=== PATIENT | female | born 1930 | race Caucasian/White ===

== ENCOUNTER 2017-07-28 06:45 | Inpatient (IN) | payer MEDICARE, BC ==
--- NOTE | 2017-07-28 08:04 | ED ---
General Adult HPI - General Chief complaint: Abdominal Pain Stated complaint: Constipation Time Seen by Provider: 07/28/17 07:46 Source: patient, family, RN notes reviewed Mode of arrival: ambulatory Limitations: no limitations - History of Present Illness Initial comments: Patient is a pleasant 86-year-old female presenting to the emergency Department with complaints of constipation. Patient states she's not had a bowel movement in more than 3 days. Patient believes that is probably been 5 days or so. Patient has had some nausea and mild emesis. Discomfort is mostly lower abdomen and mostly cramping. No fevers. No history of chronic constipation problems. - Related Data Home Medications Medication Instructions Recorded Confirmed Estrogens, Conjugated Cream 0.5 applicator VAGINAL WEFR 09/29/15 07/28/17 [Premarin Cream] Levothyroxine Sodium [Synthroid] 25 mcg PO DAILY 09/29/15 07/28/17 Atenolol [Tenormin] 37.5 mg PO DAILY 07/28/17 07/28/17 Cholecalciferol [Vitamin D3] 1,000 unit PO DAILY 07/28/17 07/28/17 Ipratropium-Albuterol Nebulize 3 ml INHALATION RT-TID 07/28/17 07/28/17 [Duoneb 0.5 mg-3 mg/3 ml Soln] Mometasone/Formoterol [Dulera 200 2 puff INHALATION RT-BID 07/28/17 07/28/17 Mcg/5 Mcg Inhaler] Montelukast [Singulair] 10 mg PO HS 07/28/17 07/28/17 Nortriptyline [Pamelor] 10 mg PO DAILY 07/28/17 07/28/17 Omeprazole 20 mg PO DAILY 07/28/17 07/28/17 Verapamil HCl [Verapamil Sr] 120 mg PO DAILY 07/28/17 07/28/17 Allergies Allergy/AdvReac Type Severity Reaction Status Date / Time carisoprodol [From Soma] Allergy Unknown Verified 07/28/17 08:40 celecoxib [From Celebrex] Allergy Unknown Verified 07/28/17 08:40 duloxetine HCl Allergy Unknown Verified 07/28/17 08:40 [From Cymbalta] lisinopril Allergy Unknown Verified 07/28/17 08:40 metaxalone [From Skelaxin] Allergy Unknown Verified 07/28/17 08:40 milk Allergy Diarrhea Verified 07/28/17 08:40 naproxen [From Naprosyn] Allergy Itching Verified 07/28/17 08:40 NSAIDS (Non-Steroidal Allergy Unknown Verified 07/28/17 08:40 Anti-Inflamma prednisone Allergy Unknown Verified 07/28/17 08:40 pregabalin [From Lyrica] Allergy Unknown Verified 07/28/17 08:40 rofecoxib [From Vioxx] Allergy Nausea & Verified 07/28/17 08:40 Vomiting & Diarrhea tramadol Allergy Itching Verified 07/28/17 08:40 dust mites Allergy Unknown Uncoded 07/28/17 06:57 Review of Systems ROS Statement: Those systems with pertinent positive or pertinent negative responses have been documented in the HPI. ROS Other: All systems not noted in ROS Statement are negative. Constitutional: Denies: fever Eyes: Denies: eye pain ENT: Denies: ear pain Respiratory: Denies: cough Cardiovascular: Denies: chest pain Endocrine: Denies: fatigue Gastrointestinal: Reports: abdominal pain, nausea, constipation Genitourinary: Denies: dysuria Musculoskeletal: Denies: back pain Skin: Denies: rash Neurological: Denies: weakness Past Medical History Past Medical History: Asthma, Fibromyalgia, Hypertension Additional Past Medical History / Comment(s): UTI, tachycardia History of Any Multi-Drug Resistant Organisms: None Reported Past Surgical History: Appendectomy, Hysterectomy, Orthopedic Surgery, Tubal Ligation Additional Past Surgical History / Comment(s): nasal surgery, cataracts Past Psychological History: No Psychological Hx Reported Smoking Status: Never smoker Past Alcohol Use History: None Reported Past Drug Use History: None Reported General Exam Limitations: no limitations General appearance: alert, in no apparent distress Head exam: Present: atraumatic Eye exam: Present: normal appearance, PERRL ENT exam: Present: normal oropharynx Neck exam: Present: normal inspection Respiratory exam: Present: normal lung sounds bilaterally Cardiovascular Exam: Present: regular rate, normal rhythm Expanded Peripheral pulses: 2+: Posterior Tibialis (R), Posterior Tibialis (L) GI/Abdominal exam: Present: soft, tenderness (Mild tenderness lower abdomen), normal bowel sounds. Absent: distended, guarding, rebound, rigid, pulsatile mass Extremities exam: Present: normal inspection Neurological exam: Present: alert Psychiatric exam: Present: normal affect, normal mood Skin exam: Present: normal color Course Vital Signs 07/28/17 07/28/17 07/28/17 06:51 07:44 08:50 Temperature 97.7 F Pulse Rate 92 76 76 Respiratory 20 16 16 Rate Blood Pressure 91/53 121/67 124/60 O2 Sat by Pulse 98 97 97 Oximetry Medical Decision Making - Medical Decision Making Patient reevaluated and resting comfortably in bed. Patient and family updated on results and plan. Case was discussed with Dr. Kwong covering for Dr. Bird. He does recommend medical admission for Dr. moran. - Lab Data Result diagrams: 07/28/17 07:22 07/28/17 07:22 Lab Results 07/28/17 07/28/17 07/28/17 Range/Units 07:22 07:22 07:22 WBC 11.5 H (3.8-10.6) k/uL RBC 4.24 (3.80-5.40) m/uL Hgb 14.1 (11.4-16.0) gm/dL Hct 43.7 (34.0-46.0) % MCV 103.1 H (80.0-100.0) fL MCH 33.4 (25.0-35.0) pg MCHC 32.4 (31.0-37.0) g/dL RDW 14.0 (11.5-15.5) % Plt Count 300 (150-450) k/uL Neutrophils % 85 % Lymphocytes % 6 % Monocytes % 6 % Eosinophils % 1 % Basophils % 1 % Neutrophils # 9.8 H (1.3-7.7) k/uL Lymphocytes # 0.7 L (1.0-4.8) k/uL Monocytes # 0.7 (0-1.0) k/uL Eosinophils # 0.1 (0-0.7) k/uL Basophils # 0.1 (0-0.2) k/uL Macrocytosis Slight PT 11.0 (9.0-12.0) sec INR 1.1 (<1.2) APTT 24.9 (22.0-30.0) sec Sodium 135 L (137-145) mmol/L Potassium 3.9 (3.5-5.1) mmol/L Chloride 101 (98-107) mmol/L Carbon Dioxide 25 (22-30) mmol/L Anion Gap 9 mmol/L BUN 14 (7-17) mg/dL Creatinine 0.72 (0.52-1.04) mg/dL Est GFR (MDRD) Af Amer >60 (>60 ml/min/1.73 sqM) Est GFR (MDRD) Non-Af >60 (>60 ml/min/1.73 sqM) Glucose 115 H (74-99) mg/dL Calcium 9.3 (8.4-10.2) mg/dL Total Bilirubin 1.7 H (0.2-1.3) mg/dL AST 33 (14-36) U/L ALT 43 (9-52) U/L Alkaline Phosphatase 67 (38-126) U/L Total Protein 5.7 L (6.3-8.2) g/dL Albumin 3.3 L (3.5-5.0) g/dL Amylase <30 L (30-110) U/L Lipase 35 (23-300) U/L - Radiology Data Radiology results: report reviewed (Computed tomography scan shows small bowel obstruction with transition in the pelvis.), image reviewed (Abdominal x-ray shows ileus versus obstruction.) Disposition Clinical Impression: Small bowel obstruction Disposition: ADMITTED IP TO THIS [facility] Referrals: William iBrd MD [Primary Care Provider] - 1-2 days Decision Time: 11:38
--- NOTE | 2017-07-28 08:51 | XR ---
EXAMINATION TYPE: XR abdomen 2V , 3 VIEWS DATE OF EXAM ORDERED: 07/28/2017 HISTORY: Pain. COMPARISON: None. FINDINGS: The lung bases are clear. The abdominal gas pattern is nonspecific. There are nondistended loops of large and small bowel throu ghout the abdomen. There are scattered air-fluid levels. There are phleboliths within the pelvis. IMPRESSION: GENERALIZED ILEUS VERSUS EARLY DISTAL SMALL BOWEL OBSTRUCTION.
[2017-07-28] MEDS ORDERED: ONDANSETRON 4 MG/2 ML VIAL IVP STA (08:57)
[2017-07-28] MEDS ORDERED: RX INFO: IV CONTRAST WAS GIVEN 1 EACH MISC MISCELLANE PRN (09:16)
[2017-07-28 09:43] LABS: Basophils # (A) 0.1 k/uL (0-0.2); Basophils % (A) 1 %; Eosinophils # (A) 0.1 k/uL (0-0.7); Eosinophils % (A) 1 %; HCT 43.7 % (34.0-46.0); HGB 14.1 gm/dL (11.4-16.0); Lymphocytes # (A) 0.7 k/uL (1.0-4.8); Lymphocytes % (A) 6 %; MCH 33.4 pg (25.0-35.0); MCHC 32.4 g/dL (31.0-37.0); MCV 103.1 fL (80.0-100.0); Macrocytosis Slight; Mean Platelet Volume 7.4; Monocytes # (A) 0.7 k/uL (0-1.0); Monocytes % (A) 6 %; Neutrophils # (A) 9.8 k/uL (1.3-7.7); Neutrophils % (A) 85 %; Platelet Count 300 k/uL (150-450); RBC 4.24 m/uL (3.80-5.40); WBC 11.5 k/uL (3.8-10.6)
[2017-07-28 09:51] LABS: INR 1.1 (<1.2); Partial Thromboplastin Time 24.9 sec (22.0-30.0)
[2017-07-28] MEDS ORDERED: SODIUM CHLORIDE 0.9% 1,000 ML IV STA (09:59)
[2017-07-28 10:01] LABS: ALT 43 U/L (9-52); AST 33 U/L (14-36); Albumin 3.3 g/dL (3.5-5.0); Alkaline Phosphatase 67 U/L (38-126); Amylase <30 U/L (30-110); Anion Gap 9 mmol/L; Blood Urea Nitrogen 14 mg/dL (7-17); Calcium 9.3 mg/dL (8.4-10.2); Carbon Dioxide 25 mmol/L (22-30); Chloride 101 mmol/L (98-107); Glucose 115 mg/dL (74-99); Lipase 35 U/L (23-300); Potassium 3.9 mmol/L (3.5-5.1); Sodium 135 mmol/L (137-145); Total Bilirubin 1.7 mg/dL (0.2-1.3); Total Protein 5.7 g/dL (6.3-8.2)
--- NOTE | 2017-07-28 10:47 | CT ---
EXAMINATION TYPE: CT abdomen pelvis w con DATE OF EXAM: 07/28/2017 REFERENCE: NONE HISTORY: Pain, rule out obstruction HISTORY: Constipation, possible obstruction REFERENCE: NONE CT DLP: 520.4 mGy Automated exposure control for dose reduction was used. TECHNIQUE: Helical acquisition through the abdomen and pelvis was obtained following the oral ingesti on of without Oral Contrast and following intravenous administration of 100 mL of Omnipaque 300. The data was reformatted in axial, coronal and sagittal projections. FINDINGS: There is some dependent atelectasis in the dependent portions of both lungs. There is no p leural or pericardial fluid. The heart is minimally enlarged. There is a questionable small ulcer or diverticulum measuring 9.5 mm involving the distal esophagus. There is a tiny hiatal hernia. Within the abdomen, the liver, spleen and gallbladder are normal. Both adrenal glands are normal. There is a simple appearing 3.9 cm cyst arising from the upper pole of the left kidney. There is a sm aller, 1.4 cm simple appearing cyst seen arising from the mid polar region of the left kidney anterio rly. The pancreas is unremarkable. There is atheromatous irregularity of the aorta. There is no significant retroperitoneal, iliac or in guinal adenopathy. The bladder is unremarkable. There is fairly extensive diverticular change involving the sigmoid colon. There is a moderate stool load. The appendix is not visualized. There are dilated loops of small bowel extending into the pelvis the distal small bowel is normal in caliber. A definite transition point is not identified. There is a small amount of free fluid in the pelvis. There is no evidence of free air. There is hypertrophic spondylosis and facet arthropathy within the spine. There is widening of the S2 neural foramen on the left. 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 IMPRESSION: 1. SMALL BOWEL OBSTRUCTION WITH TRANSITION SOMEWHERE IN THE PELVIS. 2. QUESTIONABLE DISTAL ESOPHAGEAL DIVERTICULUM VERSUS ULCER. 3. LEFT RENAL CYSTIC DISEASE. 4. DIVERTICULOSIS OF THE SIGMOID COLON. 5. DEGENERATIVE CHANGES WITHIN THE SPINE.
[2017-07-28] MEDS ORDERED: NALOXONE 0.4 MG/ML 1 ML VIAL IV PRN (11:38)
[2017-07-28] MEDS ORDERED: ONDANSETRON 4 MG/2 ML VIAL IVP PRN ×2 (11:38→16:43)
[2017-07-28] MEDS ORDERED: diphenhydrAMINE 50 MG/ML 1 ML VIAL IVP PRN (14:33)
[2017-07-28] MEDS: HYDROmorphone 2 MG/ML 1 ML SYRINGE IVP PRN (14:59)
--- NOTE | 2017-07-28 16:36 | HP ---
HISTORY AND PHYSICAL DATE OF ADMISSION: 07/28/17. PRESENT COMPLAINT: Abdominal pain, nausea, vomiting. HISTORY OF PRESENTING COMPLAINT: A very pleasant 86-year-old patient transferred here from [facility]. Three days ago started having some abdominal pain, went to see her local doctor, felt to have a UTI at that time. Impression was that and given Bactrim. The patient continued to have increasing abdominal pain, started having nausea, vomiting, decreased appetite. Does not think she had any fever. Then nausea proceed to started having vomiting this morning. The patient normally has a bowel movement every day or every other day. Last bowel movement was about 4 days ago. The patient had abdominal x-ray and CT scan in the ER that showed a small bowel obstruction. Dr. Chelsea Oglesby was consulted from the ER and patient admitted to the medical floor. The patient's daughter and son-in-law at the bedside. The patient feels tired and run down. REVIEW OF SYSTEMS: CONSTITUTIONAL: Tired. HEENT: None. RESPIRATORY: Mild asthma exacerbation. CARDIOVASCULAR: None. GASTROINTESTINAL: As above. GENITOURINARY: None. MUSCULOSKELETAL: Aches and pains in joints. DERMATOLOGICAL, HEMATOLOGIC, LYMPHATIC: None. PSYCHIATRY: None. NEUROLOGICAL: None. PAST MEDICAL HISTORY: Asthma, fibromyalgia, hypertension. The patient has been worked up for arrhythmias and had a monitor placed recently. Does not know diagnosis. PAST SURGICAL HISTORY: Appendectomy, hysterectomy, orthopedic surgery, tubal ligation, nasal surgery, cataract surgery. SOCIAL HISTORY: No smoking, no alcohol, . FAMILY HISTORY: Prostate cancer. HOME MEDICATIONS: 1. Verapamil SR 120 mg a day. 2. Omeprazole 20 mg a day. 3. Pamelor 10 mg p.o. daily. 4. Singulair 10 mg q.h.s. 5. Dulera 200/5 2 puffs b.i.d. 6. Synthroid 25 mcg p.o. daily. 7. DuoNeb b.i.d. 8. Premarin 0.5, vaginal cream Wednesdays and Fridays. 9. Vitamin D3 1000 units p.o. daily. 10.Tenormin 37.5 p.o. daily. ALLERGIES: INCLUDE SOMA, CELEBREX, CYMBALTA, LISINOPRIL, SKELAXIN, MILK, NAPROXEN, NSAIDS, PREDNISONE, LYRICA, VIOXX, ULTRAM, DUST MITES. PHYSICAL EXAMINATION: Vital signs on presentation: Temperature 97.7, pulse 92, respiratory 20, blood pressure 91/53, pulse ox 98% on room air, repeat blood pressure 121/67. GENERAL APPEARANCE: Average build, lying in bed, tired appearing. EYES: Pupils equal. Conjunctivae normal. HEENT: Oral cavity, dry mucous membrane. NECK: JVD not raised. Mass not palpable. RESPIRATORY: Effort slightly increased. LUNGS: Diminished breath sounds. Mild wheezing. CARDIOVASCULAR: First and second sounds normal. No edema. ABDOMEN: Slightly distended. Some right-sided tenderness. No guarding, rigidity. Bowel sounds are hyperactive. Liver and spleen not palpable. LYMPHATIC: No lymph node palpable in neck or axillae. PSYCHIATRY: Alert and oriented x3. Mood and affect normal. NEUROLOGICAL: Pupils equal. Cranial nerves grossly intact. Power and sensation grossly intact. INVESTIGATIONS: White count 11.5, hemoglobin 14.1, potassium 3.9, BUN 14, creatinine 0.72, amylase less than 30, lipase 35. CT scan of the abdomen shows multiple air-fluid levels and obstruction of the small bowel sounds distally and sigmoid diverticulosis. ASSESSMENT: 1. Acute small-bowel obstruction with some vomiting earlier. No fevers present. 2. Sigmoid diverticulosis, chronic asymptomatic. 3. Moderate persistent asthma with mild exacerbation. 4. Chronic fibromyalgia. 5. Essential hypertension. 6. Arrhythmia type unknown. Workup is in place. PLAN: Dr. Chelsea Oglesby was consulted from the ER. The patient did n.p.o. except for p.o. medications, given IV fluids. Home medication will be resumed. Patient will be put on bronchodilators. Care was discussed with the patient. Questions were answered. MMODL / IJN: [id number] /
[2017-07-28] MEDS: IPRATROPIUM-ALBUTEROL 3 ML NEB INHALATION SCH ×2 (16:42→20:37)
[2017-07-28] MEDS ORDERED: BUDESONIDE 1 MG/2 ML NEBU INHALATION SCH ×2 (17:00)
[2017-07-28] MEDS: ENOXAPARIN 40 MG/0.4 ML SYRINGE SQ SCH (18:12)
[2017-07-28] MEDS: SODIUM CHLORIDE 0.9% 1,000 ML IV SCH (18:46)
[2017-07-28] MEDS: METOCLOPRAMIDE 5 MG/ML 2 ML VIAL IVP SCH ×2 (18:48→23:48)
[2017-07-28] MEDS: CHOLECALCIFEROL 1,000 UNIT TAB PO SCH (19:56)
[2017-07-28] MEDS: MONTELUKAST 10 MG TAB PO SCH (19:56)
[2017-07-28] MEDS ORDERED: IPRATROPIUM-ALBUTEROL 3 ML NEB INHALATION SCH (20:00)
[2017-07-28] MEDS: SYMBICORT 160-4.5 MCG INHALER INHALATION SCH (20:37)
[2017-07-29] MEDS: SODIUM CHLORIDE 0.9% 1,000 ML IV SCH ×4 (02:08→23:40)
[2017-07-29] MEDS: METOCLOPRAMIDE 5 MG/ML 2 ML VIAL IVP SCH ×4 (05:26→23:33)
[2017-07-29] MEDS: LEVOTHYROXINE 25 MCG TAB PO SCH (05:26)
[2017-07-29] MEDS: ENOXAPARIN 40 MG/0.4 ML SYRINGE SQ SCH (09:10)
[2017-07-29] MEDS: PANTOPRAZOLE 40 MG/10 ML VIAL IV SCH (09:10)
[2017-07-29] MEDS: NORTRIPTYLINE 10 MG CAP PO SCH (09:10)
[2017-07-29] MEDS: CHOLECALCIFEROL 1,000 UNIT TAB PO SCH (09:10)
[2017-07-29] MEDS: VERAPAMIL SR 120 MG TABLET.ER PO SCH (09:11)
[2017-07-29] MEDS: ATENOLOL 12.5 MG TAB PO SCH (09:11)
[2017-07-29] MEDS: IPRATROPIUM-ALBUTEROL 3 ML NEB INHALATION SCH ×4 (09:20→21:49)
[2017-07-29] MEDS: SYMBICORT 160-4.5 MCG INHALER INHALATION SCH ×2 (09:20→21:49)
--- NOTE | 2017-07-29 09:36 | P.GSCN ---
<Lavern Barker - Last Filed: 07/29/17 09:37> History of Present Illness Consult date: 07/29/17 History of present illness: 86-year-old femalewho lives in [place] presented to the emergency room with a chief complaint of developing abdominal pain with no bowel movement greater than 5 dayswith persistent nausea vomiting decrease appetite. Patient states that she did go to [place] [facility] the day before to be evaluated for lower abdominal pain. Patient stated that she was told she had a urinary tract infection was started on Bactrim. states there was no significant improvement in the abdominal pain came to the emergency room [facility] to be evaluated. no prior episodes states her last colonoscopy 5 years prior told had diverticular disease done by Dr. Chau Manriquez. Patient states she's fairly independent 86-year-old active female who has no prior history of chronic constipation or abdominal pain when questioning states she normally does not have constipation problems normally has a bowel movement every other day patient stated that she did try to use over-the- counter laxative products with no relief in [place] she did see a front office specialist Dr. Ritchie had a Holter monitor recently does not know the results denies any chest pain shortness breath dizziness or lightheadedness when questioning Patient had a CAT scan abdomen and pelvis done with contrastwhich did show small bowel obstruction near transition somewhere in the pelvis questionable distal esophageal diverticulum versus an ulcer diverticulosis in the sigmoid colon noted Review of Systems essentially unremarkable except as mentioned in the present illness Past Medical History Past Medical History: Asthma, Fibromyalgia, Hypertension Additional Past Medical History / Comment(s): UTI, tachycardia History of Any Multi-Drug Resistant Organisms: None Reported Past Surgical History: Appendectomy, Hysterectomy, Orthopedic Surgery, Tubal Ligation Additional Past Surgical History / Comment(s): nasal surgery, cataracts Past Anesthesia/Blood Transfusion Reactions: No Reported Reaction Additional Past Anesthesia/Blood Transfusion Reaction / Comm: no history of blood transfusion Past Psychological History: No Psychological Hx Reported Smoking Status: Never smoker Past Alcohol Use History: None Reported Past Drug Use History: None Reported - Past Family History Father Family Medical History: Cancer Additional Family Medical History / Comment(s): prostate Mother Additional Family Medical History / Comment(s): aneurysm Medications and Allergies Home Medications Medication Instructions Recorded Confirmed Type Estrogens, Conjugated Cream 0.5 applicator VAGINAL WEFR 09/29/15 07/28/17 History [Premarin Cream] Levothyroxine Sodium [Synthroid] 25 mcg PO DAILY 09/29/15 07/28/17 History Atenolol [Tenormin] 37.5 mg PO DAILY 07/28/17 07/28/17 History Cholecalciferol [Vitamin D3] 1,000 unit PO DAILY 07/28/17 07/28/17 History Ipratropium-Albuterol Nebulize 3 ml INHALATION RT-TID 07/28/17 07/28/17 History [Duoneb 0.5 mg-3 mg/3 ml Soln] Mometasone/Formoterol [Dulera 200 2 puff INHALATION RT-BID 07/28/17 07/28/17 History Mcg/5 Mcg Inhaler] Montelukast [Singulair] 10 mg PO HS 07/28/17 07/28/17 History Nortriptyline [Pamelor] 10 mg PO DAILY 07/28/17 07/28/17 History Omeprazole 20 mg PO DAILY 07/28/17 07/28/17 History Verapamil HCl [Verapamil Sr] 120 mg PO DAILY 07/28/17 07/28/17 History Allergies Allergy/AdvReac Type Severity Reaction Status Date / Time carisoprodol [From Soma] Allergy Unknown Verified 07/28/17 08:40 celecoxib [From Celebrex] Allergy Unknown Verified 07/28/17 08:40 duloxetine HCl Allergy Unknown Verified 07/28/17 08:40 [From Cymbalta] lisinopril Allergy Unknown Verified 07/28/17 08:40 metaxalone [From Skelaxin] Allergy Unknown Verified 07/28/17 08:40 milk Allergy Diarrhea Verified 07/28/17 08:40 naproxen [From Naprosyn] Allergy Itching Verified 07/28/17 08:40 NSAIDS (Non-Steroidal Allergy Unknown Verified 07/28/17 08:40 Anti-Inflamma prednisone Allergy Unknown Verified 07/28/17 08:40 pregabalin [From Lyrica] Allergy Unknown Verified 07/28/17 08:40 rofecoxib [From Vioxx] Allergy Nausea & Verified 07/28/17 08:40 Vomiting & Diarrhea tramadol Allergy Itching Verified 07/28/17 08:40 dust mites Allergy Unknown Uncoded 07/28/17 06:57 Surgical - Exam Vital Signs Temp Pulse Resp BP Pulse Ox 97.7 F 92 20 91/53 98 07/28/17 06:51 07/28/17 06:51 07/28/17 06:51 07/28/17 06:51 07/28/17 06:51 GENERAL APPEARANCE: pleasant 86-year-old female patient is alert, oriented3, in no acute distress. VITAL SIGNS: reviewed HEENT: Head is normocephalic and atraumatic. Pupils are equal and reactive. The nares are patent. Oropharynx is clear without lesions. NECK: Supple without lymphadenopathy. Traches midline. HEART: S1, S2. Regular rate and rhythm.no murmur noted monitor sinus heart rate in the 80s to 90s LUNGS: No crackles or wheezes are heard.adequate air movement bilaterally on room air sats 94% no cough ABDOMEN: Soft, nasal gastric tube in place connected to suction clear secretions in the canister slight tenderness bilateral lower quadrants nondistended with good bowel sounds. No peritoneal signs. No palpable organomegaly or masses.states less abdominal discomfort EXTREMITIES: Normal skin color and turgor. No cyanosis, rash, ulceration, clubbing or edema. Radial pedal pulses are 2/4 bilaterally.multiple purple ecchymotic bruising noted to the forearms NEUROLOGICAL: No focal deficits. Strength and sensation are grossly intact. Results - Labs 07/28/17 07:22 07/28/17 07:22 Abnormal Lab Results - Last 24 Hours (Table) 07/28/17 07/28/17 Range/Units 07:22 07:22 WBC 11.5 H (3.8-10.6) k/uL MCV 103.1 H (80.0-100.0) fL Neutrophils # 9.8 H (1.3-7.7) k/uL Lymphocytes # 0.7 L (1.0-4.8) k/uL Sodium 135 L (137-145) mmol/L Glucose 115 H (74-99) mg/dL Total Bilirubin 1.7 H (0.2-1.3) mg/dL Total Protein 5.7 L (6.3-8.2) g/dL Albumin 3.3 L (3.5-5.0) g/dL Amylase <30 L (30-110) U/L Diabetes panel 07/28/17 Range/Units 07:22 Sodium 135 L (137-145) mmol/L Potassium 3.9 (3.5-5.1) mmol/L Chloride 101 (98-107) mmol/L Carbon Dioxide 25 (22-30) mmol/L BUN 14 (7-17) mg/dL Creatinine 0.72 (0.52-1.04) mg/dL Glucose 115 H (74-99) mg/dL Calcium 9.3 (8.4-10.2) mg/dL AST 33 (14-36) U/L ALT 43 (9-52) U/L Alkaline Phosphatase 67 (38-126) U/L Total Protein 5.7 L (6.3-8.2) g/dL Albumin 3.3 L (3.5-5.0) g/dL Calcium panel 07/28/17 Range/Units 07:22 Calcium 9.3 (8.4-10.2) mg/dL Albumin 3.3 L (3.5-5.0) g/dL Pituitary panel 07/28/17 Range/Units 07:22 Sodium 135 L (137-145) mmol/L Potassium 3.9 (3.5-5.1) mmol/L Chloride 101 (98-107) mmol/L Carbon Dioxide 25 (22-30) mmol/L BUN 14 (7-17) mg/dL Creatinine 0.72 (0.52-1.04) mg/dL Glucose 115 H (74-99) mg/dL Calcium 9.3 (8.4-10.2) mg/dL Adrenal panel 07/28/17 Range/Units 07:22 Sodium 135 L (137-145) mmol/L Potassium 3.9 (3.5-5.1) mmol/L Chloride 101 (98-107) mmol/L Carbon Dioxide 25 (22-30) mmol/L BUN 14 (7-17) mg/dL Creatinine 0.72 (0.52-1.04) mg/dL Glucose 115 H (74-99) mg/dL Calcium 9.3 (8.4-10.2) mg/dL Total Bilirubin 1.7 H (0.2-1.3) mg/dL AST 33 (14-36) U/L ALT 43 (9-52) U/L Alkaline Phosphatase 67 (38-126) U/L Total Protein 5.7 L (6.3-8.2) g/dL Albumin 3.3 L (3.5-5.0) g/dL Assessment and Plan Assessment: impression present on admission abdominal pain nausea vomiting decrease appetite suspect due to small bowel obstruction as evident on a CAT scan of the abdomen and pelvis new-onset constipation no bowel movement for 5 days moderate persistent asthma with mild exacerbation CAT scan abdomen and pelvis shows diverticulosis of the sigmoid colon CAT scan of the abdomen pelvis questionable distal esophageal diverticulum versus ulcer History of cardiac arrhythmia workup in place recent Holter monitor placed Essential hypertension Plan Continue nasogastric tube to suction DVT and GI prophylaxis Pain control IV fluid for hydration Further surgical recommendations pending Will follow clinical course closely dictating Surgical consultation note for Dr. miller The above impression and plan of care have been discussed and directed by signing physician. Lavern Barker nurse practitioner acting as scribe for signing physician. <Kiki Acosta - Last Filed: 07/29/17 14:02> Surgical - Exam Vital Signs Temp Pulse Resp BP Pulse Ox 97.7 F 92 20 91/53 98 07/28/17 06:51 07/28/17 06:51 07/28/17 06:51 07/28/17 06:51 07/28/17 06:51 Results - Labs 07/28/17 07:22 07/29/17 12:29 Abnormal Lab Results - Last 24 Hours (Table) 07/29/17 Range/Units 12:29 Sodium 136 L (137-145) mmol/L Total Bilirubin 1.6 H (0.2-1.3) mg/dL Total Protein 5.3 L (6.3-8.2) g/dL Albumin 2.9 L (3.5-5.0) g/dL Diabetes panel 07/29/17 Range/Units 12:29 Sodium 136 L (137-145) mmol/L Potassium 3.7 (3.5-5.1) mmol/L Chloride 107 (98-107) mmol/L Carbon Dioxide 22 (22-30) mmol/L BUN 17 (7-17) mg/dL Creatinine 0.63 (0.52-1.04) mg/dL Glucose 89 (74-99) mg/dL Calcium 8.6 (8.4-10.2) mg/dL AST 30 (14-36) U/L ALT 36 (9-52) U/L Alkaline Phosphatase 64 (38-126) U/L Total Protein 5.3 L (6.3-8.2) g/dL Albumin 2.9 L (3.5-5.0) g/dL Calcium panel 07/29/17 Range/Units 12:29 Calcium 8.6 (8.4-10.2) mg/dL Albumin 2.9 L (3.5-5.0) g/dL Pituitary panel 07/29/17 Range/Units 12:29 Sodium 136 L (137-145) mmol/L Potassium 3.7 (3.5-5.1) mmol/L Chloride 107 (98-107) mmol/L Carbon Dioxide 22 (22-30) mmol/L BUN 17 (7-17) mg/dL Creatinine 0.63 (0.52-1.04) mg/dL Glucose 89 (74-99) mg/dL Calcium 8.6 (8.4-10.2) mg/dL Adrenal panel 07/29/17 Range/Units 12:29 Sodium 136 L (137-145) mmol/L Potassium 3.7 (3.5-5.1) mmol/L Chloride 107 (98-107) mmol/L Carbon Dioxide 22 (22-30) mmol/L BUN 17 (7-17) mg/dL Creatinine 0.63 (0.52-1.04) mg/dL Glucose 89 (74-99) mg/dL Calcium 8.6 (8.4-10.2) mg/dL Total Bilirubin 1.6 H (0.2-1.3) mg/dL AST 30 (14-36) U/L ALT 36 (9-52) U/L Alkaline Phosphatase 64 (38-126) U/L Total Protein 5.3 L (6.3-8.2) g/dL Albumin 2.9 L (3.5-5.0) g/dL Assessment and Plan Plan: Patient examined. She is comfortable. Abdomen is soft. Minimal flatus. NG tube has no further output.No peritonitis CT scan abd/pelvis reviewed AXR from this am reviewed Continue NPO, NG decompression and IV hydration Check am labs Xlap, lysis of adhesions and possible bowel resection if no improvement in next 24 hrs Discussed with Christie patient's daughter on the phone and discussed about the plan Cardiology consult H/O arrythmia Time with Patient: Greater than 30
--- NOTE | 2017-07-29 12:18 | XR ---
EXAMINATION TYPE: XR abdomen acute w cxr DATE OF EXAM: 07/29/2017 COMPARISON: NONE HISTORY: History of bowel obstruction. Chest and abdominal pain. TECHNIQUE: Single frontal chest radiograph as well as upright and supine abdominal radiographs were obtained. FINDINGS: Enteric tube courses beyond the gastroesophageal junction with its fenestrated portion loca fatimah in the region of the gastric fundus and its distal tip oriented cephalad and laterally. The lungs are clear without evidence of focal consolidation, pleural effusion or pneumothorax. Cardiomediastin al silhouette is within normal limits. There is tortuosity of the descending thoracic aorta. Osseous structures appear intact. Multiple dilated loops of small bowel are seen within the mid abdomen and right upper quadrant measur ing up to 4.0 cm. Differential air-fluid levels are clustered within the mid abdomen. Air and stool a re noted within the rectal vault. No pneumoperitoneum. No abnormal calcifications within the abdomen or pelvis. Moderate multilevel degenerative change of the spine and femoral acetabular joints are pre sent. IMPRESSION: 1. Findings suggestive of at least partial small bowel obstruction although air in stool are noted wi thin the rectum. Progress examinations are recommended for evaluation of progression/resolution. 2. No pneumoperitoneum. 3. No acute cardiopulmonary process. 4. Appropriately placed enteric tube beyond the gastroesophageal junction although this gastric fundu s and its distal tip is oriented cephalad and lateral.
[2017-07-29 13:42] LABS: ALT 36 U/L (9-52); AST 30 U/L (14-36); Albumin 2.9 g/dL (3.5-5.0); Alkaline Phosphatase 64 U/L (38-126); Anion Gap 7 mmol/L; Blood Urea Nitrogen 17 mg/dL (7-17); Calcium 8.6 mg/dL (8.4-10.2); Carbon Dioxide 22 mmol/L (22-30); Chloride 107 mmol/L (98-107); Glucose 89 mg/dL (74-99); Potassium 3.7 mmol/L (3.5-5.1); Sodium 136 mmol/L (137-145); Total Bilirubin 1.6 mg/dL (0.2-1.3); Total Protein 5.3 g/dL (6.3-8.2)
[2017-07-29 14:08] LABS: HCT 40.4 % (34.0-46.0); MCH 34.3 pg (25.0-35.0); MCHC 32.1 g/dL (31.0-37.0); MCV 106.9 fL (80.0-100.0); Macrocytosis Moderate; Mean Platelet Volume 7.5; Platelet Count 281 k/uL (150-450); RBC 3.78 m/uL (3.80-5.40); RDW 14.3 % (11.5-15.5); WBC 9.7 k/uL (3.8-10.6)
--- NOTE | 2017-07-29 15:52 | PN ---
PROGRESS NOTE DATE OF SERVICE: 07/29/17. ATTENDING NOTE: Patient seen and examined by me. I discussed with nurse practitioner, Isabellgaviota. Patient admitted with small-bowel obstruction. NG tube remains in place. No nausea, vomiting. No abdominal pain. Small amount of flatus was passed. The patient's family is at the bedside. PHYSICAL EXAMINATION: Temperature 98.2, pulse 95, respirations 16, blood pressure 125/69, pulse ox 94% on room air. ABDOMEN: Soft. No tenderness. Bowel sounds are present. NG tube remains in place. White count 9.7, potassium 3.7. Abdominal x-ray shows some improvement though evidence of bowel obstruction still present with less air-fluid levels. ASSESSMENT: 1. Acute small-bowel obstruction, slow to respond. 2. Moderate persistent asthma, some improvement. 3. Arrhythmia. PLAN: Discussed with Dr. Acosta, will follow clinically. Cardiology was consulted for the arrhythmia workup. Will look at the patient's EKG. MMODL / IJN: [id number] /
--- NOTE | 2017-07-29 18:02 | P.CNPUL ---
History of Present Illness Consult date: 07/29/17 Requesting physician: Ayden Felder Reason for consult: other Chief complaint: Constipation, nausea, emesis, abdominal cramping History of present illness: Martha is a 86-year-old white female patient that sees Dr. Henry in our office for her history of mild persistent asthma, presented to the emergency department on 07/28/2017 with complaints of 3 day history of constipation, lower abdominal pain, nausea, vomiting. She denied any fever or chills. Denied any dysuria. Denied any chest pain, increased shortness of breath, chest congestion, or wheezing. Abdominal x-ray on December 222017 showed generalized ileus versus early distal small bowel obstruction. CT abdomen and pelvis on 2017 showed small bowel obstruction with transition in the pelvis. Questionable distal esophageal diverticulum versus ulcer. Left renal cystic disease, diverticulosis of the sigmoid colon. Admission lab work showed WBC of 11.5, hemoglobin of 14.1, serum sodium of 135, serum potassium 3.9, chloride of 101, B1 of 14, creatinine 0.72. Amylase less than 30, and lipase of 35. Patient has been afebrile, hemodynamically stable, on room air, with O2 sat at 95%. NG tube was inserted, connected to low intermittent suction, patient is nothing by mouth, IV fluids were started with 0.9 at 100 ML per hour. Surgery was consulted. Abdominal series on 07/29/2017 showed findings suggestive of at least partial small bowel obstruction, no pneumoperitoneum, no acute cardiopulmonary process. Review of Systems All systems: negative Constitutional: Denies chills, Denies fever Eyes: denies blurred vision, denies pain Ears, nose, mouth and throat: Denies headache, Denies sore throat Cardiovascular: Denies chest pain, Denies shortness of breath Respiratory: Denies cough Gastrointestinal: Denies abdominal pain, Denies diarrhea, Denies nausea, Denies vomiting Genitourinary: Denies dysuria, Denies hematuria Musculoskeletal: Denies myalgias Integumentary: Denies pruritus, Denies rash Neurological: Denies numbness, Denies weakness Psychiatric: Denies anxiety, Denies depression Endocrine: Denies fatigue, Denies weight change Past Medical History Past Medical History: Asthma, Fibromyalgia, Hypertension Additional Past Medical History / Comment(s): UTI, tachycardia History of Any Multi-Drug Resistant Organisms: None Reported Past Surgical History: Appendectomy, Hysterectomy, Orthopedic Surgery, Tubal Ligation Additional Past Surgical History / Comment(s): nasal surgery, cataracts Past Anesthesia/Blood Transfusion Reactions: No Reported Reaction Additional Past Anesthesia/Blood Transfusion Reaction / Comment(s): no history of blood transfusion Past Psychological History: No Psychological Hx Reported Smoking Status: Never smoker Past Alcohol Use History: None Reported Past Drug Use History: None Reported - Past Family History Father Family Medical History: Cancer Additional Family Medical History / Comment(s): prostate Mother Additional Family Medical History / Comment(s): aneurysm Medications and Allergies Home Medications Medication Instructions Recorded Confirmed Type Estrogens, Conjugated Cream 0.5 applicator VAGINAL WEFR 09/29/15 07/28/17 History [Premarin Cream] Levothyroxine Sodium [Synthroid] 25 mcg PO DAILY 09/29/15 07/28/17 History Atenolol [Tenormin] 37.5 mg PO DAILY 07/28/17 07/28/17 History Cholecalciferol [Vitamin D3] 1,000 unit PO DAILY 07/28/17 07/28/17 History Ipratropium-Albuterol Nebulize 3 ml INHALATION RT-TID 07/28/17 07/28/17 History [Duoneb 0.5 mg-3 mg/3 ml Soln] Mometasone/Formoterol [Dulera 200 2 puff INHALATION RT-BID 07/28/17 07/28/17 History Mcg/5 Mcg Inhaler] Montelukast [Singulair] 10 mg PO HS 07/28/17 07/28/17 History Nortriptyline [Pamelor] 10 mg PO DAILY 07/28/17 07/28/17 History Omeprazole 20 mg PO DAILY 07/28/17 07/28/17 History Verapamil HCl [Verapamil Sr] 120 mg PO DAILY 07/28/17 07/28/17 History Allergies Allergy/AdvReac Type Severity Reaction Status Date / Time carisoprodol [From Soma] Allergy Unknown Verified 07/28/17 08:40 celecoxib [From Celebrex] Allergy Unknown Verified 07/28/17 08:40 duloxetine HCl Allergy Unknown Verified 07/28/17 08:40 [From Cymbalta] lisinopril Allergy Unknown Verified 07/28/17 08:40 metaxalone [From Skelaxin] Allergy Unknown Verified 07/28/17 08:40 milk Allergy Diarrhea Verified 07/28/17 08:40 naproxen [From Naprosyn] Allergy Itching Verified 07/28/17 08:40 NSAIDS (Non-Steroidal Allergy Unknown Verified 07/28/17 08:40 Anti-Inflamma prednisone Allergy Unknown Verified 07/28/17 08:40 pregabalin [From Lyrica] Allergy Unknown Verified 07/28/17 08:40 rofecoxib [From Vioxx] Allergy Nausea & Verified 07/28/17 08:40 Vomiting & Diarrhea tramadol Allergy Itching Verified 07/28/17 08:40 dust mites Allergy Unknown Uncoded 07/28/17 06:57 Physical Exam Vitals: Vital Signs Temp Pulse Pulse Resp BP Pulse Ox 07/29/17 16:41 83 07/29/17 16:28 80 07/29/17 14:57 98.5 F 73 16 107/58 95 07/29/17 13:21 96 07/29/17 13:09 96 07/29/17 09:36 88 07/29/17 09:21 80 07/29/17 07:00 98.2 F 95 16 125/69 94 L 07/29/17 02:05 98.4 F 94 18 120/72 94 L 07/28/17 20:56 80 07/28/17 20:40 78 07/28/17 19:48 98.4 F 83 16 127/80 91 L Intake and Output 07/29/17 07/29/17 07/29/17 06:59 14:59 22:59 Intake Total 1000 880 Output Total 750 Balance 250 880 Intake: IV 1000 Sodium Chloride 0.9% 1, 1000 000 ml @ 100 mls/hr IV . Q10H ST[facility] Rx#:[id number] Intake, IV Titration 880 Amount Sodium Chloride 0.9% 1, 880 000 ml @ 110 mls/hr IV . Q9H6M [facility] Rx#:[id number] Output: Gastric Drainage 150 Urine 600 Other: # Voids 1 1 GENERAL EXAM: Alert, active, comfortable in no apparent distress. HEAD: Normocephalic/atraumatic. EYES: Normal reaction of pupils, equal size. Conjunctiva pink, sclera white. NOSE: Clear with pink turbinates. NG tube present, connected to low intermittent suction, with moderate light brownish output with some mucous THROAT: No erythema or exudates. NECK: No masses, no JVD, no thyroid enlargement, no adenopathy. CHEST: No chest wall deformity. Symmetrical expansion. LUNGS: Equal air entry with no crackles, wheeze, rhonchi or dullness. CVS: Regular rate and rhythm, normal S1 and S2, no gallops, no murmurs, no rubs ABDOMEN: Soft, nontender. No hepatosplenomegaly, normal bowel sounds, no guarding or rigidity. EXTREMITIES: No clubbing, no edema, no cyanosis, 2+ pulses and upper and lower extremities. MUSCULOSKELETAL: Muscle strength and tone normal. SPINE: No scoliosis or deformity SKIN: No rashes CENTRAL NERVOUS SYSTEM: Alert and oriented -3. No focal deficits, tone is normal in all 4 extremities. PSYCHIATRIC: Alert and oriented -3. Appropriate affect. Intact judgment and insight. Results - Laboratory Findings CBC and BMP: 07/29/17 12:29 07/29/17 12:29 PT/INR, D-dimer PT 11.0 sec (9.0-12.0) 07/28/17 07:22 INR 1.1 (<1.2) 07/28/17 07:22 Abnormal lab findings: Abnormal Labs 07/28/17 07/28/17 07/29/17 07:22 07:22 12:29 WBC 11.5 H RBC 3.78 L MCV 103.1 H 106.9 H Neutrophils # 9.8 H Lymphocytes # 0.7 L Sodium 135 L Glucose 115 H Total Bilirubin 1.7 H Total Protein 5.7 L Albumin 3.3 L Amylase <30 L 07/29/17 12:29 WBC RBC MCV Neutrophils # Lymphocytes # Sodium 136 L Glucose Total Bilirubin 1.6 H Total Protein 5.3 L Albumin 2.9 L Amylase - Diagnostic Findings Chest x-ray: report reviewed Additional studies: Abdomen x-ray, CT of abdomen and pelvis, an acute abdominal series were reviewed Assessment and Plan Plan: Assessment: #1. Acute abdominal pain, secondary to acute small bowel obstruction. Patient presented with nausea and vomiting, lower abdominal pain, and 3 day history of constipation. No fever, no chills. CT of abdomen and pelvis showed small bowel obstruction with transition somewhere in the pelvis. #2. Mild persistent asthma, with no sign of current exacerbation #3. Hypothyroidism #4. Hypertension #5. Fibromyalgia #6. 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 Patient is a lifetime nonsmoker #10. History of hysterectomy, appendectomy Plan: Patient's asthma is currently without any evidence of acute exacerbation. She does report some cough, this could be related to NG tube and the irritation from it. Lung sounds are negative for any wheezing or chest congestion. We will put the patient on DuoNeb nebulized treatments, and Symbicort. Currently she is nothing by mouth, so were not able to restart her Singulair. We will follow with her in case patient does require surgical intervention for her small bowel obstruction. I performed a history & physical examination of the patient and discussed their management with my nurse practitioner, Monica Babb. I reviewed the nurse practitioner's note and agree with the documented findings and plan of care. Lung sounds are clear. The findings and the impression was discussed with the patient. I attest to the documentation by the nurse practitioner. Time with Patient: Greater than 30
[2017-07-29] MEDS ORDERED: IPRATROPIUM-ALBUTEROL 3 ML NEB INHALATION PRN ×2 (18:03)
--- NOTE | 2017-07-29 18:04 | ECHOF ---
Referral Reason:chest pain MEASUREMENTS -------- HEIGHT: 162.6 cm WEIGHT: 66.2 kg BP: IVSd: 1.0 cm (0.6 - 1.1) LVIDd: 4.6 cm (3.9 - 5.3) LVPWd: 1.1 cm (0.6 - 1.1) IVSs: 1.7 cm LVIDs: 1.0 cm LVPWs: 1.7 cm Ao Diam: 3.4 cm (2.0 - 3.7) AV Cusp: 2.2 cm (1.5 - 2.6) LA Diam: 3.6 cm (2.7 - 3.8) MV EXCURSION: 13.883 mm (> 18.000) MV EF SLOPE: 64 mm/s (70 - 150) EPSS: 1.3 cm MV E Dmitry: 0.68 m/s MV DecT: 270 ms MV A Dmitry: 0.75 m/s MV E/A Ratio: 0.91 AR PHT: 879 ms RAP: 5.00 mmHg RVSP: 23.61 mmHg FINDINGS -------- Sinus rhythm. This was a technically good study. The left ventricular size is normal. Left ventricular wall thickness is normal. Overall left vent ricular systolic function is normal with, an EF between 55 - 60 %. The right ventricle is normal in size and function. The left atrium is normal in size. The right atrium is normal in size. The aortic valve is trileaflet, and appears structurally normal. No aortic stenosis or regurgitation. Trace amount of aortic regurgitation. The mitral valve leaflets are mildly thickened. There is trace mitral regurgitation. Trace tricuspid regurgitation present. The right ventricular systolic pressure, as measured by Dopp ler, is 23.61mmHg. Pulmonic valve appears structurally normal. The aortic root size is normal. Normal inferior vena cava with normal inspiratory collapse consistent with estimated right atrial pre ssure of 5 mmHg. The pericardium is normal. CONCLUSIONS -------- 1. Sinus rhythm. 2. This was a technically good study. 3. The left ventricular size is normal. 4. Left ventricular wall thickness is normal. 5. Overall left ventricular systolic function is normal with, an EF between 55 - 60 %. 6. The right ventricle is normal in size and function. 7. The left atrium is normal in size. 8. The right atrium is normal in size. 9. The aortic valve is trileaflet, and appears structurally normal. No aortic stenosis or regurgitati on. 10. Trace amount of aortic regurgitation. 11. The mitral valve leaflets are mildly thickened. 12. There is trace mitral regurgitation. 13. Trace tricuspid regurgitation present. 14. The right ventricular systolic pressure, as measured by Doppler, is 23.61mmHg. 15. Pulmonic valve appears structurally normal. 16. The aortic root size is normal. 17. Normal inferior vena cava with normal inspiratory collapse consistent with estimated right atrial pressure of 5 mmHg. 18. The pericardium is normal. ALGOLOGY TEACHER: Cordelia Guzman RDCS
--- NOTE | 2017-07-29 19:41 | P.PN ---
Progress Note - Text Progress Note Date: 07/29/17 DATE OF SERVICE: 07/29/2017 PRESENTING COMPLAINT: Abdominal pain nausea and vomiting. HISTORY OF PRESENT ILLNESS: 86-year-old female was transferred from an outside hospital 3 days ago this began having abdominal pain so her local doctor felt to have a UTI given Bactrim continued to have increasing abdominal pain started having nausea vomiting and decreased appetite. Last bowel movement was 4 days ago normally has a bowel movement every other day. admitted small bowel obstruction. INTERVAL HISTORY: 07/29/2017: Patient lying in bed NG tube in place no further nausea or vomiting. Remains nothing by mouth, ambulatory with some assistance, passing some flatus. Family at the bedside, questions answered. REVIEW OF SYSTEMS: Done for constitutional ,cardiovascular, GI, pulmonary with relevant findings as above. CURRENT MEDICATIONS DuoNeb, Tenormin, Dulcolax, Symbicort, cholecalciferol, Benadryl, Lovenox, hydromorphone, Synthroid, Reglan, Singulair, nortriptyline, Zofran, Protonix, verapamil. PHYSICAL EXAM VITAL SIGNS: Temperature 98.2, pulse 95, respiratory rate 16, blood pressure 125/69, oxygen saturation 94% on room air. GENERAL APPEARANCE: Lying in bed, tired appearing HEENT: Normocephalic, Pupils equal. Conjunctiva normal. JVD not raised. Mass not palpable. Dry mucous membranes: RESPIRATORY: Respiratory effort normal. Lungs diminished to auscultation. CARDIOVASCULAR: First and second sounds normal. No edema. ABDOMEN: Soft. Liver and spleen not palpable. Mild tenderness. No mass palpable. PSYCHIATRY: Alert and oriented x3. Mood and affect normal. INVESTIGATIONS: Labs: Hemoglobin 13.0, sodium 136, potassium 3.7, albumin 2.9. Echocardiogram: Sinus rhythm EF between 55 and 60%, trace mitral, tricuspid, regurgitation ASSESSMENT: -Acute small bowel obstruction, slow to respond. -Sigmoid diverticulosis, chronic asymptomatic. -Moderate persistent asthma, some improvement. -Chronic fibromyalgia. -Essential hypertension. -Arrhythmia, type unknown, workup is in place. PLAN: Continue NG tube to suction, pain control IV fluids, await additional input from cardiology and pulmonology. Plan of care discussed at the bedside with patient and family questions answered. We will follow closely. MIX CRUSHER OPERATOR statement: Patient was seen and examined by nurse practitioner Nadine Pan and all elements of the case discussed with attending Dr. Felder
[2017-07-29] MEDS: MONTELUKAST 10 MG TAB PO SCH (20:27)
[2017-07-29] MEDS: BISACODYL 10 MG SUPP RECTAL SCH (20:27)
[2017-07-30] MEDS: METOCLOPRAMIDE 5 MG/ML 2 ML VIAL IVP SCH ×4 (05:15→23:22)
[2017-07-30] MEDS: LEVOTHYROXINE 25 MCG TAB PO SCH (05:16)
[2017-07-30] MEDS: IPRATROPIUM-ALBUTEROL 3 ML NEB INHALATION SCH ×4 (07:26→20:44)
[2017-07-30] MEDS: SYMBICORT 160-4.5 MCG INHALER INHALATION SCH ×2 (07:26→20:44)
[2017-07-30] MEDS: PANTOPRAZOLE 40 MG/10 ML VIAL IV SCH (07:30)
[2017-07-30] MEDS: ATENOLOL 12.5 MG TAB PO SCH (07:30)
[2017-07-30] MEDS: CHOLECALCIFEROL 1,000 UNIT TAB PO SCH (07:30)
[2017-07-30] MEDS: NORTRIPTYLINE 10 MG CAP PO SCH (07:30)
[2017-07-30] MEDS: VERAPAMIL SR 120 MG TABLET.ER PO SCH (07:30)
[2017-07-30] MEDS: SODIUM CHLORIDE 0.9% 1,000 ML IV SCH (07:31)
[2017-07-30 07:55] LABS: Basophils # (A) 0.1 k/uL (0-0.2); Basophils % (A) 1 %; Eosinophils # (A) 0.1 k/uL (0-0.7); Eosinophils % (A) 1 %; HCT 40.5 % (34.0-46.0); HGB 13.4 gm/dL (11.4-16.0); Lymphocytes # (A) 0.9 k/uL (1.0-4.8); Lymphocytes % (A) 9 %; MCHC 33.1 g/dL (31.0-37.0); MCV 102.7 fL (80.0-100.0); Macrocytosis Slight; Mean Platelet Volume 6.6; Monocytes # (A) 0.8 k/uL (0-1.0); Monocytes % (A) 8 %; Neutrophils # (A) 7.8 k/uL (1.3-7.7); Neutrophils % (A) 79 %; Platelet Count 307 k/uL (150-450); RBC 3.94 m/uL (3.80-5.40); WBC 9.9 k/uL (3.8-10.6)
[2017-07-30 08:42] LABS: ALT 40 U/L (9-52); AST 33 U/L (14-36); Albumin 3.2 g/dL (3.5-5.0); Alkaline Phosphatase 64 U/L (38-126); Anion Gap 11 mmol/L; Bilirubin, Delta 0.5 mg/dL (0.0-0.2); Bilirubin,Unconjugated 1.1 mg/dL (0.0-1.1); Blood Urea Nitrogen 13 mg/dL (7-17); Calcium 8.5 mg/dL (8.4-10.2); Carbon Dioxide 23 mmol/L (22-30); Chloride 105 mmol/L (98-107); Glucose 81 mg/dL (74-99); Potassium 3.1 mmol/L (3.5-5.1); Sodium 139 mmol/L (137-145); Total Bilirubin 1.6 mg/dL (0.2-1.3); Total Protein 5.6 g/dL (6.3-8.2)
--- NOTE | 2017-07-30 08:57 | P.PN ---
Subjective Progress Note Date: 07/30/17 Principal diagnosis: Acute abdominal pain, secondary to acute small bowel obstruction. History of mild persistent asthma with no current exacerbation. Martha is a 86-year-old white female patient that sees Dr. Henry in our office for her history of mild persistent asthma, presented to the emergency department on 07/28/2017 with complaints of 3 day history of constipation, lower abdominal pain, nausea, vomiting. She denied any fever or chills. Denied any dysuria. Denied any chest pain, increased shortness of breath, chest congestion, or wheezing. Abdominal x-ray on December 222017 showed generalized ileus versus early distal small bowel obstruction. CT abdomen and pelvis on 2017 showed small bowel obstruction with transition in the pelvis. Questionable distal esophageal diverticulum versus ulcer. Left renal cystic disease, diverticulosis of the sigmoid colon. Admission lab work showed WBC of 11.5, hemoglobin of 14.1, serum sodium of 135, serum potassium 3.9, chloride of 101, BUN of 14, creatinine 0.72. Amylase less than 30, and lipase of 35. Patient has been afebrile, hemodynamically stable, on room air, with O2 sat at 95%. NG tube was inserted, connected to low intermittent suction, patient is nothing by mouth, IV fluids were started with 0.9 at 100 ML per hour. Surgery was consulted. Abdominal series on 07/29/2017 showed findings suggestive of at least partial small bowel obstruction, no pneumoperitoneum, no acute cardiopulmonary process. On 07/30/2017 patient seen in follow-up on surgical floor. Her abdominal pain has improved, with minimal localized tenderness in the right lower quadrant, but no guarding, no rigidity, abdomen is soft, bowel sounds are present 4. NG tube remains to low intermittent suction, with small amount of light clear output. She denies any shortness of breath, fever or chills. Her cough with sputum production has subsided since yesterday. Yesterday we put the patient on nebulized treatments in addition to her home dose Symbicort. She remains afebrile, hemodynamically stable. Lung sounds are clear to auscultation, no rhonchi no wheezes were noted. Last night she was given a suppository with the very small bowel movement. Echocardiogram was reviewed, shows EF of 55-60%, no evidence of pulmonary hypertension, with right ventricular systolic pressure of 23 mmHg, this was done in regards to an episode of chest pain. She denies any chest pain this morning. Lab work was reviewed, WBC is 9.9, hemoglobin is 13.4 , BNP is pending. Objective - Vital Signs Vital signs: Vital Signs Temp 98.6 F 07/30/17 07:00 Pulse 104 H 07/30/17 07:46 Resp 16 07/30/17 07:00 BP 119/79 07/30/17 07:00 Pulse Ox 95 07/30/17 07:00 Intake & Output 07/29/17 07/30/17 07/30/17 18:59 06:59 18:59 Intake Total 880 1760 Balance 880 1760 Intake: Intake, IV Titration 880 1760 Amount Sodium Chloride 0.9% 1, 880 1760 000 ml @ 110 mls/hr IV . Q9H6M [facility] Rx#:[id number] Other: # Voids 1 3 - Exam GENERAL EXAM: Alert, active, comfortable in no apparent distress. HEAD: Normocephalic/atraumatic. EYES: Normal reaction of pupils, equal size. Conjunctiva pink, sclera white. NOSE: Clear with pink turbinates. NG tube present, connected to low intermittent suction, with moderate light clear output with some mucous THROAT: No erythema or exudates. NECK: No masses, no JVD, no thyroid enlargement, no adenopathy. CHEST: No chest wall deformity. Symmetrical expansion. LUNGS: Equal air entry with no crackles, wheeze, rhonchi or dullness. CVS: Regular rate and rhythm, normal S1 and S2, no gallops, no murmurs, no rubs ABDOMEN: Soft, nontender. No hepatosplenomegaly, normal bowel sounds, no guarding or rigidity. EXTREMITIES: No clubbing, no edema, no cyanosis, 2+ pulses and upper and lower extremities. MUSCULOSKELETAL: Muscle strength and tone normal. SPINE: No scoliosis or deformity SKIN: No rashes CENTRAL NERVOUS SYSTEM: Alert and oriented -3. No focal deficits, tone is normal in all 4 extremities. PSYCHIATRIC: Alert and oriented -3. Appropriate affect. Intact judgment and insight. - Labs CBC & Chem 7: 07/30/17 07:37 07/29/17 12:29 Labs: Abnormal Lab Results - Last 24 Hours (Table) 01/03/0807/29/17 07/30/17 Range/Units 12:29 12:29 07:37 RBC 3.78 L (3.80-5.40) m/uL MCV 106.9 H 102.7 H (80.0-100.0) fL Neutrophils # 7.8 H (1.3-7.7) k/uL Lymphocytes # 0.9 L (1.0-4.8) k/uL Sodium 136 L (137-145) mmol/L Total Bilirubin 1.6 H (0.2-1.3) mg/dL Total Protein 5.3 L (6.3-8.2) g/dL Albumin 2.9 L (3.5-5.0) g/dL Assessment and Plan Plan: Assessment: #1. Acute abdominal pain, secondary to acute small bowel obstruction. Patient presented with nausea and vomiting, lower abdominal pain, and 3 day history of constipation. No fever, no chills. CT of abdomen and pelvis showed small bowel obstruction with transition somewhere in the pelvis. #2. Mild persistent asthma, with no sign of current exacerbation #3. Hypothyroidism #4. Hypertension #5. Fibromyalgia #6. 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 Patient is a lifetime nonsmoker #10. History of hysterectomy, appendectomy Plan: Continue with current medical treatment, patient remains nothing by mouth, NG tube is still in place to low intermittent suction. She denies any worsening shortness of breath, her cough has improved, and so is the sputum production. Denies any chest pain, remains on room air with O2 sat at 95%. Continue DuoNeb nebulized treatments, continue Symbicort. We'll continue to follow with you. I performed a history & physical examination of the patient and discussed their management with my nurse practitioner, Monica Babb. I reviewed the nurse practitioner's note and agree with the documented findings and plan of care. Lung sounds are clear. The findings and the impression was discussed with the patient. I attest to the documentation by the nurse practitioner. Time with Patient: Less than 30
--- NOTE | 2017-07-30 09:01 | XR ---
EXAMINATION TYPE: XR abdomen 2V DATE OF EXAM: 07/30/2017 COMPARISON: 07/29/2017 HISTORY: Pain TECHNIQUE: One view abdominal series FINDINGS: The osseous structures are intact. The bowel gas pattern is nonspecific. Lung bases are clear. NG t ube noted. Persistent dilated small bowel loops are seen. Air-fluid levels are noted. Retained fecal debris within the colon. Degenerative change of the spine and vascular calcifications noted. Arthropa thy of the hip joints. 3 mm right upper quadrant calculus noted. IMPRESSION: 1. Persistent findings suggestive of small bowel obstruction similar in appearance to the prior exam. 2. Probable 3 mm right renal calculus..
[2017-07-30] MEDS: HYDROmorphone 2 MG/ML 1 ML SYRINGE IVP PRN ×2 (09:12→15:56)
--- NOTE | 2017-07-30 09:21 | P.PN ---
Progress Note - Text Progress Note Date: 08/06/17 Patient examined. Small bowel movement with enema yesterday. No abdominal pain. No nausea or vomiting. NG tube has minimal output. Abdomen is soft, nontender, no peritonitis. Abdominal x-ray shows persistent small bowel loops which are dilated, possibility of air in the colon with large amount of stool. Plan: Soap aide enemas. Repeat abdominal x-ray in a.m. Hypokalemia with potassium of 3.1. IV potassium replacement Echocardiogram results reviewed. Patient is doing well clinically however x-ray showing persistent bowel obstruction picture. Hence would wait for next 24 hours and if no definite movement, proceed with exploratory laparotomy in a.m. on 07/31/2017
[2017-07-30] MEDS: POTASSIUM CHLORIDE 20 MEQ in WATER FOR INJECTION 1 100ML.BAG IVPB SCH ×2 (11:22→13:10)
[2017-07-30 11:52] LABS: Folate, Serum 17.7 ng/mL
[2017-07-30] MEDS: ENOXAPARIN 40 MG/0.4 ML SYRINGE SQ SCH (12:05)
--- NOTE | 2017-07-30 12:45 | P.CRDCN ---
History of Present Illness Consult date: 07/30/17 History of present illness: Mrs. Tamayo is a pleasnt 86-year-old female with past medical history significant for asthma, hypertension and fibromyalgia. She denies history of coronary artery disease. She is followed with Dr. Greene at [facility]. We've been asked to see her in consultation for cardiac evaluation prior to possible abdominal surgery for small bowel obstruction. At the time of my exam she is seen sitting up in the chair with an NG tube in place. She is in no acute distress. She presented to the hospital with complaints of constipation, abdominal pain, nausea and vomiting. Diagnostic imaging of the abdomen revealed small bowel traction with transition to the pelvis. She denies chest pain, dizziness, palpitations or shortness of breath. Most recently she has been experiencing palpitations and had a Holter-monitor on for one week. The results are unavailable to me right now we will attempt to obtain those. EKG on arrival reveals sinus rhythm with poor R-wave progression possibility of old septal infarct. This is consistent with old EKG. Laboratory data has been reviewed, hemoglobin 13.4, platelets 307, potassium 3.1 , creatinine 0.54, TSH 2.34. Current cardiac medications include verapamil 120 mg daily and atenolol 37.5 mg daily. Telemetry tracings of unremarkable reveals sinus mechanism with no signs of an arrhythmia. Review of Systems The time of my exam: CONSTITUTIONAL: Denies fever. Denies chills. EYES: Denies blurred vision. Denies vision changes. Denies eye pain. EARS, NOSE, MOUTH & THROAT: Denies headache. Denies sore throat. Denies ear pain. CARDIOVASCULAR: Denies chest pain. Denies shortness of breath. Denies orthopnea. Denies PND. Denies palpitations. RESPIRATORY: Denies cough. GASTROINTESTINAL: Complains of ongoing abdominal pain, constipation and nausea with no vomiting. Passing small amount of flatus. MUSCULOSKELETAL: Denies myalgias. INTEGUMENTARY: Denies pruitis. Denies rash. NEUROLOGIC: Denies numbness. Denies tingling. Denies weakness. PSYCHIATRIC: Denies anxiety. Denies depression. ENDOCRINE: Denies fatigue. Denies weight change. Denies polydipsia. Denies polyurina. GENITOURINARY: Denies burning, hematuria or urgency with micturation. HEMATOLOGIC: Denies history of anemia. Denies bleeding. Past Medical History Past Medical History: Asthma, Fibromyalgia, Hypertension Additional Past Medical History / Comment(s): UTI, tachycardia History of Any Multi-Drug Resistant Organisms: None Reported Past Surgical History: Appendectomy, Hysterectomy, Orthopedic Surgery, Tubal Ligation Additional Past Surgical History / Comment(s): nasal surgery, cataracts Past Anesthesia/Blood Transfusion Reactions: No Reported Reaction Additional Past Anesthesia/Blood Transfusion Reaction / Comment(s): no history of blood transfusion Past Psychological History: No Psychological Hx Reported Smoking Status: Never smoker Past Alcohol Use History: None Reported Past Drug Use History: None Reported - Past Family History Father Family Medical History: Cancer Additional Family Medical History / Comment(s): prostate Mother Additional Family Medical History / Comment(s): aneurysm Medications and Allergies Home Medications Medication Instructions Recorded Confirmed Type Estrogens, Conjugated Cream 0.5 applicator VAGINAL WEFR 09/29/15 07/28/17 History [Premarin Cream] Levothyroxine Sodium [Synthroid] 25 mcg PO DAILY 09/29/15 07/28/17 History Atenolol [Tenormin] 37.5 mg PO DAILY 07/28/17 07/28/17 History Cholecalciferol [Vitamin D3] 1,000 unit PO DAILY 07/28/17 07/28/17 History Ipratropium-Albuterol Nebulize 3 ml INHALATION RT-TID 07/28/17 07/28/17 History [Duoneb 0.5 mg-3 mg/3 ml Soln] Mometasone/Formoterol [Dulera 200 2 puff INHALATION RT-BID 07/28/17 07/28/17 History Mcg/5 Mcg Inhaler] Montelukast [Singulair] 10 mg PO HS 07/28/17 07/28/17 History Nortriptyline [Pamelor] 10 mg PO DAILY 07/28/17 07/28/17 History Omeprazole 20 mg PO DAILY 07/28/17 07/28/17 History Verapamil HCl [Verapamil Sr] 120 mg PO DAILY 07/28/17 07/28/17 History Allergies Allergy/AdvReac Type Severity Reaction Status Date / Time carisoprodol [From Soma] Allergy Unknown Verified 07/28/17 08:40 celecoxib [From Celebrex] Allergy Unknown Verified 07/28/17 08:40 duloxetine HCl Allergy Unknown Verified 07/28/17 08:40 [From Cymbalta] lisinopril Allergy Unknown Verified 07/28/17 08:40 metaxalone [From Skelaxin] Allergy Unknown Verified 07/28/17 08:40 milk Allergy Diarrhea Verified 07/28/17 08:40 naproxen [From Naprosyn] Allergy Itching Verified 07/28/17 08:40 NSAIDS (Non-Steroidal Allergy Unknown Verified 07/28/17 08:40 Anti-Inflamma prednisone Allergy Unknown Verified 07/28/17 08:40 pregabalin [From Lyrica] Allergy Unknown Verified 07/28/17 08:40 rofecoxib [From Vioxx] Allergy Nausea & Verified 07/28/17 08:40 Vomiting & Diarrhea tramadol Allergy Itching Verified 07/28/17 08:40 dust mites Allergy Unknown Uncoded 07/28/17 06:57 Physical Exam Vitals: Vital Signs Temp Pulse Pulse Resp BP Pulse Ox 07/30/17 12:18 100 07/30/17 12:07 100 07/30/17 07:46 104 H 07/30/17 07:26 96 07/30/17 07:00 98.6 F 90 16 119/79 95 07/30/17 00:37 98.0 F 89 16 132/71 92 L 07/29/17 22:00 88 07/29/17 21:49 88 07/29/17 16:41 83 07/29/17 16:28 80 07/29/17 14:57 98.5 F 73 16 107/58 95 07/29/17 13:21 96 07/29/17 13:09 96 Intake and Output 07/29/17 07/30/17 07/30/17 22:59 06:59 14:59 Intake Total 880 880 Balance 880 880 Intake: Intake, IV Titration 880 880 Amount Sodium Chloride 0.9% 1, 880 880 000 ml @ 110 mls/hr IV . Q9H6M [facility] Rx#:[id number] Other: # Voids 3 3 Blood pressure 119/79 heart rate 90 afebrile GENERAL: This is a 86-year-old female in no apparent distress at the time of my examination. HEENT: Head is atraumatic, normocephalic. Pupils are equal, round. Sclerae anicteric. Conjunctivae are clear. Mucous membranes of the mouth are moist. Neck is supple. There is no jugular venous distention. No carotid bruit is heard. NG tube in place. LUNGS: Clear to auscultation no wheezes, rales or rhonchi. No chest wall tenderness is noted on palpation or with deep breathing. HEART: Regular rate and rhythm without murmurs, rubs or gallops. S1 and S2 heard. ABDOMEN: Soft, nontender. EXTREMITIES: 2+ peripheral pulses with no evidence of peripheral edema and no calf tenderness noted. NEUROLOGIC: Patient is awake, alert and oriented x3. Results 07/30/17 07:37 07/30/17 07:37 Cardiac Enzymes 07/29/17 07/30/17 Range/Units 12:29 07:37 AST 30 33 (14-36) U/L CBC 07/29/17 07/30/17 Range/Units 12:29 07:37 WBC 9.7 9.9 (3.8-10.6) k/uL RBC 3.78 L 3.94 (3.80-5.40) m/uL Hgb 13.0 13.4 (11.4-16.0) gm/dL Hct 40.4 40.5 (34.0-46.0) % Plt Count 281 307 (150-450) k/uL Comprehensive Metabolic Panel 07/29/17 07/30/17 Range/Units 12:29 07:37 Sodium 136 L 139 (137-145) mmol/L Potassium 3.7 3.1 L (3.5-5.1) mmol/L Chloride 107 105 (98-107) mmol/L Carbon Dioxide 22 23 (22-30) mmol/L BUN 17 13 (7-17) mg/dL Creatinine 0.63 0.54 (0.52-1.04) mg/dL Glucose 89 81 (74-99) mg/dL Calcium 8.6 8.5 (8.4-10.2) mg/dL Unconjugated Bilirubin 1.1 (0.0-1.1) mg/dL AST 30 33 (14-36) U/L ALT 36 40 (9-52) U/L Alkaline Phosphatase 64 64 (38-126) U/L Total Protein 5.3 L 5.6 L (6.3-8.2) g/dL Albumin 2.9 L 3.2 L (3.5-5.0) g/dL Current Medications Generic Name Dose Route Start Last Admin Trade Name Freq PRN Reason Stop Dose Admin Albuterol/Ipratropium 3 ml 07/28/17 16:00 07/30/17 12:06 Duoneb 0.5 Mg-3 Mg/3 Ml Soln INHALATION 3 ml RT-QID [facility] Administration Albuterol/Ipratropium 3 ml 07/29/17 18:03 Duoneb 0.5 Mg-3 Mg/3 Ml Soln INHALATION RT-Q2H PRN Shortness Of Breath Or Wheezing Atenolol 37.5 mg 07/29/17 09:00 07/30/17 07:30 Tenormin PO 37.5 mg DAILY [facility] Administration Bisacodyl 10 mg 07/29/17 21:00 07/29/17 20:27 Dulcolax RECTAL 10 mg HS [facility] Administration Budesonide/Formoterol Fumarate 2 puff 07/28/17 20:00 07/30/17 07:26 Symbicort 160-4.5 Mcg Inhaler INHALATION 2 puff RT-BID [facility] Administration Cholecalciferol 1,000 unit 07/28/17 17:00 07/30/17 07:30 Vitamin D3 PO 1,000 unit 1200 [facility] Administration Diphenhydramine HCl 50 mg 07/28/17 14:33 Benadryl IVP Q4HR PRN Allergy Symptoms Enoxaparin Sodium 40 mg 07/28/17 16:00 07/30/17 12:05 Lovenox SQ 40 mg DAILY [facility] Administration Hydromorphone HCl 1 mg 07/28/17 14:32 07/30/17 09:12 Dilaudid IVP 0.5 mg Q3HR PRN Administration Severe Pain Potassium Chloride 20 meq/ IV 100 mls @ 50 mls/hr 07/30/17 10:00 07/30/17 11: 22 Solution IVPB 07/30/17 13:59 50 mls/hr Q2HR [facility] Administration Potassium Chloride/Sodium Chloride 1,000 mls @ 110 mls/hr 07/30/17 10:00 Ns-Kcl 20 Meq/L Iv Solution IV .Q9H6M [facility] Levothyroxine Sodium 25 mcg 07/29/17 06:30 07/30/17 05:16 Synthroid PO 25 mcg 0630 [facility] Administration Metoclopramide HCl 10 mg 07/28/17 18:00 07/30/17 05:15 Reglan IVP 10 mg Q6HR [facility] Administration Montelukast Sodium 10 mg 07/28/17 21:00 07/29/17 20:27 Singulair PO 10 mg HS [facility] Administration Naloxone HCl 0.2 mg 07/28/17 11:38 Narcan IV Q2M PRN Opioid Reversal Nortriptyline HCl 10 mg 07/29/17 09:00 07/30/17 07:30 Pamelor PO 10 mg DAILY [facility] Administration Ondansetron HCl 4 mg 07/28/17 16:43 Zofran IVP Q6HR PRN Nausea And Vomiting Pantoprazole Sodium 40 mg 07/29/17 09:00 07/30/17 07:30 Protonix IV 40 mg DAILY [facility] Administration Verapamil HCl 120 mg 07/29/17 09:00 07/30/17 07:30 Isoptin Sr PO 120 mg DAILY [facility] Administration Intake and Output 07/29/17 07/30/17 07/30/17 22:59 06:59 14:59 Intake Total 880 880 Balance 880 880 Intake: Intake, IV Titration 880 880 Amount Sodium Chloride 0.9% 1, 880 880 000 ml @ 110 mls/hr IV . Q9H6M [facility] Rx#:[id number] Other: # Voids 3 3 07/30/17 07:37 07/30/17 07:37 Assessment and Plan Assessment: ASSESSMENT 1. Essential hypertension 2. Small bowel obstruction 3. Hypokalemia PLAN 2-D echocardiogram and Doppler study was requested yesterday revealed preserved LV systolic function with ejection fraction 55-60%. There is evidence of trace aortic regurgitation, mildly thickened mitral valve, trace mitral regurgitation , trace tricuspid regurgitation and normal RVSP. From a cardiac perspective she is an acceptable risk for surgery. We recommend cautious fluid administration intraoperatively as well as optimal blood pressure control. We' ll continue to follow her in the postoperative phase as needed. Please feel free to call us with any further questions or concerns. Continue atenolol and verapamil as previously ordered. The above impression and plan of care have been discussed and directed by the signing physician. Mana Beatty, nurse practitioner, acting as scribe for signing physician.
[2017-07-30] MEDS: 0.9% NACL WITH KCL 20 MEQ/L 1,000 ML IV SCH (13:09)
[2017-07-30] MEDS: MONTELUKAST 10 MG TAB PO SCH (20:17)
[2017-07-30] MEDS: BISACODYL 10 MG SUPP RECTAL SCH (20:17)
--- NOTE | 2017-07-30 20:31 | P.PN ---
Progress Note - Text Progress Note Date: 07/30/17 DATE OF SERVICE: 07/30/2017 PRESENTING COMPLAINT: Abdominal pain nausea and vomiting. HISTORY OF PRESENT ILLNESS: 86-year-old female was transferred from an outside hospital 3 days ago this began having abdominal pain so her local doctor felt to have a UTI given Bactrim continued to have increasing abdominal pain started having nausea vomiting and decreased appetite. Last bowel movement was 4 days ago normally has a bowel movement every other day. admitted small bowel obstruction. INTERVAL HISTORY: 07/30/2017: Patient lying in bed NG tube in place draining clear milky colored drainage. No further nausea or vomiting, remains nothing by mouth, received a suppository with a small amount of stool returned. Ambulatory with some assistance. 07/29/2017: Patient lying in bed NG tube in place no further nausea or vomiting. Remains nothing by mouth, ambulatory with some assistance, passing some flatus. Family at the bedside, questions answered. REVIEW OF SYSTEMS: Done for constitutional ,cardiovascular, GI, pulmonary with relevant findings as above. CURRENT MEDICATIONS DuoNeb, Tenormin, Dulcolax, Symbicort, cholecalciferol, Benadryl, Lovenox, hydromorphone, Synthroid, Reglan, Singulair, nortriptyline, Zofran, Protonix, verapamil. PHYSICAL EXAM VITAL SIGNS: Temperature 98.6, pulse 90, respirations 16, blood pressure 119/79, oxygen saturation 95% on room air. GENERAL APPEARANCE: Lying in bed, tired appearing HEENT: Normocephalic, Pupils equal. Conjunctiva normal. JVD not raised. Mass not palpable. Dry mucous membranes: RESPIRATORY: Respiratory effort normal. Lungs diminished to auscultation. CARDIOVASCULAR: First and second sounds normal. No edema. ABDOMEN: Soft. Liver and spleen not palpable. Mild tenderness. No mass palpable. PSYCHIATRY: Alert and oriented x3. Mood and affect normal. INVESTIGATIONS: Labs: CBC grossly unremarkable, potassium 3.1, total bilirubin 1.6, amylase 3.2. Abdominal x-ray: Persistent finding suggestive of small bowel obstruction, probable 3 mm right renal calculus. ASSESSMENT: -Acute small bowel obstruction, slow to respond. -Sigmoid diverticulosis, chronic asymptomatic. -Moderate persistent asthma, some improvement. -Chronic fibromyalgia. -Essential hypertension. -Arrhythmia, type unknown, workup reveals sinus mechanism, no apparent arrhythmia PLAN: Continue NG tube to suction, pain control IV fluids, patient is doing well clinically however x-ray does show persistent bowel obstruction surgery will wait another 24 hours and if no definite improvement patient will be taken for an exploratory laparotomy. Plan of care discussed at the bedside with patient and family questions answered. We will follow closely. [employer] TECHNICIAN statement: Patient was seen and examined by nurse practitioner Nadine Pan and all elements of the case discussed with attending Dr. Felder
--- NOTE | 2017-07-30 20:47 | PN ---
PROGRESS NOTE DATE OF SERVICE: 07/30/17 ATTENDING NOTE: Patient seen and examined by me. I discussed with nurse practitioner, Isabellgaviota. The patient had a small bowel obstruction. NG tube remains in place. Passed a very small amount of stool. No abdominal pain. PHYSICAL EXAMINATION: Temperature 97.6, pulse 73, respiratory rate 16, blood pressure 95/59, lungs are clear. HEENT: NG tube in place. ABDOMEN: Soft, nontender. Bowel sounds are present. Abdominal x-ray shows persistent small bowel obstruction. ASSESSMENT: 1. Acute small-bowel obstruction. Slow to respond. May need surgical intervention. 2. Sigmoid diverticulosis asymptomatic. 3. There is no arrhythmias picked up on the telemetry. The patient in sinus rhythm. 2D echo is unremarkable. PLAN: Patient is medically stable to proceed for surgery. Care was discussed with the patient. Await final determination by surgery about the same. MMODL / IJN: [id number] /
[2017-07-31] MEDS: 0.9% NACL WITH KCL 20 MEQ/L 1,000 ML IV SCH ×4 (03:29→22:33)
[2017-07-31] MEDS: METOCLOPRAMIDE 5 MG/ML 2 ML VIAL IVP SCH ×4 (05:17→23:36)
[2017-07-31] MEDS: LEVOTHYROXINE 25 MCG TAB PO SCH (05:17)
--- NOTE | 2017-07-31 07:53 | XR ---
EXAMINATION TYPE: XR abdomen 2V DATE OF EXAM: 07/31/2017 HISTORY: Pain. Technique: 2 views of the abdomen are submitted. Comparison: 07/30/2017 Findings: NG tube in place. There is no convincing evidence of pneumoperitoneum. Persistent but improving small bowel dilatation mid abdomen. Moderate fecal stasis. No mass effects are noted. No renal calcifications are identified. IMPRESSION: 1. Persistent but improving small bowel dilatation mid abdomen.
[2017-07-31] MEDS: IPRATROPIUM-ALBUTEROL 3 ML NEB INHALATION SCH ×4 (08:26→19:50)
[2017-07-31] MEDS: SYMBICORT 160-4.5 MCG INHALER INHALATION SCH ×2 (08:26→19:50)
--- NOTE | 2017-07-31 09:26 | P.PN ---
Subjective Progress Note Date: 07/31/17 86-year-old female seen and examined this morning. l.Abdomen soft not distended a few hypoactive bowel tones present patient stated that she was given a soapsuds enema last evening had small bowel movement. States there is a slight improvement in the abdominal pain but continues to persist Patient just returned from having an abdominal x-ray done this morning shows persistent but improving small bowel dilatation mid abdomen. Moderate fecal stasis. Objective - Vital Signs Vital signs: Vital Signs Temp 97.5 F L 07/31/17 07:00 Pulse 96 07/31/17 08:37 Resp 12 07/31/17 07:00 BP 149/68 07/31/17 07:00 Pulse Ox 94 L 07/31/17 07:00 Intake & Output 07/30/17 07/31/17 07/31/17 18:59 06:59 18:59 Intake Total 1760 Output Total 50 Balance -50 1760 Intake: Intake, IV Titration 1760 Amount 0.9% NaCl with KCl 20 Meq 1760 /l 1,000 ml @ 110 mls/hr IV .Q9H6M [facility] Rx#: [id number] Output: Gastric Drainage 50 Other: # Voids 3 # Bowel Movements 1 - Exam physical exam pleasant 86-year-old female Sitting up in bed states abdominal pain improving less tender lungs adequate air movement bilaterally Heart S1-S2 audible telemetry unit sinus rhythm and sinus tach heart rate in the 100s denying chest pain no murmur Abdomen soft no facial grimacing with palpitation to the abdominal wall not distended no guarding no rebound states urinating no difficulty few hypoactive bowel tones was given 2 soapsuds enemas yesterday small amount of stool return extremities no edema - Labs CBC & Chem 7: 07/31/17 09:34 07/31/17 09:34 Assessment and Plan Assessment: impression present on admission abdominal pain nausea vomiting decrease appetite suspect due to small bowel obstruction as evident on a CAT scan of the abdomen and pelvis new-onset constipation no bowel movement for 5 days moderate persistent asthma with mild exacerbation CAT scan abdomen and pelvis shows diverticulosis of the sigmoid colon CAT scan of the abdomen pelvis questionable distal esophageal diverticulum versus ulcer History of cardiac arrhythmia workup in place recent Holter monitor placed Essential hypertension hypokalemia Plan potassium replaced repeat labs follow up on Continue nasogastric tube to suction DVT and GI prophylaxis Pain control IV fluid for hydration Further surgical recommendations pending Will follow clinical course closely dictating Surgical note for Dr. miller The above impression and plan of care have been discussed and directed by signing physician. Lavern Barker nurse practitioner acting as scribe for signing physician.
[2017-07-31] MEDS: PANTOPRAZOLE 40 MG/10 ML VIAL IV SCH (09:45)
[2017-07-31] MEDS: ENOXAPARIN 40 MG/0.4 ML SYRINGE SQ SCH (09:46)
[2017-07-31] MEDS: VERAPAMIL SR 120 MG TABLET.ER PO SCH (09:46)
[2017-07-31] MEDS: CHOLECALCIFEROL 1,000 UNIT TAB PO SCH (09:46)
[2017-07-31] MEDS: ATENOLOL 12.5 MG TAB PO SCH (09:46)
[2017-07-31] MEDS: NORTRIPTYLINE 10 MG CAP PO SCH (09:46)
[2017-07-31] MEDS ORDERED: POTASSIUM CHLORIDE 20 MEQ in WATER FOR INJECTION 1 100ML.BAG IVPB SCH (10:00)
[2017-07-31 10:26] LABS: ALT 39 U/L (9-52); AST 33 U/L (14-36); Albumin 3.1 g/dL (3.5-5.0); Alkaline Phosphatase 62 U/L (38-126); Anion Gap 11 mmol/L; Blood Urea Nitrogen 17 mg/dL (7-17); Calcium 8.8 mg/dL (8.4-10.2); Carbon Dioxide 21 mmol/L (22-30); Chloride 109 mmol/L (98-107); Glucose 90 mg/dL (74-99); Potassium 3.3 mmol/L (3.5-5.1); Sodium 141 mmol/L (137-145); Total Bilirubin 1.6 mg/dL (0.2-1.3); Total Protein 5.4 g/dL (6.3-8.2)
[2017-07-31 10:39] LABS: Basophils % (A) 0 %; Eosinophils # (A) 0.1 k/uL (0-0.7); Eosinophils % (A) 1 %; HCT 37.1 % (34.0-46.0); HGB 12.4 gm/dL (11.4-16.0); Lymphocytes # (A) 1.2 k/uL (1.0-4.8); Lymphocytes % (A) 12 %; MCH 34.3 pg (25.0-35.0); MCHC 33.3 g/dL (31.0-37.0); Macrocytosis Slight; Mean Platelet Volume 6.7; Monocytes # (A) 0.8 k/uL (0-1.0); Monocytes % (A) 9 %; Neutrophils # (A) 7.1 k/uL (1.3-7.7); Neutrophils % (A) 75 %; Platelet Count 314 k/uL (150-450); WBC 9.5 k/uL (3.8-10.6)
[2017-07-31] MEDS: POTASSIUM CHLORIDE 20 MEQ in WATER FOR INJECTION 1 100ML.BAG IVPB SCH ×2 (12:51→16:16)
[2017-07-31] MEDS ORDERED: IV FLUID CONTINUATION 1,000 ML IV ONE (13:01)
[2017-07-31] MEDS ORDERED: ceFAZolin IN SWFI 2 GM/20 ML SYRINGE IVP STA (13:12)
--- NOTE | 2017-07-31 13:30 | P.PN ---
Subjective Progress Note Date: 07/31/17 Principal diagnosis: Acute abdominal pain, secondary to acute small bowel obstruction. History of mild persistent asthma with no current exacerbation. Martha is a 86-year-old white female patient that sees Dr. Henry in our office for her history of mild persistent asthma, presented to the emergency department on 07/28/2017 with complaints of 3 day history of constipation, lower abdominal pain, nausea, vomiting. She denied any fever or chills. Denied any dysuria. Denied any chest pain, increased shortness of breath, chest congestion, or wheezing. Abdominal x-ray on December 222017 showed generalized ileus versus early distal small bowel obstruction. CT abdomen and pelvis on 2017 showed small bowel obstruction with transition in the pelvis. Questionable distal esophageal diverticulum versus ulcer. Left renal cystic disease, diverticulosis of the sigmoid colon. Admission lab work showed WBC of 11.5, hemoglobin of 14.1, serum sodium of 135, serum potassium 3.9, chloride of 101, BUN of 14, creatinine 0.72. Amylase less than 30, and lipase of 35. Patient has been afebrile, hemodynamically stable, on room air, with O2 sat at 95%. NG tube was inserted, connected to low intermittent suction, patient is nothing by mouth, IV fluids were started with 0.9 at 100 ML per hour. Surgery was consulted. Abdominal series on 07/29/2017 showed findings suggestive of at least partial small bowel obstruction, no pneumoperitoneum, no acute cardiopulmonary process. On 07/30/2017 patient seen in follow-up on surgical floor. Her abdominal pain has improved, with minimal localized tenderness in the right lower quadrant, but no guarding, no rigidity, abdomen is soft, bowel sounds are present 4. NG tube remains to low intermittent suction, with small amount of light clear output. She denies any shortness of breath, fever or chills. Her cough with sputum production has subsided since yesterday. Yesterday we put the patient on nebulized treatments in addition to her home dose Symbicort. She remains afebrile, hemodynamically stable. Lung sounds are clear to auscultation, no rhonchi no wheezes were noted. Last night she was given a suppository with the very small bowel movement. Echocardiogram was reviewed, shows EF of 55-60%, no evidence of pulmonary hypertension, with right ventricular systolic pressure of 23 mmHg, this was done in regards to an episode of chest pain. She denies any chest pain this morning. Lab work was reviewed, WBC is 9.9, hemoglobin is 13.4 , BNP is pending. On 09/28/2017 patient seen in follow-up. Denies any abdominal pain, denies any nausea or vomiting. abdominal series from this morning shows persistent but improving small bowel dilatation in the mid abdomen. moderate fecal stasis. NG tube remains to low intermittent suction, with small amount of clear outputs with some mucous in it. From pulmonary standpoint lung sounds are clear, diminished at the bases, she denies any worsening shortness of breath, no wheezes, no rhonchi. Patient remains nothing by mouth, with the exception of some ice chips. Lab work from today was reviewed, there is no evidence of leukocytosis, WBCs within normal limits, hemoglobin is at 12.4, serum sodium was 141, serum potassium is 3.3, replacements were given, chloride was 109, carbon dioxide is 21. Objective - Vital Signs Vital signs: Vital Signs Temp 99.0 F 07/31/17 13:14 Pulse 91 07/31/17 13:14 Resp 18 07/31/17 13:14 BP 132/67 07/31/17 13:14 Pulse Ox 95 07/31/17 13:14 Intake & Output 07/30/17 07/31/17 07/31/17 18:59 06:59 18:59 Intake Total 1760 Output Total 50 Balance -50 1760 Intake: Intake, IV Titration 1760 Amount 0.9% NaCl with KCl 20 Meq 1760 /l 1,000 ml @ 110 mls/hr IV .Q9H6M [facility] Rx#: [id number] Output: Gastric Drainage 50 Other: # Voids 3 # Bowel Movements 1 - Exam GENERAL EXAM: Alert, active, comfortable in no apparent distress. HEAD: Normocephalic/atraumatic. EYES: Normal reaction of pupils, equal size. Conjunctiva pink, sclera white. NOSE: Clear with pink turbinates. NG tube present, connected to low intermittent suction, with moderate light clear output with some mucous THROAT: No erythema or exudates. NECK: No masses, no JVD, no thyroid enlargement, no adenopathy. CHEST: No chest wall deformity. Symmetrical expansion. LUNGS: Equal air entry with no crackles, wheeze, rhonchi or dullness. CVS: Regular rate and rhythm, normal S1 and S2, no gallops, no murmurs, no rubs ABDOMEN: Soft, nontender. No hepatosplenomegaly, normal bowel sounds, no guarding or rigidity. EXTREMITIES: No clubbing, no edema, no cyanosis, 2+ pulses and upper and lower extremities. MUSCULOSKELETAL: Muscle strength and tone normal. SPINE: No scoliosis or deformity SKIN: No rashes CENTRAL NERVOUS SYSTEM: Alert and oriented -3. No focal deficits, tone is normal in all 4 extremities. PSYCHIATRIC: Alert and oriented -3. Appropriate affect. Intact judgment and insight. - Labs CBC & Chem 7: 07/31/17 09:34 07/31/17 09:34 Labs: Abnormal Lab Results - Last 24 Hours (Table) 07/31/17 07/31/17 Range/Units 09:34 09:34 RBC 3.60 L (3.80-5.40) m/uL MCV 103.0 H (80.0-100.0) fL Potassium 3.3 L (3.5-5.1) mmol/L Chloride 109 H (98-107) mmol/L Carbon Dioxide 21 L (22-30) mmol/L Total Bilirubin 1.6 H (0.2-1.3) mg/dL Total Protein 5.4 L (6.3-8.2) g/dL Albumin 3.1 L (3.5-5.0) g/dL Assessment and Plan Plan: Assessment: #1. Acute abdominal pain, secondary to acute small bowel obstruction. Patient presented with nausea and vomiting, lower abdominal pain, and 3 day history of constipation. No fever, no chills. CT of abdomen and pelvis showed small bowel obstruction with transition somewhere in the pelvis. Abdominal series from 07/31/2017 shows persistent but improving small bowel dilatation in the mid abdomen #2. Mild persistent asthma, with no sign of current exacerbation #3. Hypothyroidism #4. Hypertension #5. Fibromyalgia #6. 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 Patient is a lifetime nonsmoker #10. History of hysterectomy, appendectomy Plan: Continue with current medical treatment, patient remains nothing by mouth, NG tube is still in place to low intermittent suction. She denies any worsening shortness of breath, her cough has improved, and so is the sputum production. Denies any chest pain, remains on room air with O2 sat at 95%. Continue DuoNeb nebulized treatments, continue Symbicort. We'll continue to follow with you. I performed a history & physical examination of the patient and discussed their management with my nurse practitioner, Monica Babb. I reviewed the nurse practitioner's note and agree with the documented findings and plan of care. Lung sounds are clear. The findings and the impression was discussed with the patient. I attest to the documentation by the nurse practitioner. Time with Patient: Less than 30
[2017-07-31] MEDS ORDERED: ePHEDrine SULFATE/0.9% NACL/PF 50 MG/5 ML SYRINGE IV ONE (14:02)
[2017-07-31] MEDS ORDERED: ROCURONIUM BROMIDE 10 MG/ML 10 ML VIAL IV ONE (14:02)
[2017-07-31] MEDS ORDERED: LIDOCAINE 1% INJ 10MG/ML (20 ML MDV) ONE (14:02)
[2017-07-31] MEDS ORDERED: GLYCOPYRROLATE 0.2 MG/ML 2 ML VIAL ONE (14:02)
[2017-07-31] MEDS ORDERED: fentaNYL (PF) 50 MCG/ML 2 ML AMP ONE (14:02)
[2017-07-31] MEDS ORDERED: PHENYLEPHRINE-0.9% NACL SYG 1 MG/10 ML SYRINGE ONE (14:02)
[2017-07-31] MEDS ORDERED: PROPOFOL 10 MG/ML 20 ML VIAL IV ONE (14:02)
[2017-07-31] MEDS ORDERED: SUCCINYLCHOLINE CHLORIDE 100 MG/5 ML SYR IV ONE (14:02)
[2017-07-31] MEDS ORDERED: NEOSTIGMINE 1 MG/ML 10 ML VIAL ONE (14:02)
[2017-07-31] MEDS ORDERED: LACTATED RINGERS 1,000 ML IV ONE (14:30)
--- NOTE | 2017-07-31 15:10 | P.OP ---
Date of Procedure: 07/31/17 Preoperative Diagnosis: Small bowel obstruction Hypertension History of cardiac arrhythmia Postoperative Diagnosis: Same Procedure(s) Performed: Exploratory laparotomy Lysis of adhesions Anesthesia: CEE, local Surgeon: Kiki Acosta Estimated Blood Loss (ml): 5 IV fluids (ml): 1,000 Urine output (ml): 150 Pathology: none sent Condition: other (ASA 3) Disposition: PACU Indications for Procedure: 86 years old female presented with abdominal pain and nausea and vomiting. Computed tomography scan showed small bowel obstruction with transition point in the pelvis. Informed consent obtained and patient elected to undergo [place] laparotomy, lysis of adhesions, possible bowel resection and anastomosis. Operative Findings: The transition point was in the terminal ileum there was a band of scar tissue right at the ileocecal valve which was lysed. The small bowel proximal to this was significantly dilated. Description of Procedure: She was brought to the operating room and placed in supine position with both arms out. Gen. anesthesia with endotracheal intubation was performed as per anesthesia team. Chlorhexidine was used to prep the abdomen and Ortiz catheter was inserted under sterile aseptic precautions. A timeout was performed to verify correct patient and correct procedure. Patient was confirmed to receive perioperative IV antibiotics and bilateral SCDs were placed. A vertical midline incision was made and peritoneal cavity was entered under direct vision. The proximal loops of small bowel appeared normal. As I progressed with the distal bowel there was significant distended loops noted. There was a transition point in the terminal ileum where a sigle band of scar tissue was wrapped around the small bowel causing bowel obstruction. This band was lysed. The small bowel was viable and demonstrated peristalsis. There is soft stool within the terminal ileum consistent with chronic nature of this obstruction. No bowel resection needed to be performed. The remaining of the small bowel was viable. There is significant amount of colon stool noted. The appendix is surgically absent. The abdominal cavity was irrigated with warm saline irrigation. NG tube position was checked in the stomach. The small bowel was run from ligament of Treitz to terminal ileum and again no additional abnormalities noted. The sponge, instrument and needle count were correct 2. The midline was closed with double-stranded PDS 2. A penrosedrain was left in the subcutis tissue and skin cheryl were applied. Due to the procedure well and was taken to post anesthetic care unit in stable condition.
[2017-07-31] MEDS: HYDROmorphone 1 MG/ML 1 ML SYRINGE IVP ONE ×4 (15:25→16:13)
[2017-07-31] MEDS: ACETAMINOPHEN IV (For NPO) 1,000 MG in EMPTY BAG 1 BAG IVPB SCH ×2 (17:32→23:36)
[2017-07-31] MEDS: MONTELUKAST 10 MG TAB PO SCH (21:04)
--- NOTE | 2017-07-31 21:20 | P.PN ---
Progress Note - Text Progress Note Date: 07/31/17 DATE OF SERVICE: 07/31/2017 PRESENTING COMPLAINT: Abdominal pain nausea and vomiting. HISTORY OF PRESENT ILLNESS: 86-year-old female was transferred from an outside hospital 3 days ago this began having abdominal pain so her local doctor felt to have a UTI given Bactrim continued to have increasing abdominal pain started having nausea vomiting and decreased appetite. Last bowel movement was 4 days ago normally has a bowel movement every other day. admitted small bowel obstruction. INTERVAL HISTORY: 07/31/2017: lying in bed NG tube in place draining clear milky drainage. patient received soapsuds enema last night and had a small bowel movement some improvement none of abdominal pain but it continues to persist. abdominal x-ray this morning shows small bowel obstruction with fecal stasis. Surgery is planning to take the patient for an exploratory laparotomy later today. 07/30/2017: Patient lying in bed NG tube in place draining clear milky colored drainage. No further nausea or vomiting, remains nothing by mouth, received a suppository with a small amount of stool returned. Ambulatory with some assistance. 07/29/2017: Patient lying in bed NG tube in place no further nausea or vomiting. Remains nothing by mouth, ambulatory with some assistance, passing some flatus. Family at the bedside, questions answered. REVIEW OF SYSTEMS: Done for constitutional ,cardiovascular, GI, pulmonary with relevant findings as above. CURRENT MEDICATIONS DuoNeb, Tenormin, Dulcolax, Symbicort, cholecalciferol, Benadryl, Lovenox, hydromorphone, Synthroid, Reglan, Singulair, nortriptyline, Zofran, Protonix, verapamil. PHYSICAL EXAM VITAL SIGNS: temp temperature 97.5, pulse 87, respiratory rate 12, blood pressure 149/68, oxygen saturation 94% on room air. GENERAL APPEARANCE: Lying in bed, tired appearing HEENT: Normocephalic, Pupils equal. Conjunctiva normal. JVD not raised. Mass not palpable. Dry mucous membranes: RESPIRATORY: Respiratory effort normal. Lungs diminished to auscultation. CARDIOVASCULAR: First and second sounds normal. No edema. ABDOMEN: Soft. Liver and spleen not palpable. Mild tenderness. No mass palpable. PSYCHIATRY: Alert and oriented x3. Mood and affect normal. INVESTIGATIONS: Labs: CBC grossly unremarkable, potassium 3.3, total bilirubin 1.6, amylase 3.1. Abdominal x-ray: Persistent but improving small bowel dilatation and mid abdomen , moderate fecal stasis, ASSESSMENT: -Acute small bowel obstruction, slow to respond. -Sigmoid diverticulosis, chronic asymptomatic. -Moderate persistent asthma, some improvement. -Chronic fibromyalgia. -Essential hypertension. -Arrhythmia, type unknown, workup reveals sinus mechanism, no apparent arrhythmia PLAN: Continue NG tube to suction, pain control IV fluids,scheduled for exploratory laparotomy later today with surgery. plan of care discussed with the patient the bedside we will follow closely. BAKERY ASSOCIATE statement: Patient was seen and examined by nurse practitioner Nadine Pan and all elements of the case discussed with attending Dr. Felder
--- NOTE | 2017-07-31 22:33 | PN ---
PROGRESS NOTE DATE OF SERVICE: 07/31/17. ATTENDING NOTE: Patient seen and examined by me. I discussed with my nurse practitioner, Ms. Pan. The patient presented with acute bowel obstruction, taken to surgery today. Lysis of adhesions carried out. Pain is controlled. EXAMINATION: Temperature 97.8, pulse 85, respirations 16, blood pressure is 124/58, pulse 93% on 2 L. lying in bed. HEENT: NG tube in place. LUNGS: Clear. Abdomen: Binder in place with a dressing over the incision. Bowel sounds are decreased. Psych AO x3. INVESTIGATIONS: White count 9.5, potassium 3.3. ASSESSMENT: 1. Acute bowel obstruction followed by surgical intervention, lysis of adhesions. Other medical conditions stable. 2. Hypokalemia. Replace electrolytes. Care was discussed with the patient. This is attending note. Patient seen and examined by me. I discussed with nurse practitioner, Ms. Pan. MMODL / IJN: [id number] /
[2017-08-01 06:45] LABS: Basophils % (A) 0 %; Eosinophils # (A) 0.1 k/uL (0-0.7); Eosinophils % (A) 1 %; HCT 38.7 % (34.0-46.0); HGB 12.7 gm/dL (11.4-16.0); Lymphocytes # (A) 0.9 k/uL (1.0-4.8); Lymphocytes % (A) 8 %; MCH 34.1 pg (25.0-35.0); MCHC 32.9 g/dL (31.0-37.0); MCV 103.7 fL (80.0-100.0); Macrocytosis Slight; Mean Platelet Volume 7.3; Monocytes # (A) 0.7 k/uL (0-1.0); Monocytes % (A) 6 %; Neutrophils # (A) 9.7 k/uL (1.3-7.7); Neutrophils % (A) 84 %; Platelet Count 310 k/uL (150-450); RBC 3.73 m/uL (3.80-5.40); RDW 13.9 % (11.5-15.5); WBC 11.6 k/uL (3.8-10.6)
[2017-08-01] MEDS: ACETAMINOPHEN IV (For NPO) 1,000 MG in EMPTY BAG 1 BAG IVPB SCH ×2 (07:05→14:37)
[2017-08-01] MEDS: 0.9% NACL WITH KCL 20 MEQ/L 1,000 ML IV SCH ×5 (07:06→15:04)
[2017-08-01] MEDS: LEVOTHYROXINE 25 MCG TAB PO SCH (07:06)
[2017-08-01 07:07] LABS: ALT 37 U/L (9-52); AST 33 U/L (14-36); Albumin 2.7 g/dL (3.5-5.0); Alkaline Phosphatase 58 U/L (38-126); Anion Gap 13 mmol/L; Blood Urea Nitrogen 15 mg/dL (7-17); Calcium 8.8 mg/dL (8.4-10.2); Carbon Dioxide 18 mmol/L (22-30); Chloride 111 mmol/L (98-107); Glucose 88 mg/dL (74-99); Magnesium 1.6 mg/dL (1.6-2.3); Potassium 4.1 mmol/L (3.5-5.1); Sodium 142 mmol/L (137-145); Total Bilirubin 1.2 mg/dL (0.2-1.3); Total Protein 5.1 g/dL (6.3-8.2)
[2017-08-01] MEDS: METOCLOPRAMIDE 5 MG/ML 2 ML VIAL IVP SCH ×4 (07:21→23:21)
[2017-08-01] MEDS: IPRATROPIUM-ALBUTEROL 3 ML NEB INHALATION SCH ×4 (09:05→19:51)
[2017-08-01] MEDS: SYMBICORT 160-4.5 MCG INHALER INHALATION SCH ×2 (09:05→19:50)
[2017-08-01] MEDS ORDERED: Magnesium Replacement Protocol 1 EACH MISC MISCELLANE PRN (09:17)
[2017-08-01] MEDS: MAGNESIUM SULFATE-D5W PMX 1 GM in DEXTROSE/WATER 1 100ML.BAG IVPB SCH ×2 (09:50→11:48)
[2017-08-01] MEDS: ENOXAPARIN 40 MG/0.4 ML SYRINGE SQ SCH (09:51)
[2017-08-01] MEDS: CHOLECALCIFEROL 1,000 UNIT TAB PO SCH (09:51)
[2017-08-01] MEDS: ATENOLOL 12.5 MG TAB PO SCH (09:51)
[2017-08-01] MEDS: PANTOPRAZOLE 40 MG/10 ML VIAL IV SCH (09:51)
[2017-08-01] MEDS: NORTRIPTYLINE 10 MG CAP PO SCH (09:51)
[2017-08-01] MEDS: VERAPAMIL SR 120 MG TABLET.ER PO SCH (09:51)
--- NOTE | 2017-08-01 11:51 | P.PN ---
Subjective Progress Note Date: 08/01/17 Principal diagnosis: Abdominal pain, secondary to acute small bowel obstruction. History of mild persistent asthma with no current exacerbations. Martha is a 86-year-old white female patient that sees Dr. Henry in our office for her history of mild persistent asthma, presented to the emergency department on 07/28/2017 with complaints of 3 day history of constipation, lower abdominal pain, nausea, vomiting. She denied any fever or chills. Denied any dysuria. Denied any chest pain, increased shortness of breath, chest congestion, or wheezing. Abdominal x-ray on December 222017 showed generalized ileus versus early distal small bowel obstruction. CT abdomen and pelvis on 2017 showed small bowel obstruction with transition in the pelvis. Questionable distal esophageal diverticulum versus ulcer. Left renal cystic disease, diverticulosis of the sigmoid colon. Admission lab work showed WBC of 11.5, hemoglobin of 14.1, serum sodium of 135, serum potassium 3.9, chloride of 101, BUN of 14, creatinine 0.72. Amylase less than 30, and lipase of 35. Patient has been afebrile, hemodynamically stable, on room air, with O2 sat at 95%. NG tube was inserted, connected to low intermittent suction, patient is nothing by mouth, IV fluids were started with 0.9 at 100 ML per hour. Surgery was consulted. Abdominal series on 07/29/2017 showed findings suggestive of at least partial small bowel obstruction, no pneumoperitoneum, no acute cardiopulmonary process. On 07/30/2017 patient seen in follow-up on surgical floor. Her abdominal pain has improved, with minimal localized tenderness in the right lower quadrant, but no guarding, no rigidity, abdomen is soft, bowel sounds are present 4. NG tube remains to low intermittent suction, with small amount of light clear output. She denies any shortness of breath, fever or chills. Her cough with sputum production has subsided since yesterday. Yesterday we put the patient on nebulized treatments in addition to her home dose Symbicort. She remains afebrile, hemodynamically stable. Lung sounds are clear to auscultation, no rhonchi no wheezes were noted. Last night she was given a suppository with the very small bowel movement. Echocardiogram was reviewed, shows EF of 55-60%, no evidence of pulmonary hypertension, with right ventricular systolic pressure of 23 mmHg, this was done in regards to an episode of chest pain. She denies any chest pain this morning. Lab work was reviewed, WBC is 9.9, hemoglobin is 13.4 , BNP is pending. On 09/28/2017 patient seen in follow-up. Denies any abdominal pain, denies any nausea or vomiting. abdominal series from this morning shows persistent but improving small bowel dilatation in the mid abdomen. moderate fecal stasis. NG tube remains to low intermittent suction, with small amount of clear outputs with some mucous in it. From pulmonary standpoint lung sounds are clear, diminished at the bases, she denies any worsening shortness of breath, no wheezes, no rhonchi. Patient remains nothing by mouth, with the exception of some ice chips. Lab work from today was reviewed, there is no evidence of leukocytosis, WBCs within normal limits, hemoglobin is at 12.4, serum sodium was 141, serum potassium is 3.3, replacements were given, chloride was 109, carbon dioxide is 21. The patient is seen again today 08/01/2017 in follow-up on the selective care unit. She did undergo exploratory laparotomy with lysis of adhesions yesterday. She was recovering on the surgical floor however develop some episodes of sinus tachycardia in the evening and was transferred here to the selective care unit. She is awake and alert in no acute distress. Heart is currently regular, slightly tachycardic in the 1 teens. She did have an episode of paroxysmal atrial fibrillation this morning. She denies any worsening shortness of breath, cough or congestion. She is maintaining O2 saturations in the mid 90s on room air. She is continued on her Symbicort and DuoNeb inhalations 4 times a day and when necessary. Nasogastric tube remains in place. White count 11.2. Hemoglobin 12.7. Creatinine 0.52. Objective - Vital Signs Vital signs: Vital Signs Temp 96.3 F L 08/01/17 09:10 Pulse 118 H 08/01/17 10:32 Resp 16 08/01/17 10:32 BP 131/76 08/01/17 10:32 Pulse Ox 93 L 08/01/17 10:32 Intake & Output 07/31/17 08/01/17 08/01/17 18:59 06:59 18:59 Intake Total 1200 1430 0 Output Total 310 800 Balance 890 630 0 Weight 66.224 kg 72.5 kg Intake: IV 1200 Intake, IV Titration 1430 Amount 0.9% NaCl with KCl 20 Meq 1430 /l 1,000 ml @ 110 mls/hr IV .Q9H6M [facility] Rx#: [id number] Oral 0 Output: Urine 300 800 Uretheral (Ortiz) 800 Estimated Blood Loss 10 Other: Voiding Method Indwelling Catheter # Voids 3 - Exam GENERAL EXAM: Alert, active, comfortable in no apparent distress. HEAD: Normocephalic/atraumatic. EYES: Normal reaction of pupils, equal size. Conjunctiva pink, sclera white. NOSE: Clear with pink turbinates. NG tube present, connected to low intermittent suction, with moderate light clear output with some mucous THROAT: No erythema or exudates. NECK: No masses, no JVD, no thyroid enlargement, no adenopathy. CHEST: No chest wall deformity. Symmetrical expansion. LUNGS: Equal air entry with no crackles, wheeze, rhonchi or dullness. CVS: Irregular rate and rhythm, normal S1 and S2, no gallops, no murmurs, no rubs ABDOMEN: Soft, nontender. No hepatosplenomegaly, normal bowel sounds, no guarding or rigidity. EXTREMITIES: No clubbing, no edema, no cyanosis, 2+ pulses and upper and lower extremities. MUSCULOSKELETAL: Muscle strength and tone normal. SPINE: No scoliosis or deformity SKIN: No rashes CENTRAL NERVOUS SYSTEM: Alert and oriented -3. No focal deficits, tone is normal in all 4 extremities. PSYCHIATRIC: Alert and oriented -3. Appropriate affect. Intact judgment and insight. - Labs CBC & Chem 7: 08/01/17 06:16 08/01/17 06:16 Labs: Abnormal Lab Results - Last 24 Hours (Table) 08/01/17 08/01/17 Range/Units 06:16 06:16 WBC 11.6 H (3.8-10.6) k/uL RBC 3.73 L (3.80-5.40) m/uL MCV 103.7 H (80.0-100.0) fL Neutrophils # 9.7 H (1.3-7.7) k/uL Lymphocytes # 0.9 L (1.0-4.8) k/uL Chloride 111 H (98-107) mmol/L Carbon Dioxide 18 L (22-30) mmol/L Total Protein 5.1 L (6.3-8.2) g/dL Albumin 2.7 L (3.5-5.0) g/dL Assessment and Plan Assessment: Assessment: #1. Acute abdominal pain, secondary to acute small bowel obstruction. Patient presented with nausea and vomiting, lower abdominal pain, and 3 day history of constipation. No fever, no chills. CT of abdomen and pelvis showed small bowel obstruction with transition somewhere in the pelvis. Abdominal series from 07/31/2017 shows persistent but improving small bowel dilatation in the mid abdomen she did undergo exploratory laparotomy and lysis of adhesions on 04/2018. His postoperative day #1. #2. Mild persistent asthma, with no sign of current exacerbation #3. Hypothyroidism #4. Hypertension #5. Fibromyalgia #6. Osteoarthritis #7. Environmental ALLERGY #8. Acoustic neuroma #9. Patient is a lifetime nonsmoker #10. History of hysterectomy, appendectomy #11 History of tachyarrhythmias with recurrence last evening and the episode of paroxysmal atrial fibrillation earlier this morning. Plan: The patient was seen and evaluated by Dr. Bird. She is stable from the pulmonary standpoint. We'll obtain a chest x-ray today. We'll continue with Symbicort, Singulair and duo-neb inhalations. She is currently on Lovenox for DVT prophylaxis, Protonix for GI prophylaxis. Will increase her activity as tolerated. We'll continue to follow and make further recommendations based on her clinical status. I, the cosigning physician, have performed a history and physical examination on the patient. Lung sounds are clear. Maintaining good O2 saturations in the 90s on room air. I have discussed the assessment and plan of care with my nurse practitioner, Maryana Stephens. I attest to the above progress note as dictated by her.
--- NOTE | 2017-08-01 11:56 | XR ---
EXAMINATION TYPE: XR chest 1V portable DATE OF EXAM: 08/01/2017 CLINICAL HISTORY: Rehabilitation placement. Abdominal surgery yesterday. TECHNIQUE: Single AP portable frontal upright view of the chest is obtained. COMPARISON: Chest x-ray September 29, 2015. FINDINGS: There is new nasogastric tube projecting below left hemidiaphragm. Diminished inspiration o n current study is seen. There is new right-sided volume loss with mediastinal shift and elevated ri ght hemidiaphragm. Right lung opacity is not well-visualized. The cardiac silhouette size is upper l imits of normal with atherosclerotic and ectatic aorta. The osseous structures are intact. IMPRESSION: Diminished inspiration with suspected new right sided atelectatic change. Consider progre ss two-view chest x-ray.
--- NOTE | 2017-08-01 12:09 | P.PN ---
Progress Note - Text Progress Note Date: 08/01/17 DATE OF SERVICE: 08/01/2017 PRESENTING COMPLAINT: Abdominal pain nausea and vomiting. HISTORY OF PRESENT ILLNESS: 86-year-old female was transferred from an outside hospital 3 days ago this began having abdominal pain so her local doctor felt to have a UTI given Bactrim continued to have increasing abdominal pain started having nausea vomiting and decreased appetite. Last bowel movement was 4 days ago normally has a bowel movement every other day. admitted small bowel obstruction, reevaluation of abdomen on x-ray revealed little improvement, patient is now status post exploratory laparotomy with lysis of adhesions. INTERVAL HISTORY: 08/01/2017: Lying in bed NG tube in place, dark brown drainage from NG tube. Status post exploratory laparotomy with lysis of adhesions, Overnight patient had an episode of atrial fibrillation was transferred to [facility], patient converted to normal sinus rhythm early this morning, and mid morning converted back to atrial fibrillation, rate controlled. Midline incision covered with surgical dressing, Abdominal binder in place, moderate amount of shadowing to the distal end of the dressing. Patient remains nothing by mouth. 07/31/2017: lying in bed NG tube in place draining clear milky drainage. patient received soapsuds enema last night and had a small bowel movement some improvement none of abdominal pain but it continues to persist. abdominal x-ray this morning shows small bowel obstruction with fecal stasis. Surgery is planning to take the patient for an exploratory laparotomy later today. 07/30/2017: Patient lying in bed NG tube in place draining clear milky colored drainage. No further nausea or vomiting, remains nothing by mouth, received a suppository with a small amount of stool returned. Ambulatory with some assistance. 07/29/2017: Patient lying in bed NG tube in place no further nausea or vomiting. Remains nothing by mouth, ambulatory with some assistance, passing some flatus. Family at the bedside, questions answered. REVIEW OF SYSTEMS: Done for constitutional ,cardiovascular, GI, pulmonary with relevant findings as above. CURRENT MEDICATIONS DuoNeb, Tenormin, Dulcolax, Symbicort, cholecalciferol, Benadryl, Lovenox, hydromorphone, Synthroid, Reglan, Singulair, nortriptyline, Zofran, Protonix, verapamil. PHYSICAL EXAM VITAL SIGNS: Temperature 96.3, pulse 105, respirations 16, blood pressure 126/63, oxygen saturation 94% on room air. GENERAL APPEARANCE: Lying in bed, tired appearing HEENT: Normocephalic, Pupils equal. Conjunctiva normal. JVD not raised. Mass not palpable. Dry mucous membranes: RESPIRATORY: Respiratory effort normal. Lungs diminished to auscultation. CARDIOVASCULAR: irregular rhythm No edema. ABDOMEN: Soft. Liver and spleen not palpable. Abdominal binder in place, midline incision surgical dressing in place, moderate amount of drainage to the distal portion of the dressing. Mild tenderness. No mass palpable. PSYCHIATRY: Alert and oriented x3. Mood and affect normal. INVESTIGATIONS: Labs: White blood cell count 11.6, hemoglobin of 12.7, chloride 111, carbon dioxide 18, chest x-ray: Diminished inspiration with suspected new right-sided atelectatic changes. ASSESSMENT: -Acute small bowel obstruction, status post exploratory laparotomy with lysis of adhesions -Paroxysmal atrial fibrillation in a patient with a history of unknown arrhythmia -Sigmoid diverticulosis, chronic asymptomatic. -Moderate persistent asthma, some improvement. -Chronic fibromyalgia. -Essential hypertension. PLAN: Continue NG tube to suction, pain control IV fluids, advance diet and activity as patient can tolerate per surgical preference. Plan of care discussed at the bedside with the patient she is in agreement. We'll follow closely. DIAGNOSTIC CARDIAC SONOGRAPHER statement: Patient was seen and examined by nurse practitioner Nadine Pan and all elements of the case discussed with attending Dr. Felder
--- NOTE | 2017-08-01 12:18 | P.PN ---
Subjective Progress Note Date: 08/01/17 86-year-old female seen and examined. Events noted during the night. Patient had developed an asymptomatic episode of tachycardia heart rate up in the 110- 120 . Patient is having episodes of paroxysmal atrial fibrillation Patient's denying chest pain when questioning. Patient does report "IV pain medication they gave me has made me feel groggy and loopy" nasogastric tube to suction. The temp is 96.3 this morning daughter at bedside labs reviewed Patient's postop July 31 exploratory laparotomy lysis of adhesions for a partial small bowel obstruction. Objective - Vital Signs Vital signs: Vital Signs Temp 96.3 F L 08/01/17 09:10 Pulse 118 H 08/01/17 10:32 Resp 16 08/01/17 10:32 BP 131/76 08/01/17 10:32 Pulse Ox 93 L 08/01/17 10:32 Intake & Output 07/31/17 08/01/17 08/01/17 18:59 06:59 18:59 Intake Total 1200 1430 0 Output Total 310 800 350 Balance 890 630 -350 Weight 66.224 kg 72.5 kg Intake: IV 1200 Intake, IV Titration 1430 Amount 0.9% NaCl with KCl 20 Meq 1430 /l 1,000 ml @ 110 mls/hr IV .[id number] [facility] Rx#: [id number] Oral 0 Output: Urine 300 800 350 Uretheral (Ortiz) 800 350 Estimated Blood Loss 10 Other: Voiding Method Indwelling Catheter # Voids 3 - Exam physical exam pleasant 86-year-old female resting in bed stating anxious to get up out of bed lungs adequate air movement bilaterally Heart S1-S2 audible telemetry unit sinus rhythm and sinus tach heart rate in the 100s denying chest pain no murmur with episodes of paroxysmal atrial fibrillation, SVT. Patient's denying chest pain when questioning Abdomen nasogastric tube in place connected to suction a few hypoactive bowel tones noted abdominal binder removed inspected surgical site old bloody drainage distal to surgical dressing noted. Indwelling Ortiz catheter in place. Surgical tenderness appropriate. Nondistended reports no nausea vomiting extremities no edema Venodyne's on bilaterally - Labs CBC & Chem 7: 08/01/17 06:16 08/01/17 06:16 Labs: Abnormal Lab Results - Last 24 Hours (Table) 08/01/17 08/01/17 Range/Units 06:16 06:16 WBC 11.6 H (3.8-10.6) k/uL RBC 3.73 L (3.80-5.40) m/uL MCV 103.7 H (80.0-100.0) fL Neutrophils # 9.7 H (1.3-7.7) k/uL Lymphocytes # 0.9 L (1.0-4.8) k/uL Chloride 111 H (98-107) mmol/L Carbon Dioxide 18 L (22-30) mmol/L Total Protein 5.1 L (6.3-8.2) g/dL Albumin 2.7 L (3.5-5.0) g/dL Assessment and Plan Assessment: impression present on admission abdominal pain nausea vomiting decrease appetite suspect due to small bowel obstruction as evident on a CAT scan of the abdomen and pelvis new-onset constipation no bowel movement for 5 days moderate persistent asthma with mild exacerbation CAT scan abdomen and pelvis shows diverticulosis of the sigmoid colon CAT scan of the abdomen pelvis questionable distal esophageal diverticulum versus ulcer History of cardiac arrhythmia workup in place recent Holter monitor placed Essential hypertension hypokalemia corrected Postop July 31 exploratory laparotomy lysis of adhesions for small bowel obstruction Cardiac arrhythmias paroxysmal atrial fibrillation, SVT Echocardiogram shows left ventricular systolic function normal with an EF between 55 and 60%. Done on July [address] jovita miguel to initiate anticoagulation defer to cardiology Await cardiology input Remove Ortiz catheter now Increase activity Repeat labs in the morning follow up on results Continue nasogastric tube to suction DVT and GI prophylaxis Pain control IV fluid for hydration Continue postop surgical care Continue recommendations by cardiology service Will follow clinical course closely Nasogastric tube to be removed now manager study to pursue discharge plan ECF placement when appropriate The above impression and plan of care have been discussed and directed by signing physician. Lavern Barker nurse practitioner acting as scribe for signing physician.
[2017-08-01] MEDS: KETOROLAC 30 MG/ML 1 ML VIAL IVP SCH ×3 (12:30→23:23)
--- NOTE | 2017-08-01 14:45 | P.PN ---
Subjective Progress Note Date: 08/01/17 Principal diagnosis: Bowel obstruction Mrs. Tamayo is a pleasnt 86-year-old female with past medical history significant for asthma, hypertension and fibromyalgia. She denies history of coronary artery disease. does have history of palpitations, for this reason she recently underwent a Holter monitor placement, she has not actually followed with Dr. Greene in the office, but he was going to read the 24- hour Holter. Last evening and again today patient has been in and out of rapid atrial fibrillation, at present she continues to be in A. fib but her heart rate is controlled. Dr. Corea did have a lengthy discussion with the patient and her family at bedside today regarding the importance of anticoagulation for stroke prevention, once okay with surgery. A mesial level I.6 today, replaced. Objective - Vital Signs Vital signs: Vital Signs Temp 96.3 F L 08/01/17 09:10 Pulse 95 08/01/17 12:33 Resp 16 08/01/17 12:15 BP 93/56 08/01/17 12:15 Pulse Ox 95 08/01/17 12:15 Intake & Output 07/31/17 08/01/17 08/01/17 18:59 06:59 18:59 Intake Total 1200 1430 0 Output Total 310 800 350 Balance 890 630 -350 Weight 66.224 kg 72.5 kg Intake: IV 1200 Intake, IV Titration 1430 Amount 0.9% NaCl with KCl 20 Meq 1430 /l 1,000 ml @ 110 mls/hr IV .[id number] [facility] Rx#: [id number] Oral 0 Output: Urine 300 800 350 Uretheral (Ortiz) 800 350 Estimated Blood Loss 10 Other: Voiding Method Indwelling Catheter # Voids 3 - Exam PHYSICAL EXAMINATION: HEENT: Head is atraumatic, normocephalic. Pupils equal, round. Neck is supple. There is no elevated jugular venous pressure. HEART EXAMINATION: Heart S1 and S2 irregularly irregular CHEST EXAMINATION: Lungs are clear to auscultation and precussion. No chest wall tenderness is noted on palpation or with deep breathing. ABDOMEN: Soft, mild generalized tenderness No organomegaly noted. Dressing dry and intact, small amount of bloody drainage noted. EXTREMITIES: 2+ peripheral pulses with no evidence of peripheral edema and no calf tenderness noted. Bilateral Venodyne's in place NEUROLOGIC patient is awake, alert and oriented -3. . - Labs CBC & Chem 7: 08/01/17 06:16 08/01/17 06:16 Labs: Abnormal Lab Results - Last 24 Hours (Table) 08/01/17 08/01/17 Range/Units 06:16 06:16 WBC 11.6 H (3.8-10.6) k/uL RBC 3.73 L (3.80-5.40) m/uL MCV 103.7 H (80.0-100.0) fL Neutrophils # 9.7 H (1.3-7.7) k/uL Lymphocytes # 0.9 L (1.0-4.8) k/uL Chloride 111 H (98-107) mmol/L Carbon Dioxide 18 L (22-30) mmol/L Total Protein 5.1 L (6.3-8.2) g/dL Albumin 2.7 L (3.5-5.0) g/dL Assessment and Plan Plan: Assessment and plan #1 small bowel obstruction, status post surgery #2 essential hypertension #3 hypomagnesemia #4 paroxysmal atrial fibrillation Plan We will continue current dose of calcium channel wai and beta wai. We will also discontinue the Lovenox and initiate Eliquis 2-1/2 mg one tablet by mouth twice a day which was approved by the surgeon. We are awaiting the report of the 24-hour Holter monitor. DNP note has been reviewed, I agree with a documented findings and plan of care. Patient was seen and examined.
[2017-08-01] MEDS: APIXABAN 2.5 MG TABLET PO SCH (20:07)
[2017-08-01] MEDS: MONTELUKAST 10 MG TAB PO SCH (20:07)
--- NOTE | 2017-08-02 05:37 | PN ---
PROGRESS NOTE DATE OF SERVICE: 08/01/2017 ATTENDING NOTE: Patient was seen and examined by me. I discussed the case with nurse practitioner, Ms. Pan. The patient is status post lysis of adhesions early this morning. Patient went into A. Fib with rapid ventricular rate. I did move the patient to selective care with consultation to Cardiology. On examination, temperature 97, pulse 78, respirations 16, blood pressure 109/53, pulse ox 92% on room air. Heart rate irregular. Abdomen: Some tenderness present. Binder in place. Very small amount of flatus. ASSESSMENT: 1. Paroxysmal atrial fibrillation with rapid ventricular rate, recurrent. 2. Status post adhesion lysis. The patient was seen by Cardiology. They are starting the patient on Eliquis if okay with Surgery. Otherwise, patient is on beta wai and calcium channel wai. MMODL / IJN: [id number] /
[2017-08-02 06:32] LABS: Basophils % (A) 0 %; Eosinophils # (A) 0.2 k/uL (0-0.7); Eosinophils % (A) 3 %; HCT 35.9 % (34.0-46.0); HGB 11.7 gm/dL (11.4-16.0); Lymphocytes # (A) 1.2 k/uL (1.0-4.8); Lymphocytes % (A) 15 %; MCH 33.7 pg (25.0-35.0); MCHC 32.7 g/dL (31.0-37.0); Macrocytosis Slight; Mean Platelet Volume 7.3; Monocytes # (A) 0.5 k/uL (0-1.0); Monocytes % (A) 7 %; Neutrophils # (A) 5.8 k/uL (1.3-7.7); Neutrophils % (A) 74 %; Platelet Count 304 k/uL (150-450); RBC 3.48 m/uL (3.80-5.40); RDW 13.8 % (11.5-15.5)
[2017-08-02 06:45] LABS: ALT 41 U/L (9-52); AST 31 U/L (14-36); Albumin 2.5 g/dL (3.5-5.0); Alkaline Phosphatase 60 U/L (38-126); Anion Gap 6 mmol/L; Blood Urea Nitrogen 16 mg/dL (7-17); Calcium 8.3 mg/dL (8.4-10.2); Carbon Dioxide 24 mmol/L (22-30); Chloride 109 mmol/L (98-107); Glucose 85 mg/dL (74-99); Magnesium 1.9 mg/dL (1.6-2.3); Potassium 3.6 mmol/L (3.5-5.1); Sodium 139 mmol/L (137-145); Total Bilirubin 0.9 mg/dL (0.2-1.3); Total Protein 4.7 g/dL (6.3-8.2)
[2017-08-02] MEDS: METOCLOPRAMIDE 5 MG/ML 2 ML VIAL IVP SCH ×4 (06:51→23:18)
[2017-08-02] MEDS: 0.9% NACL WITH KCL 20 MEQ/L 1,000 ML IV SCH (06:51)
[2017-08-02] MEDS: KETOROLAC 30 MG/ML 1 ML VIAL IVP SCH ×4 (06:51→23:17)
[2017-08-02] MEDS: LEVOTHYROXINE 25 MCG TAB PO SCH (06:51)
[2017-08-02] MEDS: SYMBICORT 160-4.5 MCG INHALER INHALATION SCH ×2 (07:54→20:36)
[2017-08-02] MEDS: IPRATROPIUM-ALBUTEROL 3 ML NEB INHALATION SCH ×4 (07:54→20:36)
[2017-08-02] MEDS: ATENOLOL 12.5 MG TAB PO SCH (09:29)
[2017-08-02] MEDS: APIXABAN 2.5 MG TABLET PO SCH ×2 (09:29→20:18)
[2017-08-02] MEDS: PANTOPRAZOLE 40 MG/10 ML VIAL IV SCH (09:29)
[2017-08-02] MEDS: VERAPAMIL SR 120 MG TABLET.ER PO SCH (09:30)
[2017-08-02] MEDS: CHOLECALCIFEROL 1,000 UNIT TAB PO SCH (09:30)
[2017-08-02] MEDS: NORTRIPTYLINE 10 MG CAP PO SCH (09:30)
[2017-08-02] MEDS ORDERED: POTASSIUM CHLORIDE ER 20 MEQ TAB.ER PO STA (09:44)
--- NOTE | 2017-08-02 10:04 | P.PN ---
<Lavern Barker M - Last Filed: 08/02/17 09:56> Subjective Progress Note Date: 08/02/17 86-year-old female seen and examined sitting up in bed did note with activity patient's heart rate does go up into the 120s 130s currently monitor showing sinus rhythm rate 110 patient denies chest pain when questioning denies shortness of breath. Currently is denying any nausea vomiting dizziness or lightheadedness cardiology following recommendations reviewed noted and appreciated labs reviewed the discharge plan is in progress anticipate transfer to subacute rehab when medically stable Postop July 31 exploratory laparotomy lysis of adhesions for a partial small bowel obstruction Objective - Vital Signs Vital signs: Vital Signs Temp 98.7 F 08/02/17 09:27 Pulse 103 H 08/02/17 09:27 Resp 16 08/02/17 09:27 BP 125/65 08/02/17 09:27 Pulse Ox 97 08/02/17 09:27 Intake & Output 08/01/17 08/02/17 08/02/17 18:59 06:59 18:59 Intake Total 1234 560 120 Output Total 350 Balance 884 560 120 Weight 70.7 kg Intake: Intake, IV Titration 640 560 Amount 0.9% NaCl with KCl 20 Meq 640 560 /l 1,000 ml @ 75 mls/hr IV .[id number] [facility] Rx#: [id number] Oral 594 120 Output: Urine 350 Uretheral (Ortiz) 350 Other: Voiding Method Toilet Toilet # Voids 2 1 0 # Bowel Movements 0 - Exam Physical exam 86-year-old female pleasant alert oriented 3 denying dizziness lightheadedness chest pain or shortness of breath has been up to bathroom did note heart rate with activity does go up Lungs posterior diminished at the bases otherwise adequate air movement sats are 93% no cough noted Heart S1-S2 audible and regular currently monitor showing sinus tach heart rate 110s Abdomen abdominal binder removed surgical dressings dry passing gas no stool states urinating no difficulty reports tolerating clear liquid diet no nausea no vomiting soft surgical tenderness appropriate not distended Extremities Venodyne's on to the bilateral lower extremities - Labs CBC & Chem 7: 08/02/17 05:53 08/02/17 05:53 Labs: Abnormal Lab Results - Last 24 Hours (Table) 08/02/17 08/02/17 Range/Units 05:53 05:53 RBC 3.48 L (3.80-5.40) m/uL MCV 103.0 H (80.0-100.0) fL Chloride 109 H (98-107) mmol/L Calcium 8.3 L (8.4-10.2) mg/dL Total Protein 4.7 L (6.3-8.2) g/dL Albumin 2.5 L (3.5-5.0) g/dL Assessment and Plan Assessment: impression present on admission abdominal pain nausea vomiting decrease appetite suspect due to small bowel obstruction as evident on a CAT scan of the abdomen and pelvis new-onset constipation no bowel movement for 5 days moderate persistent asthma with mild exacerbation CAT scan abdomen and pelvis shows diverticulosis of the sigmoid colon CAT scan of the abdomen pelvis questionable distal esophageal diverticulum versus ulcer History of cardiac arrhythmia workup in place recent Holter monitor placed Essential hypertension hypokalemia corrected Postop July 31 exploratory laparotomy lysis of adhesions for small bowel obstruction Cardiac arrhythmias paroxysmal atrial fibrillation, SVT Echocardiogram shows left ventricular systolic function normal with an EF between 55 and 60%. Done on July 29 Plan Increase activity Repeat labs in the morning follow up on results DVT and GI prophylaxis Pain control Hep-Lock IV Continue postop surgical care Continue recommendations by cardiology service Will follow clinical course closely manager research to pursue discharge plan ECF placement when appropriate Advance diet as tolerated Saline lock IV elquis 2.5mg bid The above impression and plan of care have been discussed and directed by signing physician. Lavern Barker nurse practitioner acting as scribe for signing physician. <Kiki Acosta - Last Filed: 08/02/17 13:07> Objective - Vital Signs Vital signs: Vital Signs Temp 98.7 F 08/02/17 09:27 Pulse 73 08/02/17 11:38 Resp 16 08/02/17 11:38 BP 107/55 08/02/17 11:38 Pulse Ox 94 L 08/02/17 11:38 Intake & Output 08/01/17 08/02/17 08/02/17 18:59 06:59 18:59 Intake Total 1234 560 120 Output Total 350 Balance 884 560 120 Weight 70.7 kg Intake: Intake, IV Titration 640 560 Amount 0.9% NaCl with KCl 20 Meq 640 560 /l 1,000 ml @ 75 mls/hr IV .[id number] [facility] Rx#: [id number] Oral 594 120 Output: Urine 350 Uretheral (Ortiz) 350 Other: Voiding Method Toilet Toilet Toilet # Voids 2 1 0 # Bowel Movements 0 - Labs CBC & Chem 7: 08/02/17 05:53 08/02/17 05:53 Labs: Abnormal Lab Results - Last 24 Hours (Table) 08/02/17 08/02/17 Range/Units 05:53 05:53 RBC 3.48 L (3.80-5.40) m/uL MCV 103.0 H (80.0-100.0) fL Chloride 109 H (98-107) mmol/L Calcium 8.3 L (8.4-10.2) mg/dL Total Protein 4.7 L (6.3-8.2) g/dL Albumin 2.5 L (3.5-5.0) g/dL Assessment and Plan Plan: patient examined. Afib with RVR. Jazzy drain present. Patient to go home with jazzy drain . Will be removed in the office during post op visit.
--- NOTE | 2017-08-02 11:16 | P.PN ---
Subjective Progress Note Date: 08/02/17 Principal diagnosis: Bowel Obstruction This is a pleasant 86-year-old female with past medical history of asthma, hypertension and fibromyalgia. She does have a history of palpitations and recently underwent Holter monitor did not reveal reveal any evidence of arrhythmia. We are asked to see the patient in consultation for paroxysmal atrial fibrillation. She has been placed on Eliquis anticoagulation. Today she is maintaining sinus rhythm. Objective - Vital Signs Vital signs: Vital Signs Temp 98.7 F 08/02/17 09:27 Pulse 103 H 08/02/17 09:27 Resp 16 08/02/17 09:30 BP 125/65 08/02/17 09:27 Pulse Ox 97 08/02/17 09:27 Intake & Output 08/01/17 08/02/17 08/02/17 18:59 06:59 18:59 Intake Total 1234 560 120 Output Total 350 Balance 884 560 120 Weight 70.7 kg Intake: Intake, IV Titration 640 560 Amount 0.9% NaCl with KCl 20 Meq 640 560 /l 1,000 ml @ 75 mls/hr IV .[id number] [facility] Rx#: [id number] Oral 594 120 Output: Urine 350 Uretheral (Ortiz) 350 Other: Voiding Method Toilet Toilet Toilet # Voids 2 1 0 # Bowel Movements 0 - Exam PHYSICAL EXAMINATION: HEENT: Head is atraumatic, normocephalic. Pupils equal, round. Neck is supple. There is no elevated jugular venous pressure. HEART EXAMINATION: Heart sounds irregularly irregular, S1 and S2 normal. No murmur or gallop heard. CHEST EXAMINATION: Lungs are clear to auscultation and precussion. No chest wall tenderness is noted on palpation or with deep breathing. ABDOMEN: Soft, nontender. Bowel sounds are heard. No organomegaly noted. EXTREMITIES: 2+ peripheral pulses with no evidence of peripheral edema and no calf tenderness noted. NEUROLOGIC patient is awake, alert and oriented x3. . - Labs CBC & Chem 7: 08/02/17 05:53 08/02/17 05:53 Labs: Abnormal Lab Results - Last 24 Hours (Table) 08/02/17 08/02/17 Range/Units 05:53 05:53 RBC 3.48 L (3.80-5.40) m/uL MCV 103.0 H (80.0-100.0) fL Chloride 109 H (98-107) mmol/L Calcium 8.3 L (8.4-10.2) mg/dL Total Protein 4.7 L (6.3-8.2) g/dL Albumin 2.5 L (3.5-5.0) g/dL Assessment and Plan Assessment: 1 small bowel obstruction, status post surgery #2 hypertension #3 paroxysmal atrial fibrillation #4 hypomagnesemia Plan: From cardiology's perspective, we will continue atenolol 37.5 mg by mouth daily , verapamil SR 120 mg by mouth daily and Eliquis 2.5 mg twice daily. MR standpoint, patient may be discharged home today. She'll follow-up in the office with Dr. Greene. ORTHOTIC/PROSTHETIC PRACTITIONER note has been reviewed, I agree with a documented findings and plan of care. Patient was seen and examined.
--- NOTE | 2017-08-02 11:48 | P.PN ---
Subjective Progress Note Date: 08/02/17 Principal diagnosis: acute small bowel obstruction Martha is a 86-year-old white female patient that sees Dr. Henry in our office for her history of mild persistent asthma, presented to the emergency department on 07/28/2017 with complaints of 3 day history of constipation, lower abdominal pain, nausea, vomiting. She denied any fever or chills. Denied any dysuria. Denied any chest pain, increased shortness of breath, chest congestion, or wheezing. Abdominal x-ray on December 222017 showed generalized ileus versus early distal small bowel obstruction. CT abdomen and pelvis on 2017 showed small bowel obstruction with transition in the pelvis. Questionable distal esophageal diverticulum versus ulcer. Left renal cystic disease, diverticulosis of the sigmoid colon. Admission lab work showed WBC of 11.5, hemoglobin of 14.1, serum sodium of 135, serum potassium 3.9, chloride of 101, BUN of 14, creatinine 0.72. Amylase less than 30, and lipase of 35. Patient has been afebrile, hemodynamically stable, on room air, with O2 sat at 95%. NG tube was inserted, connected to low intermittent suction, patient is nothing by mouth, IV fluids were started with 0.9 at 100 ML per hour. Surgery was consulted. Abdominal series on 07/29/2017 showed findings suggestive of at least partial small bowel obstruction, no pneumoperitoneum, no acute cardiopulmonary process. On 07/30/2017 patient seen in follow-up on surgical floor. Her abdominal pain has improved, with minimal localized tenderness in the right lower quadrant, but no guarding, no rigidity, abdomen is soft, bowel sounds are present 4. NG tube remains to low intermittent suction, with small amount of light clear output. She denies any shortness of breath, fever or chills. Her cough with sputum production has subsided since yesterday. Yesterday we put the patient on nebulized treatments in addition to her home dose Symbicort. She remains afebrile, hemodynamically stable. Lung sounds are clear to auscultation, no rhonchi no wheezes were noted. Last night she was given a suppository with the very small bowel movement. Echocardiogram was reviewed, shows EF of 55-60%, no evidence of pulmonary hypertension, with right ventricular systolic pressure of 23 mmHg, this was done in regards to an episode of chest pain. She denies any chest pain this morning. Lab work was reviewed, WBC is 9.9, hemoglobin is 13.4 , BNP is pending. On 09/28/2017 patient seen in follow-up. Denies any abdominal pain, denies any nausea or vomiting. abdominal series from this morning shows persistent but improving small bowel dilatation in the mid abdomen. moderate fecal stasis. NG tube remains to low intermittent suction, with small amount of clear outputs with some mucous in it. From pulmonary standpoint lung sounds are clear, diminished at the bases, she denies any worsening shortness of breath, no wheezes, no rhonchi. Patient remains nothing by mouth, with the exception of some ice chips. Lab work from today was reviewed, there is no evidence of leukocytosis, WBCs within normal limits, hemoglobin is at 12.4, serum sodium was 141, serum potassium is 3.3, replacements were given, chloride was 109, carbon dioxide is 21. The patient is seen again today 08/01/2017 in follow-up on the selective care unit. She did undergo exploratory laparotomy with lysis of adhesions yesterday. She was recovering on the surgical floor however develop some episodes of sinus tachycardia in the evening and was transferred here to the selective care unit. She is awake and alert in no acute distress. Heart is currently regular, slightly tachycardic in the 1 teens. She did have an episode of paroxysmal atrial fibrillation this morning. She denies any worsening shortness of breath, cough or congestion. She is maintaining O2 saturations in the mid 90s on room air. She is continued on her Symbicort and DuoNeb inhalations 4 times a day and when necessary. Nasogastric tube remains in place. White count 11.2. Hemoglobin 12.7. Creatinine 0.52. Reevaluated today on 08/02/2017, her nasogastric tube has been removed, patient is relatively asymptomatic, doing well with incentive spirometry. No bowel movements yet, but she is passing some gas already.CBC is relatively normal hemoglobin is 11.7 and electrolytes and renal profile are normal. Objective - Vital Signs Vital signs: Vital Signs Temp 98.7 F 08/02/17 09:27 Pulse 73 08/02/17 11:38 Resp 16 08/02/17 11:38 BP 107/55 08/02/17 11:38 Pulse Ox 94 L 08/02/17 11:38 Intake & Output 08/01/17 08/02/17 08/02/17 18:59 06:59 18:59 Intake Total 1234 560 120 Output Total 350 Balance 884 560 120 Weight 70.7 kg Intake: Intake, IV Titration 640 560 Amount 0.9% NaCl with KCl 20 Meq 640 560 /l 1,000 ml @ 75 mls/hr IV .[id number] JOHNY Rx#: [id number] Oral 594 120 Output: Urine 350 Uretheral (Ortiz) 350 Other: Voiding Method Toilet Toilet Toilet # Voids 2 1 0 # Bowel Movements 0 - Exam GENERAL EXAM: Alert, active, comfortable in no apparent distress. HEAD: Normocephalic/atraumatic. EYES: Normal reaction of pupils, equal size. Conjunctiva pink, sclera white. NOSE: Clear with pink turbinates. NG tube has been removed THROAT: No erythema or exudates. NECK: No masses, no JVD, no thyroid enlargement, no adenopathy. CHEST: No chest wall deformity. Symmetrical expansion. LUNGS: Equal air entry with no crackles, wheeze, rhonchi or dullness. CVS: Irregular rate and rhythm, normal S1 and S2, no gallops, no murmurs, no rubs ABDOMEN: Soft, nontender. No hepatosplenomegaly, normal bowel sounds, no guarding or rigidity. EXTREMITIES: No clubbing, no edema, no cyanosis, 2+ pulses and upper and lower extremities. MUSCULOSKELETAL: Muscle strength and tone normal. SPINE: No scoliosis or deformity SKIN: No rashes CENTRAL NERVOUS SYSTEM: Alert and oriented -3. No focal deficits, tone is normal in all 4 extremities. PSYCHIATRIC: Alert and oriented -3. Appropriate affect. Intact judgment and insight. - Labs CBC & Chem 7: 08/02/17 05:53 08/02/17 05:53 Labs: Abnormal Lab Results - Last 24 Hours (Table) 08/02/17 08/02/17 Range/Units 05:53 05:53 RBC 3.48 L (3.80-5.40) m/uL MCV 103.0 H (80.0-100.0) fL Chloride 109 H (98-107) mmol/L Calcium 8.3 L (8.4-10.2) mg/dL Total Protein 4.7 L (6.3-8.2) g/dL Albumin 2.5 L (3.5-5.0) g/dL Assessment and Plan Assessment: #1. Acute abdominal pain, secondary to acute small bowel obstruction. Patient presented with nausea and vomiting, lower abdominal pain, and 3 day history of constipation. No fever, no chills. CT of abdomen and pelvis showed small bowel obstruction with transition somewhere in the pelvis. Abdominal series from 07/31/2017 shows persistent but improving small bowel dilatation in the mid abdomen she did undergo exploratory laparotomy and lysis of adhesions on 04/2018. His postoperative day #1. #2. Mild persistent asthma, with no sign of current exacerbation #3. Hypothyroidism #4. Hypertension #5. Fibromyalgia #6. Osteoarthritis #7. Environmental ALLERGY #8. Acoustic neuroma #9. Patient is a lifetime nonsmoker #10. History of hysterectomy, appendectomy #11 History of tachyarrhythmias with recurrence last evening and the episode of paroxysmal atrial fibrillation earlier this morning. Plan:continue present supportive care measures, continue incentive spirometry, continue bronchodilators, possible discharge planning over the weekend. or latest will be Saturday. Time with Patient: Less than 30
[2017-08-02 14:34] VITALS: BMI 26.7
--- NOTE | 2017-08-02 16:29 | P.PN ---
Progress Note - Text Progress Note Date: 08/02/17 DATE OF SERVICE: 08/02/2017 PRESENTING COMPLAINT: Abdominal pain nausea and vomiting. HISTORY OF PRESENT ILLNESS: 86-year-old female was transferred from an outside hospital 3 days ago this began having abdominal pain so her local doctor felt to have a UTI given Bactrim continued to have increasing abdominal pain started having nausea vomiting and decreased appetite. Last bowel movement was 4 days ago normally has a bowel movement every other day. admitted small bowel obstruction, reevaluation of abdomen on x-ray revealed little improvement, patient is now status post exploratory laparotomy with lysis of adhesions. INTERVAL HISTORY: 08/02/2017: Sitting up in the edge of the bed, working with physical therapy. NG tube removed. Able to stand with assistance and a cane, taking a few steps is a bit wobbly, tolerating her diet currently full liquid, passing a little bit of flatus but no BM yet. 08/01/2017: Lying in bed NG tube in place, dark brown drainage from NG tube. Status post exploratory laparotomy with lysis of adhesions, Overnight patient had an episode of atrial fibrillation was transferred to [address] [place] [address], patient converted to normal sinus rhythm early this morning, and mid morning converted back to atrial fibrillation, rate controlled. Midline incision covered with surgical dressing, Abdominal binder in place, moderate amount of shadowing to the distal end of the dressing. Patient remains nothing by mouth. 07/31/2017: lying in bed NG tube in place draining clear milky drainage. patient received soapsuds enema last night and had a small bowel movement some improvement none of abdominal pain but it continues to persist. abdominal x-ray this morning shows small bowel obstruction with fecal stasis. Surgery is planning to take the patient for an exploratory laparotomy later today. 07/30/2017: Patient lying in bed NG tube in place draining clear milky colored drainage. No further nausea or vomiting, remains nothing by mouth, received a suppository with a small amount of stool returned. Ambulatory with some assistance. 07/29/2017: Patient lying in bed NG tube in place no further nausea or vomiting. Remains nothing by mouth, ambulatory with some assistance, passing some flatus. Family at the bedside, questions answered. REVIEW OF SYSTEMS: Done for constitutional ,cardiovascular, GI, pulmonary with relevant findings as above. CURRENT MEDICATIONS DuoNeb, Eliquis Tenormin, Dulcolax, Symbicort, cholecalciferol, Toradol, Synthroid, Reglan, Singulair, nortriptyline, Zofran, Protonix, verapamil. PHYSICAL EXAM VITAL SIGNS: Temperature 98.7, pulse 103, respiratory rate 16, blood pressure 120/65, oxygen saturation 97% GENERAL APPEARANCE: Sitting on the edge of the bed,, no distress noted. HEENT: Normocephalic, Pupils equal. Conjunctiva normal. JVD not raised. Mass not palpable. Dry mucous membranes: RESPIRATORY: Respiratory effort normal. Lungs diminished to auscultation. CARDIOVASCULAR: First and second sounds noted No edema. ABDOMEN: Soft. Liver and spleen not palpable. Abdominal binder in place, midline incision surgical dressing in place, moderate amount of drainage to the distal portion of the dressing. Mild tenderness. No mass palpable. PSYCHIATRY: Alert and oriented x3. Mood and affect normal. INVESTIGATIONS: Labs: White blood cell count 8.0, BMP grossly unremarkable. ASSESSMENT: -Acute small bowel obstruction, status post exploratory laparotomy with lysis of adhesions -Paroxysmal atrial fibrillation in a patient with a history of unknown arrhythmia, currently sinus rhythm -Sigmoid diverticulosis, chronic asymptomatic. -Moderate persistent asthma, some improvement. -Chronic fibromyalgia. -Essential hypertension. PLAN: Continue pain control IV fluids, advance diet and activity as patient can tolerate per surgical preference. Eliquis started today. Discharge planning to rehab soon. Plan of care discussed at the bedside with the patient she is in agreement. We'll follow closely. LATHE SET UP PERSON statement: Patient was seen and examined by nurse practitioner Nadine Pan and all elements of the case discussed with attending Dr. Felder
[2017-08-02] MEDS: MONTELUKAST 10 MG TAB PO SCH (20:18)
--- NOTE | 2017-08-02 22:47 | PN ---
PROGRESS NOTE DATE OF SERVICE: 08/02/2017 ATTENDING NOTE: This patient was seen and examined by me. I discussed the case with the nurse practitioner Ms. Pan. Patient is status post lysis of adhesions. The patient was sent to [facility] for atrial fibrillation. Now in sinus rhythm. This morning on a liquid diet. Small amount of flatus. Laxative was requested by Surgery. PHYSICAL EXAMINATION: Temperature 96.7, pulse 73, respiration 16, blood pressure 99/66. Lungs are clear. CARDIOVASCULAR: First and second sounds normal. ABDOMEN: Soft. Bowel sounds are present. PLAN: Patient was started on Eliquis. Enema per Surgery. Patient encouraged to ambulate. MMODL / IJN: [id number] /
[2017-08-03] MEDS: METOCLOPRAMIDE 5 MG/ML 2 ML VIAL IVP SCH ×3 (06:23→17:34)
[2017-08-03] MEDS: KETOROLAC 30 MG/ML 1 ML VIAL IVP SCH ×3 (06:23→17:33)
[2017-08-03] MEDS: LEVOTHYROXINE 25 MCG TAB PO SCH (06:23)
[2017-08-03] MEDS: IPRATROPIUM-ALBUTEROL 3 ML NEB INHALATION SCH ×4 (07:38→20:02)
[2017-08-03] MEDS: SYMBICORT 160-4.5 MCG INHALER INHALATION SCH ×2 (07:38→20:02)
[2017-08-03 08:09] LABS: Basophils % (A) 0 %; Eosinophils # (A) 0.3 k/uL (0-0.7); Eosinophils % (A) 3 %; HCT 36.2 % (34.0-46.0); Lymphocytes # (A) 1.1 k/uL (1.0-4.8); Lymphocytes % (A) 13 %; MCHC 33.1 g/dL (31.0-37.0); MCV 102.5 fL (80.0-100.0); Macrocytosis Slight; Mean Platelet Volume 6.8; Monocytes # (A) 0.6 k/uL (0-1.0); Monocytes % (A) 8 %; Neutrophils % (A) 74 %; Platelet Count 344 k/uL (150-450); RBC 3.53 m/uL (3.80-5.40); RDW 12.8 % (11.5-15.5); WBC 8.2 k/uL (3.8-10.6)
[2017-08-03] MEDS: NORTRIPTYLINE 10 MG CAP PO SCH (08:31)
[2017-08-03] MEDS: APIXABAN 2.5 MG TABLET PO SCH ×2 (08:31→21:11)
[2017-08-03] MEDS: PANTOPRAZOLE 40 MG/10 ML VIAL IV SCH (08:31)
[2017-08-03 08:32] LABS: ALT 44 U/L (9-52); AST 32 U/L (14-36); Albumin 2.3 g/dL (3.5-5.0); Alkaline Phosphatase 55 U/L (38-126); Anion Gap 6 mmol/L; Blood Urea Nitrogen 12 mg/dL (7-17); Calcium 8.1 mg/dL (8.4-10.2); Carbon Dioxide 24 mmol/L (22-30); Chloride 105 mmol/L (98-107); Glucose 87 mg/dL (74-99); Potassium 3.7 mmol/L (3.5-5.1); Sodium 135 mmol/L (137-145); Total Bilirubin 1.1 mg/dL (0.2-1.3); Total Protein 4.6 g/dL (6.3-8.2)
[2017-08-03] MEDS: ATENOLOL 12.5 MG TAB PO SCH (08:32)
[2017-08-03] MEDS: VERAPAMIL SR 120 MG TABLET.ER PO SCH (08:32)
--- NOTE | 2017-08-03 11:49 | P.PN ---
Subjective Progress Note Date: 08/03/17 Principal diagnosis: Bowel obstruction The patient says she feels more tired today. She has passed flatus. Appetite diminished. White blood cell count normal at 8.2. Tolerating full liquids. Objective - Vital Signs Vital signs: Vital Signs Temp 98.8 F 08/03/17 07:33 Pulse 90 08/03/17 11:45 Resp 16 08/03/17 08:00 BP 127/82 08/03/17 07:33 Pulse Ox 91 L 08/03/17 07:43 Intake & Output 08/02/17 08/03/17 08/03/17 18:59 06:59 18:59 Intake Total 720 Output Total 200 Balance 720 -200 Weight 70.7 kg Intake: Oral 720 Output: Urine 200 Other: Voiding Method Toilet Toilet Toilet # Voids 2 1 # Bowel Movements 1 - Exam Abdomen: Soft, nondistended, incision clean and dry with drain intact - Labs CBC & Chem 7: 08/03/17 07:55 08/03/17 07:55 Labs: Abnormal Lab Results - Last 24 Hours (Table) 08/03/17 08/03/17 Range/Units 07:55 07:55 RBC 3.53 L (3.80-5.40) m/uL MCV 102.5 H (80.0-100.0) fL Sodium 135 L (137-145) mmol/L Creatinine 0.50 L (0.52-1.04) mg/dL Calcium 8.1 L (8.4-10.2) mg/dL Total Protein 4.6 L (6.3-8.2) g/dL Albumin 2.3 L (3.5-5.0) g/dL Assessment and Plan (1) Small bowel obstruction Narrative/Plan: Continue full liquids for now. Increase activity level. Change abdominal dressing. Current Visit: Yes Status: Acute Code(s): K56.609 - UNSP INTESTNL OBST, UNSP TO PARTIAL VERSUS COMPLETE OBST SNOMED Code(s): 613522176
--- NOTE | 2017-08-03 12:08 | P.PN ---
Subjective Progress Note Date: 08/03/17 Principal diagnosis: Abdominal pain, secondary to acute small bowel obstruction. History of mild persistent asthma with no current exacerbations. Martha is a 86-year-old white female patient that sees Dr. Henry in our office for her history of mild persistent asthma, presented to the emergency department on 07/28/2017 with complaints of 3 day history of constipation, lower abdominal pain, nausea, vomiting. She denied any fever or chills. Denied any dysuria. Denied any chest pain, increased shortness of breath, chest congestion, or wheezing. Abdominal x-ray on December 222017 showed generalized ileus versus early distal small bowel obstruction. CT abdomen and pelvis on 2017 showed small bowel obstruction with transition in the pelvis. Questionable distal esophageal diverticulum versus ulcer. Left renal cystic disease, diverticulosis of the sigmoid colon. Admission lab work showed WBC of 11.5, hemoglobin of 14.1, serum sodium of 135, serum potassium 3.9, chloride of 101, BUN of 14, creatinine 0.72. Amylase less than 30, and lipase of 35. Patient has been afebrile, hemodynamically stable, on room air, with O2 sat at 95%. NG tube was inserted, connected to low intermittent suction, patient is nothing by mouth, IV fluids were started with 0.9 at 100 ML per hour. Surgery was consulted. Abdominal series on 07/29/2017 showed findings suggestive of at least partial small bowel obstruction, no pneumoperitoneum, no acute cardiopulmonary process. On 07/30/2017 patient seen in follow-up on surgical floor. Her abdominal pain has improved, with minimal localized tenderness in the right lower quadrant, but no guarding, no rigidity, abdomen is soft, bowel sounds are present 4. NG tube remains to low intermittent suction, with small amount of light clear output. She denies any shortness of breath, fever or chills. Her cough with sputum production has subsided since yesterday. Yesterday we put the patient on nebulized treatments in addition to her home dose Symbicort. She remains afebrile, hemodynamically stable. Lung sounds are clear to auscultation, no rhonchi no wheezes were noted. Last night she was given a suppository with the very small bowel movement. Echocardiogram was reviewed, shows EF of 55-60%, no evidence of pulmonary hypertension, with right ventricular systolic pressure of 23 mmHg, this was done in regards to an episode of chest pain. She denies any chest pain this morning. Lab work was reviewed, WBC is 9.9, hemoglobin is 13.4 , BNP is pending. On 09/28/2017 patient seen in follow-up. Denies any abdominal pain, denies any nausea or vomiting. abdominal series from this morning shows persistent but improving small bowel dilatation in the mid abdomen. moderate fecal stasis. NG tube remains to low intermittent suction, with small amount of clear outputs with some mucous in it. From pulmonary standpoint lung sounds are clear, diminished at the bases, she denies any worsening shortness of breath, no wheezes, no rhonchi. Patient remains nothing by mouth, with the exception of some ice chips. Lab work from today was reviewed, there is no evidence of leukocytosis, WBCs within normal limits, hemoglobin is at 12.4, serum sodium was 141, serum potassium is 3.3, replacements were given, chloride was 109, carbon dioxide is 21. The patient is seen again today 08/01/2017 in follow-up on the selective care unit. She did undergo exploratory laparotomy with lysis of adhesions yesterday. She was recovering on the surgical floor however develop some episodes of sinus tachycardia in the evening and was transferred here to the selective care unit. She is awake and alert in no acute distress. Heart is currently regular, slightly tachycardic in the 1 teens. She did have an episode of paroxysmal atrial fibrillation this morning. She denies any worsening shortness of breath, cough or congestion. She is maintaining O2 saturations in the mid 90s on room air. She is continued on her Symbicort and DuoNeb inhalations 4 times a day and when necessary. Nasogastric tube remains in place. White count 11.2. Hemoglobin 12.7. Creatinine 0.52. Reevaluated today on 08/02/2017, her nasogastric tube has been removed, patient is relatively asymptomatic, doing well with incentive spirometry. No bowel movements yet, but she is passing some gas already.CBC is relatively normal hemoglobin is 11.7 and electrolytes and renal profile are normal. She is seen again today 08/03/2017 in follow-up on the regular medical floor. She is awake and alert in no acute distress. She is still having some abdominal discomfort but improving daily. She still has not had a bowel movement but is passing flatus. Slight nausea but tolerating full liquid diet. She denies any worsening shortness of breath, cough or congestion. Maintaining good O2 saturations in the 90s on room air. She continues to work well with the incentive spirometer. Objective - Vital Signs Vital signs: Vital Signs Temp 98.8 F 08/03/17 07:33 Pulse 88 08/03/17 11:54 Resp 16 08/03/17 08:00 BP 127/82 08/03/17 07:33 Pulse Ox 91 L 08/03/17 07:43 Intake & Output 08/02/17 08/03/17 08/03/17 18:59 06:59 18:59 Intake Total 720 Output Total 200 Balance 720 -200 Weight 70.7 kg Intake: Oral 720 Output: Urine 200 Other: Voiding Method Toilet Toilet Toilet # Voids 2 1 # Bowel Movements 1 - Exam GENERAL EXAM: Alert, active, comfortable in no apparent distress. HEAD: Normocephalic/atraumatic. EYES: Normal reaction of pupils, equal size. Conjunctiva pink, sclera white. NOSE: Clear with pink turbinates. NG tube present, connected to low intermittent suction, with moderate light clear output with some mucous THROAT: No erythema or exudates. NECK: No masses, no JVD, no thyroid enlargement, no adenopathy. CHEST: No chest wall deformity. Symmetrical expansion. LUNGS: Equal air entry with no crackles, wheeze, rhonchi or dullness. CVS: Irregular rate and rhythm, normal S1 and S2, no gallops, no murmurs, no rubs ABDOMEN: Soft, nontender. Incision is clean dry and well approximated. EXTREMITIES: No clubbing, no edema, no cyanosis, 2+ pulses and upper and lower extremities. MUSCULOSKELETAL: Muscle strength and tone normal. SPINE: No scoliosis or deformity SKIN: No rashes CENTRAL NERVOUS SYSTEM: Alert and oriented -3. No focal deficits, tone is normal in all 4 extremities. PSYCHIATRIC: Alert and oriented -3. Appropriate affect. Intact judgment and insight. - Labs CBC & Chem 7: 08/03/17 07:55 08/03/17 07:55 Labs: Abnormal Lab Results - Last 24 Hours (Table) 08/03/17 08/03/17 Range/Units 07:55 07:55 RBC 3.53 L (3.80-5.40) m/uL MCV 102.5 H (80.0-100.0) fL Sodium 135 L (137-145) mmol/L Creatinine 0.50 L (0.52-1.04) mg/dL Calcium 8.1 L (8.4-10.2) mg/dL Total Protein 4.6 L (6.3-8.2) g/dL Albumin 2.3 L (3.5-5.0) g/dL Assessment and Plan Assessment: Assessment: #1. Acute abdominal pain, secondary to acute small bowel obstruction. Patient presented with nausea and vomiting, lower abdominal pain, and 3 day history of constipation. No fever, no chills. CT of abdomen and pelvis showed small bowel obstruction with transition somewhere in the pelvis. Abdominal series from 07/31/2017 shows persistent but improving small bowel dilatation in the mid abdomen she did undergo exploratory laparotomy and lysis of adhesions on 04/2018. This is postoperative day #3. #2. Mild persistent asthma, with no sign of current exacerbation #3. Hypothyroidism #4. Hypertension #5. Fibromyalgia #6. Osteoarthritis #7. Environmental ALLERGY #8. Acoustic neuroma #9. Patient is a lifetime nonsmoker #10. History of hysterectomy, appendectomy #11 History of tachyarrhythmias with recurrence last evening and the episode of paroxysmal atrial fibrillation earlier this morning. Plan: The patient was seen and evaluated by Dr. Bird. She is stable from the pulmonary standpoint. We'll continue with Symbicort, Singulair and duo-neb inhalations. She is back on her Eliquis, Protonix for GI prophylaxis. Will increase her activity as tolerated. We'll continue to follow and make further recommendations based on her clinical status. I, the cosigning physician, have performed a history and physical examination on the patient. Lung sounds are clear. Maintaining good O2 saturations in the 90s on room air. I have discussed the assessment and plan of care with my nurse practitioner, Maryana Stephens. I attest to the above progress note as dictated by her.
[2017-08-03] MEDS: CHOLECALCIFEROL 1,000 UNIT TAB PO SCH (12:36)
--- NOTE | 2017-08-03 19:36 | PN ---
PROGRESS NOTE DATE OF SERVICE: 08/03/2017. ATTENDING NOTE: The patient seen and examined by me. I discussed with my nurse practitioner, Ms. Pan. Patient is doing better. Diet has been advanced. Did not have a bowel movement, did get a laxative yesterday. Patient has been in sinus rhythm, has been out of bed. EXAMINATION: Temperature 97.5 pulse 76, blood pressure 111/65. ABDOMEN: Soft. Minimal tenderness. Bowel sounds are present. White count 8.2, hemoglobin 12. Potassium 3.7. ASSESSMENT: 1. Status post adhesion lysis. 2. Paroxysmal atrial fibrillation, currently in sinus rhythm. PLAN: Continue current medication and treatment plan. Await the patient to have a bowel movement. Follow. MMODL / IJN: [id number] /
--- NOTE | 2017-08-03 20:47 | P.PN ---
Progress Note - Text Progress Note Date: 08/03/17 DATE OF SERVICE: 08/03/2017 PRESENTING COMPLAINT: Abdominal pain nausea and vomiting. HISTORY OF PRESENT ILLNESS: 86-year-old female was transferred from an outside hospital 3 days ago this began having abdominal pain so her local doctor felt to have a UTI given Bactrim continued to have increasing abdominal pain started having nausea vomiting and decreased appetite. Last bowel movement was 4 days ago normally has a bowel movement every other day. admitted small bowel obstruction, reevaluation of abdomen on x-ray revealed little improvement, patient is now status post exploratory laparotomy with lysis of adhesions. INTERVAL HISTORY: 08/03/2017: Sitting up on the edge of the bed, has a visitor at the bedside. Just came back from walk. Has some abdominal pain but is generally well controlled. States she feels more tired today than she has in previous days. Tolerating a full liquid diet, ambulatory with some assistance, last BM 08/02/2017. 08/02/2017: Sitting up in the edge of the bed, working with physical therapy. NG tube removed. Able to stand with assistance and a cane, taking a few steps is a bit wobbly, tolerating her diet currently full liquid, passing a little bit of flatus but no BM yet. 08/01/2017: Lying in bed NG tube in place, dark brown drainage from NG tube. Status post exploratory laparotomy with lysis of adhesions, Overnight patient had an episode of atrial fibrillation was transferred to [facility]. [facility], patient converted to normal sinus rhythm early this morning, and mid morning converted back to atrial fibrillation, rate controlled. Midline incision covered with surgical dressing, Abdominal binder in place, moderate amount of shadowing to the distal end of the dressing. Patient remains nothing by mouth. 07/31/2017: lying in bed NG tube in place draining clear milky drainage. patient received soapsuds enema last night and had a small bowel movement some improvement none of abdominal pain but it continues to persist. abdominal x-ray this morning shows small bowel obstruction with fecal stasis. Surgery is planning to take the patient for an exploratory laparotomy later today. 07/30/2017: Patient lying in bed NG tube in place draining clear milky colored drainage. No further nausea or vomiting, remains nothing by mouth, received a suppository with a small amount of stool returned. Ambulatory with some assistance. 07/29/2017: Patient lying in bed NG tube in place no further nausea or vomiting. Remains nothing by mouth, ambulatory with some assistance, passing some flatus. Family at the bedside, questions answered. REVIEW OF SYSTEMS: Done for constitutional ,cardiovascular, GI, pulmonary with relevant findings as above. CURRENT MEDICATIONS DuoNeb, Eliquis Tenormin, Dulcolax, Symbicort, cholecalciferol, Toradol, Synthroid, Singulair, nortriptyline, Zofran, verapamil. PHYSICAL EXAM VITAL SIGNS: Temperature 97.5, pulse 76, respiratory rate 16, blood pressure 111/65, oxygen saturation 94% GENERAL APPEARANCE: Sitting on the edge of the bed,, tired appearing HEENT: Normocephalic, Pupils equal. Conjunctiva pale. JVD not raised. Mass not palpable. Dry mucous membranes: RESPIRATORY: Respiratory effort normal. Lungs diminished to auscultation. CARDIOVASCULAR: First and second sounds noted No edema. ABDOMEN: Soft. Liver and spleen not palpable. Abdominal binder in place, midline incision surgical dressing in place, moderate amount of drainage to the distal portion of the dressing. Mild tenderness. No mass palpable. PSYCHIATRY: Alert and oriented x3. Mood and affect tired appearing. INVESTIGATIONS: Labs: Sodium 135, creatinine 0.50, calcium 8.1. ASSESSMENT: -Acute small bowel obstruction, status post exploratory laparotomy with lysis of adhesions -Paroxysmal atrial fibrillation in a patient with a history of unknown arrhythmia, currently sinus rhythm -Sigmoid diverticulosis, chronic asymptomatic. -Moderate persistent asthma, some improvement. -Chronic fibromyalgia. -Essential hypertension. PLAN: Continue pain control IV fluids, advance diet and activity as patient can tolerate per surgical preference. Eliquis started today. Discharge planning to rehab soon. Plan of care discussed at the bedside with the patient she is in agreement. We'll follow closely. 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 Felder
[2017-08-03] MEDS: MONTELUKAST 10 MG TAB PO SCH (21:11)
[2017-08-04] MEDS: ONDANSETRON 4 MG/2 ML VIAL IVP PRN (00:14)
[2017-08-04] MEDS: LEVOTHYROXINE 25 MCG TAB PO SCH (06:48)
[2017-08-04] MEDS: IPRATROPIUM-ALBUTEROL 3 ML NEB INHALATION SCH ×4 (07:22→20:28)
[2017-08-04] MEDS: SYMBICORT 160-4.5 MCG INHALER INHALATION SCH ×2 (07:22→20:28)
[2017-08-04] MEDS: ATENOLOL 12.5 MG TAB PO SCH (08:15)
[2017-08-04] MEDS: VERAPAMIL SR 120 MG TABLET.ER PO SCH (08:15)
[2017-08-04] MEDS: APIXABAN 2.5 MG TABLET PO SCH ×2 (08:15→22:15)
[2017-08-04] MEDS: NORTRIPTYLINE 10 MG CAP PO SCH (08:15)
--- NOTE | 2017-08-04 12:03 | P.PN ---
Subjective Progress Note Date: 08/04/17 Principal diagnosis: Bowel obstruction Patient complaining of abdominal bloating. She had a small bowel movement this morning. She is asking for more to eat. Objective - Vital Signs Vital signs: Vital Signs Temp 97.9 F 08/04/17 07:39 Pulse 80 08/04/17 11:14 Resp 14 08/04/17 07:39 BP 138/83 08/04/17 07:39 Pulse Ox 98 08/04/17 07:39 Intake & Output 08/03/17 08/04/17 08/04/17 18:59 06:59 18:59 Intake Total 200 Balance 200 Weight 73 kg Intake: Oral 200 Other: Voiding Method Toilet # Voids 1 2 2 - Exam Abdomen: Soft, mild distention, nontender, incision clean and dry with drain in place - Labs CBC & Chem 7: 08/03/17 07:55 08/03/17 07:55 Assessment and Plan (1) Small bowel obstruction Narrative/Plan: Advance diet. Increase activity level. Await placement. Current Visit: Yes Status: Acute Code(s): K56.609 - UNSP INTESTNL OBST, UNSP TO PARTIAL VERSUS COMPLETE OBST SNOMED Code(s): 032081857
--- NOTE | 2017-08-04 12:25 | P.PN ---
Subjective Progress Note Date: 08/04/17 Principal diagnosis: acute small bowel obstruction Martha is a 86-year-old white female patient that sees Dr. Henry in our office for her history of mild persistent asthma, presented to the emergency department on 07/28/2017 with complaints of 3 day history of constipation, lower abdominal pain, nausea, vomiting. She denied any fever or chills. Denied any dysuria. Denied any chest pain, increased shortness of breath, chest congestion, or wheezing. Abdominal x-ray on December 222017 showed generalized ileus versus early distal small bowel obstruction. CT abdomen and pelvis on 2017 showed small bowel obstruction with transition in the pelvis. Questionable distal esophageal diverticulum versus ulcer. Left renal cystic disease, diverticulosis of the sigmoid colon. Admission lab work showed WBC of 11.5, hemoglobin of 14.1, serum sodium of 135, serum potassium 3.9, chloride of 101, BUN of 14, creatinine 0.72. Amylase less than 30, and lipase of 35. Patient has been afebrile, hemodynamically stable, on room air, with O2 sat at 95%. NG tube was inserted, connected to low intermittent suction, patient is nothing by mouth, IV fluids were started with 0.9 at 100 ML per hour. Surgery was consulted. Abdominal series on 07/29/2017 showed findings suggestive of at least partial small bowel obstruction, no pneumoperitoneum, no acute cardiopulmonary process. On 07/30/2017 patient seen in follow-up on surgical floor. Her abdominal pain has improved, with minimal localized tenderness in the right lower quadrant, but no guarding, no rigidity, abdomen is soft, bowel sounds are present 4. NG tube remains to low intermittent suction, with small amount of light clear output. She denies any shortness of breath, fever or chills. Her cough with sputum production has subsided since yesterday. Yesterday we put the patient on nebulized treatments in addition to her home dose Symbicort. She remains afebrile, hemodynamically stable. Lung sounds are clear to auscultation, no rhonchi no wheezes were noted. Last night she was given a suppository with the very small bowel movement. Echocardiogram was reviewed, shows EF of 55-60%, no evidence of pulmonary hypertension, with right ventricular systolic pressure of 23 mmHg, this was done in regards to an episode of chest pain. She denies any chest pain this morning. Lab work was reviewed, WBC is 9.9, hemoglobin is 13.4 , BNP is pending. On 09/28/2017 patient seen in follow-up. Denies any abdominal pain, denies any nausea or vomiting. abdominal series from this morning shows persistent but improving small bowel dilatation in the mid abdomen. moderate fecal stasis. NG tube remains to low intermittent suction, with small amount of clear outputs with some mucous in it. From pulmonary standpoint lung sounds are clear, diminished at the bases, she denies any worsening shortness of breath, no wheezes, no rhonchi. Patient remains nothing by mouth, with the exception of some ice chips. Lab work from today was reviewed, there is no evidence of leukocytosis, WBCs within normal limits, hemoglobin is at 12.4, serum sodium was 141, serum potassium is 3.3, replacements were given, chloride was 109, carbon dioxide is 21. The patient is seen again today 08/01/2017 in follow-up on the selective care unit. She did undergo exploratory laparotomy with lysis of adhesions yesterday. She was recovering on the surgical floor however develop some episodes of sinus tachycardia in the evening and was transferred here to the selective care unit. She is awake and alert in no acute distress. Heart is currently regular, slightly tachycardic in the 1 teens. She did have an episode of paroxysmal atrial fibrillation this morning. She denies any worsening shortness of breath, cough or congestion. She is maintaining O2 saturations in the mid 90s on room air. She is continued on her Symbicort and DuoNeb inhalations 4 times a day and when necessary. Nasogastric tube remains in place. White count 11.2. Hemoglobin 12.7. Creatinine 0.52. Reevaluated today on 08/02/2017, her nasogastric tube has been removed, patient is relatively asymptomatic, doing well with incentive spirometry. No bowel movements yet, but she is passing some gas already.CBC is relatively normal hemoglobin is 11.7 and electrolytes and renal profile are normal. She is seen again today 08/03/2017 in follow-up on the regular medical floor. She is awake and alert in no acute distress. She is still having some abdominal discomfort but improving daily. She still has not had a bowel movement but is passing flatus. Slight nausea but tolerating full liquid diet. She denies any worsening shortness of breath, cough or congestion. Maintaining good O2 saturations in the 90s on room air. She continues to work well with the incentive spirometer. Reevaluated today on 08/04/2017, doing well, already having bowel movements, nasogastric tube has been removed, tolerating oral intake quite well. And she is already beginning to ambulate in the room.labs were reviewed from yesterday. And they were relatively unremarkable. Objective - Vital Signs Vital signs: Vital Signs Temp 97.9 F 08/04/17 07:39 Pulse 80 08/04/17 11:14 Resp 14 08/04/17 07:39 BP 138/83 08/04/17 07:39 Pulse Ox 98 08/04/17 07:39 Intake & Output 08/03/17 08/04/17 08/04/17 18:59 06:59 18:59 Intake Total 200 Balance 200 Weight 73 kg Intake: Oral 200 Other: Voiding Method Toilet # Voids 1 2 2 - Exam GENERAL EXAM: Alert, active, comfortable in no apparent distress. HEAD: Normocephalic/atraumatic. EYES: Normal reaction of pupils, equal size. Conjunctiva pink, sclera white. NOSE: Clear with pink turbinates. NG tube has been removed. NECK: No masses, no JVD, no thyroid enlargement, no adenopathy. CHEST: No chest wall deformity. Symmetrical expansion. LUNGS: Equal air entry with no crackles, wheeze, rhonchi or dullness. CVS: Irregular rate and rhythm, normal S1 and S2, no gallops, no murmurs, no rubs ABDOMEN: Soft, nontender. Incision is clean dry and well approximated. EXTREMITIES: No clubbing, no edema, no cyanosis, 2+ pulses and upper and lower extremities. MUSCULOSKELETAL: Muscle strength and tone normal. SPINE: No scoliosis or deformity SKIN: No rashes CENTRAL NERVOUS SYSTEM: Alert and oriented -3. No focal deficits, tone is normal in all 4 extremities. PSYCHIATRIC: Alert and oriented -3. Appropriate affect. Intact judgment and insight. - Labs CBC & Chem 7: 08/03/17 07:55 08/03/17 07:55 Assessment and Plan Assessment: #1. Acute abdominal pain, secondary to acute small bowel obstruction. Patient presented with nausea and vomiting, lower abdominal pain, and 3 day history of constipation. No fever, no chills. CT of abdomen and pelvis showed small bowel obstruction with transition somewhere in the pelvis. Abdominal series from 07/31/2017 shows persistent but improving small bowel dilatation in the mid abdomen she did undergo exploratory laparotomy and lysis of adhesions on 04/2018. This is postoperative day #3. #2. Mild persistent asthma, with no sign of current exacerbation #3. Hypothyroidism #4. Hypertension #5. Fibromyalgia #6. Osteoarthritis #7. Environmental ALLERGY #8. Acoustic neuroma #9. Patient is a lifetime nonsmoker #10. History of hysterectomy, appendectomy #11 History of tachyarrhythmias with recurrence last evening and the episode of paroxysmal atrial fibrillation earlier this morning. Recommendation: Continue present supportive care measures, continue ambulation, possible discharge planning to a rehab/[facility] in a.m. Time with Patient: Less than 30
--- NOTE | 2017-08-04 20:48 | PN ---
PROGRESS NOTE DATE OF SERVICE: 08/04/17 ATTENDING NOTE: The patient was seen and examined by me. Discussed with my nurse practitioner Ms. Pan. Doing much better. Had a good bowel movement. Oral intake is greatly improved. Remains in sinus rhythm. PHYSICAL EXAMINATION: Temperature 97.6, pulse 77, respiratory rate 16, blood pressure 108/61. Lungs are clear. ABDOMEN: Soft. Bowel sounds are present. INVESTIGATIONS: White count 8.2, potassium 3.7. Labs are from yesterday. ASSESSMENT: Status post abdominal surgery for small bowel obstruction, adhesiolysis and atrial fibrillation, now remains in sinus rhythm. The patient doing well. Should be able to go back to the [facility] tomorrow. MMODL / IJN: [id number] /
--- NOTE | 2017-08-04 21:12 | P.PN ---
Progress Note - Text Progress Note Date: 08/04/17 DATE OF SERVICE: 08/04/2017 PRESENTING COMPLAINT: Abdominal pain nausea and vomiting. HISTORY OF PRESENT ILLNESS: 86-year-old female was transferred from an outside hospital 3 days ago this began having abdominal pain so her local doctor felt to have a UTI given Bactrim continued to have increasing abdominal pain started having nausea vomiting and decreased appetite. Last bowel movement was 4 days ago normally has a bowel movement every other day. admitted small bowel obstruction, reevaluation of abdomen on x-ray revealed little improvement, patient is now status post exploratory laparotomy with lysis of adhesions. INTERVAL HISTORY: 08/04/2017: Visiting with family sitting on the edge of the bed. Has some mild abdominal pain but is well controlled. States she feels better today, diet advanced per surgery. Tolerating her full liquid diet, ambulatory with some assistance, last BM 08/04/2017. 08/03/2017: Sitting up on the edge of the bed, has a visitor at the bedside. Just came back from walk. Has some abdominal pain but is generally well controlled. States she feels more tired today than she has in previous days. Tolerating a full liquid diet, ambulatory with some assistance, last BM 08/02/2017. 08/02/2017: Sitting up in the edge of the bed, working with physical therapy. NG tube removed. Able to stand with assistance and a cane, taking a few steps is a bit wobbly, tolerating her diet currently full liquid, passing a little bit of flatus but no BM yet. 08/01/2017: Lying in bed NG tube in place, dark brown drainage from NG tube. Status post exploratory laparotomy with lysis of adhesions, Overnight patient had an episode of atrial fibrillation was transferred to [address] [place] [address], patient converted to normal sinus rhythm early this morning, and mid morning converted back to atrial fibrillation, rate controlled. Midline incision covered with surgical dressing, Abdominal binder in place, moderate amount of shadowing to the distal end of the dressing. Patient remains nothing by mouth. 07/31/2017: lying in bed NG tube in place draining clear milky drainage. patient received soapsuds enema last night and had a small bowel movement some improvement none of abdominal pain but it continues to persist. abdominal x-ray this morning shows small bowel obstruction with fecal stasis. Surgery is planning to take the patient for an exploratory laparotomy later today. 07/30/2017: Patient lying in bed NG tube in place draining clear milky colored drainage. No further nausea or vomiting, remains nothing by mouth, received a suppository with a small amount of stool returned. Ambulatory with some assistance. 07/29/2017: Patient lying in bed NG tube in place no further nausea or vomiting. Remains nothing by mouth, ambulatory with some assistance, passing some flatus. Family at the bedside, questions answered. REVIEW OF SYSTEMS: Done for constitutional ,cardiovascular, GI, pulmonary with relevant findings as above. CURRENT MEDICATIONS DuoNeb, Eliquis Tenormin, Dulcolax, Symbicort, cholecalciferol, Toradol, Synthroid, Singulair, nortriptyline, Zofran, verapamil. PHYSICAL EXAM VITAL SIGNS: Temperature 97.6, pulse 77, respiratory rate 16, blood pressure 108/61, oxygen saturation 96% GENERAL APPEARANCE: Sitting on the edge of the bed, tired appearing HEENT: Normocephalic, Pupils equal. Conjunctiva pale. JVD not raised. Mass not palpable. Dry mucous membranes: RESPIRATORY: Respiratory effort normal. Lungs diminished to auscultation. CARDIOVASCULAR: First and second sounds noted No edema. ABDOMEN: Soft. Liver and spleen not palpable. Abdominal binder in place, midline incision surgical dressing in place, moderate amount of drainage to the distal portion of the dressing. Mild tenderness. No mass palpable. PSYCHIATRY: Alert and oriented x3. Mood and affect tired appearing. INVESTIGATIONS: Labs: None new ASSESSMENT: -Acute small bowel obstruction, status post exploratory laparotomy with lysis of adhesions -Paroxysmal atrial fibrillation in a patient with a history of unknown arrhythmia, currently sinus rhythm -Sigmoid diverticulosis, chronic asymptomatic. -Moderate persistent asthma, some improvement. -Chronic fibromyalgia. -Essential hypertension. PLAN: Continue pain control, advance diet and activity as patient can tolerate per surgical preference. Discharge planning to rehab soon. Plan of care discussed at the bedside with the patient she is in agreement. We'll follow closely. LINE OUT MAN statement: Patient was seen and examined by nurse practitioner Nadine Pan and all elements of the case discussed with attending Dr. Felder
[2017-08-04] MEDS: MONTELUKAST 10 MG TAB PO SCH (22:15)
[2017-08-05] MEDS: LEVOTHYROXINE 25 MCG TAB PO SCH (06:20)
[2017-08-05 07:33] VITALS: BP 140/74; TEMP 97.8
[2017-08-05] MEDS: ONDANSETRON 4 MG/2 ML VIAL IVP PRN (08:43)
[2017-08-05] MEDS: ATENOLOL 12.5 MG TAB PO SCH (08:44)
[2017-08-05] MEDS: VERAPAMIL SR 120 MG TABLET.ER PO SCH (08:44)
[2017-08-05] MEDS: NORTRIPTYLINE 10 MG CAP PO SCH (08:44)
[2017-08-05] MEDS: APIXABAN 2.5 MG TABLET PO SCH (08:44)
[2017-08-05] MEDS: SYMBICORT 160-4.5 MCG INHALER INHALATION SCH (09:03)
[2017-08-05] MEDS: IPRATROPIUM-ALBUTEROL 3 ML NEB INHALATION SCH ×3 (09:03→16:31)
[2017-08-05 09:16] VITALS: RESP 16
--- NOTE | 2017-08-05 09:39 | P.PN ---
Subjective Progress Note Date: 08/05/17 86-year-old female seen and examined sitting up in the bed denies dizziness lightheadedness or chest pain. Patient states she did have one bowel movement this morning. Tolerated diet is asking for diet to be advanced [place] drain was removed by Dr. hussein this morning Postop July 31 exploratory laparotomy lysis of adhesions for a partial small bowel obstruction Objective - Vital Signs Vital signs: Vital Signs Temp 97.8 F 08/05/17 07:32 Pulse 94 08/05/17 09:15 Resp 16 08/05/17 09:15 BP 140/74 08/05/17 07:32 Pulse Ox 93 L 08/05/17 09:03 Intake & Output 08/04/17 08/05/17 08/05/17 18:59 06:59 18:59 Weight 73.5 kg Other: Voiding Method Toilet # Voids 1 2 - Exam Physical exam 86-year-old female alert oriented 3 appears in no acute distress Lungs adequate air movement bilaterally on room air Heart S1-S2 audible and regular denying chest pain Abdomen cheryl mid incision line well approximated no redness noted no drainage. 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 - Labs CBC & Chem 7: 08/03/17 07:55 08/03/17 07:55 Assessment and Plan Assessment: impression present on admission abdominal pain nausea vomiting decrease appetite suspect due to small bowel obstruction as evident on a CAT scan of the abdomen and pelvis new-onset constipation no bowel movement for 5 days moderate persistent asthma with mild exacerbation CAT scan abdomen and pelvis shows diverticulosis of the sigmoid colon CAT scan of the abdomen pelvis questionable distal esophageal diverticulum versus ulcer History of cardiac arrhythmia workup in place recent Holter monitor placed Essential hypertension hypokalemia corrected Postop July 31 exploratory laparotomy lysis of adhesions for small bowel obstruction Cardiac arrhythmias paroxysmal atrial fibrillation, SVT Echocardiogram shows left ventricular systolic function normal with an EF between 55 and 60%. Done on July 29 Plan Increase activity From a surgical perspective patient is felt to be clinically stable and appropriate pursue discharge to the ECF facility defer to the timing to the attending DVT and GI prophylaxis Pain control Hep-Lock IV Continue postop surgical care brokerage office manager to pursue discharge plan ECF placement when appropriate Advance diet as tolerated Saline lock IV elquis 2.5mg bid No antibiotics needed Does not need to wear the abdominal binder The above impression and plan of care have been discussed and directed by signing physician. Lavern Barker nurse practitioner acting as scribe for signing physician.
[2017-08-05] MEDS ORDERED: NA PHOS,M-B/NA PHOS,DI-BA 133 ML ENEMA RECTAL ONE (10:47)
[2017-08-05 12:23] VITALS: PULSE 90
--- NOTE | 2017-08-05 13:38 | DS ---
DISCHARGE SUMMARY DATE OF ADMISSION: 07/28/2017 DATE OF DISCHARGE: FINAL DIAGNOSES: 1. Acute small-bowel obstruction leading to adhesiolysis. 2. Paroxysmal atrial fibrillation with rapid ventricular rate, currently in sinus rhythm. 3. Sigmoid diverticulosis. 4. Moderate persistent asthma. 5. Chronic fibromyalgia. 6. Essential hypertension. CONSULTATION: Dr. Acosta from general surgery and Dr. Bird from pulmonary. HOSPITAL COURSE: This patient presented with small-bowel obstruction, taken to surgery, adhesiolysis was carried out. The patient also went into rapid ventricular rate. A 2-D echocardiogram showed EF of 55%-60%. Remains in sinus rhythm. Put on Eliquis. Patient is tolerating a diet, having bowel movements. Incision is healing well. DISCHARGE MEDICATIONS: 1. Premarin 0.5 vaginal, Wednesdays and Fridays. 2. Synthroid 25 mcg a day. 3. Tenormin 37.5 p.o. daily. 4. Vitamin D3, 1000 units p.o. daily. 5. DuoNeb t.i.d. 6. Dulera 2 puffs b.i.d. 200/5 strength. 7. Singulair 10 mg q.h.s. 8. Pamelor 10 mg p.o. daily. 9. Omeprazole 20 mg p.o. daily. 10.Verapamil SR 120 mg p.o. daily. 11.Eliquis 2.5 p.o. b.i.d. Follow up Dr. Bird in a week. Follow up Dr. Acosta on 08/13/17. Follow up with Dr. Whiteside at [facility]. Follow up with Dr. Thuan Greene in 2 weeks. Surgical instructions per Dr. Acosta to include okay to shower, no soaking bath. Cover low part of the incision and drain with 4 x 4 dressing. No heavy lifting for more than 10 pounds for 6 weeks post surgery. Note, may use ice packs for local pain. DISPOSITION: [facility]. ON EXAM: ABDOMEN: Soft, nontender. Bowel sounds are present. LUNGS: Fair air entry. Discussion and discharge planning more than 35 minutes. MMODL / IJN: [id number] /
--- NOTE | 2017-08-05 15:38 | P.PN ---
Subjective Progress Note Date: 08/05/17 Principal diagnosis: Acute abdominal pain, secondary to acute small bowel obstruction. History of mild persistent asthma with no current exacerbation. Martha is a 86-year-old white female patient that sees Dr. Henry in our office for her history of mild persistent asthma, presented to the emergency department on 07/28/2017 with complaints of 3 day history of constipation, lower abdominal pain, nausea, vomiting. She denied any fever or chills. Denied any dysuria. Denied any chest pain, increased shortness of breath, chest congestion, or wheezing. Abdominal x-ray on December 222017 showed generalized ileus versus early distal small bowel obstruction. CT abdomen and pelvis on 2017 showed small bowel obstruction with transition in the pelvis. Questionable distal esophageal diverticulum versus ulcer. Left renal cystic disease, diverticulosis of the sigmoid colon. Admission lab work showed WBC of 11.5, hemoglobin of 14.1, serum sodium of 135, serum potassium 3.9, chloride of 101, BUN of 14, creatinine 0.72. Amylase less than 30, and lipase of 35. Patient has been afebrile, hemodynamically stable, on room air, with O2 sat at 95%. NG tube was inserted, connected to low intermittent suction, patient is nothing by mouth, IV fluids were started with 0.9 at 100 ML per hour. Surgery was consulted. Abdominal series on 07/29/2017 showed findings suggestive of at least partial small bowel obstruction, no pneumoperitoneum, no acute cardiopulmonary process. On 07/30/2017 patient seen in follow-up on surgical floor. Her abdominal pain has improved, with minimal localized tenderness in the right lower quadrant, but no guarding, no rigidity, abdomen is soft, bowel sounds are present 4. NG tube remains to low intermittent suction, with small amount of light clear output. She denies any shortness of breath, fever or chills. Her cough with sputum production has subsided since yesterday. Yesterday we put the patient on nebulized treatments in addition to her home dose Symbicort. She remains afebrile, hemodynamically stable. Lung sounds are clear to auscultation, no rhonchi no wheezes were noted. Last night she was given a suppository with the very small bowel movement. Echocardiogram was reviewed, shows EF of 55-60%, no evidence of pulmonary hypertension, with right ventricular systolic pressure of 23 mmHg, this was done in regards to an episode of chest pain. She denies any chest pain this morning. Lab work was reviewed, WBC is 9.9, hemoglobin is 13.4 , BNP is pending. On 09/28/2017 patient seen in follow-up. Denies any abdominal pain, denies any nausea or vomiting. abdominal series from this morning shows persistent but improving small bowel dilatation in the mid abdomen. moderate fecal stasis. NG tube remains to low intermittent suction, with small amount of clear outputs with some mucous in it. From pulmonary standpoint lung sounds are clear, diminished at the bases, she denies any worsening shortness of breath, no wheezes, no rhonchi. Patient remains nothing by mouth, with the exception of some ice chips. Lab work from today was reviewed, there is no evidence of leukocytosis, WBCs within normal limits, hemoglobin is at 12.4, serum sodium was 141, serum potassium is 3.3, replacements were given, chloride was 109, carbon dioxide is 21. On 08/05/2017 is reevaluated. She is in no acute distress, vital signs are stable, hemodynamically stable, she is on room air with O2 sat at 93%. Lung sounds are clear to auscultation. Lab work has been reviewed, no acute abnormalities, white count is within normal limits, hemoglobin stable at 12. She is tolerating regular diet, she has been having bowel movements. From pulmonary standpoint she is clear for discharge today, will need follow-up with Dr. Henry in the office in one week. Objective - Vital Signs Vital signs: Vital Signs Temp 97.8 F 08/05/17 07:32 Pulse 90 08/05/17 12:22 Resp 16 08/05/17 12:22 BP 140/74 08/05/17 07:32 Pulse Ox 93 L 08/05/17 09:03 Intake & Output 08/04/17 08/05/17 08/05/17 18:59 06:59 18:59 Weight 73.5 kg Other: Voiding Method Toilet # Voids 1 2 4 # Bowel Movements 2 - Exam GENERAL EXAM: Alert, active, comfortable in no apparent distress. HEAD: Normocephalic/atraumatic. EYES: Normal reaction of pupils, equal size. Conjunctiva pink, sclera white. NOSE: Clear with pink turbinates. THROAT: No erythema or exudates. NECK: No masses, no JVD, no thyroid enlargement, no adenopathy. CHEST: No chest wall deformity. Symmetrical expansion. LUNGS: Equal air entry with no crackles, wheeze, rhonchi or dullness. CVS: Regular rate and rhythm, normal S1 and S2, no gallops, no murmurs, no rubs ABDOMEN: Soft, nontender. No hepatosplenomegaly, normal bowel sounds, no guarding or rigidity. EXTREMITIES: No clubbing, no edema, no cyanosis, 2+ pulses and upper and lower extremities. MUSCULOSKELETAL: Muscle strength and tone normal. SPINE: No scoliosis or deformity SKIN: No rashes CENTRAL NERVOUS SYSTEM: Alert and oriented -3. No focal deficits, tone is normal in all 4 extremities. PSYCHIATRIC: Alert and oriented -3. Appropriate affect. Intact judgment and insight. - Labs CBC & Chem 7: 08/03/17 07:55 08/03/17 07:55 Assessment and Plan Plan: Assessment: #1. Acute abdominal pain, secondary to acute small bowel obstruction. Patient presented with nausea and vomiting, lower abdominal pain, and 3 day history of constipation. No fever, no chills. CT of abdomen and pelvis showed small bowel obstruction with transition somewhere in the pelvis. Patient status post exposure laparotomy and lysis of adhesions on 2017, this is postop day 5 #2. Mild persistent asthma, with no sign of current exacerbation #3. Hypothyroidism #4. Hypertension #5. Fibromyalgia #6. 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 Patient is a lifetime nonsmoker #10. History of hysterectomy, appendectomy #11. History of tachyarrhythmias, patient had an episode of paroxysmal atrial fibrillation on 08/03/2017. Currently the rate is controlled, cardiology has seen the patient in consultation, currently on Tenormin,Eliquis and verapamil SR Plan: She is doing well, vital signs are stable, patient is denying any chest pain or shortness of breath. On room air, with stable oxygenation. Lung sounds are clear to auscultation, no acute events overnight. No recurrence of paroxysmal atrial fibrillation. Cardiology made adjustments to patient's medication, patient is on Ahlquist for anticoagulation. From pulmonary standpoint she can be discharged home today, with follow-up appointment with Dr. Henry in one week. I performed a history & physical examination of the patient and discussed their management with my nurse practitioner, Monica Babb. I reviewed the nurse practitioner's note and agree with the documented findings and plan of care. Lung sounds are clear. The findings and the impression was discussed with the patient. I attest to the documentation by the nurse practitioner. Time with Patient: Less than 30
== END 2017-08-05 16:15 | DRG 336 ==
LOC: EC 06:45 → 3SUR 11:39 → 6SEL 08-01 01:57 → 4MS4W 08-02 23:08
PROVIDERS: ADMIT Hospitalist; ATTEND Hospitalist
PROC: 0DN80ZZ Release Small Intestine, Open Approach (ICD-10-PCS; principal; 2017-07-31 12:00)
DX: K56.51 Intestinal adhesions [bands], with partial obstruction (principal); I47.1 Supraventricular tachycardia; J45.41 Moderate persistent asthma with (acute) exacerbation; Q61.9 Cystic kidney disease, unspecified; E83.42 Hypomagnesemia; I48.0 Paroxysmal atrial fibrillation; D33.3 Benign neoplasm of cranial nerves; E03.9 Hypothyroidism, unspecified; E87.6 Hypokalemia; I10 Essential (primary) hypertension; I25.2 Old myocardial infarction; K57.30 Diverticulosis of large intestine without perforation or abscess without bleeding; M19.90 Unspecified osteoarthritis, unspecified site; M79.7 Fibromyalgia; Z79.51 Long term (current) use of inhaled steroids; Z79.899 Other long term (current) drug therapy; Z88.5 Allergy status to narcotic agent; Z88.8 Allergy status to other drugs, medicaments and biological substances; Z88.6 Allergy status to analgesic agent; Z91.011 Allergy to milk products; Z90.710 Acquired absence of both cervix and uterus
CPT/HCPCS: 36415; 71045; 74019; 74022; 74177; 80053; 82150; 82248; 82607; 82746; 83690; 83735; 84443; 85025; 85027; 85610; 85730; 86850; 86900; 86901; 93005; 93306; 94640; 94760; 96361; 96374; 99285

== ENCOUNTER 2017-08-06 03:28 | Inpatient (IN) | payer MEDICARE, BC ==
[2017-08-06] MEDS ORDERED: ONDANSETRON 4 MG/2 ML VIAL IVP STA (03:38)
[2017-08-06] MEDS ORDERED: PANTOPRAZOLE 40 MG/10 ML VIAL IVP STA (03:38)
[2017-08-06] MEDS ORDERED: SODIUM CHLORIDE 0.9% 1,000 ML IV STA (03:43)
--- NOTE | 2017-08-06 03:46 | ED ---
General Adult HPI - General Chief complaint: Abdominal Pain Stated complaint: abd pain Time Seen by Provider: 08/06/17 03:31 Source: patient, EMS, RN notes reviewed Mode of arrival: EMS Limitations: no limitations - History of Present Illness Initial comments: Patient is a pleasant 86-year-old female presenting to the emergency department following an episode of coffee-ground emesis. Episode occurred prior to arrival. Patient was in the hospital just recently for bowel obstruction and did have surgery for adhesions. Patient had some abdominal discomfort that resolved following emesis. Patient is having some return of nausea. No history of similar problems previously. No other areas of bleeding. Patient is an eliquis for atrial fibrillation while in the hospital. - Related Data Home Medications Medication Instructions Recorded Confirmed Estrogens, Conjugated Cream 0.5 applicator VAGINAL WEFR 09/29/15 07/28/17 [Premarin Cream] Levothyroxine Sodium [Synthroid] 25 mcg PO DAILY 09/29/15 07/28/17 Atenolol [Tenormin] 37.5 mg PO DAILY 07/28/17 07/28/17 Cholecalciferol [Vitamin D3] 1,000 unit PO DAILY 07/28/17 07/28/17 Ipratropium-Albuterol Nebulize 3 ml INHALATION RT-TID 07/28/17 07/28/17 [Duoneb 0.5 mg-3 mg/3 ml Soln] Mometasone/Formoterol [Dulera 200 2 puff INHALATION RT-BID 07/28/17 07/28/17 Mcg/5 Mcg Inhaler] Montelukast [Singulair] 10 mg PO HS 07/28/17 07/28/17 Nortriptyline [Pamelor] 10 mg PO DAILY 07/28/17 07/28/17 Omeprazole 20 mg PO DAILY 07/28/17 07/28/17 Verapamil HCl [Verapamil Sr] 120 mg PO DAILY 07/28/17 07/28/17 Previous Rx's Medication Instructions Recorded Apixaban [Eliquis] 2.5 mg PO BID tablet 08/05/17 Allergies Allergy/AdvReac Type Severity Reaction Status Date / Time carisoprodol [From Soma] Allergy Unknown Verified 07/28/17 08:40 celecoxib [From Celebrex] Allergy Unknown Verified 07/28/17 08:40 duloxetine HCl Allergy Unknown Verified 07/28/17 08:40 [From Cymbalta] lisinopril Allergy Unknown Verified 07/28/17 08:40 metaxalone [From Skelaxin] Allergy Unknown Verified 07/28/17 08:40 milk Allergy Diarrhea Verified 07/28/17 08:40 naproxen [From Naprosyn] Allergy Itching Verified 07/28/17 08:40 NSAIDS (Non-Steroidal Allergy Unknown Verified 07/28/17 08:40 Anti-Inflamma prednisone Allergy Unknown Verified 07/28/17 08:40 pregabalin [From Lyrica] Allergy Unknown Verified 07/28/17 08:40 rofecoxib [From Vioxx] Allergy Nausea & Verified 07/28/17 08:40 Vomiting & Diarrhea tramadol Allergy Itching Verified 07/28/17 08:40 dust mites Allergy Unknown Uncoded 07/28/17 06:57 Review of Systems ROS Statement: Those systems with pertinent positive or pertinent negative responses have been documented in the HPI. ROS Other: All systems not noted in ROS Statement are negative. Constitutional: Denies: fever Eyes: Denies: eye pain ENT: Denies: ear pain Respiratory: Denies: cough, dyspnea Cardiovascular: Denies: chest pain Endocrine: Denies: fatigue Gastrointestinal: Reports: hematemesis Genitourinary: Denies: dysuria Musculoskeletal: Denies: back pain Skin: Denies: rash Neurological: Denies: weakness Past Medical History Past Medical History: Asthma, Fibromyalgia, Hypertension Additional Past Medical History / Comment(s): UTI, tachycardia History of Any Multi-Drug Resistant Organisms: None Reported Past Surgical History: Appendectomy, Hysterectomy, Orthopedic Surgery, Tubal Ligation Additional Past Surgical History / Comment(s): nasal surgery, cataracts, bowel obstruction Past Anesthesia/Blood Transfusion Reactions: No Reported Reaction Additional Past Anesthesia/Blood Transfusion Reaction / Comment(s): no history of blood transfusion Past Psychological History: No Psychological Hx Reported Smoking Status: Never smoker Past Alcohol Use History: None Reported Past Drug Use History: None Reported - Past Family History Father Family Medical History: Cancer Additional Family Medical History / Comment(s): prostate Mother Additional Family Medical History / Comment(s): aneurysm General Exam Limitations: no limitations General appearance: alert, in no apparent distress Head exam: Present: atraumatic Eye exam: Present: normal appearance, PERRL ENT exam: Present: normal oropharynx Neck exam: Present: normal inspection Respiratory exam: Present: normal lung sounds bilaterally Cardiovascular Exam: Present: regular rate, normal rhythm Expanded Peripheral pulses: 2+: Dorsalis Pedis (R), Dorsalis Pedis (L) GI/Abdominal exam: Present: soft, tenderness (Mild epigastric tenderness to palpation), diminished bowel sounds. Absent: distended, guarding, rebound, rigid, pulsatile mass Extremities exam: Present: normal inspection Neurological exam: Present: alert Psychiatric exam: Present: normal affect, normal mood Skin exam: Present: normal color Course Vital Signs 08/06/17 03:28 Pulse Rate 97 Respiratory 18 Rate Blood Pressure 146/82 O2 Sat by Pulse 98 Oximetry EKG Findings - EKG Comments: EKG Findings:: Normal sinus rhythm 95. IN 182. QRS 82. QT 368. QTC 462. Normal axis. Septal Q waves. No acute ST change. Medical Decision Making - Medical Decision Making Patient reevaluated and somewhat improved at this time. Case discussed with Dr. moran, who will admit for Dr. Whiteside. Computed tomography scan will be ordered. Dr. Acosta will be consulted. - Lab Data Result diagrams: 08/06/17 03:33 08/06/17 03:33 Lab Results 08/06/17 08/06/17 Range/Units 03:33 03:33 WBC 10.5 (3.8-10.6) k/uL RBC 3.78 L (3.80-5.40) m/uL Hgb 13.1 (11.4-16.0) gm/dL Hct 38.3 (34.0-46.0) % MCV 101.3 H (80.0-100.0) fL MCH 34.8 (25.0-35.0) pg MCHC 34.3 (31.0-37.0) g/dL RDW 14.1 (11.5-15.5) % Plt Count 413 (150-450) k/uL Neutrophils % 78 % Lymphocytes % 10 % Monocytes % 8 % Eosinophils % 2 % Basophils % 1 % Neutrophils # 8.2 H (1.3-7.7) k/uL Lymphocytes # 1.0 (1.0-4.8) k/uL Monocytes # 0.8 (0-1.0) k/uL Eosinophils # 0.2 (0-0.7) k/uL Basophils # 0.1 (0-0.2) k/uL Macrocytosis Slight Sodium 141 (137-145) mmol/L Potassium 3.6 (3.5-5.1) mmol/L Chloride 103 (98-107) mmol/L Carbon Dioxide 29 (22-30) mmol/L Anion Gap 9 mmol/L BUN 15 (7-17) mg/dL Creatinine 0.60 (0.52-1.04) mg/dL Est GFR (MDRD) Af Amer >60 (>60 ml/min/1.73 sqM) Est GFR (MDRD) Non-Af >60 (>60 ml/min/1.73 sqM) Glucose 115 H (74-99) mg/dL Calcium 8.7 (8.4-10.2) mg/dL Total Bilirubin 1.3 (0.2-1.3) mg/dL AST 41 H (14-36) U/L ALT 44 (9-52) U/L Alkaline Phosphatase 61 (38-126) U/L Total Protein 4.9 L (6.3-8.2) g/dL Albumin 2.7 L (3.5-5.0) g/dL - Radiology Data Radiology results: image reviewed (Abdominal x-ray shows postoperative ileus versus small bowel obstruction.) Disposition Clinical Impression: Upper GI hemorrhage Disposition: ADMITTED IP TO THIS [facility] Referrals: Uri Whiteside MD [Primary Care Provider] - 1-2 days Decision Time: 04:42
[2017-08-06 04:20] LABS: ALT 44 U/L (9-52); AST 41 U/L (14-36); Albumin 2.7 g/dL (3.5-5.0); Alkaline Phosphatase 61 U/L (38-126); Anion Gap 9 mmol/L; Blood Urea Nitrogen 15 mg/dL (7-17); Calcium 8.7 mg/dL (8.4-10.2); Carbon Dioxide 29 mmol/L (22-30); Chloride 103 mmol/L (98-107); Glucose 115 mg/dL (74-99); Potassium 3.6 mmol/L (3.5-5.1); Sodium 141 mmol/L (137-145); Total Bilirubin 1.3 mg/dL (0.2-1.3); Total Protein 4.9 g/dL (6.3-8.2)
[2017-08-06 04:21] LABS: Basophils # (A) 0.1 k/uL (0-0.2); Basophils % (A) 1 %; Eosinophils # (A) 0.2 k/uL (0-0.7); Eosinophils % (A) 2 %; HCT 38.3 % (34.0-46.0); HGB 13.1 gm/dL (11.4-16.0); Lymphocytes % (A) 10 %; MCH 34.8 pg (25.0-35.0); MCHC 34.3 g/dL (31.0-37.0); MCV 101.3 fL (80.0-100.0); Macrocytosis Slight; Mean Platelet Volume 7.6; Monocytes # (A) 0.8 k/uL (0-1.0); Monocytes % (A) 8 %; Neutrophils # (A) 8.2 k/uL (1.3-7.7); Neutrophils % (A) 78 %; Platelet Count 413 k/uL (150-450); RBC 3.78 m/uL (3.80-5.40); RDW 14.1 % (11.5-15.5); WBC 10.5 k/uL (3.8-10.6)
[2017-08-06] MEDS ORDERED: METOCLOPRAMIDE 5 MG/ML 2 ML VIAL IVP STA (04:22)
--- NOTE | 2017-08-06 04:30 | XR ---
EXAM: XR Abdomen, 2 Views CLINICAL HISTORY: Reason: Pain TECHNIQUE: Frontal view of the abdomen/pelvis with upright view of the abdomen. COMPARISON: July 31, 2017. FINDINGS: Skin cheryl noted in the lower midline abdomen. Moderate degree of dilatation of small bowel loops, increased since prior. Suboptimal evaluation for free air on this supine radiograph. Generalized osteopenia. IMPRESSION: Findings may represent postoperative ileus versus small bowel obstruction. CT exam may further evaluate. Suboptimal evaluation for free air on this supine radiograph.
[2017-08-06] MEDS ORDERED: MORPHINE SULFATE 2 MG/ML SYRINGE IV PRN (04:42)
[2017-08-06] MEDS ORDERED: ONDANSETRON 4 MG/2 ML VIAL IVP PRN (04:42)
[2017-08-06] MEDS ORDERED: NALOXONE 0.4 MG/ML 1 ML VIAL IV PRN (04:42)
[2017-08-06 04:44] LABS: INR 1.3 (<1.2); Partial Thromboplastin Time 26.6 sec (22.0-30.0); Prothrombin Time 12.5 sec (9.0-12.0)
--- NOTE | 2017-08-06 06:04 | CT ---
EXAM: CT Abdomen and Pelvis Without Intravenous Contrast CLINICAL HISTORY: Reason: Possible obstruction TECHNIQUE: Axial computed tomography images of the abdomen and pelvis without intravenous contrast. CTDI is 10 mGy and DLP is 530 mGy-cm. This CT exam was performed using one or more of the following dose reduction techniques: automated exposure control, adjustment of the mA and/or kV according to patient size, and/or use of iterative reconstruction technique. Coronal and sagittal reformatted images were created and reviewed. COMPARISON: Correlated with earlier radiograph of the abdomen and prior CT of the abdomen and pelvis from July 28, 2017. FINDINGS: Lower thorax: Small bilateral pleural effusions and bibasilar infiltrates/atelectasis, worse since prior. ABDOMEN: Liver: Unremarkable. Gallbladder and bile ducts: Unremarkable. No calcified stones. No ductal dilation. Pancreas: Unremarkable. No ductal dilation. Spleen: Unremarkable. No splenomegaly. Adrenals: Unremarkable. No mass. Kidneys and ureters: Small nonobstructive right renal stone. No hydronephrosis. Left renal cysts. Stomach and bowel: Distended stomach. Moderately dilated small bowel loops with air-fluid levels, consistent with obstruction, worse since prior. Diverticulosis without evidence of diverticulitis. Appendix: The appendix is not visualized. PELVIS: Bladder: Unremarkable. No stones. Reproductive: Unremarkable as visualized. ABDOMEN and PELVIS: Intraperitoneal space: Increasing free fluid in the abdomen and pelvis. No free air or fluid collections. Bones/joints: No acute fracture. No dislocation. Soft tissues: Skin cheryl in anterior abdominal wall. Vasculature: Unremarkable. No abdominal aortic aneurysm. Lymph nodes: Unremarkable. No enlarged lymph nodes. IMPRESSION: Increasing small bowel dilatation with air-fluid levels, consistent with worsening obstruction. Underlying component of postoperative ileus not excluded. No free air or fluid collections. Increased free fluid in the abdomen and pelvis. Small bilateral pleural effusions and bibasilar infiltrate/atelectasis, worse since prior.
[2017-08-06] MEDS: SODIUM CHLORIDE 0.9% 1,000 ML IV SCH ×3 (06:06→21:53)
[2017-08-06] MEDS ORDERED: NON-FORMULARY DRUG (Omeprazole [Omeprazole] 20 MG) PO SCH (09:15)
[2017-08-06] MEDS: NORTRIPTYLINE 10 MG CAP PO SCH (10:32)
[2017-08-06] MEDS: PANTOPRAZOLE 40 MG/10 ML VIAL IV SCH (10:32)
[2017-08-06] MEDS: LEVOTHYROXINE 25 MCG TAB PO SCH (10:32)
[2017-08-06] MEDS: VERAPAMIL SR 120 MG TABLET.ER PO SCH (10:32)
[2017-08-06] MEDS: CHOLECALCIFEROL 1,000 UNIT TAB PO SCH (10:32)
[2017-08-06] MEDS: ATENOLOL 25 MG TAB PO SCH (10:33)
--- NOTE | 2017-08-06 11:42 | P.GSCN ---
History of Present Illness Consult date: 08/06/17 Reason for Consult: Coffee-ground emesis History of present illness: 86-year-old female seen at the request of the attending for surgical eval for abdominal pain with hematemesis. Patient was just transferred from [facility] on the 05 of August to a [facility] facility for rehab. stated that at the [facility] facility started to develop midepigastric discomfort vomited coffee- ground emesis felt feverish chills transferred back to [facility] to be evaluated CAT scan abdomen and pelvis without IV contrast in the emergency room on the 06 of August showed increasing small bowel dilatation air fluid levels consistent with obstruction since admission patient has had no further episodes of hematemesis. Patient states that she did develop loose stools but no blood noted in the stool hemoglobin 13.1 white count 10.5. Low-grade temp of 99.3 Currently patient is resting in bed in continues to report having intermittent episodes of epigastric discomfort patient had undergone on July 31 exploratory laparotomy, lysis of adhesions for small bowel obstruction. Postop patient developed paroxysmal atrial fibrillation cardiology consultation obtained was started on elquis patient's postop operative course uncomplicated. Review of Systems Essentially unremarkable except as mentioned in the present illness Past Medical History Past Medical History: Asthma, Fibromyalgia, Hypertension Additional Past Medical History / Comment(s): UTI, tachycardia History of Any Multi-Drug Resistant Organisms: None Reported Past Surgical History: Appendectomy, Hysterectomy, Orthopedic Surgery, Tubal Ligation Additional Past Surgical History / Comment(s): nasal surgery, cataracts, bowel obstruction Past Anesthesia/Blood Transfusion Reactions: No Reported Reaction Additional Past Anesthesia/Blood Transfusion Reaction / Comm: no history of blood transfusion Past Psychological History: No Psychological Hx Reported Smoking Status: Never smoker Past Alcohol Use History: None Reported Past Drug Use History: None Reported - Past Family History Father Family Medical History: Cancer Additional Family Medical History / Comment(s): prostate Mother Additional Family Medical History / Comment(s): aneurysm Medications and Allergies Home Medications Medication Instructions Recorded Confirmed Type Estrogens, Conjugated Cream 0.5 applicator VAGINAL WEFR 09/29/15 08/06/17 History [Premarin Cream] Levothyroxine Sodium [Synthroid] 25 mcg PO DAILY 09/29/15 08/06/17 History Atenolol [Tenormin] 37.5 mg PO DAILY 07/28/17 08/06/17 History Cholecalciferol [Vitamin D3] 1,000 unit PO DAILY 07/28/17 08/06/17 History Ipratropium-Albuterol Nebulize 3 ml INHALATION RT-TID 07/28/17 08/06/17 History [Duoneb 0.5 mg-3 mg/3 ml Soln] Mometasone/Formoterol [Dulera 200 2 puff INHALATION RT-BID 07/28/17 08/06/17 History Mcg/5 Mcg Inhaler] Montelukast [Singulair] 10 mg PO HS 07/28/17 08/06/17 History Nortriptyline [Pamelor] 10 mg PO DAILY 07/28/17 08/06/17 History Omeprazole 20 mg PO DAILY 07/28/17 08/06/17 History Verapamil HCl [Verapamil Sr] 120 mg PO DAILY 07/28/17 08/06/17 History Apixaban [Eliquis] 2.5 mg PO BID tablet 08/05/17 08/06/17 Rx Ondansetron [Zofran] 4 mg PO Q8HR PRN 08/06/17 08/06/17 History Allergies Allergy/AdvReac Type Severity Reaction Status Date / Time carisoprodol [From Soma] Allergy Unknown Verified 08/06/17 07:17 celecoxib [From Celebrex] Allergy Unknown Verified 08/06/17 07:17 duloxetine HCl Allergy Unknown Verified 08/06/17 07:17 [From Cymbalta] lisinopril Allergy Unknown Verified 08/06/17 07:17 metaxalone [From Skelaxin] Allergy Unknown Verified 08/06/17 07:17 milk Allergy Diarrhea Verified 08/06/17 07:17 naproxen [From Naprosyn] Allergy Itching Verified 08/06/17 07:17 NSAIDS (Non-Steroidal Allergy Unknown Verified 08/06/17 07:17 Anti-Inflamma prednisone Allergy Unknown Verified 08/06/17 07:17 pregabalin [From Lyrica] Allergy Unknown Verified 08/06/17 07:17 rofecoxib [From Vioxx] Allergy Nausea & Verified 08/06/17 07:17 Vomiting & Diarrhea tramadol Allergy Itching Verified 08/06/17 07:17 dust mites Allergy Unknown Uncoded 07/28/17 06:57 Surgical - Exam Vital Signs Pulse Resp BP Pulse Ox 97 18 146/82 98 08/06/17 03:28 08/06/17 03:28 08/06/17 03:28 08/06/17 03:28 GENERAL APPEARANCE: 86-year-old female patient is alert, oriented, in no acute distress. VITAL SIGNS: Reviewed HEENT: Head is normocephalic and atraumatic. Pupils are equal and reactive. The nares are patent. Oropharynx is clear without lesions. NECK: Supple without lymphadenopathy. Traches midline. HEART: S1, S2. Regular rate and rhythm. Denying chest pain no murmur noted LUNGS: No crackles or wheezes are heard. Adequate air movement no cough noted on room air sats are 93% ABDOMEN: Soft cheryl in place to surgical site well approximated no redness, mid epigastric tenderness nondistended with good bowel sounds. No peritoneal signs. No palpable organomegaly or masses. States having loose stools reports no nausea vomiting EXTREMITIES: Normal skin color and turgor. Trace bilateral pedal edema. Radial pedal pulses are 2/4 bilaterally. NEUROLOGICAL: No focal deficits. Strength and sensation are grossly intact. Results - Labs 08/06/17 03:33 08/06/17 03:33 Abnormal Lab Results - Last 24 Hours (Table) 08/06/17 08/06/17 08/06/17 Range/Units 03:33 03:33 03:33 RBC 3.78 L (3.80-5.40) m/uL MCV 101.3 H (80.0-100.0) fL Neutrophils # 8.2 H (1.3-7.7) k/uL PT 12.5 H (9.0-12.0) sec INR 1.3 H (<1.2) Glucose 115 H (74-99) mg/dL AST 41 H (14-36) U/L Total Protein 4.9 L (6.3-8.2) g/dL Albumin 2.7 L (3.5-5.0) g/dL Diabetes panel 08/06/17 Range/Units 03:33 Sodium 141 (137-145) mmol/L Potassium 3.6 (3.5-5.1) mmol/L Chloride 103 (98-107) mmol/L Carbon Dioxide 29 (22-30) mmol/L BUN 15 (7-17) mg/dL Creatinine 0.60 (0.52-1.04) mg/dL Glucose 115 H (74-99) mg/dL Calcium 8.7 (8.4-10.2) mg/dL AST 41 H (14-36) U/L ALT 44 (9-52) U/L Alkaline Phosphatase 61 (38-126) U/L Total Protein 4.9 L (6.3-8.2) g/dL Albumin 2.7 L (3.5-5.0) g/dL Calcium panel 08/06/17 Range/Units 03:33 Calcium 8.7 (8.4-10.2) mg/dL Albumin 2.7 L (3.5-5.0) g/dL Pituitary panel 08/06/17 Range/Units 03:33 Sodium 141 (137-145) mmol/L Potassium 3.6 (3.5-5.1) mmol/L Chloride 103 (98-107) mmol/L Carbon Dioxide 29 (22-30) mmol/L BUN 15 (7-17) mg/dL Creatinine 0.60 (0.52-1.04) mg/dL Glucose 115 H (74-99) mg/dL Calcium 8.7 (8.4-10.2) mg/dL Adrenal panel 08/06/17 Range/Units 03:33 Sodium 141 (137-145) mmol/L Potassium 3.6 (3.5-5.1) mmol/L Chloride 103 (98-107) mmol/L Carbon Dioxide 29 (22-30) mmol/L BUN 15 (7-17) mg/dL Creatinine 0.60 (0.52-1.04) mg/dL Glucose 115 H (74-99) mg/dL Calcium 8.7 (8.4-10.2) mg/dL Total Bilirubin 1.3 (0.2-1.3) mg/dL AST 41 H (14-36) U/L ALT 44 (9-52) U/L Alkaline Phosphatase 61 (38-126) U/L Total Protein 4.9 L (6.3-8.2) g/dL Albumin 2.7 L (3.5-5.0) g/dL Assessment and Plan Assessment: Impression Present on admission hematemesis suspect upper GI Present on admission epigastric pain x-ray suggests postoperative ileus or early small bowel obstruction A recent July 31 exploratory laparotomy lysis of adhesions for partial small bowel obstruction Paroxysmal atrial fibrillation recently started on elquis Debilitated Moderate persistent asthma Mild protein calorie malnutrition Plan Will obtain a PICC line and start TPN for nutritional support Pain control DVT and GI prophylaxis We'll hold elquis for now No evidence of an acute surgical abdomen at this time Bowel rest keep nothing by mouth IV fluid for hydration Further surgical recommendations pending will follow Check labs in the morning Consult dietitian Consult note dictated for Dr. Acosta The above impression and plan of care have been discussed and directed by signing physician. Lavern Barker nurse practitioner acting as scribe for signing physician.
--- NOTE | 2017-08-06 12:50 | P.HPIM ---
History of Present Illness H&P Date: 08/06/17 Chief Complaint: Abdominal pain HISTORY OF PRESENT ILLNESS: 86-year-old female who had an extensive stay recently for exploratory laparotomy lysis of adhesions for small bowel obstruction. Yesterday was transferred to [facility] for rehabilitation, developed mid epigastric discomfort while there and had coffee ground emesis, felt feverish with chills and was transferred back to [facility] for further evaluation and treatment. Computed tomography scan done by the emergency room showed increasing small bowel dilatation and air fluid levels consistent with obstruction. Admitted for upper GI bleed with small bowel obstruction. REVIEW OF SYSTEMS GEN.: [ Tired] EYES: [None] HEENT: [None] NECK: [None] RESPIRATORY: [Mild asthma exacerbation] CARDIOVASCULAR: [None] GASTROINTESTINAL: [As above GENITOURINARY: [None] MUSCULOSKELETAL: [Generalized joint aches and pains] LYMPHATICS: [None] HEMATOLOGICAL: [None] PSYCHIATRY: [None] NEUROLOGICAL: [None] PAST MEDICAL HISTORY Past medical history: Asthma, fibromyalgia, hypertension, Holter monitor for arrhythmias. Past surgical history: Appendectomy, hysterectomy, orthopedic surgery, tubal ligation, nasal surgery, cataract surgery, her current laparotomy with lysis of adhesions. Past psychological history: None SOCIAL HISTORY: Additional psychological/social history: None Smoking use history: None Alcohol use history: None Drug use history: None Marital status: Living situation: Lives with Work history: Never worked outside the home FAMILY HISTORY: Reviewed, noncontributory to presentation, father had prostate cancer. ALLERGIES: SOMA, CELEBREX, CYMBALTA, LISINOPRIL, SKELAXIN, MILK, NAPROXEN, NSAIDS, PREDNISONE, LYRICA, VIOXX, ULTRAM, DUST MITES. HOME MEDICATION: Verapamil 120 mg by mouth daily Ondansetron 4 mg by mouth every 8 hours when necessary Omeprazole 20 mg by mouth daily Nortriptyline 10 mg by mouth daily Singulair 10 mg by mouth at bedtime Mometasone/formoterol 2 puffs inhalation 3 times a day Levothyroxine 25 g by mouth daily DuoNeb 3 mL inhalation 3 times a day Premarin cream 0.5 applicator vaginal Saturday and Saturday Cholecalciferol thousand units by mouth daily Atenolol 37.5 mg by mouth daily Apixaban 2.5 mg by mouth twice a day VITAL SIGNS: [Temperature 97.4, pulse 93, respiratory rate 18, blood pressure 127/59, oxygen saturation 93% on room air.. BMI 26.6] GENERAL: [Thin built, sitting up, mildly anxious]. EYES: [Pupils equal. Conjunctiva roxann]l. HENT: [External appearance of nose and ears normal, oral cavity grossly normal]. HEART: [First and second heart sounds are normal; no edema]. LUNGS:[ Respiratory rate normal; clear to auscultation]. ABDOMEN: [Soft, tender liver spleen not palpable, no masses palpable]. LYMPHATICS: [No lymph nodes palpable in the axilla and neck]. PSYCH: [Alert and oriented x3; mood and affect roxann]l. NEUROLOGICAL: [Cranial nerves grossly intact; no facial asymmetry, power and sensation grossly intact]. INVESTIGATIONS: LABS: INR 1.3 AST 41 ASSESSMENT: -Possible Acute upper GI bleed in a patient who has had recent surgery for lysis of adhesions -Possible small bowel obstruction versus ileus in a patient who recently had surgery for lysis of adhesion -paroxysmal atrial fibrillation rapid ventricular rate currently in sinus rhythm , on Eliquis. -Sigmoid diverticulosis -Moderate persistent asthma. -Chronic fibromyalgia. -Essential hypertension. PLAN: Admitted to 5 E., home medications reordered, NG tube placed, surgery consulted. Plan of care discussed bedside with patient she is agreeable. We will follow closely. 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 Felder. Past Medical History Past Medical History: Asthma, Fibromyalgia, Hypertension Additional Past Medical History / Comment(s): UTI, tachycardia History of Any Multi-Drug Resistant Organisms: None Reported Past Surgical History: Appendectomy, Hysterectomy, Orthopedic Surgery, Tubal Ligation Additional Past Surgical History / Comment(s): nasal surgery, cataracts, bowel obstruction Past Anesthesia/Blood Transfusion Reactions: No Reported Reaction Additional Past Anesthesia/Blood Transfusion Reaction / Comment(s): no history of blood transfusion Past Psychological History: No Psychological Hx Reported Smoking Status: Never smoker Past Alcohol Use History: None Reported Past Drug Use History: None Reported - Past Family History Father Family Medical History: Cancer Additional Family Medical History / Comment(s): prostate Mother Additional Family Medical History / Comment(s): aneurysm Medications and Allergies Home Medications Medication Instructions Recorded Confirmed Type Estrogens, Conjugated Cream 0.5 applicator VAGINAL WEFR 09/29/15 08/06/17 History [Premarin Cream] Levothyroxine Sodium [Synthroid] 25 mcg PO DAILY 09/29/15 08/06/17 History Atenolol [Tenormin] 37.5 mg PO DAILY 07/28/17 08/06/17 History Cholecalciferol [Vitamin D3] 1,000 unit PO DAILY 07/28/17 08/06/17 History Ipratropium-Albuterol Nebulize 3 ml INHALATION RT-TID 07/28/17 08/06/17 History [Duoneb 0.5 mg-3 mg/3 ml Soln] Mometasone/Formoterol [Dulera 200 2 puff INHALATION RT-BID 07/28/17 08/06/17 History Mcg/5 Mcg Inhaler] Montelukast [Singulair] 10 mg PO HS 07/28/17 08/06/17 History Nortriptyline [Pamelor] 10 mg PO DAILY 07/28/17 08/06/17 History Omeprazole 20 mg PO DAILY 07/28/17 08/06/17 History Verapamil HCl [Verapamil Sr] 120 mg PO DAILY 07/28/17 08/06/17 History Apixaban [Eliquis] 2.5 mg PO BID tablet 08/05/17 08/06/17 Rx Ondansetron [Zofran] 4 mg PO Q8HR PRN 08/06/17 08/06/17 History Allergies Allergy/AdvReac Type Severity Reaction Status Date / Time carisoprodol [From Soma] Allergy Unknown Verified 08/06/17 07:17 celecoxib [From Celebrex] Allergy Unknown Verified 08/06/17 07:17 duloxetine HCl Allergy Unknown Verified 08/06/17 07:17 [From Cymbalta] lisinopril Allergy Unknown Verified 08/06/17 07:17 metaxalone [From Skelaxin] Allergy Unknown Verified 08/06/17 07:17 milk Allergy Diarrhea Verified 08/06/17 07:17 naproxen [From Naprosyn] Allergy Itching Verified 08/06/17 07:17 NSAIDS (Non-Steroidal Allergy Unknown Verified 08/06/17 07:17 Anti-Inflamma prednisone Allergy Unknown Verified 08/06/17 07:17 pregabalin [From Lyrica] Allergy Unknown Verified 08/06/17 07:17 rofecoxib [From Vioxx] Allergy Nausea & Verified 08/06/17 07:17 Vomiting & Diarrhea tramadol Allergy Itching Verified 08/06/17 07:17 dust mites Allergy Unknown Uncoded 07/28/17 06:57 Physical Exam Vitals: Vital Signs Temp Pulse Pulse Resp BP BP Pulse Ox 08/06/17 07:00 97.4 F L 93 18 127/59 93 L 08/06/17 06:14 94 08/06/17 06:07 99.3 F 94 17 136/81 93 L 08/06/17 05:24 98 F 95 18 155/51 98 08/06/17 03:28 97 18 146/82 98 Intake and Output 08/05/17 08/06/17 08/06/17 22:59 06:59 14:59 Intake Total 240 Balance 240 Intake: Intake, IV Titration 240 Amount Sodium Chloride 0.9% 1, 240 000 ml @ 120 mls/hr IV . Q8H20M [facility] Rx#:[id number] Other: Voiding Method Toilet Toilet Diaper Weight 70.307 kg Results CBC & Chem 7: 08/07/17 06:37 08/07/17 06:37 Labs: Abnormal Lab Results - Last 24 Hours (Table) 08/06/17 08/06/17 08/06/17 Range/Units 03:33 03:33 03:33 RBC 3.78 L (3.80-5.40) m/uL MCV 101.3 H (80.0-100.0) fL Neutrophils # 8.2 H (1.3-7.7) k/uL PT 12.5 H (9.0-12.0) sec INR 1.3 H (<1.2) Glucose 115 H (74-99) mg/dL AST 41 H (14-36) U/L Total Protein 4.9 L (6.3-8.2) g/dL Albumin 2.7 L (3.5-5.0) g/dL Thrombosis Risk Factor Assmnt - Choose All That Apply Any of the Below Risk Factors Present?: Yes Each Risk Factor Represents 3 Points: Age 75 years or older Thrombosis Risk Factor Assessment Total Risk Factor Score: 3 Thrombosis Risk Factor Assessment Level: Moderate Risk
[2017-08-06] MEDS: IPRATROPIUM-ALBUTEROL 3 ML NEB INHALATION SCH ×2 (13:37→20:47)
--- NOTE | 2017-08-06 14:20 | CDI ---
Last Revision, June 2017 Patient has post op ileus which is expected . There is NO post op bowel obstruction. History of coffee ground emesis . No documented hematemesis. Hemoglobin is stable. Unlkely patient is bleeding. 08/08/2017 Documentation Clarification Form Date: 08/06/2017 2:10:00 PM From: Maegan Bradley CCS, CCDS Admit Date: 08/06/2017 4:42:00 AM Patient Name: Martha Tamayo Visit Number: [id number] Discharge Date: ATTENTION: The Clinical Documentation Specialists (CDI) and [facility] Coding Staff appreciate your assistance in clarifying documentation. Please respond to the clarification below the line at the bottom and electronically sign. The CDI & [facility] Coding staff will review the response and follow-up if needed. Please note: Queries are made part of the Legal Health Record. If you have any questions, please contact the author of this message via ITS. Dr. Kiki Acosta: Patient is admitted with a small bowel obstruction and is status post recent bowel surgery for obstruction and lysis of adhesions. Patients Admitting Diagnosis: SBO w/hematemesis. History/Risk Factors: Asthma, Fibromyalgis, Hypertension, previous UTIs, previous SBO sp surgery for same. Clinical Indicators: Abdominal XR: Findings may represent postoperative ileus vs SBO. CT Abdomen/Pelvis: Increasing small bowel dilatation..., consistent with worsening obstruction. Treatment: IV Zofran, IV protonix, IV Reglan, IV Morphine, IV Narcan, IV fluid rate 100-120 In order to accurately reflect this patients severity of illness, please clarify if the post-operative diagnosis of small bowel obstruction is: An expected post-procedural or post-surgical condition; Integral to the procedure; Inherent to the procedure; An unexpected post-procedural or post-surgical condition related to surgical care; Other, please specify Unable to determine Please continue to document in your progress notes and discharge summary in order to capture severity of illness and risk of mortality. Include clinical findings that support your diagnosis. MTDD
[2017-08-06 14:33] LABS: Ionized Calcium 4.7 mg/dL (4.5-5.3)
[2017-08-06 14:42] LABS: Magnesium 1.4 mg/dL (1.6-2.3); Phosphorus 2.5 mg/dL (2.5-4.5)
[2017-08-06] MEDS ORDERED: LIDOCAINE 2% INJ 20 MG/ML SQ ONE (15:17)
[2017-08-06] MEDS ORDERED: MVI, ADULT NO.4 WITH VIT K 10 ML, TRACE (CONC-1ML/DOSE) 1 ML in AMINO ACID 5%-D25W+LYTE... IV SCH ×3 (16:00)
--- NOTE | 2017-08-06 16:02 | IR ---
EXAMINATION TYPE: IR cvc insert >=5 years DATE OF EXAM: 08/06/2017 COMPARISON: NONE CLINICAL HISTORY: Bowel obstruction Needs long-term intravenous access for therapy. PROCEDURE: After informed consent, the skin overlying the left brachial vein was localized with ultrasound and n oted to be compressible and patent. An ultrasound image was obtained and submitted on the patient's chart. The overlying skin was prepped and draped and Lidocaine was used for local anesthesia. A ski n omayra was made with a scalpel. Access was gained to the vein under ultrasound guidance with a 21 ga uge needle and a 0.018 inch wire was advanced. Access site was dilated with Peel-Away sheath and cat heter tailored to the appropriate length and advanced such that the distal tip is at the cavoatrial j unction. Spot image was obtained verifying placement. Catheter was fixed to the skin with suture an d a sterile dressing was placed following hemostasis. Catheter was aspirated and flushed with saline . Patient was discharged in stable condition without complication. Maximal barrier technique is util ized. Ultrasound image is documented on the chart. Ultrasound used with sterile technique. Fluoro time and fluoroscopic images submitted to document procedure: 84 intraoperative C-arm images, 0.2 minutes fluoroscopy time IMPRESSION: STATUS POST ULTRASOUND AND FLUOROSCOPIC GUIDED PICC LINE PLACEMENT, READY FOR USE. THIS PROCEDURE WAS PERFORMED BY THE UNDERSIGNED.
[2017-08-06] MEDS ORDERED: BENZOCAINE/MENTHOL LOZENG 1 EACH LOZENGE MUCOUS MEM PRN (17:31)
[2017-08-06] MEDS: MONTELUKAST 10 MG TAB PO SCH (19:56)
[2017-08-06] MEDS: SYMBICORT 160-4.5 MCG INHALER INHALATION SCH (20:47)
[2017-08-06] MEDS: FAT EMULSION 20% 250 ML IV SCH (21:40)
[2017-08-06 22:50] LABS: Hemoglobin A1C 5.7 % (4.0-6.0)
[2017-08-07 00:13] LABS: Glucose,Whole Blood 125 mg/dL (75-99)
--- NOTE | 2017-08-07 05:03 | HP ---
HISTORY AND PHYSICAL DATE OF ADMISSION: 08/06/2017 PRESENTING COMPLAINT: Abdominal pain. ATTENDING NOTE: This patient was seen and examined by me. Discussed with nurse practitioner, Ms. Pan. This is a patient who had just underwent lysis of adhesions and was discharged yesterday to [facility], also had atrial fibrillation, presented with some abdominal pain, not feeling well, had coffee-ground emesis and was transferred back. The patient was discovered to have air-fluid levels, 3 to 4 attempts were done at NG tube and this was abandoned. TPN lipids were started. A PICC line was ordered. PHYSICAL EXAMINATION: On examination, temperature 98.6, pulse 86, respirations 18, blood pressure 120/60, pulse ox 93% on room air. LUNGS: Slightly decreased breath sounds. CARDIOVASCULAR: First and second sounds normal. ABDOMEN: Soft. Minimal tenderness. Bowel sounds are present. PSYCH: A&O x3. Mood and affect is normal. INVESTIGATIONS: White count 10.5, hemoglobin 10.1. Potassium 3.6. CT scan of the abdomen and pelvis showing increasing small bowel dilatation with air-fluid levels. ASSESSMENT: 1. Acute small-bowel obstruction in a patient who just underwent adhesiolysis. 2. Paroxysmal atrial fibrillation, on last admission patient had atrial fibrillation. 3. Coffee-grounds emesis possibly upper gastrointestinal bleed. 4. Sigmoid diverticulosis. 5. Moderate persistent asthma. 6. Chronic fibromyalgia. 7. Essential hypertension. PLAN: NG tube attempt . The patient been ordered TPN lipids. PICC line in place. Overall prognosis is guarded. The patient's code status is DNR. Care was discussed with this very pleasant lady. Dr. Acosta was consulted. MMODL / IJN: [id number] /
[2017-08-07 05:54] LABS: Glucose,Whole Blood 146 mg/dL (75-99)
[2017-08-07] MEDS: LEVOTHYROXINE 25 MCG TAB PO SCH (06:21)
[2017-08-07 07:23] LABS: Ionized Calcium 4.7 mg/dL (4.5-5.3)
[2017-08-07 07:39] LABS: Anion Gap 8 mmol/L; Blood Urea Nitrogen 17 mg/dL (7-17); Calcium 7.9 mg/dL (8.4-10.2); Carbon Dioxide 24 mmol/L (22-30); Chloride 108 mmol/L (98-107); Glucose 136 mg/dL (74-99); Magnesium 1.5 mg/dL (1.6-2.3); Phosphorus 2.3 mg/dL (2.5-4.5); Sodium 140 mmol/L (137-145)
[2017-08-07 07:48] LABS: Potassium 2.8 mmol/L (3.5-5.1)
[2017-08-07] MEDS: IPRATROPIUM-ALBUTEROL 3 ML NEB INHALATION SCH ×3 (08:35→20:15)
[2017-08-07] MEDS: SYMBICORT 160-4.5 MCG INHALER INHALATION SCH ×2 (08:36→20:15)
[2017-08-07] MEDS: ESTROGENS, CONJUGATED 0.625 MG/GM VAGINAL CREAM 42.5 GM TUBE VAGINAL SCH (08:51)
[2017-08-07] MEDS: CHOLECALCIFEROL 1,000 UNIT TAB PO SCH (08:52)
[2017-08-07] MEDS: PANTOPRAZOLE 40 MG/10 ML VIAL IV SCH (08:52)
[2017-08-07] MEDS: ATENOLOL 25 MG TAB PO SCH (08:52)
[2017-08-07] MEDS: NORTRIPTYLINE 10 MG CAP PO SCH (08:52)
[2017-08-07] MEDS: VERAPAMIL SR 120 MG TABLET.ER PO SCH (08:52)
[2017-08-07] MEDS: POTASSIUM CHLORIDE 10 MEQ in WATER FOR INJECTION 1 100ML.BAG IVPB SCH ×3 (08:55→15:36)
--- NOTE | 2017-08-07 11:50 | P.PN ---
Subjective Progress Note Date: 08/07/17 86-year-old female seen and examined sitting up in bed. Patient reports no nausea no emesis. Reports having had a bowel movement last night. Patient did receive a PICC line yesterday TPN infusing no redness at the PICC line site on the right upper extremity .July 31 exploratory laparotomy, lysis of adhesions for small bowel obstruction. Postop that admission patient developed paroxysmal atrial fibrillation started on elquis per cardiology's recommendations EKG this admission in the emergency room showed sinus rhythm Objective - Vital Signs Vital signs: Vital Signs Temp 97.9 F 08/07/17 07:00 Pulse 88 08/07/17 08:46 Resp 16 08/07/17 07:00 BP 131/61 08/07/17 07:00 Pulse Ox 95 08/07/17 07:00 Intake & Output 08/06/17 08/07/17 08/07/17 18:59 06:59 18:59 Intake Total 960 540.8 Balance 960 540.8 Weight 70.307 kg 74 kg Intake: Intake, IV Titration 960 200.8 Amount Fat Emulsion 20% 250 ml @ 20.8 20.833 mls/hr IV DAILY@ 1800 [facility] Rx#:[id number] Mvi, Adult No.4 with Vit 180 K 10 ml Trace (Conc-1Ml/ Dose) 1 ml In Amino Acid 5%-D25w+Lytes*E* 1,000 ml @ 30 mls/hr IV .Q24H [facility] Rx#:[id number] Sodium Chloride 0.9% 1, 960 000 ml @ 120 mls/hr IV . Q8H20M [facility] Rx#:[id number] Oral 340 Other: Voiding Method Toilet Toilet Toilet Diaper Diaper Diaper # Voids 2 3 - Exam Physical exam Pleasant 86-year-old female resting in bed appearing in no acute distress Lungs adequate air movement bilaterally on room air Heart S1-S2 audible regular Abdomen cheryl to surgical incision site well approximated no redness noted scant amount of serous drainage distal to the suture line soft no facial grimacing with palpitation to the abdominal wall bowel tones noted urinating no difficulty tolerating ice chips and popsicles with no nausea no vomiting Extremities no edema noted - Labs CBC & Chem 7: 08/06/17 03:33 08/07/17 06:37 Labs: Abnormal Lab Results - Last 24 Hours (Table) 08/06/17 08/06/17 08/07/17 Range/Units 13:59 23:56 05:44 Potassium (3.5-5.1) mmol/L Chloride (98-107) mmol/L Glucose (74-99) mg/dL POC Glucose (mg/dL) 125 H 146 H (75-99) mg/dL Calcium (8.4-10.2) mg/dL Phosphorus (2.5-4.5) mg/dL Magnesium 1.4 L (1.6-2.3) mg/dL 08/07/17 Range/Units 06:37 Potassium 2.8 L* (3.5-5.1) mmol/L Chloride 108 H (98-107) mmol/L Glucose 136 H (74-99) mg/dL POC Glucose (mg/dL) (75-99) mg/dL Calcium 7.9 L (8.4-10.2) mg/dL Phosphorus 2.3 L (2.5-4.5) mg/dL Magnesium 1.5 L (1.6-2.3) mg/dL Assessment and Plan Assessment: Impression Present on admission hematemesis suspect upper GI no further episodes hemoglobin stable Present on admission epigastric pain x-ray suggests postoperative ileus or early small bowel obstruction unexpected postsurgical condition A recent July 31 exploratory laparotomy lysis of adhesions for partial small bowel obstruction Paroxysmal atrial fibrillation recently started on elquis Debilitated Moderate persistent asthma Mild protein calorie malnutrition Severe hypokalemia, hypomagnesemia Plan Potassium and magnesium being replaced we'll monitor labs TPN for nutritional support per PICC line Pain control DVT and GI prophylaxis Restart elquis if okayed with cardiology No evidence of an acute surgical abdomen at this time Bowel rest keep nothing by mouth except ice chips and popsicles IV fluid for hydration Further surgical recommendations pending will follow Check labs in the morning PT OT eval increase activity progress note dictated for Dr. Acosta The above impression and plan of care have been discussed and directed by signing physician. Lavern Barker nurse practitioner acting as scribe for signing physician.
[2017-08-07 12:06] LABS: Glucose,Whole Blood 140 mg/dL (75-99)
[2017-08-07] MEDS: MAGNESIUM SULFATE-D5W PMX 1 GM in DEXTROSE/WATER 1 100ML.BAG IVPB SCH ×2 (12:08→13:22)
[2017-08-07 12:48] LABS: Basophils # (A) 0.1 k/uL (0-0.2); Basophils % (A) 1 %; Eosinophils # (A) 0.4 k/uL (0-0.7); Eosinophils % (A) 4 %; HCT 34.9 % (34.0-46.0); HGB 11.3 gm/dL (11.4-16.0); Lymphocytes # (A) 1.2 k/uL (1.0-4.8); Lymphocytes % (A) 11 %; MCH 34.2 pg (25.0-35.0); MCHC 32.2 g/dL (31.0-37.0); Macrocytosis Moderate; Mean Platelet Volume 7.4; Monocytes # (A) 0.9 k/uL (0-1.0); Monocytes % (A) 8 %; Neutrophils # (A) 8.1 k/uL (1.3-7.7); Neutrophils % (A) 75 %; Platelet Count 396 k/uL (150-450); RDW 12.9 % (11.5-15.5); WBC 10.8 k/uL (3.8-10.6)
[2017-08-07] MEDS ORDERED: POTASSIUM CHLORIDE 20 MEQ in SODIUM CHLORIDE 0.9% 100 ML IVPB STA (13:24)
[2017-08-07] MEDS: BISACODYL 10 MG SUPP RECTAL SCH (13:25)
--- NOTE | 2017-08-07 13:45 | P.CRDCN ---
History of Present Illness Consult date: 08/07/17 History of present illness: Mrs. Tamayo is a pleasant 86-year-old female past medical history significant for asthma, hypertension, recent small bowel obstruction requiring surgery and subsequent atrial fibrillation. She was started on Eliquis post- operatively and was sent to [facility] for rehab. She presented back to the hospital after having episodes of vomiting black coffee ground emesis. Per her daughter, immediately after arriving at [facility] she began to feel nauseated, dizzy and developed worsening abdominal pain. The following morning she began vomiting black coffee ground emesis and was transferred to the hospital for evaluation. Since being admitted she has also had frequent bouts of diarrhea and is now complaining of constipation. She denies chest pain, shortness of breath, dizziness or palpitations. She has had no further episodes of vomiting. She denies ever having had bright red blood in the vomit or stool. She is currently maintaining a sinus mechanism. EKG on arrival is sinus mechanism with no new acute ST or T-wave abnormalities. Her EKG is consistent with EKG on last admission. Laboratory data revealed hemoglobin 13.1 yesterday, platelets 413 yesterday, INR 1.3, potassium 2.8, magnesium 1.5. There is no CBC ordered for today day we will obtain one now. Current cardiac medications include verapamil 120 mg daily, eliquis 2.5 mg twice a day and atenolol 37.5 mg daily. Eliquis has been held since admission. Review of Systems At the time of my exam: CONSTITUTIONAL: Denies fever. Denies chills. EYES: Denies blurred vision. Denies vision changes. Denies eye pain. EARS, NOSE, MOUTH & THROAT: Denies headache. Denies sore throat. Denies ear pain. CARDIOVASCULAR: Denies chest pain. Denies shortness of breath. Denies orthopnea. Denies PND. Denies palpitations. RESPIRATORY: Denies cough. GASTROINTESTINAL: Denies abdominal pain. Denies diarrhea. Complains of constipation. Denies nausea. Denies vomiting. MUSCULOSKELETAL: Denies myalgias. INTEGUMENTARY: Denies pruitis. Denies rash. NEUROLOGIC: Denies numbness. Denies tingling. Complains of weakness. PSYCHIATRIC: Denies anxiety. Denies depression. ENDOCRINE: Denies fatigue. Denies weight change. Denies polydipsia. Denies polyurina. GENITOURINARY: Denies burning, hematuria or urgency with micturation. HEMATOLOGIC: Denies history of anemia. Denies silvia bright red bleeding. Past Medical History Past Medical History: Asthma, Fibromyalgia, Hypertension Additional Past Medical History / Comment(s): UTI, tachycardia History of Any Multi-Drug Resistant Organisms: None Reported Past Surgical History: Appendectomy, Hysterectomy, Orthopedic Surgery, Tubal Ligation Additional Past Surgical History / Comment(s): nasal surgery, cataracts, bowel obstruction Past Anesthesia/Blood Transfusion Reactions: No Reported Reaction Additional Past Anesthesia/Blood Transfusion Reaction / Comment(s): no history of blood transfusion Past Psychological History: No Psychological Hx Reported Smoking Status: Never smoker Past Alcohol Use History: None Reported Past Drug Use History: None Reported - Past Family History Father Family Medical History: Cancer Additional Family Medical History / Comment(s): prostate Mother Additional Family Medical History / Comment(s): aneurysm Medications and Allergies Home Medications Medication Instructions Recorded Confirmed Type Estrogens, Conjugated Cream 0.5 applicator VAGINAL WEFR 09/29/15 08/06/17 History [Premarin Cream] Levothyroxine Sodium [Synthroid] 25 mcg PO DAILY 09/29/15 08/06/17 History Atenolol [Tenormin] 37.5 mg PO DAILY 07/28/17 08/06/17 History Cholecalciferol [Vitamin D3] 1,000 unit PO DAILY 07/28/17 08/06/17 History Ipratropium-Albuterol Nebulize 3 ml INHALATION RT-TID 07/28/17 08/06/17 History [Duoneb 0.5 mg-3 mg/3 ml Soln] Mometasone/Formoterol [Dulera 200 2 puff INHALATION RT-BID 07/28/17 08/06/17 History Mcg/5 Mcg Inhaler] Montelukast [Singulair] 10 mg PO HS 07/28/17 08/06/17 History Nortriptyline [Pamelor] 10 mg PO DAILY 07/28/17 08/06/17 History Omeprazole 20 mg PO DAILY 07/28/17 08/06/17 History Verapamil HCl [Verapamil Sr] 120 mg PO DAILY 07/28/17 08/06/17 History Apixaban [Eliquis] 2.5 mg PO BID tablet 08/05/17 08/06/17 Rx Ondansetron [Zofran] 4 mg PO Q8HR PRN 08/06/17 08/06/17 History Allergies Allergy/AdvReac Type Severity Reaction Status Date / Time carisoprodol [From Soma] Allergy Unknown Verified 08/06/17 07:17 celecoxib [From Celebrex] Allergy Unknown Verified 08/06/17 07:17 duloxetine HCl Allergy Unknown Verified 08/06/17 07:17 [From Cymbalta] lisinopril Allergy Unknown Verified 08/06/17 07:17 metaxalone [From Skelaxin] Allergy Unknown Verified 08/06/17 07:17 milk Allergy Diarrhea Verified 08/06/17 07:17 naproxen [From Naprosyn] Allergy Itching Verified 08/06/17 07:17 NSAIDS (Non-Steroidal Allergy Unknown Verified 08/06/17 07:17 Anti-Inflamma prednisone Allergy Unknown Verified 08/06/17 07:17 pregabalin [From Lyrica] Allergy Unknown Verified 08/06/17 07:17 rofecoxib [From Vioxx] Allergy Nausea & Verified 08/06/17 07:17 Vomiting & Diarrhea tramadol Allergy Itching Verified 08/06/17 07:17 dust mites Allergy Unknown Uncoded 07/28/17 06:57 Physical Exam Vitals: Vital Signs Temp Pulse Pulse Resp BP Pulse Ox 08/07/17 13:08 88 08/07/17 13:02 80 08/07/17 08:46 88 08/07/17 08:37 84 08/07/17 07:00 97.9 F 84 16 131/61 95 08/06/17 23:00 97.7 F 85 16 132/65 94 L 08/06/17 21:01 89 08/06/17 20:48 87 08/06/17 15:00 98.6 F 86 18 124/60 93 L 08/06/17 13:50 88 08/06/17 13:40 86 Intake and Output 08/06/17 08/07/17 08/07/17 22:59 06:59 14:59 Intake Total 200.8 340 Balance 200.8 340 Intake: Intake, IV Titration 200.8 Amount Fat Emulsion 20% 250 ml @ 20.8 20.833 mls/hr IV DAILY@ 1800 [facility] Rx#:[id number] Mvi, Adult No.4 with Vit 180 K 10 ml Trace (Conc-1Ml/ Dose) 1 ml In Amino Acid 5%-D25w+Lytes*E* 1,000 ml @ 30 mls/hr IV .Q24H [facility] Rx#:[id number] Oral 340 Other: Voiding Method Toilet Toilet Toilet Diaper Diaper Diaper # Voids 2 3 Weight 74 kg Blood pressure 131/61 heart rate 84 afebrile GENERAL: This is a 86-year-old female in no apparent distress at the time of my examination. HEENT: Head is atraumatic, normocephalic. Pupils are equal, round. Sclerae anicteric. Conjunctivae are clear. Mucous membranes of the mouth are moist. Neck is supple. There is no jugular venous distention. No carotid bruit is heard. LUNGS: Clear to auscultation no wheezes, rales or rhonchi. No chest wall tenderness is noted on palpation or with deep breathing. HEART: Regular rate and rhythm without murmurs, rubs or gallops. S1 and S2 heard. ABDOMEN: Soft, nontender. Bowel sounds are heard. No organomegaly noted. EXTREMITIES: Trace evidence of peripheral edema non-pitting and no calf tenderness noted. VASCULAR: 2+ peripheral pulses radial and dorsalis pedis, no clubbing. NEUROLOGIC: Patient is awake, alert and oriented x3. Results 08/07/17 06:37 08/07/17 06:37 Lipids 08/06/17 Range/Units 13:59 Triglycerides 80 (<150) mg/dL CBC 08/07/17 Range/Units 06:37 WBC 10.8 H (3.8-10.6) k/uL RBC 3.30 L (3.80-5.40) m/uL Hgb 11.3 L (11.4-16.0) gm/dL Hct 34.9 (34.0-46.0) % Plt Count 396 (150-450) k/uL Comprehensive Metabolic Panel 08/07/17 Range/Units 06:37 Sodium 140 (137-145) mmol/L Potassium 2.8 L* (3.5-5.1) mmol/L Chloride 108 H (98-107) mmol/L Carbon Dioxide 24 (22-30) mmol/L BUN 17 (7-17) mg/dL Creatinine 0.55 (0.52-1.04) mg/dL Glucose 136 H (74-99) mg/dL Calcium 7.9 L (8.4-10.2) mg/dL Current Medications Generic Name Dose Route Start Last Admin Trade Name Freq PRN Reason Stop Dose Admin Albuterol/Ipratropium 3 ml 08/06/17 13:00 08/07/17 08:35 Duoneb 0.5 Mg-3 Mg/3 Ml Soln INHALATION 3 ml RT-TID [facility]NY Administration Atenolol 37.5 mg 08/06/17 09:15 08/07/17 08:52 Tenormin PO 37.5 mg DAILY [facility] Administration Benzocaine/Menthol 1 each 08/06/17 17:31 Cepacol Lozenge MUCOUS MEM Q4HR PRN Sore Throat Bisacodyl 10 mg 08/07/17 11:45 Dulcolax RECTAL DAILY [facility] Budesonide/Formoterol Fumarate 2 puff 08/06/17 20:00 08/07/17 08:36 Symbicort 160-4.5 Mcg Inhaler INHALATION 2 puff RT-BID [facility]NY Administration Cholecalciferol 1,000 unit 08/06/17 09:15 08/07/17 08:52 Vitamin D3 PO 1,000 unit DAILY [facility] Administration Estrogens Conjugated 1 applic 08/07/17 09:14 08/07/17 08:51 Premarin Cream VAGINAL 1 applic WEFR [facility]NY Administration Parenteral Vitamin Supplement 1,011 mls @ 30 mls/hr 08/06/17 16:00 08/06/17 17:07 10 ml/ Chromium/Copper/ IV 08/08/17 01:41 30 mls/hr Manganese/Seleni/Zn 1 ml/ .Q24H JOHNY Administration Amino Ac/Electrol/Dextrose/ Calcium Parenteral Vitamin Supplement 1,011 mls @ 45 mls/hr 08/07/17 16:00 10 ml/ Chromium/Copper/ IV Manganese/Seleni/Zn 1 ml/ .[id number] [facility] Amino Ac/Electrol/Dextrose/ Calcium Fat Emulsion Intravenous 250 mls @ 20.833 mls/hr 08/06/17 18:00 08/06/17 21: 40 Lipids 20% IV 20.833 mls/hr DAILY@1800 [facility] Administration Levothyroxine Sodium 25 mcg 01/16/18 09:15 08/07/17 06:21 Synthroid PO 25 mcg DAILY@0630 [facility] Administration Montelukast Sodium 10 mg 08/06/17 21:00 08/06/17 19:56 Singulair PO 10 mg HS [facility] Administration Naloxone HCl 0.2 mg 08/06/17 04:42 Narcan IV Q2M PRN Opioid Reversal Nortriptyline HCl 10 mg 08/06/17 09:15 08/07/17 08:52 Pamelor PO 10 mg DAILY [facility] Administration Ondansetron HCl 4 mg 08/06/17 04:42 Zofran IVP Q8HR PRN Nausea And Vomiting Pantoprazole Sodium 40 mg 08/06/17 09:00 08/07/17 08:52 Protonix IV 40 mg DAILY [facility] Administration Sodium Chloride 20 ml 08/06/17 15:57 Saline Flush IV Q4HR PRN PICC Line Sodium Chloride 10 ml 08/13/17 09:00 Saline Flush IV WEEKLY [facility] Sodium Chloride 10 ml 08/06/17 15:57 Saline Flush IV Q4HR PRN PICC Line Verapamil HCl 120 mg 08/06/17 09:15 08/07/17 08:52 Isoptin Sr PO 120 mg DAILY [facility] Administration Intake and Output 08/06/17 08/07/17 08/07/17 22:59 06:59 14:59 Intake Total 200.8 340 Balance 200.8 340 Intake: Intake, IV Titration 200.8 Amount Fat Emulsion 20% 250 ml @ 20.8 20.833 mls/hr IV DAILY@ 1800 [facility] Rx#:[id number] Mvi, Adult No.4 with Vit 180 K 10 ml Trace (Conc-1Ml/ Dose) 1 ml In Amino Acid 5%-D25w+Lytes*E* 1,000 ml @ 30 mls/hr IV .Q24H [facility] Rx#:[id number] Oral 340 Other: Voiding Method Toilet Toilet Toilet Diaper Diaper Diaper # Voids 2 3 Weight 74 kg 08/07/17 06:37 08/07/17 06:37 Assessment and Plan Assessment: ASSESSMENT 1. Paroxysmal atrial fibrillation, currently maintaining sinus mechanism. 2. Essential hypertension 3. Hematemesis 4. Hypokalemia 5. Hypomagnesemia PLAN Check a CBC now. If hemoglobin is stable we recommend anticoagulation be resumed. Risk of stroke has been discussed at length with patient and family. Plan of care has been discussed. Continue with electrolyte replacement per protocol. Nurse Practitioner note has been reviewed, I agree with a documented findings and plan of care. Patient was seen and examined.
--- NOTE | 2017-08-07 16:50 | P.PN ---
Progress Note - Text Progress Note Date: 08/07/17 DATE OF SERVICE: 08/07/2017 PRESENTING COMPLAINT: Coffee ground emesis, abdominal pain HISTORY OF PRESENT ILLNESS: 86-year-old female who had a recent extensive stay for exploratory laparotomy lysis of adhesions for small bowel obstruction. Was brought to the emergency department for further evaluation after having an episode of coffee-ground emesis and mild epigastric discomfort. Computed tomography scan done by the emergency room showed is increasing small bowel dilatation and air fluid levels consistent with obstruction. Admitted for upper GI bleed and small bowel obstruction. INTERVAL HISTORY: 08/07/2017 Lying in bed surrounded by family appears in no acute distress. No acute overnight events, afebrile, vital signs stable. No nausea, no vomiting, Sinus rhythm on the monitor. Remains nothing by mouth except ice chips and popsicles , no NG tube unable to place, TPN in place, PICC line in place. Up to the bathroom with assistance and walker. Last BM 08/07/2017. REVIEW OF SYSTEMS: Done for constitutional ,cardiovascular, GI, pulmonary with relevant findings as above. CURRENT MEDICATIONS DuoNeb, Tenormin, Cepacol lozenges, Dulcolax, Symbicort, vitamin D3, Premarin cream, TPN, levothyroxine, Singulair, Pamelor, Zofran, Protonix, lipids, verapamil. PHYSICAL EXAM VITAL SIGNS: Temperature 97.9, pulse 84, respirations 16, blood pressure 131/61, oxygen saturation of 5% on room air. GENERAL APPEARANCE: Lying in bed, not in distress. HENT: Normocephalic,Oral cavity normal, external appearance of ears and nose normal. EYES:Pupils equal. Conjunctiva normal. RESPIRATORY: Respiratory effort normal. Lungs clear to auscultation. CARDIOVASCULAR: First and second sounds normal. No edema. ABDOMEN: Soft. Liver and spleen not palpable. No tenderness. No mass palpable. PSYCHIATRY: Alert and oriented x3. Mood and affect normal. INTEGUMENT: Midline abdominal incision well approximated small amount of serosanguineous drainage noted. INVESTIGATIONS: White blood cell count 10.8, hemoglobin 11.3, potassium 2.8, Accu-Cheks noted. ASSESSMENT: - acute small bowel obstruction in a patient who just underwent went lysis of adhesions line -paroxysmal atrial fibrillation, on last admission patient had atrial fibrillation, currently sinus rhythm -Coffee-ground emesis probably upper gastrointestinal bleed. -Hypokalemia, in a patient who had recent bowel surgery and has been nothing by mouth -Hypomagnesemia a patient who had recent bowel surgery has been nothing by mouth -Sigmoid diverticulosis. -Moderate persistent asthma. -Chronic fibromyalgia. -Essential hypertension. -Mild protein calorie malnutrition CODE STATUS: DO NOT RESUSCITATE PLAN: Continue TPN and lipids, PICC in place. Potassium and magnesium were replaced. Cardiology recommends anticoagulation to be resumed if hemoglobin remains stable. We'll await additional input from surgery. Plan of care discussed at the bedside with the patient and family they are agreement. We'll follow closely. CERTIFIED NOVELL ENGINEER statement: Patient was seen and examined by nurse practitioner Nadine Pan and all elements of the case discussed with attending Dr. Felder
[2017-08-07 17:15] LABS: Glucose,Whole Blood 154 mg/dL (75-99)
[2017-08-07] MEDS: FAT EMULSION 20% 250 ML IV SCH (19:15)
[2017-08-07] MEDS: MONTELUKAST 10 MG TAB PO SCH (20:01)
--- NOTE | 2017-08-07 20:16 | PN ---
PROGRESS NOTE DATE OF SERVICE: 08/07/2017. ATTENDING NOTE: This patient was seen and examined by me. I discussed the case with the nurse practitioner Ms. Pan. This is a patient with recent lysis of adhesions who presented with small-bowel obstruction yet again. The patient has been on clear liquids and ice chips and popsicles, had a large bowel movement last night. Abdominal pain is better. The patient's and son are at the bedside. PHYSICAL EXAMINATION: On examination, temperature 98, pulse 71, respiration 16, blood pressure 106/55, pulse ox 93% on room air. ABDOMEN: Soft. Sluggish bowel sounds. Minimal tenderness. Incision healing well. LUNGS: Slightly decreased breath sounds. CARDIOVASCULAR: First and second sounds normal. INVESTIGATIONS: White count 10.8, potassium 2.8. Electrolytes are off. Magnesium 1.5. ASSESSMENT: 1. Acute small-bowel obstruction in a patient who just underwent lysis of adhesions, with clinical improvement. Patient had a good bowel movement last night. Abdomen is soft. 2. Paroxysmal atrial fibrillation. 3. Severe hypokalemia. PLAN: The patient is on TPN lipids. Continue with the same. Electrolytes are being replaced. I spoke to the . Family at the bedside. The patient is on clear liquids and popsicles. Patient should have repeat abdominal x-ray in the morning. Will go from there. MMODL / IJN: [id number] /
[2017-08-08 00:47] LABS: Glucose,Whole Blood 127 mg/dL (75-99)
[2017-08-08] MEDS: MVI, ADULT NO.4 WITH VIT K 10 ML, TRACE (CONC-1ML/DOSE) 1 ML in AMINO ACID 5%-D25W+LYTE... IV SCH ×3 (02:23)
[2017-08-08] MEDS: LEVOTHYROXINE 25 MCG TAB PO SCH (06:14)
[2017-08-08] MEDS: SYMBICORT 160-4.5 MCG INHALER INHALATION SCH ×2 (07:06→20:20)
[2017-08-08] MEDS: IPRATROPIUM-ALBUTEROL 3 ML NEB INHALATION SCH ×3 (07:06→20:20)
[2017-08-08 07:16] LABS: Ionized Calcium 4.7 mg/dL (4.5-5.3)
[2017-08-08 07:28] LABS: Anion Gap 8 mmol/L; Blood Urea Nitrogen 14 mg/dL (7-17); Carbon Dioxide 23 mmol/L (22-30); Chloride 107 mmol/L (98-107); Glucose 149 mg/dL (74-99); Magnesium 1.6 mg/dL (1.6-2.3); Phosphorus 2.6 mg/dL (2.5-4.5); Potassium 3.1 mmol/L (3.5-5.1); Sodium 138 mmol/L (137-145)
[2017-08-08 07:43] LABS: Basophils # (A) 0.1 k/uL (0-0.2); Basophils % (A) 1 %; Eosinophils # (A) 0.3 k/uL (0-0.7); Eosinophils % (A) 3 %; HCT 35.8 % (34.0-46.0); HGB 11.9 gm/dL (11.4-16.0); Lymphocytes % (A) 10 %; MCH 34.2 pg (25.0-35.0); MCHC 33.3 g/dL (31.0-37.0); MCV 102.9 fL (80.0-100.0); Macrocytosis Slight; Mean Platelet Volume 7.1; Monocytes # (A) 0.8 k/uL (0-1.0); Monocytes % (A) 8 %; Neutrophils % (A) 77 %; Platelet Count 400 k/uL (150-450); RBC 3.48 m/uL (3.80-5.40); RDW 12.8 % (11.5-15.5); WBC 10.3 k/uL (3.8-10.6)
--- NOTE | 2017-08-08 07:48 | XR ---
EXAMINATION TYPE: XR abdomen acute w cxr DATE OF EXAM: 08/08/2017 COMPARISON: 08/06/2017 HISTORY: 86-year-old female follow-up ileus TECHNIQUE: Supine, upright, and left side down lateral decubitus views of the abdomen are obtained. FINDINGS: Right PICC tip in the right atrium. Slight elevation of the right hemidiaphragms with some strandy ri ght basilar atelectasis. Possible trace left effusion. No evidence for free intraperitoneal air. Dilated small bowel loops persist with air-fluid levels. Small bowel loops are dilated measuring up t o 4.4 cm versus 3.8 cm, previously. Some mild scattered colonic gas remains. NG tube removed in the i nterval. Anterior skin cheryl and pelvic phleboliths. Suspect a small 4 mm calculus in the right kidney IMPRESSION: Persistent air-fluid levels with similar to slightly worsened degree of small bowel dilatation now me asuring up to 4.4 cm versus 3.8 cm, previously.
[2017-08-08] MEDS ORDERED: POTASSIUM CHLORIDE 20 MEQ in SODIUM CHLORIDE 0.9% 100 ML IVPB ONE (09:00)
[2017-08-08] MEDS: BISACODYL 10 MG SUPP RECTAL SCH (09:01)
[2017-08-08] MEDS: ATENOLOL 25 MG TAB PO SCH (09:01)
[2017-08-08] MEDS: VERAPAMIL SR 120 MG TABLET.ER PO SCH (09:01)
[2017-08-08] MEDS: CHOLECALCIFEROL 1,000 UNIT TAB PO SCH (09:01)
[2017-08-08] MEDS: NORTRIPTYLINE 10 MG CAP PO SCH (09:02)
[2017-08-08] MEDS: PANTOPRAZOLE 40 MG/10 ML VIAL IV SCH (09:02)
[2017-08-08] MEDS: MAGNESIUM SULFATE-D5W PMX 1 GM in DEXTROSE/WATER 1 100ML.BAG IVPB SCH ×2 (09:04→11:21)
[2017-08-08] MEDS: POTASSIUM CHLORIDE 20 MEQ in SODIUM CHLORIDE 0.9% 100 ML IVPB SCH ×2 (09:04→11:21)
[2017-08-08 11:29] LABS: Glucose,Whole Blood 138 mg/dL (75-99)
--- NOTE | 2017-08-08 12:34 | P.PN ---
<Cydney Barkergene Abarca - Last Filed: 08/08/17 12:28> Subjective Progress Note Date: 08/08/17 86-year-old female seen and examined. Patient has been up to the bedside commode is having bowel movements. TPN infusing through a PICC line for nutritional support. Cardiology indicate anticoagulation can be resumed. Hemoglobin stable 11.9 this morning patient is denying any nausea no vomiting no further episodes of hematemesis. Patient underwent a recent exploratory laparotomy for lysis of adhesions for small bowel obstruction done on July 31 returned from an ECF on the 06 of August with an episode of hematemesis no further episodes Objective - Vital Signs Vital signs: Vital Signs Temp 98 F 08/08/17 07:00 Pulse 81 08/08/17 12:21 Resp 18 08/08/17 07:00 BP 130/80 08/08/17 07:00 Pulse Ox 94 L 08/08/17 07:00 Intake & Output 08/07/17 08/08/17 08/08/17 18:59 06:59 18:59 Intake Total 800 590 Balance 800 590 Weight 74 kg Intake: Intake, IV Titration 800 Amount Magnesium Sulfate-D5w Pmx 200 1 gm In Dextrose/Water 1 100ml.bag @ 100 mls/hr IVPB Q1H [facility] Rx#: [id number] Mvi, Adult No.4 with Vit 240 K 10 ml Trace (Conc-1Ml/ Dose) 1 ml In Amino Acid 5%-D25w+Lytes*E* 1,000 ml @ 30 mls/hr IV .Q24H [facility] Rx#:[id number] Potassium Chloride 10 meq 200 In Water For Injection 1 100ml.bag @ 100 mls/hr IVPB Q1H [facility] Rx#: [id number] Sodium Chloride 0.9% 1, 160 000 ml @ 120 mls/hr IV . Q8H20M [facility] Rx#:[id number] Oral 590 Other: Voiding Method Toilet Toilet Toilet Diaper Diaper Diaper # Voids 5 - Exam Physical exam Pleasant 86-year-old female up to bedside commode appears in no acute distress pleasant talkative cooperative Lungs adequate air movement bilaterally on room air Heart S1-S2 audible regular Abdomen soft not distended reports no nausea vomiting or having bowel movements cheryl to surgical incision site well approximated no redness noted scant amount of serous drainage TPN infusing currently nothing by mouth except ice chips and popsicles urinating no difficulty Extremities no edema noted - Labs CBC & Chem 7: 08/08/17 06:52 08/08/17 06:52 Labs: Abnormal Lab Results - Last 24 Hours (Table) 08/07/17 08/07/17 08/08/17 Range/Units 06:37 17:10 00:46 WBC 10.8 H (3.8-10.6) k/uL RBC 3.30 L (3.80-5.40) m/uL Hgb 11.3 L (11.4-16.0) gm/dL MCV 106.0 H (80.0-100.0) fL Neutrophils # 8.1 H (1.3-7.7) k/uL Potassium (3.5-5.1) mmol/L Creatinine (0.52-1.04) mg/dL Glucose (74-99) mg/dL POC Glucose (mg/dL) 154 H 127 H (75-99) mg/dL Calcium (8.4-10.2) mg/dL 08/08/17 08/08/17 08/08/17 Range/Units 06:52 06:52 11:27 WBC (3.8-10.6) k/uL RBC 3.48 L (3.80-5.40) m/uL Hgb (11.4-16.0) gm/dL MCV 102.9 H (80.0-100.0) fL Neutrophils # 8.0 H (1.3-7.7) k/uL Potassium 3.1 L (3.5-5.1) mmol/L Creatinine 0.42 L (0.52-1.04) mg/dL Glucose 149 H (74-99) mg/dL POC Glucose (mg/dL) 138 H (75-99) mg/dL Calcium 8.0 L (8.4-10.2) mg/dL Assessment and Plan Assessment: Impression Present on admission hematemesis suspect upper GI no further episodes hemoglobin stable Present on admission epigastric pain x-ray suggests postoperative ileus or early small bowel obstruction unexpected postsurgical condition A recent July 31 exploratory laparotomy lysis of adhesions for partial small bowel obstruction Paroxysmal atrial fibrillation recently started on elquis Debilitated Moderate persistent asthma Mild protein calorie malnutrition Severe hypokalemia, hypomagnesemia Plan Potassium and magnesium being replaced we'll monitor labs TPN for nutritional support per PICC line Pain control DVT and GI prophylaxis Restart elquis okayed with cardiology and surgical service No evidence of an acute surgical abdomen at this time Bowel rest keep nothing by mouth except ice chips and popsicles IV fluid for hydration Further surgical recommendations pending will follow Check labs in the morning PT OT eval increase activity progress note dictated for Dr. Acosta The above impression and plan of care have been discussed and directed by signing physician. Lavern Barker nurse practitioner acting as scribe for signing physician. <Kiki Acosta - Last Filed: 08/08/17 15:29> Objective - Vital Signs Vital signs: Vital Signs Temp 97.9 F 08/08/17 15:00 Pulse 65 08/08/17 15:00 Resp 16 08/08/17 15:00 BP 110/61 08/08/17 15:00 Pulse Ox 95 08/08/17 15:00 Intake & Output 08/07/17 08/08/17 08/08/17 18:59 06:59 18:59 Intake Total 800 590 760 Balance 800 590 760 Weight 74 kg Intake: Intake, IV Titration 800 760 Amount Magnesium Sulfate-D5w Pmx 200 1 gm In Dextrose/Water 1 100ml.bag @ 100 mls/hr IVPB Q1H [facility] Rx#: [id number] Magnesium Sulfate-D5w Pmx 200 1 gm In Dextrose/Water 1 100ml.bag @ 100 mls/hr IVPB Q1H [facility] Rx#: [id number] Mvi, Adult No.4 with Vit 240 K 10 ml Trace (Conc-1Ml/ Dose) 1 ml In Amino Acid 5%-D25w+Lytes*E* 1,000 ml @ 30 mls/hr IV .Q24H [facility] Rx#:[id number] Mvi, Adult No.4 with Vit 360 K 10 ml Trace (Conc-1Ml/ Dose) 1 ml In Amino Acid 5%-D25w+Lytes*E* 1,000 ml @ 45 mls/hr IV .[id number] [facility] Rx#:[id number] Potassium Chloride 10 meq 200 In Water For Injection 1 100ml.bag @ 100 mls/hr IVPB Q1H [facility] Rx#: [id number] Potassium Chloride 20 meq 200 In Sodium Chloride 0.9% 100 ml @ 55 mls/hr IVPB Q2H [facility] Rx#:[id number] Sodium Chloride 0.9% 1, 160 000 ml @ 120 mls/hr IV . Q8H20M [facility] Rx#:[id number] Oral 590 Other: Voiding Method Toilet Toilet Toilet Diaper Diaper Diaper # Voids 5 # Bowel Movements 5 - Labs CBC & Chem 7: 08/08/17 06:52 08/08/17 06:52 Labs: Abnormal Lab Results - Last 24 Hours (Table) 08/07/17 08/08/17 08/08/17 Range/Units 17:10 00:46 06:52 RBC (3.80-5.40) m/uL MCV (80.0-100.0) fL Neutrophils # (1.3-7.7) k/uL Potassium 3.1 L (3.5-5.1) mmol/L Creatinine 0.42 L (0.52-1.04) mg/dL Glucose 149 H (74-99) mg/dL POC Glucose (mg/dL) 154 H 127 H (75-99) mg/dL Calcium 8.0 L (8.4-10.2) mg/dL 08/08/17 08/08/17 Range/Units 06:52 11:27 RBC 3.48 L (3.80-5.40) m/uL MCV 102.9 H (80.0-100.0) fL Neutrophils # 8.0 H (1.3-7.7) k/uL Potassium (3.5-5.1) mmol/L Creatinine (0.52-1.04) mg/dL Glucose (74-99) mg/dL POC Glucose (mg/dL) 138 H (75-99) mg/dL Calcium (8.4-10.2) mg/dL Assessment and Plan Plan: Patient examined. reports 5BMs. No nausea or vomiting. Start CLD Continue TPN Replace potassium and magnesium Repeat lytes in am
--- NOTE | 2017-08-08 13:58 | P.PN ---
Subjective Progress Note Date: 08/08/17 Mrs. Tamayo is a pleasant 86-year-old female past medical history significant for asthma, hypertension, recent small bowel obstruction requiring surgery and subsequent atrial fibrillation. She was started on Eliquis post- operatively and was sent to [facility] for rehab. She presented back to the hospital after having episodes of vomiting black coffee ground emesis. Per her daughter, immediately after arriving at [facility] she began to feel nauseated, dizzy and developed worsening abdominal pain. The following morning she began vomiting black coffee ground emesis and was transferred to the hospital for evaluation. Since being admitted she has also had frequent bouts of diarrhea and is now complaining of constipation. She denies chest pain, shortness of breath, dizziness or palpitations. She has had no further episodes of vomiting. She denies ever having had bright red blood in the vomit or stool. She is currently maintaining a sinus mechanism. EKG on arrival is sinus mechanism with no new acute ST or T-wave abnormalities. Her EKG is consistent with EKG on last admission. Laboratory data revealed hemoglobin 13.1 yesterday, platelets 413 yesterday, INR 1.3, potassium 2.8, magnesium 1.5. There is no CBC ordered for today day we will obtain one now. Current cardiac medications include verapamil 120 mg daily, eliquis 2.5 mg twice a day and atenolol 37.5 mg daily. Eliquis has been held since admission. 08/08/2017 She is seen today resting comfortably in bed in no acute distress. She denies any further episodes of vomiting. She states she has been having multiple bowel movements with no evidence of silvia bleedings. She complains only of increased weakness. She denies chest pain, palpitations, dizziness, shortness of breath or diaphoresis. She has been maintaining sinus mechanism. Hgb yesterday afternoon 11.3 and repeat this morning 11.9. Objective - Vital Signs Vital signs: Vital Signs Temp 98 F 08/08/17 07:00 Pulse 81 08/08/17 12:30 Resp 18 08/08/17 07:00 BP 130/80 08/08/17 07:00 Pulse Ox 94 L 08/08/17 07:00 Intake & Output 08/07/17 08/08/17 08/08/17 18:59 06:59 18:59 Intake Total 800 590 Balance 800 590 Weight 74 kg Intake: Intake, IV Titration 800 Amount Magnesium Sulfate-D5w Pmx 200 1 gm In Dextrose/Water 1 100ml.bag @ 100 mls/hr IVPB Q1H [facility] Rx#: [id number] Mvi, Adult No.4 with Vit 240 K 10 ml Trace (Conc-1Ml/ Dose) 1 ml In Amino Acid 5%-D25w+Lytes*E* 1,000 ml @ 30 mls/hr IV .Q24H [facility] Rx#:[id number] Potassium Chloride 10 meq 200 In Water For Injection 1 100ml.bag @ 100 mls/hr IVPB Q1H [facility] Rx#: [id number] Sodium Chloride 0.9% 1, 160 000 ml @ 120 mls/hr IV . Q8H20M [facility] Rx#:[id number] Oral 590 Other: Voiding Method Toilet Toilet Toilet Diaper Diaper Diaper # Voids 5 - Exam Blood pressure 130/80 heart rate 96 GENERAL: Well-appearing, well-nourished and in no acute distress. NECK: Supple without JVD or thyromegaly. LUNGS: Breath sounds clear to auscultation bilaterally. Respiration equal and unlabored. No wheezes, rales or rhonchi. HEART: Regular rate and rhythm without murmurs, rubs or gallops. S1 and S2 heard. EXTREMITIES: Normal range of motion, no edema. No clubbing or cyanosis. Peripheral pulses intact and strong. - Labs CBC & Chem 7: 08/08/17 06:52 08/08/17 06:52 Labs: Abnormal Lab Results - Last 24 Hours (Table) 08/07/17 08/08/17 08/08/17 Range/Units 17:10 00:46 06:52 RBC (3.80-5.40) m/uL MCV (80.0-100.0) fL Neutrophils # (1.3-7.7) k/uL Potassium 3.1 L (3.5-5.1) mmol/L Creatinine 0.42 L (0.52-1.04) mg/dL Glucose 149 H (74-99) mg/dL POC Glucose (mg/dL) 154 H 127 H (75-99) mg/dL Calcium 8.0 L (8.4-10.2) mg/dL 08/08/17 08/08/17 Range/Units 06:52 11:27 RBC 3.48 L (3.80-5.40) m/uL MCV 102.9 H (80.0-100.0) fL Neutrophils # 8.0 H (1.3-7.7) k/uL Potassium (3.5-5.1) mmol/L Creatinine (0.52-1.04) mg/dL Glucose (74-99) mg/dL POC Glucose (mg/dL) 138 H (75-99) mg/dL Calcium (8.4-10.2) mg/dL Assessment and Plan Assessment: ASSESSMENT 1. Paroxysmal atrial fibrillation, currently maintaining sinus mechanism. 2. Essential hypertension 3. Hematemesis 4. Hypokalemia 5. Hypomagnesemia, resolved PLAN Hgb is stable and there is no further evidence of GI bleeding. Risk of stroke has been discussed at length with patient and family. Plan of care has been discussed. Eliquis can be resumed as was previously ordered. Continue with electrolyte replacement. Nurse Practitioner note has been reviewed, I agree with a documented findings and plan of care. Patient was seen and examined.
[2017-08-08] MEDS: APIXABAN 2.5 MG TABLET PO SCH ×2 (14:56→21:05)
[2017-08-08 17:25] LABS: Glucose,Whole Blood 124 mg/dL (75-99)
--- NOTE | 2017-08-08 18:53 | P.PN ---
Progress Note - Text Progress Note Date: 08/08/17 DATE OF SERVICE: 08/08/2017 PRESENTING COMPLAINT: Coffee ground emesis, abdominal pain HISTORY OF PRESENT ILLNESS: 86-year-old female who had a recent extensive stay for exploratory laparotomy lysis of adhesions for small bowel obstruction. Was brought to the emergency department for further evaluation after having an episode of coffee-ground emesis and mild epigastric discomfort. Computed tomography scan done by the emergency room showed is increasing small bowel dilatation and air fluid levels consistent with obstruction. Admitted for upper GI bleed and small bowel obstruction. INTERVAL HISTORY: 08/08/2017: Sitting up in a chair appears comfortable no acute distress. No acute overnight events, afebrile, vital signs stable. No nausea, no vomiting. Had multiple BMs in the last 24 hours. Continues to have only ice chips and popsicles, no NG tube in place, TPN infusing, up to the bathroom with assistance and walker. 08/07/2017 Lying in bed surrounded by family appears in no acute distress. No acute overnight events, afebrile, vital signs stable. No nausea, no vomiting, Sinus rhythm on the monitor. Remains nothing by mouth except ice chips and popsicles , no NG tube unable to place, TPN in place, PICC line in place. Up to the bathroom with assistance and walker. Last BM 08/07/2017. REVIEW OF SYSTEMS: Done for constitutional ,cardiovascular, GI, pulmonary with relevant findings as above. CURRENT MEDICATIONS DuoNeb, Tenormin, Cepacol lozenges, Dulcolax, Symbicort, vitamin D3, Premarin cream, TPN, levothyroxine, Singulair, Pamelor, Zofran, Protonix, lipids, verapamil. PHYSICAL EXAM VITAL SIGNS: temperature 98.0, pulse 96, respiratory rate 18, blood pressure 130/80, oxygen saturation 94% GENERAL APPEARANCE: Lying in bed,tired appearing HENT: Normocephalic,Oral cavity normal, external appearance of ears and nose normal. EYES:Pupils equal. Conjunctiva normal. RESPIRATORY: Respiratory effort normal. Lungs clear to auscultation. CARDIOVASCULAR: First and second sounds normal. No edema. ABDOMEN: Soft. Liver and spleen not palpable. No tenderness. No mass palpable. PSYCHIATRY: Alert and oriented x3. Mood and affect normal. INTEGUMENT: Midline abdominal incision well approximated small amount of serosanguineous drainage noted. INVESTIGATIONS: LABS: Potassium 3.1, Accu-Cheks noted. Acute abdominal series: Persistent air-fluid levels was similar to slightly worsening degree of small bowel dilatation measuring up to 4.4 versus 3.8 previously. ASSESSMENT: - acute small bowel obstruction in a patient who just underwent went lysis of adhesions, improving -paroxysmal atrial fibrillation, on last admission patient had atrial fibrillation, currently sinus rhythm -Coffee-ground emesis probably upper gastrointestinal bleed none since admission - severe Hypokalemia, in a patient who had recent bowel surgery and has been nothing by mouth, improving -Hypomagnesemia a patient who had recent bowel surgery has been nothing by mouth , -Sigmoid diverticulosis. -Moderate persistent asthma. -Chronic fibromyalgia. -Essential hypertension. -Mild protein calorie malnutrition CODE STATUS: DO NOT RESUSCITATE PLAN: Continue TPN and lipids, PICC in place. Potassium replaced we'll restart Eliquis okayed with cardiology and surgical services. diet advanced per surgical preference. No further bleeding or coffee-ground emesis since admission. Plan of care discussed at the bedside with the patient and family they are agreement. We'll follow closely. [employer]PERVISOR statement: Patient was seen and examined by nurse practitioner Nadine Pan and all elements of the case discussed with attending Dr. Felder
[2017-08-08] MEDS: FAT EMULSION 20% 250 ML IV SCH (19:12)
[2017-08-08] MEDS: MONTELUKAST 10 MG TAB PO SCH (21:05)
--- NOTE | 2017-08-08 22:50 | PN ---
PROGRESS NOTE DATE OF SERVICE: 08/08/2017. ATTENDING NOTE: The patient seen and examined by me. I discussed with my nurse practitioner, Ms. Pan. This patient has recent lysis of adhesions, presented with acute bowel obstruction, had a good bowel movement. Which I saw this patient earlier today, abdomen feels much better. Getting TPN lipids. The patient's diet was advanced this afternoon by Surgery. No nausea, vomiting. EXAMINATION: Afebrile, pulse 96, respirations 18, blood pressure 130/80, pulse ox 94% on room air. ABDOMEN: Soft, nontender. Bowel sounds present. LUNGS: Fair air entry. CARDIOVASCULAR: First and second sounds normal. White count 10.3, hemoglobin 11.9. Potassium 3.1. The patient's acute abdominal series still showing somewhat dilated small loops of bowel with air-fluid levels. PLAN: Patient has clinically had a good bowel movement. Will see how the patient does. Diet has been advanced per Surgery. I will repeat the acute abdominal series in the morning. Care was discussed with the patient. Patient has been out of bed. MMODL / IJN: [id number] /
[2017-08-09 01:43] LABS: Glucose,Whole Blood 127 mg/dL (75-99)
[2017-08-09 02:45] LABS: Glucose,Whole Blood 127 mg/dL (75-99)
[2017-08-09] MEDS: MVI, ADULT NO.4 WITH VIT K 10 ML, TRACE (CONC-1ML/DOSE) 1 ML in AMINO ACID 5%-D25W+LYTE... IV SCH ×6 (02:54→13:25)
[2017-08-09] MEDS: LEVOTHYROXINE 25 MCG TAB PO SCH (06:11)
[2017-08-09 07:19] LABS: Glucose,Whole Blood 126 mg/dL (75-99)
[2017-08-09] MEDS: SYMBICORT 160-4.5 MCG INHALER INHALATION SCH (07:27)
[2017-08-09] MEDS: IPRATROPIUM-ALBUTEROL 3 ML NEB INHALATION SCH ×2 (07:27→12:24)
[2017-08-09 07:49] LABS: Ionized Calcium 4.7 mg/dL (4.5-5.3)
[2017-08-09 07:53] LABS: Anion Gap 8 mmol/L; Blood Urea Nitrogen 13 mg/dL (7-17); Calcium 7.9 mg/dL (8.4-10.2); Carbon Dioxide 24 mmol/L (22-30); Chloride 105 mmol/L (98-107); Glucose 127 mg/dL (74-99); Magnesium 1.7 mg/dL (1.6-2.3); Phosphorus 2.8 mg/dL (2.5-4.5); Potassium 3.1 mmol/L (3.5-5.1); Sodium 137 mmol/L (137-145)
--- NOTE | 2017-08-09 08:02 | XR ---
2 view abdomen HISTORY: Small bowel obstruction follow-up 2 views of the abdomen are submitted and correlated to prior exam 08/06/2017 There are overlying cardiac leads. There is no evident pneumoperitoneum. Air-fluid levels with small bowel distention are again noted. Postop changes are noted in the midline. Conor are present in the infraumbilical region. IMPRESSION: Findings could represent an ileus, small bowel obstruction not excluded. Follow-up, corre late clinically.
[2017-08-09] MEDS: PANTOPRAZOLE 40 MG/10 ML VIAL IV SCH (08:11)
[2017-08-09] MEDS: ATENOLOL 25 MG TAB PO SCH (08:12)
[2017-08-09] MEDS: VERAPAMIL SR 120 MG TABLET.ER PO SCH (08:12)
[2017-08-09] MEDS: APIXABAN 2.5 MG TABLET PO SCH (08:12)
[2017-08-09] MEDS: NORTRIPTYLINE 10 MG CAP PO SCH (08:12)
[2017-08-09] MEDS: CHOLECALCIFEROL 1,000 UNIT TAB PO SCH (08:12)
[2017-08-09] MEDS: BISACODYL 10 MG SUPP RECTAL SCH (08:12)
[2017-08-09] MEDS: ESTROGENS, CONJUGATED 0.625 MG/GM VAGINAL CREAM 42.5 GM TUBE VAGINAL SCH (08:13)
[2017-08-09] MEDS ORDERED: Potassium Replacement Protocol 1 EACH MISC MISCELLANE PRN ×2 (08:49→10:45)
[2017-08-09 08:57] LABS: Glucose,Whole Blood 137 mg/dL (75-99)
[2017-08-09 09:28] LABS: Basophils % (A) 1 %; Eosinophils # (A) 0.3 k/uL (0-0.7); Eosinophils % (A) 3 %; HCT 35.5 % (34.0-46.0); Lymphocytes # (A) 1.2 k/uL (1.0-4.8); Lymphocytes % (A) 12 %; MCH 34.3 pg (25.0-35.0); MCHC 33.7 g/dL (31.0-37.0); MCV 101.8 fL (80.0-100.0); Macrocytosis Slight; Mean Platelet Volume 8.2; Monocytes # (A) 0.8 k/uL (0-1.0); Monocytes % (A) 8 %; Neutrophils % (A) 73 %; Platelet Count 378 k/uL (150-450); RBC 3.49 m/uL (3.80-5.40); RDW 13.6 % (11.5-15.5); WBC 9.6 k/uL (3.8-10.6)
[2017-08-09] MEDS: POTASSIUM CHLORIDE 10 MEQ in WATER FOR INJECTION 1 100ML.BAG IVPB SCH ×2 (11:45→13:05)
[2017-08-09 11:48] LABS: Glucose,Whole Blood 95 mg/dL (75-99)
--- NOTE | 2017-08-09 12:19 | P.PN ---
<Cydney Barkergene Abarca - Last Filed: 08/09/17 12:09> Subjective Progress Note Date: 08/09/17 86-year-old female sitting up in bed currently taking a full liquid diet tolerating no nausea no vomiting. Patient has been up on a bedside commode has had several loose stools. Potassium this morning is 3.1 which replacement is being given. Patient has been up ambulating in the room. TPN is being weaned off. diet being advanced Objective - Vital Signs Vital signs: Vital Signs Temp 97.6 F 08/09/17 07:00 Pulse 82 08/09/17 07:36 Resp 16 08/09/17 07:00 BP 136/64 08/09/17 07:00 Pulse Ox 95 08/09/17 07:00 Intake & Output 08/08/17 08/09/17 08/09/17 18:59 06:59 18:59 Intake Total 760 1761 Balance 760 1761 Weight 74 kg Intake: Intake, IV Titration 760 1171 Amount Fat Emulsion 20% 250 ml @ 160 20.833 mls/hr IV DAILY@ 1800 [facility] Rx#:[id number] Magnesium Sulfate-D5w Pmx 200 1 gm In Dextrose/Water 1 100ml.bag @ 100 mls/hr IVPB Q1H [facility] Rx#: [id number] Mvi, Adult No.4 with Vit 360 1011 K 10 ml Trace (Conc-1Ml/ Dose) 1 ml In Amino Acid 5%-D25w+Lytes*E* 1,000 ml @ 45 mls/hr IV .[id number] [facility] Rx#:[id number] Potassium Chloride 20 meq 200 In Sodium Chloride 0.9% 100 ml @ 55 mls/hr IVPB Q2H [facility] Rx#:[id number] Oral 590 Other: Voiding Method Toilet Toilet Toilet Diaper Diaper # Voids 2 # Bowel Movements 5 - Exam Physical exam Pleasant 86-year-old female In bed taking a full liquid diet appears in no acute distress pleasant talkative cooperative Lungs adequate air movement bilaterally on room air no cough noted Heart S1-S2 audible regular denying chest pain Abdomen soft not distended reports no nausea vomiting having frequent loose stools cheryl to surgical incision site well approximated no redness noted scant amount of serous drainage TPN infusing being tapered off urinating no difficulty Extremities bilateral lower extremities pitting edema to the tops of the feet noted bilateral lower extremities elevated on a pillow no calf tenderness - Labs CBC & Chem 7: 08/09/17 07:23 08/09/17 07:23 Labs: Abnormal Lab Results - Last 24 Hours (Table) 08/08/17 08/09/17 08/09/17 Range/Units 17:22 01:30 02:31 RBC (3.80-5.40) m/uL MCV (80.0-100.0) fL Potassium (3.5-5.1) mmol/L Creatinine (0.52-1.04) mg/dL Glucose (74-99) mg/dL POC Glucose (mg/dL) 124 H 127 H 127 H (75-99) mg/dL Calcium (8.4-10.2) mg/dL 08/09/17 08/09/17 08/09/17 Range/Units 07:17 07:23 07:23 RBC 3.49 L (3.80-5.40) m/uL MCV 101.8 H (80.0-100.0) fL Potassium 3.1 L (3.5-5.1) mmol/L Creatinine 0.45 L (0.52-1.04) mg/dL Glucose 127 H (74-99) mg/dL POC Glucose (mg/dL) 126 H (75-99) mg/dL Calcium 7.9 L (8.4-10.2) mg/dL 08/09/17 Range/Units 08:54 RBC (3.80-5.40) m/uL MCV (80.0-100.0) fL Potassium (3.5-5.1) mmol/L Creatinine (0.52-1.04) mg/dL Glucose (74-99) mg/dL POC Glucose (mg/dL) 137 H (75-99) mg/dL Calcium (8.4-10.2) mg/dL Assessment and Plan Assessment: Impression Present on admission hematemesis not documented hemoglobin stable Present on admission epigastric pain x-ray suggests postoperative ileus expected postsurgical condition likely due to narcotics, hypokalemia and hypomagnesemia A recent July 31 exploratory laparotomy lysis of adhesions for partial small bowel obstruction Paroxysmal atrial fibrillation currently sinus rhythm started on elquis Debilitated Moderate persistent asthma Mild protein calorie malnutrition Severe hypokalemia, hypomagnesemia No postop bowel obstruction Plan No further surgical recommendations at this time we'll sign off re-eval as needed Potassium and magnesium being replaced we'll monitor labs TPN to be weaned off diet to be advanced to a regular Pain control DVT and GI prophylaxis No evidence of an acute surgical abdomen at this time IV fluid for hydration Check labs in the morning PT OT eval increase activity [place] from surgical incision site will be removed in the outpatient setting PICC line will be addressed in the outpatient setting okay to transfer to the ECF facility with PICC line progress note dictated for Dr. Acosta The above impression and plan of care have been discussed and directed by signing physician. Lavern Barker nurse practitioner acting as scribe for signing physician. <Kiki Acosta - Last Filed: 08/09/17 12:48> Objective - Vital Signs Vital signs: Vital Signs Temp 97.6 F 08/09/17 07:00 Pulse 92 08/09/17 12:36 Resp 16 08/09/17 07:00 BP 136/64 08/09/17 07:00 Pulse Ox 95 08/09/17 07:00 Intake & Output 08/08/17 08/09/17 08/09/17 18:59 06:59 18:59 Intake Total 760 1761 Balance 760 1761 Weight 74 kg Intake: Intake, IV Titration 760 1171 Amount Fat Emulsion 20% 250 ml @ 160 20.833 mls/hr IV DAILY@ 1800 [facility] Rx#:[id number] Magnesium Sulfate-D5w Pmx 200 1 gm In Dextrose/Water 1 100ml.bag @ 100 mls/hr IVPB Q1H [facility] Rx#: [id number] Mvi, Adult No.4 with Vit 360 1011 K 10 ml Trace (Conc-1Ml/ Dose) 1 ml In Amino Acid 5%-D25w+Lytes*E* 1,000 ml @ 45 mls/hr IV .[id number] [facility] Rx#:[id number] Potassium Chloride 20 meq 200 In Sodium Chloride 0.9% 100 ml @ 55 mls/hr IVPB Q2H [facility] Rx#:[id number] Oral 590 Other: Voiding Method Toilet Toilet Toilet Diaper Diaper # Voids 2 # Bowel Movements 5 - Labs CBC & Chem 7: 08/09/17 07:23 08/09/17 07:23 Labs: Abnormal Lab Results - Last 24 Hours (Table) 08/08/17 08/09/17 08/09/17 Range/Units 17:22 01:30 02:31 RBC (3.80-5.40) m/uL MCV (80.0-100.0) fL Potassium (3.5-5.1) mmol/L Creatinine (0.52-1.04) mg/dL Glucose (74-99) mg/dL POC Glucose (mg/dL) 124 H 127 H 127 H (75-99) mg/dL Calcium (8.4-10.2) mg/dL 08/09/17 08/09/17 08/09/17 Range/Units 07:17 07:23 07:23 RBC 3.49 L (3.80-5.40) m/uL MCV 101.8 H (80.0-100.0) fL Potassium 3.1 L (3.5-5.1) mmol/L Creatinine 0.45 L (0.52-1.04) mg/dL Glucose 127 H (74-99) mg/dL POC Glucose (mg/dL) 126 H (75-99) mg/dL Calcium 7.9 L (8.4-10.2) mg/dL 08/09/17 Range/Units 08:54 RBC (3.80-5.40) m/uL MCV (80.0-100.0) fL Potassium (3.5-5.1) mmol/L Creatinine (0.52-1.04) mg/dL Glucose (74-99) mg/dL POC Glucose (mg/dL) 137 H (75-99) mg/dL Calcium (8.4-10.2) mg/dL Assessment and Plan Plan: Patient examined. Postop ileus now resolved. Multiple bowel movements There was no small bowel obstruction. No GI bleeding. Hemoglobin is stable. Persistent hypokalemia. Weaning TPN. Advance diet to soft. Electrolyte replacement. Consider discharge in patient with PICC line since she has difficult IV access and PICC line can be removed in extended care facility. No surgical intervention. We'll sign off. Patient will follow-up in hopes surgical office 08/20/17
--- NOTE | 2017-08-09 12:47 | P.PN ---
Subjective Progress Note Date: 08/09/17 Mrs. Tmaayo is a pleasant 86-year-old female past medical history significant for asthma, hypertension, recent small bowel obstruction requiring surgery and subsequent atrial fibrillation. She was started on Eliquis post- operatively and was sent to [facility] for rehab. She presented back to the hospital after having episodes of vomiting black coffee ground emesis. Per her daughter, immediately after arriving at [facility] she began to feel nauseated, dizzy and developed worsening abdominal pain. The following morning she began vomiting black coffee ground emesis and was transferred to the hospital for evaluation. Since being admitted she has also had frequent bouts of diarrhea and is now complaining of constipation. She denies chest pain, shortness of breath, dizziness or palpitations. She has had no further episodes of vomiting. She denies ever having had bright red blood in the vomit or stool. She is currently maintaining a sinus mechanism. EKG on arrival is sinus mechanism with no new acute ST or T-wave abnormalities. Her EKG is consistent with EKG on last admission. Laboratory data revealed hemoglobin 13.1 yesterday, platelets 413 yesterday, INR 1.3, potassium 2.8, magnesium 1.5. There is no CBC ordered for today day we will obtain one now. Current cardiac medications include verapamil 120 mg daily, eliquis 2.5 mg twice a day and atenolol 37.5 mg daily. Eliquis has been held since admission. 08/08/2017 She is seen today resting comfortably in bed in no acute distress. She denies any further episodes of vomiting. She states she has been having multiple bowel movements with no evidence of silvia bleedings. She complains only of increased weakness. She denies chest pain, palpitations, dizziness, shortness of breath or diaphoresis. She has been maintaining sinus mechanism. Hgb yesterday afternoon 11.3 and repeat this morning 11.9. 08/09/2017 On exam today she is seen ambulating back from the bathroom. Her breathing is stable with complaints of shortness of breath, chest pain, dizziness or palpitation. She states she has been up and down to the bathroom frequently with bowel movements. She states she has seen some blood streaking in her stool which is normal for her with her history of hemorrhoids. Hgb is 12.0. Telemetry tracings have been unremarkable and reveal sinus mechanism. Objective - Vital Signs Vital signs: Vital Signs Temp 97.6 F 08/09/17 07:00 Pulse 92 08/09/17 12:36 Resp 16 08/09/17 07:00 BP 136/64 08/09/17 07:00 Pulse Ox 95 08/09/17 07:00 Intake & Output 08/08/17 08/09/17 08/09/17 18:59 06:59 18:59 Intake Total 760 1761 Balance 760 1761 Weight 74 kg Intake: Intake, IV Titration 760 1171 Amount Fat Emulsion 20% 250 ml @ 160 20.833 mls/hr IV DAILY@ 1800 JOHNY Rx#:[id number] Magnesium Sulfate-D5w Pmx 200 1 gm In Dextrose/Water 1 100ml.bag @ 100 mls/hr IVPB Q1H JOHNY Rx#: [id number] Mvi, Adult No.4 with Vit 360 1011 K 10 ml Trace (Conc-1Ml/ Dose) 1 ml In Amino Acid 5%-D25w+Lytes*E* 1,000 ml @ 45 mls/hr IV .[id number] JOHNY Rx#:[id number] Potassium Chloride 20 meq 200 In Sodium Chloride 0.9% 100 ml @ 55 mls/hr IVPB Q2H JOHNY Rx#:[id number] Oral 590 Other: Voiding Method Toilet Toilet Toilet Diaper Diaper # Voids 2 # Bowel Movements 5 - Exam Blood pressure 136/64 heart rate 93 afebrile GENERAL: Well-appearing, well-nourished and in no acute distress. NECK: Supple without JVD or thyromegaly. LUNGS: Breath sounds clear to auscultation bilaterally. Respiration equal and unlabored. No wheezes, rales or rhonchi. HEART: Regular rate and rhythm without murmurs, rubs or gallops. S1 and S2 heard. EXTREMITIES: Normal range of motion, trace non-pitting b/l lower extremity edema. No clubbing or cyanosis. Peripheral pulses intact and strong. - Labs CBC & Chem 7: 08/09/17 07:23 08/09/17 07:23 Labs: Abnormal Lab Results - Last 24 Hours (Table) 08/08/17 08/09/17 08/09/17 Range/Units 17:22 01:30 02:31 RBC (3.80-5.40) m/uL MCV (80.0-100.0) fL Potassium (3.5-5.1) mmol/L Creatinine (0.52-1.04) mg/dL Glucose (74-99) mg/dL POC Glucose (mg/dL) 124 H 127 H 127 H (75-99) mg/dL Calcium (8.4-10.2) mg/dL 08/09/17 08/09/17 08/09/17 Range/Units 07:17 07:23 07:23 RBC 3.49 L (3.80-5.40) m/uL MCV 101.8 H (80.0-100.0) fL Potassium 3.1 L (3.5-5.1) mmol/L Creatinine 0.45 L (0.52-1.04) mg/dL Glucose 127 H (74-99) mg/dL POC Glucose (mg/dL) 126 H (75-99) mg/dL Calcium 7.9 L (8.4-10.2) mg/dL 08/09/17 Range/Units 08:54 RBC (3.80-5.40) m/uL MCV (80.0-100.0) fL Potassium (3.5-5.1) mmol/L Creatinine (0.52-1.04) mg/dL Glucose (74-99) mg/dL POC Glucose (mg/dL) 137 H (75-99) mg/dL Calcium (8.4-10.2) mg/dL Assessment and Plan Assessment: ASSESSMENT 1. Paroxysmal atrial fibrillation, currently maintaining sinus mechanism. 2. Essential hypertension 3. Hematemesis, resolved 4. Hypokalemia 5. Hypomagnesemia, resolved PLAN She is stable from a cardiac perspective for discharge back to [facility]. Eliquis should be continued as was previously ordered. Follow up with Dr. Greene in 2-3 weeks after discharge home. Nurse Practitioner note has been reviewed, I agree with a documented findings and plan of care. Patient was seen and examined.
[2017-08-09 13:22] VITALS: BMI 28.0
--- NOTE | 2017-08-09 15:56 | DS ---
DISCHARGE SUMMARY DATE OF ADMISSION: 08/06/2017. DATE OF DISCHARGE: 08/09/2017 FINAL DIAGNOSES: 1. Acute small-bowel obstruction in a patient who recently had lysis of adhesions. 2. Paroxysmal atrial fibrillation, currently in sinus rhythm. 3. Severe hypokalemia, probably from nausea and vomiting. 4. Hypomagnesemia. 5. Sigmoid diverticulosis. 6. Moderate persistent asthma. 7. Chronic fibromyalgia. 8. Essential hypertension. 9. CODE STATUS: DO NOT RESUSCITATE. 10.Mild protein-calorie malnutrition from decreased oral intake. HOSPITAL COURSE: This patient was recently discharged from the hospital following lysis of adhesion, had atrial fibrillation. Readmitted with nausea and vomiting, found to have small-bowel obstruction. The patient was managed conservatively, was given TPN lipids. Patient responded, having good bowel movement, tolerating an oral diet. The patient was seen by Dr. Acosta, General Surgery; seen today and okayed to be discharged. On examination, abdomen is soft, nontender. Incision healing well. Bowel sounds are present. LUNGS: Fair air entry. The patient's labs show BUN of 13, creatinine 0.45. CONSULTATIONS: 1. Dr. Acosta from General Surgery. 2. Dr. Shanda Greene from Cardiology. DISCHARGE MEDICATIONS: 1. Premarin cream vaginally Wednesdays and Fridays. 2. Synthroid 25 mcg a day. 3. Tenormin 37.5 mg a day. 4. Vitamin D3 1000 units p.o. daily. 5. DuoNeb t.i.d. 6. Dulera 2 puffs b.i.d. 7. Singulair 10 mg p.o. at bedtime. 8. Pamelor 10 mg p.o. daily. 9. Omeprazole 20 mg p.o. daily. 10.Verapamil SR 120 mg p.o. daily. 11.Eliquis 2.5 p.o. b.i.d. 12.Zofran 4 mg q.8 p.r.n. DISPOSITION: [facility]. Follow with Dr. Whiteside at [facility]. Follow up with Dr. Shanda Greene in 2 weeks. Follow up with Dr. Acosta on 08/20/2017. Labs CBC and BMP in 3 to 5 days. Other surgical instructions per Dr. cAosta. Care was discussed with the patient. Discussion and discharge planning more than 35 minutes. MMODL / IJN: [id number] /
[2017-08-09 15:57] LABS: Glucose,Whole Blood 86 mg/dL (75-99)
[2017-08-09 16:01] VITALS: BP 111/60; PULSE 81; RESP 15; TEMP 97.3
[2017-08-09 16:50] LABS: Glucose,Whole Blood 116 mg/dL (75-99)
--- NOTE | 2017-08-13 15:10 | CDI ---
Last Revision, June 2017 Documentation Clarification Form Date: 08/13/2017 3:04:00 PM From: Margarita Becker Phone: Admit Date: 08/06/2017 4:42:00 AM Patient Name: Martha Tamayo Visit Number: [id number] Discharge Date: ATTENTION: The Clinical Documentation Specialists (CDI) and [facility] Coding Staff appreciate your assistance in clarifying documentation. Please respond to the clarification below the line at the bottom and electronically sign. The CDI & [facility] Coding staff will review the response and follow-up if needed. Please note: Queries are made part of the Legal Health Record. If you have any questions, please contact the author of this message via ITS. Dr. Ayden Felder Conflicting documentation has been found in the medical record. Per H/P: Admit for possible acute upper GI bleed w/SBO Surgery consult- Pt has postop ileus, expected, no bowel obstruction pt presented with abdominal pain & coffee ground emesis, recent surgery for SBO & adhesions. Pt is also on Eliquis for A fib. RAD: Abd XR: postop ileus vs SBO. In your opinion what is the most clinically appropriate diagnosis for this patient? Ileus Small bowel obstruction Other explanation of clinical findings Unable to determine (no explanation for clinical findings) Please continue to document in your progress notes and discharge summary in order to capture severity of illness and risk of mortality. Include clinical findings that support your diagnosis. possibly Ileus post operative(PER SURGERY). SBO UNLIKELY MTDD
== END 2017-08-09 17:10 | DRG 389 ==
LOC: EC 03:28 → 5MS5E 04:42
PROVIDERS: ADMIT Hospitalist; ATTEND Hospitalist
PROC: 3E0336Z Introduction of Nutritional Substance into Peripheral Vein, Percutaneous Approach (ICD-10-PCS; principal; 2017-08-06 14:53)
PROC: 02HV33Z Insertion of Infusion Device into Superior Vena Cava, Percutaneous Approach (ICD-10-PCS; 2017-08-06 14:53)
DX: K56.7 Ileus, unspecified (principal); K92.0 Hematemesis; E44.1 Mild protein-calorie malnutrition; I48.0 Paroxysmal atrial fibrillation; K57.30 Diverticulosis of large intestine without perforation or abscess without bleeding; J45.40 Moderate persistent asthma, uncomplicated; M79.7 Fibromyalgia; E87.6 Hypokalemia; E83.42 Hypomagnesemia; I10 Essential (primary) hypertension; Z66 Do not resuscitate; Z90.89 Acquired absence of other organs; Z90.710 Acquired absence of both cervix and uterus; Z98.51 Tubal ligation status; Z98.49 Cataract extraction status, unspecified eye; Z87.440 Personal history of urinary (tract) infections; Z80.42 Family history of malignant neoplasm of prostate; Z79.899 Other long term (current) drug therapy; Z79.01 Long term (current) use of anticoagulants; Z88.8 Allergy status to other drugs, medicaments and biological substances; Z88.1 Allergy status to other antibiotic agents; Z91.011 Allergy to milk products
CPT/HCPCS: 36415; 36569; 74018; 74019; 74022; 74176; 76937; 77001; 80048; 80053; 82330; 83036; 83735; 84100; 84478; 85025; 85610; 85730; 86850; 86900; 86901; 93005; 94640; 96361; 96374; 96375; 99285

== ENCOUNTER → 2017-10-04 | Outpatient (CLI) | payer MEDICARE, BC ==
[2017-10-04 11:29] LABS: Potassium 3.1 mmol/L (3.5-5.1)
== END | disposition home or self-care (01) ==
LOC: LABWHC1 10:28
PROVIDERS: ATTEND Internal Medicine
DX: R53.1 Weakness (principal)
CPT/HCPCS: 36415; 84132; 84295

== ENCOUNTER → 2017-10-14 | Outpatient (CLI) | payer MEDICARE, BC | END | disposition home or self-care (01) | LOC: LABWHC1 09:58 | PROVIDERS: ATTEND Internal Medicine | DX: E03.9 Hypothyroidism, unspecified (principal); I10 Essential (primary) hypertension; J45.20 Mild intermittent asthma, uncomplicated; M79.7 Fibromyalgia; D36.10 Benign neoplasm of peripheral nerves and autonomic nervous system, unspecified | CPT/HCPCS: 36415; 84132 ==

== ENCOUNTER 2018-01-12 18:56 | Emergency (ER) | payer MEDICARE, BC ==
--- NOTE | 2018-01-12 20:10 | ED ---
General Adult HPI - General Source: patient, family, RN notes reviewed Mode of arrival: ambulatory Limitations: no limitations <Cam Stacy - Last Filed: 01/12/18 20:08> <Madi Cook - Last Filed: 01/12/18 21:39> - General Chief complaint: Recheck/Abnormal Lab/Rx Stated complaint: HTN Time Seen by Provider: 01/12/18 19:40 - History of Present Illness Initial comments: Patient is a pleasant 87-year-old female presenting to the emergency department with concerns for hypertension. Patient does have chronic hypertension and does regular see her doctor for this. Patient does take Tenormin regularly. Patient took her blood pressure today and it was somewhat elevated more than normal. Patient developed start an that she is able to take her blood pressure runs high. Blood pressure was still high and she took her Tenormin. Blood pressure did get as high as 180 systolic and at a different time 103 diastolic. No chest pain or difficulty in breathing. No weakness or confusion. No headache. Patient has had some increased family stress recently however nothing specific today. (Cam Stacy) - Related Data Home Medications Medication Instructions Recorded Confirmed Estrogens, Conjugated Cream 0.5 applicator VAGINAL WEFR 09/29/15 08/06/17 [Premarin Cream] Levothyroxine Sodium [Synthroid] 25 mcg PO DAILY 09/29/15 08/06/17 Atenolol [Tenormin] 37.5 mg PO DAILY 07/28/17 08/06/17 Cholecalciferol [Vitamin D3] 1,000 unit PO DAILY 07/28/17 08/06/17 Ipratropium-Albuterol Nebulize 3 ml INHALATION RT-TID 07/28/17 08/06/17 [Duoneb 0.5 mg-3 mg/3 ml Soln] Mometasone/Formoterol [Dulera 200 2 puff INHALATION RT-BID 07/28/17 08/06/17 Mcg/5 Mcg Inhaler] Montelukast [Singulair] 10 mg PO HS 07/28/17 08/06/17 Nortriptyline [Pamelor] 10 mg PO DAILY 07/28/17 08/06/17 Omeprazole 20 mg PO DAILY 07/28/17 08/06/17 Verapamil HCl [Verapamil Sr] 120 mg PO DAILY 07/28/17 08/06/17 Ondansetron [Zofran] 4 mg PO Q8HR PRN 08/06/17 08/06/17 Previous Rx's Medication Instructions Recorded Apixaban [Eliquis] 2.5 mg PO BID tablet 08/05/17 Allergies Allergy/AdvReac Type Severity Reaction Status Date / Time carisoprodol [From Soma] Allergy Unknown Verified 01/12/18 19:25 celecoxib [From Celebrex] Allergy Unknown Verified 01/12/18 19:25 duloxetine HCl Allergy Unknown Verified 01/12/18 19:25 [From Cymbalta] lisinopril Allergy Unknown Verified 01/12/18 19:25 metaxalone [From Skelaxin] Allergy Unknown Verified 01/12/18 19:25 milk Allergy Diarrhea Verified 01/12/18 19:25 naproxen [From Naprosyn] Allergy Itching Verified 01/12/18 19:25 NSAIDS (Non-Steroidal Allergy Unknown Verified 01/12/18 19:25 Anti-Inflamma prednisone Allergy Unknown Verified 01/12/18 19:25 pregabalin [From Lyrica] Allergy Unknown Verified 01/12/18 19:25 rofecoxib [From Vioxx] Allergy Nausea & Verified 01/12/18 19:25 Vomiting & Diarrhea tramadol Allergy Itching Verified 01/12/18 19:25 dust mites Allergy Unknown Uncoded 01/12/18 19:25 Review of Systems ROS Other: All systems not noted in ROS Statement are negative. Constitutional: Denies: fever Eyes: Denies: eye pain ENT: Denies: ear pain Respiratory: Denies: cough Cardiovascular: Denies: chest pain Endocrine: Denies: fatigue Gastrointestinal: Denies: abdominal pain Genitourinary: Denies: dysuria Musculoskeletal: Denies: back pain Skin: Denies: rash Neurological: Denies: headache, weakness, confusion <Cam Stacy - Last Filed: 01/12/18 20:08> ROS Other: All systems not noted in ROS Statement are negative. <Madi Cook - Last Filed: 01/12/18 21:39> ROS Statement: Those systems with pertinent positive or pertinent negative responses have been documented in the HPI. Past Medical History Past Medical History: Asthma, Fibromyalgia, Hypertension Additional Past Medical History / Comment(s): tachycardia History of Any Multi-Drug Resistant Organisms: None Reported Past Surgical History: Appendectomy, Hysterectomy, Orthopedic Surgery, Tubal Ligation Additional Past Surgical History / Comment(s): nasal surgery, cataracts, bowel obstruction Past Anesthesia/Blood Transfusion Reactions: No Reported Reaction Additional Past Anesthesia/Blood Transfusion Reaction / Comment(s): no history of blood transfusion Past Psychological History: No Psychological Hx Reported Smoking Status: Never smoker Past Alcohol Use History: None Reported Past Drug Use History: None Reported - Past Family History Father Family Medical History: Cancer Additional Family Medical History / Comment(s): prostate Mother Additional Family Medical History / Comment(s): aneurysm <Cam Stacy - Last Filed: 01/12/18 20:08> General Exam Limitations: no limitations General appearance: alert, in no apparent distress Head exam: Present: atraumatic Eye exam: Present: normal appearance, PERRL, EOMI. Absent: nystagmus ENT exam: Present: normal oropharynx Neck exam: Present: normal inspection Respiratory exam: Present: normal lung sounds bilaterally Cardiovascular Exam: Present: regular rate, normal rhythm Expanded Peripheral pulses: 2+: Radial (R), Radial (L), Dorsalis Pedis (R), Dorsalis Pedis (L) GI/Abdominal exam: Present: soft. Absent: tenderness Extremities exam: Present: normal inspection. Absent: pedal edema, calf tenderness Neurological exam: Present: alert, CN II-XII intact. Absent: motor sensory deficit Expanded Neurological exam: Present: protecting the airway Cranial nerves: EOM's Intact: Normal Motor strength exam: RUE: 5, LUE: 5, RLE: 5, LLE: 5 Eye Response: (4) open spontaneously Motor Response: (6) obeys commands Verbal Response: (5) oriented Psychiatric exam: Present: normal affect, normal mood Skin exam: Present: normal color <Cam Stacy - Last Filed: 01/12/18 20:08> General appearance: alert, in no apparent distress Head exam: Present: atraumatic, normocephalic, normal inspection Eye exam: Present: normal appearance, PERRL, EOMI. Absent: scleral icterus, conjunctival injection, periorbital swelling ENT exam: Present: normal exam, mucous membranes moist Neck exam: Present: normal inspection. Absent: tenderness, meningismus, lymphadenopathy Respiratory exam: Present: normal lung sounds bilaterally. Absent: respiratory distress, wheezes, rales, rhonchi, stridor Cardiovascular Exam: Present: regular rate, normal rhythm, normal heart sounds. Absent: systolic murmur, diastolic murmur, rubs, gallop, clicks GI/Abdominal exam: Present: soft, normal bowel sounds. Absent: distended, tenderness, guarding, rebound, rigid Extremities exam: Present: normal inspection, full ROM, normal capillary refill. Absent: tenderness, pedal edema, joint swelling, calf tenderness Back exam: Present: normal inspection Neurological exam: Present: alert, oriented X3, CN II-XII intact Psychiatric exam: Present: normal affect, normal mood Skin exam: Present: warm, dry, intact, normal color. Absent: rash <Madi Cook - Last Filed: 01/12/18 21:39> Course <Cam Stacy - Last Filed: 01/12/18 20:08> <Madi Cook - Last Filed: 01/12/18 21:39> Vital Signs 01/12/18 01/12/18 01/12/18 19:19 20:04 21:02 Temperature 97.3 F L Pulse Rate 77 66 67 Respiratory 16 18 18 Rate Blood Pressure 182/93 157/70 134/70 O2 Sat by Pulse 97 100 97 Oximetry - Reevaluation(s) Reevaluation #1: 01/12/18 21:39 Patient feeling better, remains asymptomatic, patient was always recent adequate no chest pain shortness of breath headache or abdominal pain (Madi Cook) EKG Findings - EKG Comments: EKG Findings:: AG shows sinus rhythm rate of 61, WA 190, QRS 84, QTc 420 <Madi Cook - Last Filed: 01/12/18 21:39> Medical Decision Making <Cam Stacy - Last Filed: 01/12/18 20:08> - Lab Data Result diagrams: 01/12/18 20:19 01/12/18 20:19 <Madi Cook - Last Filed: 01/12/18 21:39> - Medical Decision Making 87 female the ER for evaluation patient concern for blood pressure, patient started to blood pressure medications a blood pressure was high at home is been normal here. Labwork is normal patient will be discharged home (Madi Cook) - Lab Data Lab Results 01/12/18 01/12/18 01/12/18 Range/Units 20:19 20:19 20:19 WBC 8.7 (3.8-10.6) k/uL RBC 3.97 (3.80-5.40) m/uL Hgb 13.1 (11.4-16.0) gm/dL Hct 38.9 (34.0-46.0) % MCV 98.0 (80.0-100.0) fL MCH 33.0 (25.0-35.0) pg MCHC 33.6 (31.0-37.0) g/dL RDW 13.4 (11.5-15.5) % Plt Count 244 (150-450) k/uL Neutrophils % 73 % Lymphocytes % 15 % Monocytes % 8 % Eosinophils % 2 % Basophils % 0 % Neutrophils # 6.4 (1.3-7.7) k/uL Lymphocytes # 1.3 (1.0-4.8) k/uL Monocytes # 0.7 (0-1.0) k/uL Eosinophils # 0.2 (0-0.7) k/uL Basophils # 0.0 (0-0.2) k/uL Sodium 136 L (137-145) mmol/L Potassium 3.9 (3.5-5.1) mmol/L Chloride 103 (98-107) mmol/L Carbon Dioxide 22 (22-30) mmol/L Anion Gap 11 mmol/L BUN 20 H (7-17) mg/dL Creatinine 0.50 L (0.52-1.04) mg/dL Est GFR (CKD-EPI)AfAm >90 (>60 ml/min/1.73 sqM) Est GFR (CKD-EPI)NonAf 88 (>60 ml/min/1.73 sqM) Glucose 198 H (74-99) mg/dL Calcium 8.7 (8.4-10.2) mg/dL Total Bilirubin 0.6 (0.2-1.3) mg/dL AST 23 (14-36) U/L ALT 28 (9-52) U/L Alkaline Phosphatase 93 (38-126) U/L Total Protein 6.0 L (6.3-8.2) g/dL Albumin 3.6 (3.5-5.0) g/dL Urine Color Light Yellow Urine Appearance Clear (Clear) Urine pH 7.0 (5.0-8.0) Ur Specific [place] 1.009 (1.001-1.035) Urine Protein Negative (Negative) Urine Glucose (UA) 1+ H (Negative) Urine Ketones Negative (Negative) Urine Blood Negative (Negative) Urine Nitrite Negative (Negative) Urine Bilirubin Negative (Negative) Urine Urobilinogen 2.0 (<2.0) mg/dL Ur Leukocyte Esterase Negative (Negative) Disposition <Cam Stacy - Last Filed: 01/12/18 20:08> Is patient prescribed a controlled substance at d/c from ED?: No <Madi Cook - Last Filed: 01/12/18 21:39> Clinical Impression: Hypertension Disposition: HOME SELF-CARE Condition: Good Instructions: Hypertension (ED) Referrals: Kennedy Gómez MD [Primary Care Provider] - 1-2 days
[2018-01-12 20:26] LABS: Appearance,Urine Clear (Clear); Basophils % (A) 0 %; Bilirubin,Urine Negative (Negative); Blood,Urine Negative (Negative); Color,Urine Light Yellow; Eosinophils # (A) 0.2 k/uL (0-0.7); Eosinophils % (A) 2 %; Glucose,Urine (UA) 1+ (Negative); HCT 38.9 % (34.0-46.0); HGB 13.1 gm/dL (11.4-16.0); Ketones,Urine Negative (Negative); Leukocyte Esterase,Urine Negative (Negative); Lymphocytes # (A) 1.3 k/uL (1.0-4.8); Lymphocytes % (A) 15 %; MCHC 33.6 g/dL (31.0-37.0); Mean Platelet Volume 6.6; Monocytes # (A) 0.7 k/uL (0-1.0); Monocytes % (A) 8 %; Neutrophils # (A) 6.4 k/uL (1.3-7.7); Neutrophils % (A) 73 %; Nitrite,Urine Negative (Negative); Platelet Count 244 k/uL (150-450); Protein,Urine Negative (Negative); RBC 3.97 m/uL (3.80-5.40); RDW 13.4 % (11.5-15.5); Specific Gravity,Urine 1.009 (1.001-1.035); WBC 8.7 k/uL (3.8-10.6)
[2018-01-12 20:41] LABS: ALT 28 U/L (9-52); AST 23 U/L (14-36); Albumin 3.6 g/dL (3.5-5.0); Alkaline Phosphatase 93 U/L (38-126); Anion Gap 11 mmol/L; Blood Urea Nitrogen 20 mg/dL (7-17); Calcium 8.7 mg/dL (8.4-10.2); Carbon Dioxide 22 mmol/L (22-30); Chloride 103 mmol/L (98-107); Glucose 198 mg/dL (74-99); Potassium 3.9 mmol/L (3.5-5.1); Sodium 136 mmol/L (137-145); Total Bilirubin 0.6 mg/dL (0.2-1.3)
[2018-01-12 22:11] VITALS: BP 148/59; PULSE 71; RESP 15; TEMP 98.4
== END 2018-01-12 22:21 | disposition home or self-care (01) ==
LOC: EC 18:56
DX: I10 Essential (primary) hypertension (principal); J45.909 Unspecified asthma, uncomplicated; M79.7 Fibromyalgia; Z79.51 Long term (current) use of inhaled steroids; Z79.899 Other long term (current) drug therapy; Z79.3 Long term (current) use of hormonal contraceptives; Z88.6 Allergy status to analgesic agent; Z91.011 Allergy to milk products; Z88.8 Allergy status to other drugs, medicaments and biological substances; Z91.09 Other allergy status, other than to drugs and biological substances
CPT/HCPCS: 36415; 80053; 81003; 85025; 93005; 99283

== ENCOUNTER 2018-02-05 10:57 | Day surgery (SDC) | payer MEDICARE, BC ==
[2018-02-04 11:54] VITALS: BMI 24.0
[~2018-02-05 10:57] MED LIST: LACTATED RINGERS 1,000 ML IV ONE; LACTATED RINGERS 1,000 ML IV SCH; LIDOCAINE VISCOUS 2000 MG/100 ML BOTTLE MUCOUS MEM ONE
[2018-02-05 11:27] VITALS: RESP 16; TEMP 97.3
[2018-02-05 11:34] LABS: Glucose,Whole Blood 114 mg/dL (75-99)
[2018-02-05] MEDS ORDERED: LIDOCAINE 1% 20 ML VIAL (10MG/ML) FOR IV START INTRADERMA ONE (11:47)
[2018-02-05] MEDS: ALBUTEROL NEB (CONC) 2.5 MG/0.5 ML INHALATION ONE ×2 (11:52→12:02)
[2018-02-05] MEDS: LIDOCAINE 2% (PF) 20 MG/ML 2 ML AMP INHALATION ONE ×2 (11:53→12:02)
[2018-02-05] MEDS ORDERED: LIDOCAINE 1% INJ 10MG/ML (20 ML MDV) ONE (12:03)
[2018-02-05] MEDS ORDERED: PROPOFOL 10 MG/ML 20 ML VIAL IV ONE (12:03)
[2018-02-05] MEDS ORDERED: LIDOCAINE 1% INJ 10MG/ML (20 ML MDV) INTRATRACH ONE (12:12)
--- NOTE | 2018-02-05 12:51 | PCN ---
PROCEDURE NOTE BRONCHOSCOPY AND RANDOM BRONCHIAL WASHINGS OF THE AIRWAYS: PREOPERATIVE DIAGNOSES: Chronic cough and mild persistent asthma. POSTOPERATIVE DIAGNOSES: Chronic cough and mild persistent asthma. ANESTHESIA USED: IV conscious sedation. PROCEDURE: Patient was prepared according to the bronchoscopy protocol. She was placed in a supine position, O2 was applied via Ventimask. We monitored her O2 saturation continuously, blood pressure was intermittently monitored, and cardiac rhythm was continuously monitored. After adequate IV conscious sedation, the left naris was anesthetized locally with lidocaine. Then, the bronchoscope was advanced through the left naris down to the area of the vocal cords. The vocal cords were noted to be patent, no significant abnormality noted on the vocal cords. Lidocaine was applied over the vocal cords and the bronchoscope was advanced further down to the trachea, thorough examination was done of the trachea, suleman, right upper lobe, right middle lobe, right lower lobe, left upper lobe, lingula and left lower lobe. There was minimal whitish purulent secretions noted in the airways, mostly in the distal trachea, right upper lobe, and right middle lobe. All the secretions were suctioned using saline washings, and all airways were cleared from purulent and white secretions. The procedure was well tolerated, the fluid retrieved was sent for different diagnostic studies, and no evidence of any complications, whatsoever. MMODL / IJN: [id number] /
[2018-02-05 13:16] VITALS: BP 133/70; PULSE 53
[2018-02-05 17:44] LABS: Appearance,BF Cloudy; Nucleated Cells, Body Fluid 150 /uL; RBC, Body Fluid 400 /uL
[2018-02-05 17:45] LABS: Mononuclear WBC,Body Fluid 78 %; Polynuclear WBC,Body Fluid 20 %; Total Cells Counted,Body Fluid 100
== END 2018-02-05 13:40 | disposition home or self-care (01) ==
LOC: ORWHC2ENDO 10:57
PROVIDERS: ATTEND Internal Medicine
DX: J45.30 Mild persistent asthma, uncomplicated (principal); D33.3 Benign neoplasm of cranial nerves; M79.7 Fibromyalgia; N95.2 Postmenopausal atrophic vaginitis; I10 Essential (primary) hypertension; E03.9 Hypothyroidism, unspecified; I48.91 Unspecified atrial fibrillation; M19.90 Unspecified osteoarthritis, unspecified site; K21.9 Gastro-esophageal reflux disease without esophagitis; Z88.6 Allergy status to analgesic agent; Z88.8 Allergy status to other drugs, medicaments and biological substances; Z79.01 Long term (current) use of anticoagulants; Z79.890 Hormone replacement therapy; Z79.51 Long term (current) use of inhaled steroids; Z79.899 Other long term (current) drug therapy; Z79.52 Long term (current) use of systemic steroids; Z90.710 Acquired absence of both cervix and uterus
CPT/HCPCS: 87798 ×3; 87496; 87498; 87529; 89050; 87252; 87502; 87634; 87070; 87205; 87116; 87102; 87206; 31645; J2001; J2704; 31624

== ENCOUNTER 2019-02-02 08:33 | Emergency (ER) | payer MEDICARE, BC ==
[2019-02-02 08:39] VITALS: TEMP 97.7
--- NOTE | 2019-02-02 09:13 | ED ---
Arrhythmia/Palpitations HPI - General Chief Complaint: Arrhythmia/Palpitations Stated Complaint: RAPID HEARTBEAT, SOB Time Seen by Provider: 02/02/19 08:45 Source: patient, RN notes reviewed, old records reviewed Mode of arrival: ambulatory Limitations: no limitations - History of Present Illness Initial Comments: This is an 88-year-old female the ER for evaluation. She presents today for evaluation of palpitations, patient feels like her heart is racing. No chest pain occasional shortness of breath does have history of A. fib. No recent change in medications, patient is on anticoagulation. No recent illness to nausea vomiting diarrhea or fever MD Complaint: rapid heart beat, palpitations -: days(s) Context: occurred during rest Arrhythmia History: atrial fibrillation, SVT Associated Symptoms: denies other symptoms - Related Data Home Medications Medication Instructions Recorded Confirmed Levothyroxine Sodium [Synthroid] 25 mcg PO QAM 09/29/15 02/02/19 Atenolol [Tenormin] 37.5 mg PO QAM 07/28/17 02/02/19 Ipratropium-Albuterol Nebulize 3 ml INHALATION RT-QID 07/28/17 02/02/19 [Duoneb 0.5 mg-3 mg/3 ml Soln] Montelukast [Singulair] 10 mg PO HS 07/28/17 02/02/19 Nortriptyline [Pamelor] 10 mg PO HS 07/28/17 02/02/19 Omeprazole 20 mg PO HS 07/28/17 02/02/19 Verapamil HCl [Verapamil Sr] 120 mg PO HS 07/28/17 02/02/19 Budesonide/Formoterol Fumarate 2 puff INHALATION RT-BID 02/04/18 02/02/19 [Symbicort 160-4.5 Mcg Inhaler] Potassium Chloride [K-Tab ER] 10 meq PO BID 02/05/18 02/02/19 Rivaroxaban [Xarelto] 15 mg PO DAILY 02/02/19 02/02/19 Allergies Allergy/AdvReac Type Severity Reaction Status Date / Time carisoprodol [From Soma] Allergy Unknown Verified 02/02/19 09:01 celecoxib [From Celebrex] Allergy Unknown Verified 02/02/19 09:01 duloxetine HCl Allergy Unknown Verified 02/02/19 09:01 [From Cymbalta] lisinopril Allergy Unknown Verified 02/02/19 09:01 metaxalone [From Skelaxin] Allergy Unknown Verified 02/02/19 09:01 NSAIDS (Non-Steroidal Allergy Unknown Verified 02/02/19 09:01 Anti-Inflamma pregabalin [From Lyrica] Allergy Unknown Verified 02/02/19 09:01 tramadol Allergy Itching Verified 02/02/19 09:01 milk AdvReac Diarrhea Verified 02/02/19 09:01 naproxen [From Naprosyn] AdvReac Itching Verified 02/02/19 09:01 prednisone AdvReac difficulty Verified 02/02/19 09:01 sleeping,fatigue rofecoxib [From Vioxx] AdvReac Nausea & Verified 02/02/19 09:01 Vomiting & Diarrhea DUST Allergy Unknown Uncoded 02/02/19 09:01 Review of Systems ROS Statement: Those systems with pertinent positive or pertinent negative responses have been documented in the HPI. ROS Other: All systems not noted in ROS Statement are negative. Past Medical History Past Medical History: Atrial Fibrillation, Asthma, Fibromyalgia, Hypertension Additional Past Medical History / Comment(s): recurrent asthma and lung congestions symptoms,bowel obs,tachycardia,acoustic neuroma rt ear(deaf)- radiation txs History of Any Multi-Drug Resistant Organisms: None Reported Past Surgical History: Appendectomy, Hysterectomy, Orthopedic Surgery, Tubal Ligation Additional Past Surgical History / Comment(s): exploratory lap & lysis of adhesions,nasal surgery, cataracts,ORIF rt tibia Past Anesthesia/Blood Transfusion Reactions: No Reported Reaction, Family History of Problems w/ Anesthesia Additional Past Anesthesia/Blood Transfusion Reaction / Comment(s): Son had stopped breathing at age 11 during appendix surg,no history of blood transfusion Past Psychological History: No Psychological Hx Reported Smoking Status: Never smoker Past Alcohol Use History: None Reported Past Drug Use History: None Reported - Past Family History Father Family Medical History: Cancer Additional Family Medical History / Comment(s): prostate Mother Additional Family Medical History / Comment(s): aneurysm General Exam Limitations: no limitations General appearance: alert, in no apparent distress Head exam: Present: atraumatic, normocephalic, normal inspection Eye exam: Present: normal appearance, PERRL, EOMI. Absent: scleral icterus, conjunctival injection, periorbital swelling ENT exam: Present: normal exam, mucous membranes moist Neck exam: Present: normal inspection. Absent: tenderness, meningismus, lymphadenopathy Respiratory exam: Present: normal lung sounds bilaterally. Absent: respiratory distress, wheezes, rales, rhonchi, stridor Cardiovascular Exam: Present: regular rate, normal rhythm, normal heart sounds. Absent: systolic murmur, diastolic murmur, rubs, gallop, clicks GI/Abdominal exam: Present: soft, normal bowel sounds. Absent: distended, tende rness, guarding, rebound, rigid Extremities exam: Present: normal inspection, full ROM, normal capillary refill. Absent: tenderness, pedal edema, joint swelling, calf tenderness Back exam: Present: normal inspection Neurological exam: Present: alert, oriented X3, CN II-XII intact Psychiatric exam: Present: normal affect, normal mood Skin exam: Present: warm, dry, intact, normal color. Absent: rash Course Vital Signs 02/02/19 02/02/19 02/02/19 08:35 08:50 09:00 Temperature 97.7 F Pulse Rate 85 82 Respiratory 18 18 Rate Blood Pressure 117/78 114/66 O2 Sat by Pulse 98 97 100 Oximetry 02/02/19 02/02/19 02/02/19 09:10 09:30 09:40 Temperature Pulse Rate 74 75 75 Respiratory 18 18 18 Rate Blood Pressure 106/61 125/71 120/79 O2 Sat by Pulse 100 99 99 Oximetry 02/02/19 09:50 Temperature Pulse Rate 77 Respiratory 17 Rate Blood Pressure 120/79 O2 Sat by Pulse 67 L Oximetry - Reevaluation(s) Reevaluation #1: 02/02/19 11:04 Medical records reviewed Reevaluation #2: 02/02/19 11:04 Patient asymptomatic throughout ER stay EKG Findings - EKG Comments: EKG Findings:: EKG shows A. fib rate of 75, QRS 90, QTc 442 Medical Decision Making - Medical Decision Making 88 female the ER for evaluation of palpitations. Patient can be discharged home - Lab Data Result diagrams: 02/02/19 08:58 02/02/19 08:58 Lab Results 02/02/19 02/02/19 02/02/19 Range/Units 08:58 08:58 08:58 WBC 10.5 (3.8-10.6) k/uL RBC 4.10 (3.80-5.40) m/uL Hgb 13.5 (11.4-16.0) gm/dL Hct 40.1 (34.0-46.0) % MCV 97.9 (80.0-100.0) fL MCH 33.0 (25.0-35.0) pg MCHC 33.7 (31.0-37.0) g/dL RDW 13.6 (11.5-15.5) % Plt Count 322 (150-450) k/uL Neutrophils % 74 % Lymphocytes % 13 % Monocytes % 9 % Eosinophils % 2 % Basophils % 1 % Neutrophils # 7.8 H (1.3-7.7) k/uL Lymphocytes # 1.4 (1.0-4.8) k/uL Monocytes # 0.9 (0-1.0) k/uL Eosinophils # 0.2 (0-0.7) k/uL Basophils # 0.1 (0-0.2) k/uL PT 13.2 H (9.0-12.0) sec INR 1.3 H (<1.2) APTT 37.7 H (22.0-30.0) sec Sodium 139 (137-145) mmol/L Potassium 3.8 (3.5-5.1) mmol/L Chloride 107 (98-107) mmol/L Carbon Dioxide 25 (22-30) mmol/L Anion Gap 7 mmol/L BUN 17 (7-17) mg/dL Creatinine 0.70 (0.52-1.04) mg/dL Est GFR (CKD-EPI)AfAm >90 (>60 ml/min/1.73 sqM) Est GFR (CKD-EPI)NonAf 78 (>60 ml/min/1.73 sqM) Glucose 113 H (74-99) mg/dL Calcium 8.7 (8.4-10.2) mg/dL Magnesium 1.8 (1.6-2.3) mg/dL Total Bilirubin 0.7 (0.2-1.3) mg/dL AST 29 (14-36) U/L ALT 24 (9-52) U/L Alkaline Phosphatase 86 (38-126) U/L Troponin I (0.000-0.034) ng/mL Total Protein 6.0 L (6.3-8.2) g/dL Albumin 3.4 L (3.5-5.0) g/dL Urine Color Urine Appearance (Clear) Urine pH (5.0-8.0) Ur Specific [place] (1.001-1.035) Urine Protein (Negative) Urine Glucose (UA) (Negative) Urine Ketones (Negative) Urine Blood (Negative) Urine Nitrite (Negative) Urine Bilirubin (Negative) Urine Urobilinogen (<2.0) mg/dL Ur Leukocyte Esterase (Negative) Urine RBC (0-5) /hpf Urine WBC (0-5) /hpf Ur Squamous Epith Cells (0-4) /hpf Urine Mucus (None) /hpf 02/02/19 02/02/19 Range/Units 08:58 09:20 WBC (3.8-10.6) k/uL RBC (3.80-5.40) m/uL Hgb (11.4-16.0) gm/dL Hct (34.0-46.0) % MCV (80.0-100.0) fL MCH (25.0-35.0) pg MCHC (31.0-37.0) g/dL RDW (11.5-15.5) % Plt Count (150-450) k/uL Neutrophils % % Lymphocytes % % Monocytes % % Eosinophils % % Basophils % % Neutrophils # (1.3-7.7) k/uL Lymphocytes # (1.0-4.8) k/uL Monocytes # (0-1.0) k/uL Eosinophils # (0-0.7) k/uL Basophils # (0-0.2) k/uL PT (9.0-12.0) sec INR (<1.2) APTT (22.0-30.0) sec Sodium (137-145) mmol/L Potassium (3.5-5.1) mmol/L Chloride (98-107) mmol/L Carbon Dioxide (22-30) mmol/L Anion Gap mmol/L BUN (7-17) mg/dL Creatinine (0.52-1.04) mg/dL Est GFR (CKD-EPI)AfAm (>60 ml/min/1.73 sqM) Est GFR (CKD-EPI)NonAf (>60 ml/min/1.73 sqM) Glucose (74-99) mg/dL Calcium (8.4-10.2) mg/dL Magnesium (1.6-2.3) mg/dL Total Bilirubin (0.2-1.3) mg/dL AST (14-36) U/L ALT (9-52) U/L Alkaline Phosphatase (38-126) U/L Troponin I <0.012 (0.000-0.034) ng/mL Total Protein (6.3-8.2) g/dL Albumin (3.5-5.0) g/dL Urine Color Yellow Urine Appearance Clear (Clear) Urine pH 7.0 (5.0-8.0) Ur Specific [place] 1.012 (1.001-1.035) Urine Protein Negative (Negative) Urine Glucose (UA) Negative (Negative) Urine Ketones Negative (Negative) Urine Blood Small H (Negative) Urine Nitrite Negative (Negative) Urine Bilirubin Negative (Negative) Urine Urobilinogen 3.0 (<2.0) mg/dL Ur Leukocyte Esterase Moderate H (Negative) Urine RBC 8 H (0-5) /hpf Urine WBC 4 (0-5) /hpf Ur Squamous Epith Cells 1 (0-4) /hpf Urine Mucus Rare H (None) /hpf - Radiology Data Radiology results: report reviewed (Chest x-rays negative for acute disease), image reviewed Disposition Clinical Impression: Atrial fibrillation, Palpitations Disposition: HOME SELF-CARE Condition: Good Instructions (If sedation given, give patient instructions): Heart Palpitations (ED) Is patient prescribed a controlled substance at d/c from ED?: No Referrals: William Bird MD [Primary Care Provider] - 1-2 days
[2019-02-02 09:18] LABS: Basophils # (A) 0.1 k/uL (0-0.2); Basophils % (A) 1 %; Eosinophils # (A) 0.2 k/uL (0-0.7); Eosinophils % (A) 2 %; HCT 40.1 % (34.0-46.0); HGB 13.5 gm/dL (11.4-16.0); Lymphocytes # (A) 1.4 k/uL (1.0-4.8); Lymphocytes % (A) 13 %; MCHC 33.7 g/dL (31.0-37.0); MCV 97.9 fL (80.0-100.0); Monocytes # (A) 0.9 k/uL (0-1.0); Monocytes % (A) 9 %; Neutrophils # (A) 7.8 k/uL (1.3-7.7); Neutrophils % (A) 74 %; Platelet Count 322 k/uL (150-450); RDW 13.6 % (11.5-15.5); WBC 10.5 k/uL (3.8-10.6)
--- NOTE | 2019-02-02 09:22 | XR ---
EXAMINATION TYPE: XR chest 2V DATE OF EXAM: 02/02/2019 COMPARISON: 10/27/2018 TECHNIQUE: PA and lateral views submitted. HISTORY: Dysrhythmia FINDINGS: The lungs are clear and there is no pneumothorax, pleural effusion, or focal pneumonia. Subsegmenta l changes at both lung bases. Atherosclerotic change aorta. Diffuse osteopenia. Arthropathy of the [place]. IMPRESSION: 1. Basilar atelectasis favored over infiltrate correlate clinically.
[2019-02-02 09:30] LABS: INR 1.3 (<1.2); Partial Thromboplastin Time 37.7 sec (22.0-30.0); Prothrombin Time 13.2 sec (9.0-12.0)
[2019-02-02 09:43] LABS: ALT 24 U/L (9-52); AST 29 U/L (14-36); African American GFR (CKD) >90 (>60 ml/min/1.73 sqM); Albumin 3.4 g/dL (3.5-5.0); Alkaline Phosphatase 86 U/L (38-126); Anion Gap 7 mmol/L; Blood Urea Nitrogen 17 mg/dL (7-17); Calcium 8.7 mg/dL (8.4-10.2); Carbon Dioxide 25 mmol/L (22-30); Chloride 107 mmol/L (98-107); Glucose 113 mg/dL (74-99); Magnesium 1.8 mg/dL (1.6-2.3); Potassium 3.8 mmol/L (3.5-5.1); Sodium 139 mmol/L (137-145); Total Bilirubin 0.7 mg/dL (0.2-1.3)
[2019-02-02 09:43] LABS: Appearance,Urine Clear (Clear); Bilirubin,Urine Negative (Negative); Blood,Urine Small (Negative); Color,Urine Yellow; Glucose,Urine (UA) Negative (Negative); Ketones,Urine Negative (Negative); Leukocyte Esterase,Urine Moderate (Negative); Mucus,Urine Rare /hpf; Nitrite,Urine Negative (Negative); Protein,Urine Negative (Negative); RBC,Urine 8 /hpf (0-5); Specific Gravity,Urine 1.012 (1.001-1.035); Squamous Epithelial Cell,Urine 1 /hpf (0-4)
[2019-02-02 11:21] VITALS: RESP 18
[2019-02-02 11:35] VITALS: BP 124/67; PULSE 77
== END 2019-02-02 11:35 | disposition home or self-care (01) ==
LOC: EC 08:33
DX: I48.91 Unspecified atrial fibrillation (principal); J45.909 Unspecified asthma, uncomplicated; I10 Essential (primary) hypertension; Z79.01 Long term (current) use of anticoagulants; Z79.51 Long term (current) use of inhaled steroids; Z79.899 Other long term (current) drug therapy; Z88.8 Allergy status to other drugs, medicaments and biological substances; Z88.6 Allergy status to analgesic agent; Z91.011 Allergy to milk products; Z91.09 Other allergy status, other than to drugs and biological substances
CPT/HCPCS: 36415; 71046; 80053; 81001; 83735; 84484; 85025; 85610; 85730; 93005; 99285

== ENCOUNTER → 2019-05-05 | Outpatient (CLI) | payer MEDICARE, BC ==
[2019-05-05 20:04] LABS: Red Top (Bentgrass) IgE <0.10 kU/L
[2019-05-05 20:05] LABS: Cat Epith & Dander IgE <0.10 kU/L; Dermato. farinae IgE <0.10 kU/L; Dog Dander IgE 0.14 kU/L
[2019-05-05 20:06] LABS: Aspergillus fumagatus IgE <0.10 kU/L; Cladosporian herbarum IgE <0.10 kU/L; Cockroach IgE <0.10 kU/L
[2019-05-05 20:07] LABS: Alternaria alternata IgE <0.10 kU/L
[2019-05-05 20:08] LABS: Birch IgE 0.13 kU/L; Elm IgE <0.10 kU/L; Maple (Box Elder) IgE <0.10 kU/L; Oak IgE 0.74 kU/L; Ragweed,Common IgE <0.10 kU/L
== END | disposition home or self-care (01) ==
LOC: LABWHC1 12:05
PROVIDERS: ATTEND Internal Medicine
DX: J45.50 Severe persistent asthma, uncomplicated (principal)
CPT/HCPCS: 36415; 82785; 85008; 86003

== ENCOUNTER 2021-06-30 13:19 | Inpatient (IN) | payer MEDICARE, BC ==
[2021-06-30 13:44] LABS: Glucose,Whole Blood 102 mg/dL (75-99)
[2021-06-30] MEDS ORDERED: SODIUM CHLORIDE 0.9% 1,000 ML IV STA (13:54)
--- NOTE | 2021-06-30 14:01 | ED ---
General Adult HPI - General Stated complaint: weakness Time Seen by Provider: 06/30/21 13:28 Source: patient, EMS, RN notes reviewed Mode of arrival: EMS Limitations: no limitations - History of Present Illness Initial comments: Patient is a pleasant 89-year-old female presenting to the emergency department with concern for change in mental status. Onset was reportedly today. Patient reportedly was acting normal yesterday and high functioning. Patient admits to feeling dry and thirsty. No reported trauma. Patient has no specific complaints. - Related Data Home Medications Medication Instructions Recorded Confirmed Levothyroxine Sodium [Synthroid] 25 mcg PO QAM 09/29/15 02/02/19 Ipratropium-Albuterol Nebulize 3 ml INHALATION RT-QID 07/28/17 02/02/19 [Duoneb 0.5 mg-3 mg/3 ml Soln] Montelukast [Singulair] 10 mg PO HS 07/28/17 02/02/19 Nortriptyline [Pamelor] 10 mg PO HS 07/28/17 02/02/19 Omeprazole 20 mg PO HS 07/28/17 02/02/19 Verapamil HCl [Verapamil Sr] 120 mg PO HS 07/28/17 02/02/19 atenoloL [Tenormin] 37.5 mg PO QAM 07/28/17 02/02/19 Budesonide/Formoterol Fumarate 2 puff INHALATION RT-BID 02/04/18 02/02/19 [Symbicort 160-4.5 Mcg Inhaler] Potassium Chloride [K-Tab ER] 10 meq PO BID 02/05/18 02/02/19 Rivaroxaban [Xarelto] 15 mg PO DAILY 02/02/19 02/02/19 Allergies Allergy/AdvReac Type Severity Reaction Status Date / Time carisoprodol [From Soma] Allergy Unknown Verified 02/02/19 09:01 celecoxib [From Celebrex] Allergy Unknown Verified 02/02/19 09:01 duloxetine HCl Allergy Unknown Verified 02/02/19 09:01 [From Cymbalta] lisinopril Allergy Unknown Verified 02/02/19 09:01 metaxalone [From Skelaxin] Allergy Unknown Verified 02/02/19 09:01 NSAIDS (Non-Steroidal Allergy Unknown Verified 02/02/19 09:01 Anti-Inflamma pregabalin [From Lyrica] Allergy Unknown Verified 02/02/19 09:01 tramadol Allergy Itching Verified 02/02/19 09:01 milk AdvReac Diarrhea Verified 02/02/19 09:01 naproxen [From Naprosyn] AdvReac Itching Verified 02/02/19 09:01 prednisone AdvReac difficulty Verified 02/02/19 09:01 sleeping,fatigue rofecoxib [From Vioxx] AdvReac Nausea & Verified 02/02/19 09:01 Vomiting & Diarrhea DUST Allergy Unknown Uncoded 02/02/19 09:01 Review of Systems ROS Statement: Those systems with pertinent positive or pertinent negative responses have been documented in the HPI. ROS Other: All systems not noted in ROS Statement are negative. Constitutional: Denies: fever Eyes: Denies: eye pain ENT: Denies: ear pain Respiratory: Denies: cough Endocrine: Denies: fatigue Gastrointestinal: Denies: abdominal pain Genitourinary: Denies: dysuria Musculoskeletal: Denies: back pain Skin: Denies: rash Neurological: Reports: as per HPI. Denies: headache Past Medical History Past Medical History: Atrial Fibrillation, Asthma, Fibromyalgia, Hypertension Additional Past Medical History / Comment(s): recurrent asthma and lung congestions symptoms,bowel obs,tachycardia,acoustic neuroma rt ear(deaf)- radiation txs History of Any Multi-Drug Resistant Organisms: None Reported Past Surgical History: Appendectomy, Hysterectomy, Orthopedic Surgery, Tubal Ligation Additional Past Surgical History / Comment(s): exploratory lap & lysis of ad hesions,nasal surgery, cataracts,ORIF rt tibia Past Anesthesia/Blood Transfusion Reactions: No Reported Reaction, Family History of Problems w/ Anesthesia Additional Past Anesthesia/Blood Transfusion Reaction / Comment(s): Son had stopped breathing at age 11 during appendix surg,no history of blood transfusion Past Psychological History: No Psychological Hx Reported Past Alcohol Use History: None Reported Past Drug Use History: None Reported - Past Family History Father Family Medical History: Cancer Additional Family Medical History / Comment(s): prostate Mother Additional Family Medical History / Comment(s): aneurysm General Exam Limitations: no limitations General appearance: alert, in no apparent distress Head exam: Present: normocephalic Eye exam: Present: normal appearance, PERRL, EOMI. Absent: nystagmus ENT exam: Present: mucous membranes dry Neck exam: Present: normal inspection. Absent: tenderness, meningismus Respiratory exam: Present: normal lung sounds bilaterally Cardiovascular Exam: Present: tachycardia GI/Abdominal exam: Present: soft. Absent: tenderness Extremities exam: Present: normal inspection, full ROM. Absent: tenderness Neurological exam: Present: alert, CN II-XII intact. Absent: motor sensory deficit Expanded Patient oriented to: Present: person, place (Patient notes she is in the hospital however unclear on city). Absent: time Cranial nerves: EOM's Intact: Normal Motor strength exam: RUE: 5, LUE: 5, RLE: 5, LLE: 5 Psychiatric exam: Present: normal affect, normal mood Skin exam: Absent: erythema Course Vital Signs 06/30/21 13:54 Temperature 97.9 F Pulse Rate 124 H Respiratory 20 Rate Blood Pressure 92/55 O2 Sat by Pulse 99 Oximetry EKG Findings - EKG Comments: EKG Findings:: Sinus tachycardia with a rate of 124. MO 194. QRS 80. QT 300. QTc 431. Normal axis. Septal Q waves. Lateral ST depression. Medical Decision Making - Medical Decision Making Patient reevaluated and resting comfortably in bed. Family is present. Family states patient did have a near syncopal episode with questionable facial droop earlier today. They state this episode lasted less than 1 minute. Family updated on results. Case was discussed with Dr. Nixon, who will admit covering hospital call. Consults will be placed for cardiology and neurology. - Lab Data Result diagrams: 06/30/21 14:02 06/30/21 14:02 Lab Results 06/30/21 06/30/21 06/30/21 Range/Units 13:33 14:02 14:02 WBC 6.8 (3.8-10.6) k/uL RBC 3.57 L (3.80-5.40) m/uL Hgb 10.4 L (11.4-16.0) gm/dL Hct 33.4 L (34.0-46.0) % MCV 93.8 (80.0-100.0) fL MCH 29.0 (25.0-35.0) pg MCHC 31.0 (31.0-37.0) g/dL RDW 18.4 H (11.5-15.5) % Plt Count 241 (150-450) k/uL MPV 9.2 Hypochromasia Marked Anisocytosis Slight PT 15.9 H (9.0-12.0) sec INR 1.6 H (<1.2) APTT 32.4 H (22.0-30.0) sec Sodium (137-145) mmol/L Potassium (3.5-5.1) mmol/L Chloride (98-107) mmol/L Carbon Dioxide (22-30) mmol/L Anion Gap mmol/L BUN (7-17) mg/dL Creatinine (0.52-1.04) mg/dL Est GFR (CKD-EPI)AfAm (>60 ml/min/1.73 sqM) Est GFR (CKD-EPI)NonAf (>60 ml/min/1.73 sqM) Glucose (74-99) mg/dL POC Glucose (mg/dL) 102 H (75-99) mg/dL POC Glu Gear Machine Operator General ID Mccollum, [place] Calcium (8.4-10.2) mg/dL Total Bilirubin (0.2-1.3) mg/dL AST (14-36) U/L ALT (4-34) U/L Alkaline Phosphatase (38-126) U/L Creatine Kinase (30-135) U/L Troponin I (0.000-0.034) ng/mL Total Protein (6.3-8.2) g/dL Albumin (3.5-5.0) g/dL Urine Color Urine Appearance (Clear) Urine pH (5.0-8.0) Ur Specific [place] (1.001-1.035) Urine Protein (Negative) Urine Glucose (UA) (Negative) Urine Ketones (Negative) Urine Blood (Negative) Urine Nitrite (Negative) Urine Bilirubin (Negative) Urine Urobilinogen (<2.0) mg/dL Ur Leukocyte Esterase (Negative) Urine RBC (0-5) /hpf Urine WBC (0-5) /hpf Ur Squamous Epith Cells (0-4) /hpf Urine Bacteria (None) /hpf Urine Mucus (None) /hpf Coronavirus (PCR) (Not Detectd) 06/30/21 06/30/21 06/30/21 Range/Units 14:02 14:02 14:02 WBC (3.8-10.6) k/uL RBC (3.80-5.40) m/uL Hgb (11.4-16.0) gm/dL Hct (34.0-46.0) % MCV (80.0-100.0) fL MCH (25.0-35.0) pg MCHC (31.0-37.0) g/dL RDW (11.5-15.5) % Plt Count (150-450) k/uL MPV Hypochromasia Anisocytosis PT (9.0-12.0) sec INR (<1.2) APTT (22.0-30.0) sec Sodium 137 (137-145) mmol/L Potassium 3.6 (3.5-5.1) mmol/L Chloride 109 H (98-107) mmol/L Carbon Dioxide 14 L (22-30) mmol/L Anion Gap 14 mmol/L BUN 23 H (7-17) mg/dL Creatinine 1.56 H (0.52-1.04) mg/dL Est GFR (CKD-EPI)AfAm 34 (>60 ml/min/1.73 sqM) Est GFR (CKD-EPI)NonAf 29 (>60 ml/min/1.73 sqM) Glucose 89 (74-99) mg/dL POC Glucose (mg/dL) (75-99) mg/dL POC Glu Gear Machine Operator General ID Calcium 8.2 L (8.4-10.2) mg/dL Total Bilirubin 0.6 (0.2-1.3) mg/dL AST 37 H (14-36) U/L ALT 28 (4-34) U/L Alkaline Phosphatase 115 (38-126) U/L Creatine Kinase 127 (30-135) U/L Troponin I 0.086 H* (0.000-0.034) ng/mL Total Protein 5.3 L (6.3-8.2) g/dL Albumin 2.8 L (3.5-5.0) g/dL Urine Color Yellow Urine Appearance Cloudy H (Clear) Urine pH 6.0 (5.0-8.0) Ur Specific [place] 1.010 (1.001-1.035) Urine Protein 1+ H (Negative) Urine Glucose (UA) Negative (Negative) Urine Ketones Negative (Negative) Urine Blood Small H (Negative) Urine Nitrite Negative (Negative) Urine Bilirubin Negative (Negative) Urine Urobilinogen <2.0 (<2.0) mg/dL Ur Leukocyte Esterase Small H (Negative) Urine RBC 19 H (0-5) /hpf Urine WBC 18 H (0-5) /hpf Ur Squamous Epith Cells <1 (0-4) /hpf Urine Bacteria Few H (None) /hpf Urine Mucus Rare H (None) /hpf Coronavirus (PCR) (Not Detectd) 06/30/21 Range/Units 14:02 WBC (3.8-10.6) k/uL RBC (3.80-5.40) m/uL Hgb (11.4-16.0) gm/dL Hct (34.0-46.0) % MCV (80.0-100.0) fL MCH (25.0-35.0) pg MCHC (31.0-37.0) g/dL RDW (11.5-15.5) % Plt Count (150-450) k/uL MPV Hypochromasia Anisocytosis PT (9.0-12.0) sec INR (<1.2) APTT (22.0-30.0) sec Sodium (137-145) mmol/L Potassium (3.5-5.1) mmol/L Chloride (98-107) mmol/L Carbon Dioxide (22-30) mmol/L Anion Gap mmol/L BUN (7-17) mg/dL Creatinine (0.52-1.04) mg/dL Est GFR (CKD-EPI)AfAm (>60 ml/min/1.73 sqM) Est GFR (CKD-EPI)NonAf (>60 ml/min/1.73 sqM) Glucose (74-99) mg/dL POC Glucose (mg/dL) (75-99) mg/dL POC Glu Gear Machine Operator General ID Calcium (8.4-10.2) mg/dL Total Bilirubin (0.2-1.3) mg/dL AST (14-36) U/L ALT (4-34) U/L Alkaline Phosphatase (38-126) U/L Creatine Kinase (30-135) U/L Troponin I (0.000-0.034) ng/mL Total Protein (6.3-8.2) g/dL Albumin (3.5-5.0) g/dL Urine Color Urine Appearance (Clear) Urine pH (5.0-8.0) Ur Specific [place] (1.001-1.035) Urine Protein (Negative) Urine Glucose (UA) (Negative) Urine Ketones (Negative) Urine Blood (Negative) Urine Nitrite (Negative) Urine Bilirubin (Negative) Urine Urobilinogen (<2.0) mg/dL Ur Leukocyte Esterase (Negative) Urine RBC (0-5) /hpf Urine WBC (0-5) /hpf Ur Squamous Epith Cells (0-4) /hpf Urine Bacteria (None) /hpf Urine Mucus (None) /hpf Coronavirus (PCR) Not Detected (Not Detectd) - Radiology Data Radiology results: report reviewed (Atrophy), image reviewed (Chest x-ray shows no acute abnormality.) Disposition Clinical Impression: UTI (urinary tract infection), AMS (altered mental status), Dehydration Disposition: ADMITTED IP TO THIS HOSP Is patient prescribed a controlled substance at d/c from ED?: No Referrals: David Delgado MD [Primary Care Provider] - 1-2 days Decision Time: 15:14
[2021-06-30 14:16] LABS: Anisocytosis Slight; HCT 33.4 % (34.0-46.0); HGB 10.4 gm/dL (11.4-16.0); Hypochromasia Marked; MCV 93.8 fL (80.0-100.0); Mean Platelet Volume 9.2; Platelet Count 241 k/uL (150-450); RBC 3.57 m/uL (3.80-5.40); RDW 18.4 % (11.5-15.5)
[2021-06-30 14:29] LABS: Appearance,Urine Cloudy (Clear); Bacteria,Urine Few /hpf; Bilirubin,Urine Negative (Negative); Blood,Urine Small (Negative); Color,Urine Yellow; Glucose,Urine (UA) Negative (Negative); Ketones,Urine Negative (Negative); Leukocyte Esterase,Urine Small (Negative); Mucus,Urine Rare /hpf; Nitrite,Urine Negative (Negative); Protein,Urine 1+ (Negative); RBC,Urine 19 /hpf (0-5); Squamous Epithelial Cell,Urine <1 /hpf (0-4); Urobilinogen,Urine <2.0 mg/dL (<2.0); WBC,Urine 18 /hpf (0-5)
--- NOTE | 2021-06-30 14:29 | CT ---
EXAMINATION TYPE: CT brain wo con DATE OF EXAM: 06/30/2021 COMPARISON: None HISTORY: Weakness CT DLP: 1074.4 mGycm Automated exposure control for dose reduction was used. FINDINGS: The ventricles, basal cisterns and sulci over the convexities are moderately to markedly enlarged con sistent with moderate to marked atrophy. No abnormal density is seen throughout the brain parenchyma and there is no acute intra or extra-axia l hemorrhage. Posterior fossa including the brainstem, fourth ventricle and cerebellar pontine angles appear grossl y normal. The intraorbital contents appear normal and symmetric. Visualized paranasal sinuses and mastoid air cells are well aerated. The calvarium is intact IMPRESSION: MODERATE TO MARKED ATROPHY WITHOUT ACUTE BLEED OR MASS EFFECT.
--- NOTE | 2021-06-30 14:32 | XR ---
EXAMINATION TYPE: XR chest 2V DATE OF EXAM: 06/30/2021 COMPARISON: 02/02/2019 HISTORY: Altered mental status. TECHNIQUE: Frontal and lateral views of the chest are obtained. FINDINGS: There is no focal air space opacity or pneumothorax. There is a small effusion seen on the lateral view likely within the right lung. The Cardiac silhouette size is within normal limits. Th e osseous structures are intact. IMPRESSION: Small pleural effusion likely on the right as described above. No other significant abno rmality seen..
[2021-06-30 14:33] LABS: INR 1.6 (<1.2); Partial Thromboplastin Time 32.4 sec (22.0-30.0); Prothrombin Time 15.9 sec (9.0-12.0)
[2021-06-30 14:34] LABS: Albumin 2.8 g/dL (3.5-5.0); Calcium 8.2 mg/dL (8.4-10.2); Potassium 3.6 mmol/L (3.5-5.1); Total Bilirubin 0.6 mg/dL (0.2-1.3); Total Protein 5.3 g/dL (6.3-8.2)
[2021-06-30] MEDS ORDERED: NALOXONE 0.4 MG/ML 1 ML VIAL IV PRN (15:14)
[2021-06-30] MEDS ORDERED: SODIUM CHLORIDE 0.9% 1,000 ML IV SCH (15:15)
[2021-06-30 15:28] LABS: Band Neutrophils % 19 %; Lymphocytes # (M) 0.34 k/uL (1.0-4.8); Metamyelocytes # (M) 0.54 k/uL (0); Metamyelocytes % 8 %; Neutrophils % (M) 68 %; Nucleated Red Blood Cells 1 /100 WBC (0-0); Total Cells Counted 100; WBC 6.7 k/uL (3.8-10.6)
[2021-06-30] MEDS ORDERED: LACTATED RINGERS 1,000 ML IV ONE (16:15)
[2021-06-30] MEDS ORDERED: CEFEPIME 2 GM in SODIUM CHLORIDE 0.9% 100 ML IVPB STA (16:21)
[2021-06-30] MEDS ORDERED: VANCOMYCIN IV PER PHARMACY 1 EACH MISC MISCELLANE PRN (16:21)
[2021-06-30] MEDS ORDERED: LACTATED RINGERS 1,000 ML IV SCH (16:30)
--- NOTE | 2021-06-30 17:13 | P.HPIM ---
History of Present Illness Chief Complaint: Generalized weakness and altered mental status This is a very pleasant 89-year-old female with past medical history significant for COPD for which she is on chronic prednisone and Fasenra, who was brought into emergency department for abolition of confusion and generalized weakness History is mostly obtained from family who lives with the patient. However patient herself is sufficiently awake if she can provide also history partially. Apparently, patient was in usual state of health night before admission. Patient states that after dinner she went to bed and throughout the night and on the morning of this admission she can't chills and shakes intermittently. She was feeling malaise and subjective fevers. Progressively she started being weak and lethargic and confused. Patient states that she was having some pain and discomfort on the right side of her abdomen. She was noticing some frequency and dysuria. Patient denies any headache neck stiffness sputum changes photophobia and nausea vomiting chest pain shortness of breath cough or diarrhea or blood in the urine or stool no joint swelling. Due to increasing lethargy and weakness family brought patient to the emergency department. Initial blood work was concerning for elevated creatinine and serum bicarbonate of 14. She h ad mildly elevated troponin. EKG sinus tachycardia. She was hypotensive with blood pressure of 80/60. Patient is now being admitted for evaluation of this patient received 1 L bolus of normal saline in the emergency department. Rest of the labs and imaging currently pending. Patient is stating that she is feeling somewhat better. Urine catheter was placed and she is draining yellow urine with some purulence E28. UA significant for cloudy urine elevated leukocyte esterase RBCs and WBCs. Patient has history of kidney stones and has a history of small bowel obstruction. Review of Systems All systems: negative Past Medical History Past Medical History: Atrial Fibrillation, Asthma, Fibromyalgia, Hypertension Additional Past Medical History / Comment(s): recurrent asthma and lung co ngestions symptoms,bowel obs,tachycardia,acoustic neuroma rt ear(deaf)-radiation txs History of Any Multi-Drug Resistant Organisms: None Reported Past Surgical History: Appendectomy, Hysterectomy, Orthopedic Surgery, Tubal Ligation Additional Past Surgical History / Comment(s): exploratory lap & lysis of adhesions,nasal surgery, cataracts,ORIF rt tibia Past Anesthesia/Blood Transfusion Reactions: No Reported Reaction, Family History of Problems w/ Anesthesia Additional Past Anesthesia/Blood Transfusion Reaction / Comment(s): Son had stopped breathing at age 11 during appendix surg,no history of blood transfusion Past Psychological History: No Psychological Hx Reported Past Alcohol Use History: None Reported Past Drug Use History: None Reported - Past Family History Father Family Medical History: Cancer Additional Family Medical History / Comment(s): prostate Mother Additional Family Medical History / Comment(s): aneurysm Medications and Allergies Home Medications Medication Instructions Recorded Confirmed Type Levothyroxine Sodium [Synthroid] 25 mcg PO DAILY 09/29/15 06/30/21 History Ipratropium-Albuterol Nebulize 3 ml INHALATION RT-QID 07/28/17 06/30/21 History [Duoneb 0.5 mg-3 mg/3 ml Soln] Montelukast [Singulair] 10 mg PO DAILY 07/28/17 06/30/21 History Nortriptyline [Pamelor] 10 mg PO DAILY 07/28/17 06/30/21 History Omeprazole 20 mg PO HS 07/28/17 06/30/21 History atenoloL [Tenormin] 37.5 mg PO DAILY 07/28/17 06/30/21 History Budesonide/Formoterol Fumarate 2 puff INHALATION RT-BID 02/04/18 06/30/21 History [Symbicort 160-4.5 Mcg Inhaler] Potassium Chloride [K-Tab ER] 10 meq PO DAILY 02/05/18 06/30/21 History Rivaroxaban [Xarelto] 15 mg PO DAILY 02/02/19 06/30/21 History Benralizumab [Fasenra Pen] 30 mg SQ Q56D 06/30/21 06/30/21 History Cholecalciferol (Vitamin D3) 75 mcg PO DAILY 06/30/21 06/30/21 History [Vitamin D3 (3000 Iu)] Cyanocobalamin [Vitamin B-12 1,000 mcg SQ Q30D 06/30/21 06/30/21 History Injection] Verapamil HCl [Verapamil ER] 120 mg PO DAILY 06/30/21 06/30/21 History guaiFENesin [Mucinex] 1,200 mg PO DAILY 06/30/21 06/30/21 History predniSONE 5 mg PO SUTUTHSA 06/30/21 06/30/21 History predniSONE 10 mg PO MOWEFR 06/30/21 06/30/21 History Allergies Allergy/AdvReac Type Severity Reaction Status Date / Time celecoxib [From Celebrex] Allergy Unknown Verified 06/30/21 15:15 nabumetone [From Relafen] Allergy Unknown Verified 06/30/21 15:15 NSAIDS (Non-Steroidal Allergy Unknown Verified 06/30/21 15:15 Anti-Inflamma pregabalin [From Lyrica] Allergy fluid Verified 06/30/21 15:15 retention tramadol Allergy Itching Verified 06/30/21 15:15 valdecoxib [From Bextra] Allergy Unknown Verified 06/30/21 15:15 carisoprodol [From Soma] AdvReac Dizziness Verified 06/30/21 15:15 duloxetine HCl AdvReac sleepiness Verified 06/30/21 15:15 [From Cymbalta] furosemide [From Lasix] AdvReac Sleepiness Verified 06/30/21 15:15 lisinopril AdvReac dizziness Verified 06/30/21 15:15 metaxalone [From Skelaxin] AdvReac sleepiness Verified 06/30/21 15:15 milk AdvReac Diarrhea Verified 06/30/21 15:15 naproxen [From Naprosyn] AdvReac Itching Verified 06/30/21 15:15 prednisone AdvReac difficulty Verified 06/30/21 15:15 sleeping,fatigue rofecoxib [From Vioxx] AdvReac Nausea & Verified 06/30/21 15:15 Vomiting & Diarrhea DUST Allergy Unknown Uncoded 06/30/21 15:15 Physical Exam Vitals: Vital Signs Temp Pulse Resp BP Pulse Ox 06/30/21 13:54 97.9 F 124 H 20 92/55 99 Intake and Output 06/30/21 06/30/21 06/30/21 06:59 14:59 22:59 Other: Weight 63.503 kg Patient is awake and alert although does appear somewhat tired she is following commands appropriately and participating in conversation appropriately she now she is in the hospital not sure about the month and date that she recognizes family members She seems slightly tachypneic and uncomfortable but denies any particular pain or shortness of breath She had an neck: No facial asymmetry anicteric sclera oropharyngeal mucosa is dry. Neck is supple, no neck rigidity or tenderness range of motion is preserved no neck masses or JVD patient is laying flat without any Lungs: Slightly tachypneic, but not in distress not labored, she has good breath sounds bilaterally felt any wheezing, rhonchi or crackles Cardiovascular: Tachycardic regular rhythm and rate Abdomen bowel sounds are diminished throughout, abdomen is soft without no tenderness to superficial or deep palpation, no masses no guarding. She does have right flank tenderness with percussion Extremities: Periphery is warm and well perfused no peripheral edema no cyanosis or clubbing Skin with multiple old bruises Musculoskeletal: No joint swelling or deformity Neurological cranial nerves are intact pupils are round and reactive to light no nystagmus no facial asymmetry motor strength is 5 out of 5 in upper and lower extremities no clonus, Babinski and [id number] is intact no asterixis Results CBC & Chem 7: 06/30/21 14:02 06/30/21 14:02 Labs: Abnormal Lab Results - Last 24 Hours (Table) 06/30/21 06/30/21 06/30/21 Range/Units 13:33 14:02 14:02 RBC 3.57 L (3.80-5.40) m/uL Hgb 10.4 L (11.4-16.0) gm/dL Hct 33.4 L (34.0-46.0) % RDW 18.4 H (11.5-15.5) % Lymphocytes # (Manual) 0.34 L (1.0-4.8) k/uL Metamyelocytes # (Man) 0.54 H (0) k/uL Nucleated RBCs 1 H (0-0) /100 WBC PT 15.9 H (9.0-12.0) sec INR 1.6 H (<1.2) APTT 32.4 H (22.0-30.0) sec Chloride (98-107) mmol/L Carbon Dioxide (22-30) mmol/L BUN (7-17) mg/dL Creatinine (0.52-1.04) mg/dL POC Glucose (mg/dL) 102 H (75-99) mg/dL Calcium (8.4-10.2) mg/dL AST (14-36) U/L Troponin I (0.000-0.034) ng/mL Total Protein (6.3-8.2) g/dL Albumin (3.5-5.0) g/dL Urine Appearance (Clear) Urine Protein (Negative) Urine Blood (Negative) Ur Leukocyte Esterase (Negative) Urine RBC (0-5) /hpf Urine WBC (0-5) /hpf Urine Bacteria (None) /hpf Urine Mucus (None) /hpf 06/30/21 06/30/21 06/30/21 Range/Units 14:02 14:02 14:02 RBC (3.80-5.40) m/uL Hgb (11.4-16.0) gm/dL Hct (34.0-46.0) % RDW (11.5-15.5) % Lymphocytes # (Manual) (1.0-4.8) k/uL Metamyelocytes # (Man) (0) k/uL Nucleated RBCs (0-0) /100 WBC PT (9.0-12.0) sec INR (<1.2) APTT (22.0-30.0) sec Chloride 109 H (98-107) mmol/L Carbon Dioxide 14 L (22-30) mmol/L BUN 23 H (7-17) mg/dL Creatinine 1.56 H (0.52-1.04) mg/dL POC Glucose (mg/dL) (75-99) mg/dL Calcium 8.2 L (8.4-10.2) mg/dL AST 37 H (14-36) U/L Troponin I 0.086 H* (0.000-0.034) ng/mL Total Protein 5.3 L (6.3-8.2) g/dL Albumin 2.8 L (3.5-5.0) g/dL Urine Appearance Cloudy H (Clear) Urine Protein 1+ H (Negative) Urine Blood Small H (Negative) Ur Leukocyte Esterase Small H (Negative) Urine RBC 19 H (0-5) /hpf Urine WBC 18 H (0-5) /hpf Urine Bacteria Few H (None) /hpf Urine Mucus Rare H (None) /hpf Assessment and Plan Plan: #Acute toxic metabolic encephalopathy likely severe sepsis in immunocompromised patient She had preceding shakes and chills malaise right flank pain and dysuria, UA is significant pyuria and leukocyte esterase RBCs Patient is also acidotic on BMP with elevated creatinine and depressed serum bicarbonate slightly tachypneic Chest x-ray without any acute changes or infiltrates, CT of the head chronic changes Patient is to be stabilized from severe sepsis point and resuscitated She received 1 L bolus in emergency Department Order LR bolus Discontinue her normal saline and start her on bicarbonate Ordered lactic acid, blood and urine cultures Start vancomycin and cefepime Patient will also need stat CT of the abdomen and pelvis as she has right flank tenderness blood in the urine and history of kidney stones Given the fact the patient is on chronic steroids patient will also need stress dose hydrocortisone More recommendations to follow after above measures implemented #Acute on chronic kidney injury Ortiz catheter placed Continue IV fluids Monitor urine output #Metabolic acidosis Check lactic acid Start bicarbonate drip Will repeat BMP later this afternoon #COPD with chronic hypoxic respiratory failure Lungs are clear to auscultation chest x-ray without acute infiltrate is noted respiratory symptoms Patient is typically on chronic prednisone she will be startedto zoster #Elevated troponin Likely in the setting of severe sepsis tachycardia hypotension Likely demand ischemia Cardiology was consulted, echocardiogram being performed currently and I'm getting oral report that ejection fraction is preserved She has no chest pain nor any particular changes on EKG, serial troponins ordered I discussed the patient's family in detail plan of care. Patient is DO NOT RESUSCITATE. Informed and all questions clinical suspicion and plan of care. Family is at peace if patient's overall condition deteriorates for patient to be off her care/hospice. We'll continue to aggressively manage medically this patient however she will remain in DO NOT RESUSCITATE status. Patient will need more than 2 midnights hospital stay Her son is a surrogate decision-maker I review her home medications cement over all medications with the family.
[2021-06-30 17:19] LABS: Calcium 7.7 mg/dL (8.4-10.2); Potassium 3.4 mmol/L (3.5-5.1)
[2021-06-30] MEDS ORDERED: VANCOMYCIN 1,250 MG in SODIUM CHLORIDE 0.9% 250 ML IVPB ONE (17:30)
--- NOTE | 2021-06-30 17:37 | CT ---
EXAMINATION TYPE: CT abdomen pelvis wo con DATE OF EXAM: 06/30/2021 COMPARISON: 08/06/2017 HISTORY: Abdominal pain, sepsis. CT DLP: 601.2 mGycm Automated exposure control for dose reduction was used. Images obtained from the diaphragm to the floor the pelvis with no contrast. There is some infiltrate and pleural fluid at the right lung base. Heart is normal. There is no peric ardial effusion. Thoracic aorta is atheromatous. Liver is intact. Gallbladder is intact. There is nya e increased density in the dependent gallbladder that could be small gallstones. Spleen is intact. Th e stomach is intact. There is right-sided hydronephrosis and hydroureter. There is 9 mm obstructing calculus in the distal right ureter. There is right-sided perinephric edema. There is 5 mm calculus posterior right kidney. Left kidney shows 4 cm cortical cyst in the upper pole. There is no retroperitoneal adenopathy. Abdo panchito aorta is atheromatous. There is broad-based umbilical hernia that contains fat. There is Ortiz catheter in the urinary bladder. There is some fat stranding around the right kidney. There is no mesenteric edema. There are multiple sigmoid diverticula. There is no diverticulitis. The re is no ascites or free air. There is no bowel obstruction. There is a degenerative first-degree L4-5 spondylolisthesis. There is no lumbar compression fracture. Posterior elements are intact. Facet joints are intact. Bony pelvis is intact. Hip joints are intact . There is no evidence of hip fracture. IMPRESSION: Obstructing large calculus distal right ureter with moderate hydronephrosis and hydroureter. Moderate right side retroperitoneal edema. Colonic diverticulosis without diverticulitis. Right pleural effusion and right lower lobe infiltrate and atelectasis. This appears similar to old e xam. There is clearing of the obstructive changes of the small bowel compared to old exam. Right renal obs truction is new compared to old exam. There is clearing of the abdominal ascites compared to old exam .
[2021-06-30] MEDS: DEXTROSE 5% IN WATER 1,000 ML with SODIUM BICARB (1 MEQ/ML) 150 ML IV SCH (17:53)
[2021-06-30] MEDS ORDERED: LACTATED RINGERS 1,000 ML IV STA (18:16)
[2021-06-30] MEDS: MIDODRINE 5 MG TAB PO SCH (18:17)
[2021-06-30] MEDS ORDERED: HYDROCORTISONE SUCCINATE 100 MG/2 ML VIAL IV STA (18:32)
[2021-06-30] MEDS: LACTATED RINGERS 1,000 ML IV SCH ×2 (18:49→23:44)
[2021-06-30] MEDS ORDERED: ALBUMIN HUMAN 25% 50 ML in EMPTY BAG 1 BAG IVPB ONE (19:00)
--- NOTE | 2021-06-30 19:42 | P.GSCN ---
History of Present Illness Consult date: 06/30/21 Reason for Consult: Right ureteral calculus, sepsis Requesting physician: Loyd Garcia History of present illness: The patient is an 89-year-old white female with a history of urolithiasis. Most recently, she underwent ureteroscopic removal of a right sided calculus in December 2020 at [facility]. She now presents with fever, weakness, and mental status changes. She denies flank pain. CT scan shows evidence of right hydroureteronephrosis due to an 8-9 mm right distal ureteral calculus. The CT scan suggests that there may be a second smaller calculus adjacent to this, as well as a 4-5 mm right renal calculus. Review of Systems - Constitutional Reports fever, Reports weakness - Neurological Reports confusion Past Medical History Past Medical History: Atrial Fibrillation, Asthma, Fibromyalgia, Hypertension Additional Past Medical History / Comment(s): recurrent asthma and lung congestions symptoms,bowel obs,tachycardia,acoustic neuroma rt ear(deaf)- radiation txs History of Any Multi-Drug Resistant Organisms: None Reported Past Surgical History: Appendectomy, Hysterectomy, Orthopedic Surgery, Tubal Ligation Additional Past Surgical History / Comment(s): exploratory lap & lysis of adhesions,nasal surgery, cataracts,ORIF rt tibia, ureteroscopic removal of urete ral calculus Past Anesthesia/Blood Transfusion Reactions: No Reported Reaction, Family History of Problems w/ Anesthesia Additional Past Anesthesia/Blood Transfusion Reaction / Comm: Son had stopped breathing at age 11 during appendix surg,no history of blood transfusion Past Psychological History: No Psychological Hx Reported Past Alcohol Use History: None Reported Past Drug Use History: None Reported - Past Family History Father Family Medical History: Cancer Additional Family Medical History / Comment(s): prostate Mother Additional Family Medical History / Comment(s): aneurysm Medications and Allergies Home Medications Medication Instructions Recorded Confirmed Type Levothyroxine Sodium [Synthroid] 25 mcg PO DAILY 09/29/15 06/30/21 History Ipratropium-Albuterol Nebulize 3 ml INHALATION RT-QID 07/28/17 06/30/21 History [Duoneb 0.5 mg-3 mg/3 ml Soln] Montelukast [Singulair] 10 mg PO DAILY 07/28/17 06/30/21 History Nortriptyline [Pamelor] 10 mg PO DAILY 07/28/17 06/30/21 History Omeprazole 20 mg PO HS 07/28/17 06/30/21 History atenoloL [Tenormin] 37.5 mg PO DAILY 07/28/17 06/30/21 History Budesonide/Formoterol Fumarate 2 puff INHALATION RT-BID 02/04/18 06/30/21 History [Symbicort 160-4.5 Mcg Inhaler] Potassium Chloride [K-Tab ER] 10 meq PO DAILY 02/05/18 06/30/21 History Rivaroxaban [Xarelto] 15 mg PO DAILY 02/02/19 06/30/21 History Benralizumab [Fasenra Pen] 30 mg SQ Q56D 06/30/21 06/30/21 History Cholecalciferol (Vitamin D3) 75 mcg PO DAILY 06/30/21 06/30/21 History [Vitamin D3 (3000 Iu)] Cyanocobalamin [Vitamin B-12 1,000 mcg SQ Q30D 06/30/21 06/30/21 History Injection] Verapamil HCl [Verapamil ER] 120 mg PO DAILY 06/30/21 06/30/21 History guaiFENesin [Mucinex] 1,200 mg PO DAILY 06/30/21 06/30/21 History predniSONE 5 mg PO SUTUTHSA 06/30/21 06/30/21 History predniSONE 10 mg PO MOWEFR 06/30/21 06/30/21 History Allergies Allergy/AdvReac Type Severity Reaction Status Date / Time celecoxib [From Celebrex] Allergy Unknown Verified 06/30/21 15:15 nabumetone [From Relafen] Allergy Unknown Verified 06/30/21 15:15 NSAIDS (Non-Steroidal Allergy Unknown Verified 06/30/21 15:15 Anti-Inflamma pregabalin [From Lyrica] Allergy fluid Verified 06/30/21 15:15 retention tramadol Allergy Itching Verified 06/30/21 15:15 valdecoxib [From Bextra] Allergy Unknown Verified 06/30/21 15:15 carisoprodol [From Soma] AdvReac Dizziness Verified 06/30/21 15:15 duloxetine HCl AdvReac sleepiness Verified 06/30/21 15:15 [From Cymbalta] furosemide [From Lasix] AdvReac Sleepiness Verified 06/30/21 15:15 lisinopril AdvReac dizziness Verified 06/30/21 15:15 metaxalone [From Skelaxin] AdvReac sleepiness Verified 06/30/21 15:15 milk AdvReac Diarrhea Verified 06/30/21 15:15 naproxen [From Naprosyn] AdvReac Itching Verified 06/30/21 15:15 prednisone AdvReac difficulty Verified 06/30/21 15:15 sleeping,fatigue rofecoxib [From Vioxx] AdvReac Nausea & Verified 06/30/21 15:15 Vomiting & Diarrhea DUST Allergy Unknown Uncoded 06/30/21 15:15 Surgical - Exam Vital Signs BP 92/55 06/30/21 13:28 - General well developed, well nourished, moderate distress - Neck no masses, trachea midline - Respiratory normal respiratory effort - Abdomen Abdomen: soft, non tender, no guarding, no rigid, no rebound - Psychiatric oriented to time, oriented to person, oriented to place, speech is normal, memory intact Results - Labs 06/30/21 14:02 06/30/21 16:38 Abnormal Lab Results - Last 24 Hours (Table) 06/30/21 06/30/21 06/30/21 Range/Units 13:33 14:02 14:02 RBC 3.57 L (3.80-5.40) m/uL Hgb 10.4 L (11.4-16.0) gm/dL Hct 33.4 L (34.0-46.0) % RDW 18.4 H (11.5-15.5) % Lymphocytes # (Manual) 0.34 L (1.0-4.8) k/uL Metamyelocytes # (Man) 0.54 H (0) k/uL Nucleated RBCs 1 H (0-0) /100 WBC PT 15.9 H (9.0-12.0) sec INR 1.6 H (<1.2) APTT 32.4 H (22.0-30.0) sec Sodium (137-145) mmol/L Potassium (3.5-5.1) mmol/L Chloride (98-107) mmol/L Carbon Dioxide (22-30) mmol/L BUN (7-17) mg/dL Creatinine (0.52-1.04) mg/dL POC Glucose (mg/dL) 102 H (75-99) mg/dL Plasma Lactic Acid You (0.7-2.0) mmol/L Calcium (8.4-10.2) mg/dL AST (14-36) U/L Troponin I (0.000-0.034) ng/mL Total Protein (6.3-8.2) g/dL Albumin (3.5-5.0) g/dL Urine Appearance (Clear) Urine Protein (Negative) Urine Blood (Negative) Ur Leukocyte Esterase (Negative) Urine RBC (0-5) /hpf Urine WBC (0-5) /hpf Urine Bacteria (None) /hpf Urine Mucus (None) /hpf 06/30/21 06/30/21 06/30/21 Range/Units 14:02 14:02 14:02 RBC (3.80-5.40) m/uL Hgb (11.4-16.0) gm/dL Hct (34.0-46.0) % RDW (11.5-15.5) % Lymphocytes # (Manual) (1.0-4.8) k/uL Metamyelocytes # (Man) (0) k/uL Nucleated RBCs (0-0) /100 WBC PT (9.0-12.0) sec INR (<1.2) APTT (22.0-30.0) sec Sodium (137-145) mmol/L Potassium (3.5-5.1) mmol/L Chloride 109 H (98-107) mmol/L Carbon Dioxide 14 L (22-30) mmol/L BUN 23 H (7-17) mg/dL Creatinine 1.56 H (0.52-1.04) mg/dL POC Glucose (mg/dL) (75-99) mg/dL Plasma Lactic Acid You (0.7-2.0) mmol/L Calcium 8.2 L (8.4-10.2) mg/dL AST 37 H (14-36) U/L Troponin I 0.086 H* (0.000-0.034) ng/mL Total Protein 5.3 L (6.3-8.2) g/dL Albumin 2.8 L (3.5-5.0) g/dL Urine Appearance Cloudy H (Clear) Urine Protein 1+ H (Negative) Urine Blood Small H (Negative) Ur Leukocyte Esterase Small H (Negative) Urine RBC 19 H (0-5) /hpf Urine WBC 18 H (0-5) /hpf Urine Bacteria Few H (None) /hpf Urine Mucus Rare H (None) /hpf 06/30/21 06/30/21 06/30/21 Range/Units 16:38 16:38 16:38 RBC (3.80-5.40) m/uL Hgb (11.4-16.0) gm/dL Hct (34.0-46.0) % RDW (11.5-15.5) % Lymphocytes # (Manual) (1.0-4.8) k/uL Metamyelocytes # (Man) (0) k/uL Nucleated RBCs (0-0) /100 WBC PT (9.0-12.0) sec INR (<1.2) APTT (22.0-30.0) sec Sodium 135 L (137-145) mmol/L Potassium 3.4 L (3.5-5.1) mmol/L Chloride 111 H (98-107) mmol/L Carbon Dioxide 13 L (22-30) mmol/L BUN 25 H (7-17) mg/dL Creatinine 1.61 H (0.52-1.04) mg/dL POC Glucose (mg/dL) (75-99) mg/dL Plasma Lactic Acid You 7.1 H* (0.7-2.0) mmol/L Calcium 7.7 L (8.4-10.2) mg/dL AST (14-36) U/L Troponin I 0.173 H* (0.000-0.034) ng/mL Total Protein (6.3-8.2) g/dL Albumin (3.5-5.0) g/dL Urine Appearance (Clear) Urine Protein (Negative) Urine Blood (Negative) Ur Leukocyte Esterase (Negative) Urine RBC (0-5) /hpf Urine WBC (0-5) /hpf Urine Bacteria (None) /hpf Urine Mucus (None) /hpf Diabetes panel 06/30/21 06/30/21 Range/Units 14:02 16:38 Sodium 137 135 L (137-145) mmol/L Potassium 3.6 3.4 L (3.5-5.1) mmol/L Chloride 109 H 111 H (98-107) mmol/L Carbon Dioxide 14 L 13 L (22-30) mmol/L BUN 23 H 25 H (7-17) mg/dL Creatinine 1.56 H 1.61 H (0.52-1.04) mg/dL Glucose 89 78 (74-99) mg/dL Calcium 8.2 L 7.7 L (8.4-10.2) mg/dL AST 37 H (14-36) U/L ALT 28 (4-34) U/L Alkaline Phosphatase 115 (38-126) U/L Total Protein 5.3 L (6.3-8.2) g/dL Albumin 2.8 L (3.5-5.0) g/dL Calcium panel 06/30/21 06/30/21 Range/Units 14:02 16:38 Calcium 8.2 L 7.7 L (8.4-10.2) mg/dL Albumin 2.8 L (3.5-5.0) g/dL Pituitary panel 06/30/21 06/30/21 Range/Units 14:02 16:38 Sodium 137 135 L (137-145) mmol/L Potassium 3.6 3.4 L (3.5-5.1) mmol/L Chloride 109 H 111 H (98-107) mmol/L Carbon Dioxide 14 L 13 L (22-30) mmol/L BUN 23 H 25 H (7-17) mg/dL Creatinine 1.56 H 1.61 H (0.52-1.04) mg/dL Glucose 89 78 (74-99) mg/dL Calcium 8.2 L 7.7 L (8.4-10.2) mg/dL Adrenal panel 06/30/21 06/30/21 Range/Units 14:02 16:38 Sodium 137 135 L (137-145) mmol/L Potassium 3.6 3.4 L (3.5-5.1) mmol/L Chloride 109 H 111 H (98-107) mmol/L Carbon Dioxide 14 L 13 L (22-30) mmol/L BUN 23 H 25 H (7-17) mg/dL Creatinine 1.56 H 1.61 H (0.52-1.04) mg/dL Glucose 89 78 (74-99) mg/dL Calcium 8.2 L 7.7 L (8.4-10.2) mg/dL Total Bilirubin 0.6 (0.2-1.3) mg/dL AST 37 H (14-36) U/L ALT 28 (4-34) U/L Alkaline Phosphatase 115 (38-126) U/L Total Protein 5.3 L (6.3-8.2) g/dL Albumin 2.8 L (3.5-5.0) g/dL - Imaging CT scan - abdomen: report reviewed, image reviewed Assessment and Plan (1) UTI (urinary tract infection) Current Visit: Yes Status: Acute Code(s): N39.0 - URINARY TRACT INFECTION, SITE NOT SPECIFIED SNOMED Code(s): 95913677 (2) Calculus of ureter Current Visit: Yes Status: Acute Code(s): N20.1 - CALCULUS OF URETER SNOMED Code(s): 37002944 (3) Acute pyelonephritis Current Visit: Yes Status: Acute Code(s): N10 - ACUTE PYELONEPHRITIS SNOMED Code(s): 79497190 Plan: Although the urinalysis is not very impressive, the patient is febrile and shows obvious signs of sepsis. I have suggested she undergo cystoscopy with right ureteral stent insertion. The rationale for this was discussed in detail with the patient and her daughter. They were made aware of potential risks, which include anesthesia, ureteral injury, and inability to place the stent. In either of the latter scenarios, a right percutaneous nephrostomy tube may be re quired. They were also advised that a secondary procedure will be required, consisting of stent removal with ureteroscopy and laser lithotripsy once she has fully recovered and the infection has resolved. Time with Patient: Greater than 30
[2021-06-30] MEDS ORDERED: fentaNYL (PF) 50 MCG/ML 2 ML AMP ONE (19:43)
[2021-06-30] MEDS ORDERED: PROPOFOL 10 MG/ML 20 ML VIAL IV ONE (19:43)
[2021-06-30] MEDS ORDERED: IV FLUID CONTINUATION 1,000 ML IV ONE (19:48)
--- NOTE | 2021-06-30 20:27 | P.OP ---
Date of Procedure: 06/30/21 Preoperative Diagnosis: Right hydronephrosis secondary to right distal ureteral calculus Postoperative Diagnosis: Same Procedure(s) Performed: Cystoscopy, right ureteral stent insertion Anesthesia: MAC Surgeon: Maximino Wall Estimated Blood Loss (ml): 0 IV fluids (ml): 200 Pathology: none sent Condition: stable Disposition: PACU Indications for Procedure: The patient is an 89-year-old white female with a history of urolithiasis. Most recently, she underwent ureteroscopic removal of a right sided calculus in December 2020 at [facility]. She now presents with fever, weakness, and mental status changes. She denies flank pain. CT scan shows evidence of right hydroureteronephrosis due to an 8-9 mm right distal ureteral calculus. The CT scan suggests that there may be a second smaller calculus adjacent to this, as well as a 4-5 mm right renal calculus. It is presumed that she is septic as a result of the obstructing distal ureteral calculus. Operative Findings: Obstructing right distal ureteral calculus. Successful stent placement. Cloudy urine drained from right upper collecting system (sent for C & S). Description of Procedure: The patient was taken to the operating room and placed in the dorsolithotomy position, with legs supported in Og stirrups. The external genitalia was prepped and draped sterilely. The 30 lens was used to introduce the 22-Moroccan Stortz cystoscopic sheath through the urethra and into the bladder under direct vision. The bladder was examined in its entirety. Both ureteral orifices were of normal anatomic location and configuration. No tumors or foreign bodies were seen. An angle-tip 0.035 inch Glidewire was passed through the cystoscope. The right ureteral orifice was cannulated, and the Glidewire was slowly advanced. With some manipulation, it was possible to advance the Glidewire beyond the obstructing distal ureteral calculus and up to the right renal pelvis. Cloudy urine drained. A 24 cm, 6-Moroccan double-J ureteral stent was placed over the wire. Proper stent positioning was verified fluoroscopically and endoscopically. With the beak of the cystoscope immediately adjacent to the distal end of the stent, urine was collected and sent for culture and sensitivity. The cystoscope was removed, and a Ortiz catheter was replaced into the bladder. The patient tolerated the procedure well was taken to the recovery room in stable condition.
[2021-06-30] MEDS: HYDROCORTISONE SUCCINATE 100 MG/2 ML VIAL IV SCH (23:46)
[2021-07-01] MEDS ORDERED: HYDROCORTISONE SUCCINATE 100 MG/2 ML VIAL IV SCH
[2021-07-01 05:17] LABS: Anisocytosis Slight; HCT 26.6 % (34.0-46.0); Hypochromasia Marked; MCH 29.1 pg (25.0-35.0); MCHC 31.6 g/dL (31.0-37.0); MCV 92.3 fL (80.0-100.0); Mean Platelet Volume 8.2; Platelet Count 210 k/uL (150-450); RBC 2.88 m/uL (3.80-5.40); RDW 18.6 % (11.5-15.5); WBC 45.4 k/uL (3.8-10.6)
[2021-07-01 05:23] LABS: HGB 8.4 gm/dL (11.4-16.0)
[2021-07-01 05:35] LABS: Band Neutrophils % 33 %; Lymphocytes # (M) 0.91 k/uL (1.0-4.8); Metamyelocytes # (M) 3.63 k/uL (0); Metamyelocytes % 8 %; Monocytes # (M) 1.36 k/uL (0-1.0); Myelocytes # (M) 0.91 k/uL (0); Myelocytes % 2 %; Neutrophils % (M) 53 %; Nucleated Red Blood Cells 0 /100 WBC (0-0); Total Cells Counted 200
[2021-07-01 05:36] LABS: Anisocytosis (M) Present; Poikilocytosis (M) Present; Toxic Granulation Present; Toxic Vacuolation Present
[2021-07-01 05:37] LABS: Albumin 2.3 g/dL (3.5-5.0); Calcium 7.3 mg/dL (8.4-10.2); Potassium 3.4 mmol/L (3.5-5.1); Total Bilirubin 0.6 mg/dL (0.2-1.3); Total Protein 4.6 g/dL (6.3-8.2)
[2021-07-01] MEDS: LEVOTHYROXINE 25 MCG TAB PO SCH (06:37)
[2021-07-01] MEDS: MIDODRINE 5 MG TAB PO SCH ×3 (06:37→16:43)
[2021-07-01] MEDS: CEFEPIME 2 GM in SODIUM CHLORIDE 0.9% 100 ML IVPB SCH ×2 (06:37→16:42)
[2021-07-01] MEDS: LACTATED RINGERS 1,000 ML IV SCH (06:42)
--- NOTE | 2021-07-01 07:08 | FL ---
Fluoroscopy HISTORY: Ureteral stent 25 seconds fluoroscopy time supplied to the referring clinician. 1 intraoperative C-arm images docum ent the procedure. See dictated report from urology.
--- NOTE | 2021-07-01 08:18 | P.CRDCN ---
History of Present Illness Consult date: 07/01/21 Chief complaint: Fever and chills History of present illness: The patient is a pleasant 89-year-old female patient with somewhat poor historian who requested to see for further cardiac evaluation of abnormal troponin and abnormal EKG. The patient does have a past medical history significant for paroxysmal atrial fibrillation was receiving oral anticoagulation as an outpatient. She presented to the emergency department complaining of fever and chills and urinary symptoms and she was diagnosed with UTI. She was seen by the neurology service where she underwent yesterday successful ureteral stenting for ureteral obstruction related to stone. We consulted to see the patient because of abnormal EKG and abnormal troponin. The EKG showed sinus tachycardia with diffuse nonspecific ST and T wave abnormalities. The troponin was checked and came in to be slightly elevated. No prior history of coronary artery disease. No prior revascularization. Clinically the patient is a poor historian but she reports no symptoms of chest pain or chest discomfort nor shortness of breath nor dizziness or lightheadedness and no presyncope or syncope. Hemodynamically she is a slightly unstable with marginally low blood pressure but currently she is not on any blood pressure medications. The chest x-ray showed small pleural effusion. At this point and in view of the absence of any symptoms of chest pain or chest discomfort I would consider conservative medical approach for the abnormal troponin and mildly abnormal EKG. Consider starting the patient on small dose of beta wai once her pressure allow and her systolic pressure of 90 mmHg. Beside that going to obtain an echocardiogram was Doppler to assess ejection fraction and assess for any wall motion abnormalities. Consider restarting the patient back on oral anticoagulation once is safe from the surgical standpoint overview. Past Medical History Past Medical History: Atrial Fibrillation, Asthma, Fibromyalgia, Hypertension Additional Past Medical History / Comment(s): recurrent asthma and lung congestions symptoms,bowel obs,tachycardia,acoustic neuroma rt ear(deaf)- radiation txs History of Any Multi-Drug Resistant Organisms: None Reported Past Surgical History: Appendectomy, Hysterectomy, Orthopedic Surgery, Tubal Ligation Additional Past Surgical History / Comment(s): exploratory lap & lysis of adhesions,nasal surgery, cataracts,ORIF rt tibia, ureteroscopic removal of ureteral calculus Past Anesthesia/Blood Transfusion Reactions: No Reported Reaction, Family History of Problems w/ Anesthesia Additional Past Anesthesia/Blood Transfusion Reaction / Comment(s): Son had sto pped breathing at age 11 during appendix surg,no history of blood transfusion Past Psychological History: No Psychological Hx Reported Smoking Status: Never smoker Past Alcohol Use History: None Reported Past Drug Use History: None Reported - Past Family History Father Family Medical History: Cancer Additional Family Medical History / Comment(s): prostate Mother Additional Family Medical History / Comment(s): aneurysm Medications and Allergies Home Medications Medication Instructions Recorded Confirmed Type Levothyroxine Sodium [Synthroid] 25 mcg PO DAILY 09/29/15 06/30/21 History Ipratropium-Albuterol Nebulize 3 ml INHALATION RT-QID 07/28/17 06/30/21 History [Duoneb 0.5 mg-3 mg/3 ml Soln] Montelukast [Singulair] 10 mg PO DAILY 07/28/17 06/30/21 History Nortriptyline [Pamelor] 10 mg PO DAILY 07/28/17 06/30/21 History Omeprazole 20 mg PO HS 07/28/17 06/30/21 History atenoloL [Tenormin] 37.5 mg PO DAILY 07/28/17 06/30/21 History Budesonide/Formoterol Fumarate 2 puff INHALATION RT-BID 02/04/18 06/30/21 Histo ry [Symbicort 160-4.5 Mcg Inhaler] Potassium Chloride [K-Tab ER] 10 meq PO DAILY 02/05/18 06/30/21 History Rivaroxaban [Xarelto] 15 mg PO DAILY 02/02/19 06/30/21 History Benralizumab [Fasenra Pen] 30 mg SQ Q56D 06/30/21 06/30/21 History Cholecalciferol (Vitamin D3) 75 mcg PO DAILY 06/30/21 06/30/21 History [Vitamin D3 (3000 Iu)] Cyanocobalamin [Vitamin B-12 1,000 mcg SQ Q30D 06/30/21 06/30/21 History Injection] Verapamil HCl [Verapamil ER] 120 mg PO DAILY 06/30/21 06/30/21 History guaiFENesin [Mucinex] 1,200 mg PO DAILY 06/30/21 06/30/21 History predniSONE 5 mg PO SUTUTHSA 06/30/21 06/30/21 History predniSONE 10 mg PO MOWEFR 06/30/21 06/30/21 History Allergies Allergy/AdvReac Type Severity Reaction Status Date / Time celecoxib [From Celebrex] Allergy Unknown Verified 06/30/21 15:15 nabumetone [From Relafen] Allergy Unknown Verified 06/30/21 15:15 NSAIDS (Non-Steroidal Allergy Unknown Verified 06/30/21 15:15 Anti-Inflamma pregabalin [From Lyrica] Allergy fluid Verified 06/30/21 15:15 retention tramadol Allergy Itching Verified 06/30/21 15:15 valdecoxib [From Bextra] Allergy Unknown Verified 06/30/21 15:15 carisoprodol [From Soma] AdvReac Dizziness Verified 06/30/21 15:15 duloxetine HCl AdvReac sleepiness Verified 06/30/21 15:15 [From Cymbalta] furosemide [From Lasix] AdvReac Sleepiness Verified 06/30/21 15:15 lisinopril AdvReac dizziness Verified 06/30/21 15:15 metaxalone [From Skelaxin] AdvReac sleepiness Verified 06/30/21 15:15 milk AdvReac Diarrhea Verified 06/30/21 15:15 naproxen [From Naprosyn] AdvReac Itching Verified 06/30/21 15:15 prednisone AdvReac difficulty Verified 06/30/21 15:15 sleeping,fatigue rofecoxib [From Vioxx] AdvReac Nausea & Verified 06/30/21 15:15 Vomiting & Diarrhea DUST Allergy Unknown Uncoded 06/30/21 15:15 Physical Exam Vitals: Vital Signs Temp Pulse Pulse Resp BP BP Pulse Ox 07/01/21 04:20 98.3 F 98 18 87/52 94 L 06/30/21 23:25 98.1 F 98 18 91/56 95 06/30/21 21:20 98.1 F 99 19 88/53 96 06/30/21 20:45 100 14 82/50 94 L 06/30/21 20:30 99 14 82/47 98 06/30/21 20:22 98.6 F 64 16 86/50 91 L 06/30/21 18:00 111 H 31 H 115/52 98 06/30/21 17:30 113 H 31 H 91/60 97 06/30/21 17:22 102.4 F H 118 H 26 H 91/60 97 06/30/21 17:00 95/64 12/10/21 16:30 110 H 30 H 99/48 97 06/30/21 16:00 110 H 28 H 100/54 100 06/30/21 15:30 112 H 30 H 104/63 99 06/30/21 15:00 118 H 33 H 93/59 97 06/30/21 14:30 123 H 31 H 96 06/30/21 14:00 92/55 100 06/30/21 13:54 97.9 F 124 H 20 92/55 99 06/30/21 13:30 92/55 06/30/21 13:28 9255 Intake and Output 06/30/21 07/01/21 07/01/21 22:59 06:59 14:59 Intake Total 200 Output Total 0 Balance 200 Intake: IV 200 Output: Estimated Blood Loss 0 Other: # Bowel Movements 1 Weight 63.503 kg 77.5 kg - Constitutional General appearance: no acute distress - Respiratory Respiratory: bilateral: diminished - Cardiovascular Rhythm: regular Heart sounds: normal: S1, S2 Results 07/01/21 04:48 07/01/21 04:48 Cardiac Enzymes 06/30/21 06/30/21 06/30/21 Range/Units 14:02 14:02 16:38 AST 37 H (14-36) U/L Troponin I 0.086 H* 0.173 H* (0.000-0.034) ng/mL 07/01/21 Range/Units 04:48 AST 41 H (14-36) U/L Troponin I (0.000-0.034) ng/mL Coagulation 06/30/21 Range/Units 14:02 PT 15.9 H (9.0-12.0) sec APTT 32.4 H (22.0-30.0) sec CBC 06/30/21 07/01/21 Range/Units 14:02 04:48 WBC 6.7 45.4 H (3.8-10.6) k/uL RBC 3.57 L 2.88 L (3.80-5.40) m/uL Hgb 10.4 L 8.4 L D (11.4-16.0) gm/dL Hct 33.4 L 26.6 L (34.0-46.0) % Plt Count 241 210 (150-450) k/uL Comprehensive Metabolic Panel 06/30/21 06/30/21 07/01/21 Range/Units 14:02 16:38 04:48 Sodium 137 135 L 136 L (137-145) mmol/L Potassium 3.6 3.4 L 3.4 L (3.5-5.1) mmol/L Chloride 109 H 111 H 110 H (98-107) mmol/L Carbon Dioxide 14 L 13 L 18 L (22-30) mmol/L BUN 23 H 25 H 25 H (7-17) mg/dL Creatinine 1.56 H 1.61 H 1.55 H (0.52-1.04) mg/dL Glucose 89 78 73 L (74-99) mg/dL Calcium 8.2 L 7.7 L 7.3 L (8.4-10.2) mg/dL AST 37 H 41 H (14-36) U/L ALT 28 19 (4-34) U/L Alkaline Phosphatase 115 57 (38-126) U/L Total Protein 5.3 L 4.6 L (6.3-8.2) g/dL Albumin 2.8 L 2.3 L (3.5-5.0) g/dL Current Medications Generic Name Dose Route Start Last Admin Trade Name Freq PRN Reason Stop Dose Admin Albuterol/Ipratropium 3 ml 06/30/21 16:22 Ipratropium-Albuterol 3 Ml Neb INHALATION RT-QID PRN Bronchospasm Hydrocortisone Sodium Succinate 50 mg 07/01/21 00:00 06/30/21 23:46 Hydrocortisone Succinate 100 Mg/2 Ml Vial IV 50 mg Q8HR JOHNY Administration Sodium Bicarbonate 150 ml/ 1,150 mls @ 75 mls/hr 06/30/21 17:00 06/30/21 17:53 Dextrose/Water IV 75 mls/hr .[id number] JOHNY Administration Vancomycin HCl 1,250 mg/ 250 mls @ 125 mls/hr 07/01/21 14:00 Sodium Chloride IVPB 07/01/21 15:59 ONCE ONE Cefepime HCl 2 gm/ Sodium 100 mls @ 25 mls/hr 07/01/21 06:00 07/01/21 06:37 Chloride IVPB 25 mls/hr Q12H JOHNY Administration Lactated Ringer's 1,000 mls @ 200 mls/hr 06/30/21 18:30 07/01/21 06:42 Lactated Ringers IV 200 mls/hr .Q5H JOHNY Administration Levothyroxine Sodium 25 mcg 07/01/21 06:30 07/01/21 06:37 Levothyroxine 25 Mcg Tab PO 25 mcg 0630 JOHNY Administration Midodrine 2.5 mg 06/30/21 17:30 07/01/21 06:37 Midodrine 5 Mg Tab PO 2.5 mg AC-TID JOHNY Administration Miscellaneous Information 1 each 06/30/21 16:21 Vancomycin Iv Per Pharmacy 1 Each [facility] [place] MISCELLANE DIRECTED PRN Per Protocol Protocol Naloxone HCl 0.2 mg 06/30/21 15:14 Naloxone 0.4 Mg/Ml 1 Ml Vial IV Q2M PRN Opioid Reversal Thiamine HCl 100 mg 07/01/21 09:00 Thiamine 100 Mg/Ml 2 Ml Vial IVP DAILY JOHNY Intake and Output 06/30/21 07/01/21 07/01/21 22:59 06:59 14:59 Intake Total 200 Output Total 0 Balance 200 Intake: IV 200 Output: Estimated Blood Loss 0 Other: # Bowel Movements 1 Weight 63.503 kg 77.5 kg 07/01/21 04:48 07/01/21 04:48 Assessment and Plan Assessment: Assessment #1 urinary tract infection #2 urinary obstruction and status post urethral stent #3 myocardial injury without any evidence of ischemia #4 paroxysmal atrial fibrillation #5 marginal a low blood pressure Plan #1 consider conservative medical approach at this point #2 consider obtaining an echocardiogram was Doppler #3 consider starting the patient on small dose of beta wai once the blood pressure allow on the systolic pressure of 90 mmHg #4 follow-up with the patient
[2021-07-01] MEDS ORDERED: POTASSIUM CHLORIDE ER 10 MEQ TAB.ER.PRT PO STA (08:38)
[2021-07-01] MEDS ORDERED: THIAMINE 100 MG/ML 2 ML VIAL IVP SCH (09:00)
[2021-07-01] MEDS ORDERED: THIAMINE 100 MG in SODIUM CHLORIDE 0.9% 50 ML IVPB SCH (09:00)
[2021-07-01] MEDS: DEXTROSE 5% IN WATER 1,000 ML with SODIUM BICARB (1 MEQ/ML) 150 ML IV SCH (09:18)
[2021-07-01] MEDS: HYDROCORTISONE SUCCINATE 100 MG/2 ML VIAL IV SCH ×3 (09:30→23:26)
--- NOTE | 2021-07-01 10:20 | P.PN ---
Subjective Progress Note Date: 07/01/21 Principal diagnosis: Acute right pyelonephritis complicated by right distal ureteral calculus The patient has been afebrile since undergoing stent placement yesterday evening. Cloudy urine drained from the right kidney following stent placement, and this is presumed to be the source of the patient's sepsis. Her WBC count has increased significantly to 45.4, and her lactic acid level remains elevated (4.2). Blood cultures show gram-negative rods. Urine cultures are pending. Objective - Vital Signs Vital signs: Vital Signs Temp 98.3 F 07/01/21 04:20 Pulse 98 07/01/21 04:20 Resp 18 07/01/21 04:20 BP 87/52 07/01/21 04:20 Pulse Ox 94 L 07/01/21 04:20 Intake & Output 06/30/21 07/01/21 07/01/21 18:59 06:59 18:59 Intake Total 200 Output Total 0 Balance 200 Weight 63.503 kg 77.5 kg Intake: IV 200 Output: Estimated Blood Loss 0 Other: # Bowel Movements 1 - Constitutional General appearance: Present: average body habitus, cooperative, no acute distress - Gastrointestinal General gastrointestinal: Present: soft. Absent: distended, tenderness - Psychiatric Psychiatric: Present: A&O x's 3, appropriate affect - Labs CBC & Chem 7: 07/01/21 04:48 07/01/21 04:48 Labs: Abnormal Lab Results - Last 24 Hours (Table) 06/30/21 06/30/21 06/30/21 Range/Units 13:33 14:02 14:02 WBC (3.8-10.6) k/uL RBC 3.57 L (3.80-5.40) m/uL Hgb 10.4 L (11.4-16.0) gm/dL Hct 33.4 L (34.0-46.0) % RDW 18.4 H (11.5-15.5) % Neutrophils # (Manual) (1.3-7.7) k/uL Lymphocytes # (Manual) 0.34 L (1.0-4.8) k/uL Monocytes # (Manual) (0-1.0) k/uL Metamyelocytes # (Man) 0.54 H (0) k/uL Myelocytes # (Manual) (0) k/uL Nucleated RBCs 1 H (0-0) /100 WBC PT 15.9 H (9.0-12.0) sec INR 1.6 H (<1.2) APTT 32.4 H (22.0-30.0) sec Sodium (137-145) mmol/L Potassium (3.5-5.1) mmol/L Chloride (98-107) mmol/L Carbon Dioxide (22-30) mmol/L BUN (7-17) mg/dL Creatinine (0.52-1.04) mg/dL Glucose (74-99) mg/dL POC Glucose (mg/dL) 102 H (75-99) mg/dL Plasma Lactic Acid You (0.7-2.0) mmol/L Calcium (8.4-10.2) mg/dL AST (14-36) U/L Troponin I (0.000-0.034) ng/mL Total Protein (6.3-8.2) g/dL Albumin (3.5-5.0) g/dL Urine Appearance (Clear) Urine Protein (Negative) Urine Blood (Negative) Ur Leukocyte Esterase (Negative) Urine RBC (0-5) /hpf Urine WBC (0-5) /hpf Urine Bacteria (None) /hpf Urine Mucus (None) /hpf 06/30/21 06/30/21 06/30/21 Range/Units 14:02 14:02 14:02 WBC (3.8-10.6) k/uL RBC (3.80-5.40) m/uL Hgb (11.4-16.0) gm/dL Hct (34.0-46.0) % RDW (11.5-15.5) % Neutrophils # (Manual) (1.3-7.7) k/uL Lymphocytes # (Manual) (1.0-4.8) k/uL Monocytes # (Manual) (0-1.0) k/uL Metamyelocytes # (Man) (0) k/uL Myelocytes # (Manual) (0) k/uL Nucleated RBCs (0-0) /100 WBC PT (9.0-12.0) sec INR (<1.2) APTT (22.0-30.0) sec Sodium (137-145) mmol/L Potassium (3.5-5.1) mmol/L Chloride 109 H (98-107) mmol/L Carbon Dioxide 14 L (22-30) mmol/L BUN 23 H (7-17) mg/dL Creatinine 1.56 H (0.52-1.04) mg/dL Glucose (74-99) mg/dL POC Glucose (mg/dL) (75-99) mg/dL Plasma Lactic Acid You (0.7-2.0) mmol/L Calcium 8.2 L (8.4-10.2) mg/dL AST 37 H (14-36) U/L Troponin I 0.086 H* (0.000-0.034) ng/mL Total Protein 5.3 L (6.3-8.2) g/dL Albumin 2.8 L (3.5-5.0) g/dL Urine Appearance Cloudy H (Clear) Urine Protein 1+ H (Negative) Urine Blood Small H (Negative) Ur Leukocyte Esterase Small H (Negative) Urine RBC 19 H (0-5) /hpf Urine WBC 18 H (0-5) /hpf Urine Bacteria Few H (None) /hpf Urine Mucus Rare H (None) /hpf 06/30/21 06/30/21 06/30/21 Range/Units 16:38 16:38 16:38 WBC (3.8-10.6) k/uL RBC (3.80-5.40) m/uL Hgb (11.4-16.0) gm/dL Hct (34.0-46.0) % RDW (11.5-15.5) % Neutrophils # (Manual) (1.3-7.7) k/uL Lymphocytes # (Manual) (1.0-4.8) k/uL Monocytes # (Manual) (0-1.0) k/uL Metamyelocytes # (Man) (0) k/uL Myelocytes # (Manual) (0) k/uL Nucleated RBCs (0-0) /100 WBC PT (9.0-12.0) sec INR (<1.2) APTT (22.0-30.0) sec Sodium 135 L (137-145) mmol/L Potassium 3.4 L (3.5-5.1) mmol/L Chloride 111 H (98-107) mmol/L Carbon Dioxide 13 L (22-30) mmol/L BUN 25 H (7-17) mg/dL Creatinine 1.61 H (0.52-1.04) mg/dL Glucose (74-99) mg/dL POC Glucose (mg/dL) (75-99) mg/dL Plasma Lactic Acid You 7.1 H* (0.7-2.0) mmol/L Calcium 7.7 L (8.4-10.2) mg/dL AST (14-36) U/L Troponin I 0.173 H* (0.000-0.034) ng/mL Total Protein (6.3-8.2) g/dL Albumin (3.5-5.0) g/dL Urine Appearance (Clear) Urine Protein (Negative) Urine Blood (Negative) Ur Leukocyte Esterase (Negative) Urine RBC (0-5) /hpf Urine WBC (0-5) /hpf Urine Bacteria (None) /hpf Urine Mucus (None) /hpf 06/30/21 07/01/21 07/01/21 Range/Units 21:40 01:40 04:48 WBC (3.8-10.6) k/uL RBC (3.80-5.40) m/uL Hgb (11.4-16.0) gm/dL Hct (34.0-46.0) % RDW (11.5-15.5) % Neutrophils # (Manual) (1.3-7.7) k/uL Lymphocytes # (Manual) (1.0-4.8) k/uL Monocytes # (Manual) (0-1.0) k/uL Metamyelocytes # (Man) (0) k/uL Myelocytes # (Manual) (0) k/uL Nucleated RBCs (0-0) /100 WBC PT (9.0-12.0) sec INR (<1.2) APTT (22.0-30.0) sec Sodium 136 L (137-145) mmol/L Potassium 3.4 L (3.5-5.1) mmol/L Chloride 110 H (98-107) mmol/L Carbon Dioxide 18 L (22-30) mmol/L BUN 25 H (7-17) mg/dL Creatinine 1.55 H (0.52-1.04) mg/dL Glucose 73 L (74-99) mg/dL POC Glucose (mg/dL) (75-99) mg/dL Plasma Lactic Acid You 5.9 H* 4.9 H* (0.7-2.0) mmol/L Calcium 7.3 L (8.4-10.2) mg/dL AST 41 H (14-36) U/L Troponin I (0.000-0.034) ng/mL Total Protein 4.6 L (6.3-8.2) g/dL Albumin 2.3 L (3.5-5.0) g/dL Urine Appearance (Clear) Urine Protein (Negative) Urine Blood (Negative) Ur Leukocyte Esterase (Negative) Urine RBC (0-5) /hpf Urine WBC (0-5) /hpf Urine Bacteria (None) /hpf Urine Mucus (None) /hpf 07/01/21 07/01/21 Range/Units 04:48 04:48 WBC 45.4 H (3.8-10.6) k/uL RBC 2.88 L (3.80-5.40) m/uL Hgb 8.4 L D (11.4-16.0) gm/dL Hct 26.6 L (34.0-46.0) % RDW 18.6 H (11.5-15.5) % Neutrophils # (Manual) 39.00 H (1.3-7.7) k/uL Lymphocytes # (Manual) 0.91 L (1.0-4.8) k/uL Monocytes # (Manual) 1.36 H (0-1.0) k/uL Metamyelocytes # (Man) 3.63 H (0) k/uL Myelocytes # (Manual) 0.91 H (0) k/uL Nucleated RBCs (0-0) /100 WBC PT (9.0-12.0) sec INR (<1.2) APTT (22.0-30.0) sec Sodium (137-145) mmol/L Potassium (3.5-5.1) mmol/L Chloride (98-107) mmol/L Carbon Dioxide (22-30) mmol/L BUN (7-17) mg/dL Creatinine (0.52-1.04) mg/dL Glucose (74-99) mg/dL POC Glucose (mg/dL) (75-99) mg/dL Plasma Lactic Acid You 4.2 H* (0.7-2.0) mmol/L Calcium (8.4-10.2) mg/dL AST (14-36) U/L Troponin I (0.000-0.034) ng/mL Total Protein (6.3-8.2) g/dL Albumin (3.5-5.0) g/dL Urine Appearance (Clear) Urine Protein (Negative) Urine Blood (Negative) Ur Leukocyte Esterase (Negative) Urine RBC (0-5) /hpf Urine WBC (0-5) /hpf Urine Bacteria (None) /hpf Urine Mucus (None) /hpf Microbiology - Last 24 Hours (Table) 06/30/21 20:09 Urine Culture - Preliminary Urine,Voided 06/30/21 16:38 Blood Culture - Final Blood 06/30/21 Unknown Urine Culture - Preliminary Urine,Catheterized 06/30/21 14:02 Urine Culture - Preliminary Urine,Voided Assessment and Plan (1) UTI (urinary tract infection) Current Visit: Yes Status: Acute Code(s): N39.0 - URINARY TRACT INFECTION, SITE NOT SPECIFIED SNOMED Code(s): 15148178 (2) Calculus of ureter Current Visit: Yes Status: Acute Code(s): N20.1 - CALCULUS OF URETER SNOMED Code(s): 56390301 (3) Acute pyelonephritis Current Visit: Yes Status: Acute Code(s): N10 - ACUTE PYELONEPHRITIS SNOMED Code(s): 99625074 Plan: Continue cefepime, pending the final urine and blood cultures. I question the value of her receiving vancomycin, particularly in view of her renal insufficiency and the fact that blood cultures show gram-negative rods. The Ortiz catheter may be removed when no longer medically needed.
[2021-07-01] MEDS: IPRATROPIUM-ALBUTEROL 3 ML NEB INHALATION PRN (11:30)
--- NOTE | 2021-07-01 13:19 | P.PN ---
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 She has great urine output. She still otherwise feeling tired and fatigued and low energy. No shortness of breath. She remains afebrile. Significant leukocytosis. Objective - Vital Signs Vital signs: Vital Signs Temp 98.4 F 07/01/21 08:00 Pulse 106 H 07/01/21 11:54 Resp 18 07/01/21 08:00 BP 100/55 07/01/21 08:00 Pulse Ox 95 07/01/21 08:00 Intake & Output 06/30/21 07/01/21 07/01/21 18:59 06:59 18:59 Intake Total 200 Output Total 0 Balance 200 Weight 63.503 kg 77.5 kg Intake: IV 200 Output: Estimated Blood Loss 0 Other: # Bowel Movements 1 - Exam Awake alert and oriented 3 not in apparent distress She had an neck: No facial asymmetry anicteric sclera oropharyngeal mucosa is dry. Neck is supple, no neck rigidity or tenderness range of motion is prese rved no neck masses or JVD patient is laying flat without any Lungs: Slightly tachypneic, but not in distress not labored, she has good breath sounds bilaterally felt any wheezing, rhonchi or crackles Cardiovascular: Tachycardic regular rhythm and rate Abdomen bowel sounds are diminished throughout, abdomen is soft without no tenderness to superficial or deep palpation, no masses no guarding. She does have right flank tenderness with percussion Extremities: Periphery is warm and well perfused no peripheral edema no cyanosis or clubbing Skin with multiple old bruises Musculoskeletal: No joint swelling or deformity - Labs CBC & Chem 7: 07/01/21 04:48 07/01/21 04:48 Labs: Abnormal Lab Results - Last 24 Hours (Table) 06/30/21 06/30/21 06/30/21 Range/Units 13:33 14:02 14:02 WBC (3.8-10.6) k/uL RBC 3.57 L (3.80-5.40) m/uL Hgb 10.4 L (11.4-16.0) gm/dL Hct 33.4 L (34.0-46.0) % RDW 18.4 H (11.5-15.5) % Neutrophils # (Manual) (1.3-7.7) k/uL Lymphocytes # (Manual) 0.34 L (1.0-4.8) k/uL Monocytes # (Manual) (0-1.0) k/uL Metamyelocytes # (Man) 0.54 H (0) k/uL Myelocytes # (Manual) (0) k/uL Nucleated RBCs 1 H (0-0) /100 WBC PT 15.9 H (9.0-12.0) sec INR 1.6 H (<1.2) APTT 32.4 H (22.0-30.0) sec Sodium (137-145) mmol/L Potassium (3.5-5.1) mmol/L Chloride (98-107) mmol/L Carbon Dioxide (22-30) mmol/L BUN (7-17) mg/dL Creatinine (0.52-1.04) mg/dL Glucose (74-99) mg/dL POC Glucose (mg/dL) 102 H (75-99) mg/dL Plasma Lactic Acid You (0.7-2.0) mmol/L Calcium (8.4-10.2) mg/dL AST (14-36) U/L Troponin I (0.000-0.034) ng/mL Total Protein (6.3-8.2) g/dL Albumin (3.5-5.0) g/dL Urine Appearance (Clear) Urine Protein (Negative) Urine Blood (Negative) Ur Leukocyte Esterase (Negative) Urine RBC (0-5) /hpf Urine WBC (0-5) /hpf Urine Bacteria (None) /hpf Urine Mucus (None) /hpf 06/30/21 06/30/21 06/30/21 Range/Units 14:02 14:02 14:02 WBC (3.8-10.6) k/uL RBC (3.80-5.40) m/uL Hgb (11.4-16.0) gm/dL Hct (34.0-46.0) % RDW (11.5-15.5) % Neutrophils # (Manual) (1.3-7.7) k/uL Lymphocytes # (Manual) (1.0-4.8) k/uL Monocytes # (Manual) (0-1.0) k/uL Metamyelocytes # (Man) (0) k/uL Myelocytes # (Manual) (0) k/uL Nucleated RBCs (0-0) /100 WBC PT (9.0-12.0) sec INR (<1.2) APTT (22.0-30.0) sec Sodium (137-145) mmol/L Potassium (3.5-5.1) mmol/L Chloride 109 H (98-107) mmol/L Carbon Dioxide 14 L (22-30) mmol/L BUN 23 H (7-17) mg/dL Creatinine 1.56 H (0.52-1.04) mg/dL Glucose (74-99) mg/dL POC Glucose (mg/dL) (75-99) mg/dL Plasma Lactic Acid You (0.7-2.0) mmol/L Calcium 8.2 L (8.4-10.2) mg/dL AST 37 H (14-36) U/L Troponin I 0.086 H* (0.000-0.034) ng/mL Total Protein 5.3 L (6.3-8.2) g/dL Albumin 2.8 L (3.5-5.0) g/dL Urine Appearance Cloudy H (Clear) Urine Protein 1+ H (Negative) Urine Blood Small H (Negative) Ur Leukocyte Esterase Small H (Negative) Urine RBC 19 H (0-5) /hpf Urine WBC 18 H (0-5) /hpf Urine Bacteria Few H (None) /hpf Urine Mucus Rare H (None) /hpf 06/30/21 06/30/21 06/30/21 Range/Units 16:38 16:38 16:38 WBC (3.8-10.6) k/uL RBC (3.80-5.40) m/uL Hgb (11.4-16.0) gm/dL Hct (34.0-46.0) % RDW (11.5-15.5) % Neutrophils # (Manual) (1.3-7.7) k/uL Lymphocytes # (Manual) (1.0-4.8) k/uL Monocytes # (Manual) (0-1.0) k/uL Metamyelocytes # (Man) (0) k/uL Myelocytes # (Manual) (0) k/uL Nucleated RBCs (0-0) /100 WBC PT (9.0-12.0) sec INR (<1.2) APTT (22.0-30.0) sec Sodium 135 L (137-145) mmol/L Potassium 3.4 L (3.5-5.1) mmol/L Chloride 111 H (98-107) mmol/L Carbon Dioxide 13 L (22-30) mmol/L BUN 25 H (7-17) mg/dL Creatinine 1.61 H (0.52-1.04) mg/dL Glucose (74-99) mg/dL POC Glucose (mg/dL) (75-99) mg/dL Plasma Lactic Acid You 7.1 H* (0.7-2.0) mmol/L Calcium 7.7 L (8.4-10.2) mg/dL AST (14-36) U/L Troponin I 0.173 H* (0.000-0.034) ng/mL Total Protein (6.3-8.2) g/dL Albumin (3.5-5.0) g/dL Urine Appearance (Clear) Urine Protein (Negative) Urine Blood (Negative) Ur Leukocyte Esterase (Negative) Urine RBC (0-5) /hpf Urine WBC (0-5) /hpf Urine Bacteria (None) /hpf Urine Mucus (None) /hpf 06/30/21 07/01/21 07/01/21 Range/Units 21:40 01:40 04:48 WBC (3.8-10.6) k/uL RBC (3.80-5.40) m/uL Hgb (11.4-16.0) gm/dL Hct (34.0-46.0) % RDW (11.5-15.5) % Neutrophils # (Manual) (1.3-7.7) k/uL Lymphocytes # (Manual) (1.0-4.8) k/uL Monocytes # (Manual) (0-1.0) k/uL Metamyelocytes # (Man) (0) k/uL Myelocytes # (Manual) (0) k/uL Nucleated RBCs (0-0) /100 WBC PT (9.0-12.0) sec INR (<1.2) APTT (22.0-30.0) sec Sodium 136 L (137-145) mmol/L Potassium 3.4 L (3.5-5.1) mmol/L Chloride 110 H (98-107) mmol/L Carbon Dioxide 18 L (22-30) mmol/L BUN 25 H (7-17) mg/dL Creatinine 1.55 H (0.52-1.04) mg/dL Glucose 73 L (74-99) mg/dL POC Glucose (mg/dL) (75-99) mg/dL Plasma Lactic Acid You 5.9 H* 4.9 H* (0.7-2.0) mmol/L Calcium 7.3 L (8.4-10.2) mg/dL AST 41 H (14-36) U/L Troponin I (0.000-0.034) ng/mL Total Protein 4.6 L (6.3-8.2) g/dL Albumin 2.3 L (3.5-5.0) g/dL Urine Appearance (Clear) Urine Protein (Negative) Urine Blood (Negative) Ur Leukocyte Esterase (Negative) Urine RBC (0-5) /hpf Urine WBC (0-5) /hpf Urine Bacteria (None) /hpf Urine Mucus (None) /hpf 07/01/21 07/01/21 07/01/21 Range/Units 04:48 04:48 08:21 WBC 45.4 H (3.8-10.6) k/uL RBC 2.88 L (3.80-5.40) m/uL Hgb 8.4 L D (11.4-16.0) gm/dL Hct 26.6 L (34.0-46.0) % RDW 18.6 H (11.5-15.5) % Neutrophils # (Manual) 39.00 H (1.3-7.7) k/uL Lymphocytes # (Manual) 0.91 L (1.0-4.8) k/uL Monocytes # (Manual) 1.36 H (0-1.0) k/uL Metamyelocytes # (Man) 3.63 H (0) k/uL Myelocytes # (Manual) 0.91 H (0) k/uL Nucleated RBCs (0-0) /100 WBC PT (9.0-12.0) sec INR (<1.2) APTT (22.0-30.0) sec Sodium (137-145) mmol/L Potassium (3.5-5.1) mmol/L Chloride (98-107) mmol/L Carbon Dioxide (22-30) mmol/L BUN (7-17) mg/dL Creatinine (0.52-1.04) mg/dL Glucose (74-99) mg/dL POC Glucose (mg/dL) (75-99) mg/dL Plasma Lactic Acid You 4.2 H* 4.0 H* (0.7-2.0) mmol/L Calcium (8.4-10.2) mg/dL AST (14-36) U/L Troponin I (0.000-0.034) ng/mL Total Protein (6.3-8.2) g/dL Albumin (3.5-5.0) g/dL Urine Appearance (Clear) Urine Protein (Negative) Urine Blood (Negative) Ur Leukocyte Esterase (Negative) Urine RBC (0-5) /hpf Urine WBC (0-5) /hpf Urine Bacteria (None) /hpf Urine Mucus (None) /hpf 07/01/21 Range/Units 11:45 WBC (3.8-10.6) k/uL RBC (3.80-5.40) m/uL Hgb (11.4-16.0) gm/dL Hct (34.0-46.0) % RDW (11.5-15.5) % Neutrophils # (Manual) (1.3-7.7) k/uL Lymphocytes # (Manual) (1.0-4.8) k/uL Monocytes # (Manual) (0-1.0) k/uL Metamyelocytes # (Man) (0) k/uL Myelocytes # (Manual) (0) k/uL Nucleated RBCs (0-0) /100 WBC PT (9.0-12.0) sec INR (<1.2) APTT (22.0-30.0) sec Sodium (137-145) mmol/L Potassium (3.5-5.1) mmol/L Chloride (98-107) mmol/L Carbon Dioxide (22-30) mmol/L BUN (7-17) mg/dL Creatinine (0.52-1.04) mg/dL Glucose (74-99) mg/dL POC Glucose (mg/dL) (75-99) mg/dL Plasma Lactic Acid You 4.6 H* (0.7-2.0) mmol/L Calcium (8.4-10.2) mg/dL AST (14-36) U/L Troponin I (0.000-0.034) ng/mL Total Protein (6.3-8.2) g/dL Albumin (3.5-5.0) g/dL Urine Appearance (Clear) Urine Protein (Negative) Urine Blood (Negative) Ur Leukocyte Esterase (Negative) Urine RBC (0-5) /hpf Urine WBC (0-5) /hpf Urine Bacteria (None) /hpf Urine Mucus (None) /hpf Microbiology - Last 24 Hours (Table) 06/30/21 16:38 Blood Culture Gram Stain - Preliminary Blood Blood Culture - Preliminary Escherichia coli 06/30/21 20:09 Urine Culture - Preliminary Urine,Voided 06/30/21 16:38 Blood Culture - Final Blood 06/30/21 Unknown Urine Culture - Preliminary Urine,Catheterized 06/30/21 14:02 Urine Culture - Preliminary Urine,Voided Assessment and Plan Plan: #Severe sepsis Due to acute pyelonephritis due to obstructive right-sided urolithiasis Status post right ureteral stent Blood cultures 06/30/21: E. coli Continue cefepime Discontinue vancomycin Infectious disease consultation trend lactic acid Continue IV fluid, Midrin and stress dose steroids #Acute toxic metabolic encephalopathy Due to severe sepsis Improving Continue treatment of sepsis and reorientation #Acute on chronic kidney injury Creatinine improving with excellent urine output this morning Ortiz catheter placed Continue IV fluids Monitor urine output #COPD with chronic hypoxic respiratory failure Lungs are clear to auscultation chest x-ray without acute infiltrate is noted respiratory symptoms Patient is typically on chronic prednisone she will be startedto zoster #Elevated troponin Likely in the setting of severe sepsis tachycardia hypotension Likely demand ischemia Cardiology was consulted, echocardiogram being performed currently and I'm getting oral report that ejection fraction is preserved She has no chest pain nor any particular changes on EKG, serial troponins ordered Continue supportive care, incentive spirometer, encourage out of bed, diet, Ortiz catheter care Patient is DO NOT RESUSCITATE Prognosis remains guarded
[2021-07-01] MEDS ORDERED: VANCOMYCIN 1,250 MG in SODIUM CHLORIDE 0.9% 250 ML IVPB ONE (14:00)
--- NOTE | 2021-07-01 14:15 | ECHOF ---
Referral Reason:ams, ekg changes MEASUREMENTS -------- HEIGHT: 162.6 cm WEIGHT: 63.5 kg BP: 92/55 RVIDd: 3.1 cm (< 3.3) IVSd: 1.4 cm (0.6 - 1.1) LVIDd: 4.2 cm (3.9 - 5.3) LVPWd: 1.2 cm (0.6 - 1.1) IVSs: 1.8 cm LVIDs: 3.5 cm LVPWs: 1.8 cm LA Diam: 3.0 cm (2.7 - 3.8) Ao Diam: 3.4 cm (2.0 - 3.7) AV Cusp: 2.3 cm (1.5 - 2.6) MV EXCURSION: 12.364 mm (> 18.000) MV EF SLOPE: 127 mm/s (70 - 150) EPSS: 0.8 cm MV E Dmitry: 0.73 m/s MV DecT: 203 ms MV A Dmitry: 0.93 m/s MV E/A Ratio: 0.78 RAP: 5.00 mmHg RVSP: 20.86 mmHg FINDINGS -------- Resting tachycardia (HR>100bpm). This was a technically adequate study. The left ventricular size is normal. There is moderate concentric left ventricular hypertrophy. O verall left ventricular systolic function is normal with, an EF between 60 - 65 %. The right ventricle is normal in size. The left atrium is normal in size. The right atrium is normal in size. Interatrial and interventricular septum intact. The aortic valve is trileaflet, and appears structurally normal. No aortic stenosis or regurgitation. Mild mitral annular calcification present. Mild tricuspid regurgitation present. Right ventricular systolic pressure is normal at < 35 mmHg. Trace/mild (physiologic) pulmonic regurgitation. The aortic root size is normal. Normal inferior vena cava with normal inspiratory collapse consistent with estimated right atrial pre ssure of 5 mmHg. There is no pericardial effusion. CONCLUSIONS -------- 1. The left ventricular size is normal. 2. There is moderate concentric left ventricular hypertrophy. 3. Overall left ventricular systolic function is normal with, an EF between 60 - 65 %. 4. The aortic valve is trileaflet, and appears structurally normal. No aortic stenosis or regurgitati on. 5. Mild mitral annular calcification present. 6. Mild tricuspid regurgitation present. 7. Trace/mild (physiologic) pulmonic regurgitation. 8. There is no pericardial effusion. [facility] CASE MANAGER: Lucila Irving RDCS
[2021-07-02] MEDS: LACTATED RINGERS 1,000 ML IV SCH ×2 (00:27→06:10)
[2021-07-02] MEDS ORDERED: CEFEPIME 1 GM in SODIUM CHLORIDE 0.9% 50 ML IVPB SCH (06:00)
[2021-07-02] MEDS: LEVOTHYROXINE 25 MCG TAB PO SCH (06:09)
[2021-07-02] MEDS: MIDODRINE 5 MG TAB PO SCH ×3 (06:15→18:05)
[2021-07-02 06:32] LABS: Anisocytosis Slight; HCT 27.6 % (34.0-46.0); HGB 8.7 gm/dL (11.4-16.0); Hypochromasia Moderate; MCH 28.5 pg (25.0-35.0); MCHC 31.4 g/dL (31.0-37.0); MCV 90.7 fL (80.0-100.0); Mean Platelet Volume 9.9; Platelet Count 151 k/uL (150-450); RBC 3.04 m/uL (3.80-5.40); RDW 18.6 % (11.5-15.5)
[2021-07-02 06:34] LABS: WBC 52.3 k/uL (3.8-10.6)
[2021-07-02 06:40] LABS: Calcium 7.9 mg/dL (8.4-10.2)
--- NOTE | 2021-07-02 08:29 | P.PN ---
Subjective Progress Note Date: 07/02/21 Principal diagnosis: Paroxysmal atrial fibrillation The patient is a pleasant 89-year-old female patient with a past medical history significant for paroxysmal atrial fibrillation who was admitted to the hospital with urinary tract infection related to urinary obstruction and she underwent ureteral stenting. We consulted to see the patient because of abnormal cardiac enzymes was mildly abnormal troponin. The patient was seen this morning. She remains asymptomatic in terms of chest pain or chest discomfort or shortness of breath. She does have paroxysmal atrial fibrillation and this morning she went into atrial fibrillation with RVR. Her pressure continues to be stable. With that being saved I'm going to start her on small dose of beta wai with metoprolol. Oral anticoagulation on hold at this point because she continues to have hematuria she continues to have a Ortiz catheter. Her hemoglobin is low. We felt that he might be abnormal troponin is likely related to anemia related to the hematuria. We will treated that medically. She underwent an echo which revealed normal left ventricular systolic function without any evidence of wall motion abnormalities. Objective - Vital Signs Vital signs: Vital Signs Temp 97.8 F 07/02/21 08:00 Pulse 142 H 07/02/21 08:00 Resp 18 07/02/21 08:00 BP 141/86 07/02/21 08:00 Pulse Ox 95 07/02/21 08:00 Intake & Output 07/01/21 07/02/21 07/02/21 18:59 06:59 18:59 Intake Total 960 Output Total 1900 1950 Balance -940 -1950 Weight 73.5 kg Intake: Oral 960 Output: Urine 1900 1950 Other: # Voids 2 # Bowel Movements 1 - Constitutional General appearance: Present: no acute distress - Respiratory Respiratory: bilateral: CTA - Cardiovascular Rhythm: irregularly irregular Heart sounds: normal: S1, S2 - Labs CBC & Chem 7: 07/02/21 06:10 07/02/21 06:10 Labs: Abnormal Lab Results - Last 24 Hours (Table) 07/01/21 07/01/21 07/01/21 Range/Units 08:21 11:45 14:49 WBC (3.8-10.6) k/uL RBC (3.80-5.40) m/uL Hgb (11.4-16.0) gm/dL Hct (34.0-46.0) % RDW (11.5-15.5) % Potassium (3.5-5.1) mmol/L Chloride (98-107) mmol/L Carbon Dioxide (22-30) mmol/L BUN (7-17) mg/dL Glucose (74-99) mg/dL Plasma Lactic Acid You 4.0 H* 4.6 H* 5.3 H* (0.7-2.0) mmol/L Calcium (8.4-10.2) mg/dL 07/01/21 07/01/21 07/02/21 Range/Units 19:02 22:05 00:48 WBC (3.8-10.6) k/uL RBC (3.80-5.40) m/uL Hgb (11.4-16.0) gm/dL Hct (34.0-46.0) % RDW (11.5-15.5) % Potassium (3.5-5.1) mmol/L Chloride (98-107) mmol/L Carbon Dioxide (22-30) mmol/L BUN (7-17) mg/dL Glucose (74-99) mg/dL Plasma Lactic Acid You 4.1 H* 2.8 H* 2.3 H* (0.7-2.0) mmol/L Calcium (8.4-10.2) mg/dL 07/02/21 07/02/21 Range/Units 06:10 06:10 WBC 52.3 H* (3.8-10.6) k/uL RBC 3.04 L (3.80-5.40) m/uL Hgb 8.7 L (11.4-16.0) gm/dL Hct 27.6 L (34.0-46.0) % RDW 18.6 H (11.5-15.5) % Potassium 3.0 L (3.5-5.1) mmol/L Chloride 114 H (98-107) mmol/L Carbon Dioxide 21 L (22-30) mmol/L BUN 25 H (7-17) mg/dL Glucose 112 H (74-99) mg/dL Plasma Lactic Acid You (0.7-2.0) mmol/L Calcium 7.9 L (8.4-10.2) mg/dL Microbiology - Last 24 Hours (Table) 06/30/21 16:38 Blood Culture Gram Stain - Preliminary Blood Blood Culture - Preliminary Escherichia coli 06/30/21 20:09 Urine Culture - Preliminary Urine,Voided 06/30/21 16:38 Blood Culture - Final Blood 06/30/21 Unknown Urine Culture - Preliminary Urine,Catheterized Assessment and Plan Assessment: Assessment #1 urinary tract infection #2 urinary obstruction and status post urethral stent #3 myocardial injury without any evidence of ischemia clinically or by EKG or by echo #4 paroxysmal atrial fibrillation. Currently the patient is in A. fib #5 hematuria #6 blood loss anemia Plan #1 consider conservative medical approach at this point #2 the echo was reviewed and showed no evidence of wall motion abnormalities with normal ejection fraction #3 start the patient on metoprolol #4 continue holding anticoagulation in view of the hematuria and anemia #5 follow-up with the patient
[2021-07-02] MEDS: POTASSIUM CHLORIDE ER 20 MEQ TAB.ER PO SCH ×2 (08:37→12:26)
[2021-07-02] MEDS: MAGNESIUM OXIDE 400 MG TAB PO SCH (08:37)
[2021-07-02] MEDS: HYDROCORTISONE SUCCINATE 100 MG/2 ML VIAL IV SCH ×3 (08:37→22:45)
[2021-07-02] MEDS: METOPROLOL SUCCINATE (ER) 25 MG TAB.ER.24H PO SCH (08:37)
--- NOTE | 2021-07-02 09:22 | P.PN ---
Subjective Principal diagnosis: Severe sepsis, obstructive right urolithiasis Patient is 89-year-old female with history of COPD, atrial fibrillation on chronic prednisone admitted with severe sepsis obstructive right-sided urolithiasis status post right ureteral stent placement Patient is feeling much better. Her appetite slowly improving. She has no respiratory complaints. No chest pain. No abdominal pain nausea vomiting or diarrhea. Urine output has been excellent. Lactic acid is now normal and blood pressure improved. She had episodes of confusion overnight which improved this morning. This morning she is having paroxysmal A. fib with RVR she is mostly asymptomatic with stable blood pressure. Objective - Vital Signs Vital signs: Vital Signs Temp 97.8 F 07/02/21 08:00 Pulse 142 H 07/02/21 08:00 Resp 18 07/02/21 08:00 BP 141/86 07/02/21 08:00 Pulse Ox 95 07/02/21 08:00 Intake & Output 07/01/21 07/02/21 07/02/21 18:59 06:59 18:59 Intake Total 960 360 Output Total 1900 1950 Balance -940 -1950 360 Weight 73.5 kg Intake: Oral 960 360 Output: Urine 1900 1950 Other: # Voids 2 # Bowel Movements 1 - Exam Awake alert and oriented 3 not in apparent distress She had an neck: No facial asymmetry anicteric sclera oropharyngeal mucosa is dry. Neck is supple, no neck rigidity or tenderness range of motion is preserved no neck masses or JVD patient is laying flat without any Lungs: Lungs are clear to auscultation no wheezing no rhonchi no crackles Cardiovascular: Tachycardic and irregularly irregular Abdomen bowel sounds are diminished throughout, abdomen is soft without no tenderness to superficial or deep palpation, no masses no guarding. She does have right flank tenderness with percussion Extremities: Periphery is warm and well perfused no peripheral edema no cyanosis or clubbing Skin with multiple old bruises Musculoskeletal: No joint swelling or deformity - Labs CBC & Chem 7: 07/02/21 06:10 07/02/21 06:10 Labs: Abnormal Lab Results - Last 24 Hours (Table) 07/01/21 07/01/21 07/01/21 Range/Units 11:45 14:49 19:02 WBC (3.8-10.6) k/uL RBC (3.80-5.40) m/uL Hgb (11.4-16.0) gm/dL Hct (34.0-46.0) % RDW (11.5-15.5) % Potassium (3.5-5.1) mmol/L Chloride (98-107) mmol/L Carbon Dioxide (22-30) mmol/L BUN (7-17) mg/dL Glucose (74-99) mg/dL Plasma Lactic Acid You 4.6 H* 5.3 H* 4.1 H* (0.7-2.0) mmol/L Calcium (8.4-10.2) mg/dL 07/01/21 07/02/21 07/02/21 Range/Units 22:05 00:48 06:10 WBC (3.8-10.6) k/uL RBC (3.80-5.40) m/uL Hgb (11.4-16.0) gm/dL Hct (34.0-46.0) % RDW (11.5-15.5) % Potassium 3.0 L (3.5-5.1) mmol/L Chloride 114 H (98-107) mmol/L Carbon Dioxide 21 L (22-30) mmol/L BUN 25 H (7-17) mg/dL Glucose 112 H (74-99) mg/dL Plasma Lactic Acid You 2.8 H* 2.3 H* (0.7-2.0) mmol/L Calcium 7.9 L (8.4-10.2) mg/dL 07/02/21 Range/Units 06:10 WBC 52.3 H* (3.8-10.6) k/uL RBC 3.04 L (3.80-5.40) m/uL Hgb 8.7 L (11.4-16.0) gm/dL Hct 27.6 L (34.0-46.0) % RDW 18.6 H (11.5-15.5) % Potassium (3.5-5.1) mmol/L Chloride (98-107) mmol/L Carbon Dioxide (22-30) mmol/L BUN (7-17) mg/dL Glucose (74-99) mg/dL Plasma Lactic Acid You (0.7-2.0) mmol/L Calcium (8.4-10.2) mg/dL Microbiology - Last 24 Hours (Table) 12/10/21 16:38 Blood Culture Gram Stain - Preliminary Blood Blood Culture - Preliminary Escherichia coli 06/30/21 20:09 Urine Culture - Preliminary Urine,Voided 06/30/21 16:38 Blood Culture - Final Blood 06/30/21 Unknown Urine Culture - Preliminary Urine,Catheterized Assessment and Plan Plan: #Severe sepsis Due to acute pyelonephritis due to obstructive right-sided urolithiasis in immunocompromised patient Status post right ureteral stent and Ortiz catheter placement on 06/30/21 Blood cultures 06/30/21: E. coli Lactic acid normalized Continue cefepime Infectious disease consultation DC IV fluids today, encourage oral intake Continue Midrin We stress dose steroids down to patient's usual prednisone daily dose #Chronic use of corticosteroids At home on prednisone 5 mg by mouth daily for COPD Started on stress dose hydrocortisone, plan to taper hydrocortisone to her usual prednisone dose #Paroxysmal A. fib with RVR Started on metoprolol by cardiology At home she was on Xaralto, atenolol and verapamil Restart Xaralto once hematuria cleared up #Acute toxic metabolic encephalopathy Due to severe sepsis and hospital delirium owning Improving Continue treatment of sepsis and reorientation Physical occupational therapy, encourage up to the chair #Acute on chronic kidney injury Creatinine improving with excellent urine output this morning Ortiz catheter placed Monitor urine output #COPD with chronic hypoxic respiratory failure At home on 2 L nasal cannula Lungs are clear to auscultation chest x-ray without acute infiltrate is noted respiratory symptoms Continue bronchodilators, incentive spirometer, encourage out of bed #Elevated troponin Likely in the setting of severe sepsis tachycardia hypotension Likely demand ischemia Cardiology was consulted, echocardiogram being performed currently and I'm getting oral report that ejection fraction is preserved She has no chest pain nor any particular changes on EKG, serial troponins ordered #Severe debility, acute on chronic Encourage out of bed into the chair 3 times a day with meals Physical and occupational therapy Continue supportive care, incentive spirometer, encourage out of bed, diet, Ortiz catheter care Patient is DO NOT RESUSCITATE Prognosis remains guarded
--- NOTE | 2021-07-02 10:21 | P.CONS ---
History of Present Illness - Reason for Consult Consult date: 07/01/21 sepsis /UTI Requesting physician: Loyd Garcia - Chief Complaint mental status changes x few days - History of Present Illness History of present illness : Patient is 89-year female who was brought into the ER yesterday afternoon with concern for mental status changes patient apparently was acting normal the day before presentation the hospital patient w as rehospitalized complaining of feeling dry and thirsty no history of any trauma or fall on presentation to the hospital the patient did have a fever of 102.4 F patient did have a white count of 6.7 repeat is up to 45.4 patient did have a mildly positive UA rodriges PCR was negative did have elevated lactic acid blood cultures currently positive for E. coli patient did have a chest x-ray small effusion likely on the right side patient also have a CT of abdominal pelvis right renal obstruction is new compared with old exam patient is status post cystoscopy with right ureteral stent placement because of positive blood cultures and elevated white count infectious disease was consulted for further management patient is currently getting Solu-Cortef 50 every 8 hour for adrenal insufficiency, patient is currently lethargic and elevated good historian however not specifically denies having any chest pain or cough some vague abdominal pain nausea but no vomiting and no diarrhea Review of system: Positive point has been mentioned in HPI complete review could not be obtained because of underlying mental status Past medical history : Reviewed, documented below Past surgical history : Reviewed, documented below Social history: Reviewed, documented below Medications: Reviewed, as documented below EXAMINATION: Vital sigans= Reviewed and documented below GENERAL DESCRIPTION: Elderly female lying in bed, no distress. No tachypnea or accessory muscle of respiration use. HEENT: Shows Pallor , no scleral icterus. Oral mucous membrane is dry. NECK: Trachea central, no thyromegaly. LUNGS: Unlabored breathing. Decrease intensity of breath sounds. No wheeze or crackle. HEART: S1, S2, regular rate and rhythm. ABDOMEN: Soft, no tenderness , guarding or rigidity EXTREMITIES: No edema of feet. SKIN: No rash, no masses palpable. NEUROLOGICAL: The patient is awake, alert, oriented x2, mood and affect normal. LABS AND RADIOLOGY: Reviewed results see below Assessment : 1-Patient presented to hospital with mental status changes likely secondary to complicated urinary tract infection in this patient with right- sided hydronephrosis status post cystoscopy and ureteral stent placement blood culture now showing E. coli with no resistant pattern 2-worsening of the white count is more likely related to the Solu-Cortef patient is currently receiving 4 adrenal insufficiency Plan: 1-patient to continue with cefepime awaiting for the final sensitivity and discontinue vancomycin 2-gentle IV fluid We will follow on clinical condition and cultures to further adjust medication if needed Thank you for this consultation we will follow the patient along with you Past Medical History Past Medical History: Atrial Fibrillation, Asthma, Fibromyalgia, Hypertension Additional Past Medical History / Comment(s): recurrent asthma and lung congestions symptoms,bowel obs,tachycardia,acoustic neuroma rt ear(deaf)- radiation txs History of Any Multi-Drug Resistant Organisms: None Reported Past Surgical History: Appendectomy, Hysterectomy, Orthopedic Surgery, Tubal Ligation Additional Past Surgical History / Comment(s): exploratory lap & lysis of adh esions,nasal surgery, cataracts,ORIF rt tibia, ureteroscopic removal of ureteral calculus Past Anesthesia/Blood Transfusion Reactions: No Reported Reaction, Family History of Problems w/ Anesthesia Additional Past Anesthesia/Blood Transfusion Reaction / Comm: Son had stopped breathing at age 11 during appendix surg,no history of blood transfusion Past Psychological History: No Psychological Hx Reported Smoking Status: Never smoker Past Alcohol Use History: None Reported Past Drug Use History: None Reported - Past Family History Father Family Medical History: Cancer Additional Family Medical History / Comment(s): prostate Mother Additional Family Medical History / Comment(s): aneurysm Medications and Allergies Home Medications Medication Instructions Recorded Confirmed Type Levothyroxine Sodium [Synthroid] 25 mcg PO DAILY 09/29/15 06/30/21 History Ipratropium-Albuterol Nebulize 3 ml INHALATION RT-QID 07/28/17 06/30/21 History [Duoneb 0.5 mg-3 mg/3 ml Soln] Montelukast [Singulair] 10 mg PO DAILY 07/28/17 06/30/21 History Nortriptyline [Pamelor] 10 mg PO DAILY 07/28/17 06/30/21 History Omeprazole 20 mg PO HS 07/28/17 06/30/21 History atenoloL [Tenormin] 37.5 mg PO DAILY 07/28/17 06/30/21 History Budesonide/Formoterol Fumarate 2 puff INHALATION RT-BID 02/04/18 06/30/21 History [Symbicort 160-4.5 Mcg Inhaler] Potassium Chloride [K-Tab ER] 10 meq PO DAILY 02/05/18 06/30/21 History Rivaroxaban [Xarelto] 15 mg PO DAILY 02/02/19 06/30/21 History Benralizumab [Fasenra Pen] 30 mg SQ Q56D 06/30/21 06/30/21 History Cholecalciferol (Vitamin D3) 75 mcg PO DAILY 06/30/21 06/30/21 History [Vitamin D3 (3000 Iu)] Cyanocobalamin [Vitamin B-12 1,000 mcg SQ Q30D 06/30/21 06/30/21 History Injection] Verapamil HCl [Verapamil ER] 120 mg PO DAILY 06/30/21 06/30/21 History guaiFENesin [Mucinex] 1,200 mg PO DAILY 06/30/21 06/30/21 History predniSONE 5 mg PO SUTUTHSA 06/30/21 06/30/21 History predniSONE 10 mg PO MOWEFR 06/30/21 06/30/21 History Allergies Allergy/AdvReac Type Severity Reaction Status Date / Time celecoxib [From Celebrex] Allergy Unknown Verified 06/30/21 15:15 nabumetone [From Relafen] Allergy Unknown Verified 06/30/21 15:15 NSAIDS (Non-Steroidal Allergy Unknown Verified 06/30/21 15:15 Anti-Inflamma pregabalin [From Lyrica] Allergy fluid Verified 06/30/21 15:15 retention tramadol Allergy Itching Verified 06/30/21 15:15 valdecoxib [From Bextra] Allergy Unknown Verified 06/30/21 15:15 carisoprodol [From Soma] AdvReac Dizziness Verified 06/30/21 15:15 duloxetine HCl AdvReac sleepiness Verified 06/30/21 15:15 [From Cymbalta] furosemide [From Lasix] AdvReac Sleepiness Verified 06/30/21 15:15 lisinopril AdvReac dizziness Verified 06/30/21 15:15 metaxalone [From Skelaxin] AdvReac sleepiness Verified 06/30/21 15:15 milk AdvReac Diarrhea Verified 06/30/21 15:15 naproxen [From Naprosyn] AdvReac Itching Verified 06/30/21 15:15 prednisone AdvReac difficulty Verified 06/30/21 15:15 sleeping,fatigue rofecoxib [From Vioxx] AdvReac Nausea & Verified 06/30/21 15:15 Vomiting & Diarrhea DUST Allergy Unknown Uncoded 06/30/21 15:15 Physical Exam Vitals: Vital Signs Temp Pulse Pulse Resp BP BP Pulse Ox 07/01/21 11:54 106 H 07/01/21 11:30 101 H 07/01/21 08:00 98.4 F 96 18 100/55 95 07/01/21 04:20 98.3 F 98 18 87/52 94 L 06/30/21 23:25 98.1 F 98 18 91/56 95 06/30/21 21:20 98.1 F 99 19 88/53 96 06/30/21 20:45 100 14 82/50 94 L 06/30/21 20:30 99 14 82/47 98 06/30/21 20:22 98.6 F 64 16 86/50 91 L 06/30/21 18:00 111 H 31 H 115/52 98 06/30/21 17:30 113 H 31 H 91/60 97 06/30/21 17:22 102.4 F H 118 H 26 H 91/60 97 06/30/21 17:00 95/64 Intake and Output 07/01/21 07/01/21 07/01/21 06:59 14:59 22:59 Other: # Bowel Movements 1 Weight 77.5 kg Results CBC & Chem 7: 07/02/21 06:10 07/02/21 06:10 Labs: Abnormal Lab Results - Last 24 Hours (Table) 06/30/21 06/30/21 06/30/21 Range/Units 16:38 16:38 16:38 WBC (3.8-10.6) k/uL RBC (3.80-5.40) m/uL Hgb (11.4-16.0) gm/dL Hct (34.0-46.0) % RDW (11.5-15.5) % Neutrophils # (Manual) (1.3-7.7) k/uL Lymphocytes # (Manual) (1.0-4.8) k/uL Monocytes # (Manual) (0-1.0) k/uL Metamyelocytes # (Man) (0) k/uL Myelocytes # (Manual) (0) k/uL Sodium 135 L (137-145) mmol/L Potassium 3.4 L (3.5-5.1) mmol/L Chloride 111 H (98-107) mmol/L Carbon Dioxide 13 L (22-30) mmol/L BUN 25 H (7-17) mg/dL Creatinine 1.61 H (0.52-1.04) mg/dL Glucose (74-99) mg/dL Plasma Lactic Acid You 7.1 H* (0.7-2.0) mmol/L Calcium 7.7 L (8.4-10.2) mg/dL AST (14-36) U/L Troponin I 0.173 H* (0.000-0.034) ng/mL Total Protein (6.3-8.2) g/dL Albumin (3.5-5.0) g/dL 06/30/21 07/01/21 07/01/21 Range/Units 21:40 01:40 04:48 WBC (3.8-10.6) k/uL RBC (3.80-5.40) m/uL Hgb (11.4-16.0) gm/dL Hct (34.0-46.0) % RDW (11.5-15.5) % Neutrophils # (Manual) (1.3-7.7) k/uL Lymphocytes # (Manual) (1.0-4.8) k/uL Monocytes # (Manual) (0-1.0) k/uL Metamyelocytes # (Man) (0) k/uL Myelocytes # (Manual) (0) k/uL Sodium 136 L (137-145) mmol/L Potassium 3.4 L (3.5-5.1) mmol/L Chloride 110 H (98-107) mmol/L Carbon Dioxide 18 L (22-30) mmol/L BUN 25 H (7-17) mg/dL Creatinine 1.55 H (0.52-1.04) mg/dL Glucose 73 L (74-99) mg/dL Plasma Lactic Acid You 5.9 H* 4.9 H* (0.7-2.0) mmol/L Calcium 7.3 L (8.4-10.2) mg/dL AST 41 H (14-36) U/L Troponin I (0.000-0.034) ng/mL Total Protein 4.6 L (6.3-8.2) g/dL Albumin 2.3 L (3.5-5.0) g/dL 07/01/21 07/01/21 07/01/21 Range/Units 04:48 04:48 08:21 WBC 45.4 H (3.8-10.6) k/uL RBC 2.88 L (3.80-5.40) m/uL Hgb 8.4 L D (11.4-16.0) gm/dL Hct 26.6 L (34.0-46.0) % RDW 18.6 H (11.5-15.5) % Neutrophils # (Manual) 39.00 H (1.3-7.7) k/uL Lymphocytes # (Manual) 0.91 L (1.0-4.8) k/uL Monocytes # (Manual) 1.36 H (0-1.0) k/uL Metamyelocytes # (Man) 3.63 H (0) k/uL Myelocytes # (Manual) 0.91 H (0) k/uL Sodium (137-145) mmol/L Potassium (3.5-5.1) mmol/L Chloride (98-107) mmol/L Carbon Dioxide (22-30) mmol/L BUN (7-17) mg/dL Creatinine (0.52-1.04) mg/dL Glucose (74-99) mg/dL Plasma Lactic Acid You 4.2 H* 4.0 H* (0.7-2.0) mmol/L Calcium (8.4-10.2) mg/dL AST (14-36) U/L Troponin I (0.000-0.034) ng/mL Total Protein (6.3-8.2) g/dL Albumin (3.5-5.0) g/dL 07/01/21 07/01/21 Range/Units 11:45 14:49 WBC (3.8-10.6) k/uL RBC (3.80-5.40) m/uL Hgb (11.4-16.0) gm/dL Hct (34.0-46.0) % RDW (11.5-15.5) % Neutrophils # (Manual) (1.3-7.7) k/uL Lymphocytes # (Manual) (1.0-4.8) k/uL Monocytes # (Manual) (0-1.0) k/uL Metamyelocytes # (Man) (0) k/uL Myelocytes # (Manual) (0) k/uL Sodium (137-145) mmol/L Potassium (3.5-5.1) mmol/L Chloride (98-107) mmol/L Carbon Dioxide (22-30) mmol/L BUN (7-17) mg/dL Creatinine (0.52-1.04) mg/dL Glucose (74-99) mg/dL Plasma Lactic Acid You 4.6 H* 5.3 H* (0.7-2.0) mmol/L Calcium (8.4-10.2) mg/dL AST (14-36) U/L Troponin I (0.000-0.034) ng/mL Total Protein (6.3-8.2) g/dL Albumin (3.5-5.0) g/dL Microbiology - Last 24 Hours (Table) 06/30/21 16:38 Blood Culture Gram Stain - Preliminary Blood Blood Culture - Preliminary Escherichia coli 06/30/21 20:09 Urine Culture - Preliminary Urine,Voided 06/30/21 16:38 Blood Culture - Final Blood 06/30/21 Unknown Urine Culture - Preliminary Urine,Catheterized 06/30/21 14:02 Urine Culture - Preliminary Urine,Voided
--- NOTE | 2021-07-02 11:45 | P.PN ---
Progress Note - Text Progress Note Date: 07/02/21 The patient continues to feel better. She denies abdominal pain. She is somewhat confused. Although her WBC count has increased to 52.3, her lactic acid level is now normal. Blood cultures have shown E. coli, with sensitivities pending. There is nothing further required urologically at this time. She will continue to receive antibiotics, and once her infection has cleared and she returns to her normal state of health arrangements will be made for her to undergo elective ureteroscopic removal of her calculi.
[2021-07-02] MEDS: VERAPAMIL 40 MG TAB PO SCH ×3 (12:26→22:42)
[2021-07-02] MEDS: guaiFENesin 600 MG TABLET.ER PO SCH (12:26)
--- NOTE | 2021-07-02 14:18 | XR ---
EXAMINATION TYPE: XR chest 1V DATE OF EXAM: 07/02/2021 2:03 PM COMPARISON:Radiograph 06/22/2021 CLINICAL INDICATION:Female, 89 years old with history of SOB; TECHNIQUE: Frontal view of the chest. FINDINGS: Lungs/Pleura: There is no evidence of focal consolidation, or pneumothorax. Blunting of the costophre anastacio angles. Pulmonary vascularity: Unremarkable. Heart/mediastinum: Cardiomediastinal silhouette is unremarkable. Musculoskeletal: No acute osseous pathology. Other findings: Single visualized right ureteral stent noted. IMPRESSION: 1. No acute cardiopulmonary disease/process. 2. Small probable bilateral pleural effusions.
[2021-07-02] MEDS: IPRATROPIUM-ALBUTEROL 3 ML NEB INHALATION PRN (21:07)
[2021-07-02] MEDS: SYMBICORT 160-4.5 MCG INHALER INHALATION SCH (21:07)
[2021-07-02] MEDS: PANTOPRAZOLE 40 MG TABLET PO SCH (22:42)
--- NOTE | 2021-07-02 22:55 | PN ---
PROGRESS NOTE DATE OF SERVICE: 07/02/2021 REASON FOR FOLLOWUP: Complicated UTI with E coli bacteremia. INTERVAL HISTORY: The patient is afebrile. The patient remains pleasantly confused, though denies having any chest pain, shortness of breath or cough. No abdominal pain or diarrhea. PHYSICAL EXAMINATION: Blood pressure is 112/74, pulse of 135, temperature of 98. She is 95% on 2 L nasal cannula. General description is an elderly female lying in bed in no distress. Respiratory system: Unlabored breathing, decreased intensity of breath sounds. No wheeze. Heart S1, S2. Regular rate and rhythm. Abdomen soft, no tenderness. LABS: Hemoglobin 8.7, white count 2.3, creatinine 1.0. Blood and urine showing Gram-negative bacilli, which is an E coli. DIAGNOSTIC IMPRESSION AND PLAN: 1. Patient with an Escherichia coli bacteremia secondary to complicated urinary tract infection in this patient who is status post cystoscopy and right ureteral stent placement. Antibiotic adjusted to Rocephin 2 grams daily. 2. Patient with elevated white count, more likely steroid effect, as no evidence of any worsening infection. Will be monitored closely. Continue with supportive care. MMODL / IJN: [id number] /
[2021-07-03] MEDS: MIDODRINE 5 MG TAB PO SCH ×3 (06:25→17:02)
[2021-07-03] MEDS: LEVOTHYROXINE 25 MCG TAB PO SCH (06:25)
[2021-07-03 07:16] LABS: Anisocytosis Slight; HCT 27.7 % (34.0-46.0); HGB 8.8 gm/dL (11.4-16.0); Hypochromasia Moderate; MCH 28.9 pg (25.0-35.0); MCHC 31.7 g/dL (31.0-37.0); Mean Platelet Volume 9.1; Platelet Count 137 k/uL (150-450); RBC 3.04 m/uL (3.80-5.40); RDW 18.5 % (11.5-15.5); WBC 44.9 k/uL (3.8-10.6)
[2021-07-03 07:36] LABS: Magnesium 1.8 mg/dL (1.6-2.3); Phosphorus 2.6 mg/dL (2.5-4.5); Potassium 3.4 mmol/L (3.5-5.1)
[2021-07-03] MEDS ORDERED: POTASSIUM CHLORIDE ER 20 MEQ TAB.ER PO STA (07:47)
[2021-07-03] MEDS: guaiFENesin 600 MG TABLET.ER PO SCH (08:35)
[2021-07-03] MEDS: METOPROLOL SUCCINATE (ER) 25 MG TAB.ER.24H PO SCH (08:35)
[2021-07-03] MEDS: MAGNESIUM OXIDE 400 MG TAB PO SCH (08:36)
[2021-07-03] MEDS: VERAPAMIL 40 MG TAB PO SCH ×3 (08:36→21:55)
[2021-07-03] MEDS: CHOLECALCIFEROL 25 MCG (1000 IU) TABLET PO SCH (08:36)
[2021-07-03] MEDS: predniSONE 5 MG TAB PO SCH (08:36)
[2021-07-03] MEDS: SYMBICORT 160-4.5 MCG INHALER INHALATION SCH ×2 (09:46→21:32)
--- NOTE | 2021-07-03 11:34 | P.PN ---
Subjective Progress Note Date: 07/03/21 No acuter overnight event, WBC down to 44 from 52, she remains afebrile, denies any flank pain or gross hematuria Objective - Vital Signs Vital signs: Vital Signs Temp 97.3 F L 07/03/21 08:34 Pulse 88 07/03/21 08:34 Resp 16 07/03/21 08:55 BP 131/77 07/03/21 08:34 Pulse Ox 94 L 07/03/21 08:34 Intake & Output 07/02/21 07/03/21 07/03/21 18:59 06:59 18:59 Intake Total 600 180 Output Total 1100 900 Balance -500 -900 180 Weight 75 kg Intake: Oral 600 180 Output: Urine 1100 900 Straight 450 Other: # Voids 1 1 # Bowel Movements 1 1 - Constitutional General appearance: Present: no acute distress - Gastrointestinal General gastrointestinal: Absent: distended, tenderness - Psychiatric Psychiatric: Present: A&O x's 3 - Labs CBC & Chem 7: 07/03/21 06:31 07/03/21 06:31 Labs: Abnormal Lab Results - Last 24 Hours (Table) 07/03/21 07/03/21 Range/Units 06:31 06:31 WBC 44.9 H (3.8-10.6) k/uL RBC 3.04 L (3.80-5.40) m/uL Hgb 8.8 L (11.4-16.0) gm/dL Hct 27.7 L (34.0-46.0) % RDW 18.5 H (11.5-15.5) % Plt Count 137 L (150-450) k/uL Potassium 3.4 L (3.5-5.1) mmol/L Chloride 110 H (98-107) mmol/L Carbon Dioxide 18 L (22-30) mmol/L BUN 32 H (7-17) mg/dL Creatinine 1.05 H (0.52-1.04) mg/dL Calcium 8.0 L (8.4-10.2) mg/dL Microbiology - Last 24 Hours (Table) 06/30/21 14:02 Urine Culture - Preliminary Urine,Voided Gram Neg Bacilli 06/30/21 20:09 Urine Culture - Preliminary Urine,Voided Gram Neg Bacilli 06/30/21 Unknown Urine Culture - Final Urine,Catheterized Assessment and Plan Assessment: Status post right sided stent placement for septic stone secondary to an 8 mm distal ureteral stone. Blood cultures have shown E. coli, -No further intervention from urology standpoint, she will be arranged for ureteroscopy as an outpatient with Dr. Wall to address her stone
--- NOTE | 2021-07-03 12:30 | CDI ---
Documentation Clarification Form Date: 07/03/2021 12:19:38 PM From: Maegan GrayBradleyCOLE gaines, CCDS Admit Date: 06/30/2021 03:17:00 PM Patient Name: Martha Tamayo Visit Number: [id number] Discharge Date: ATTENTION: The Clinical Documentation Specialists (CDI) and [facility] Coding Staff appreciate your assistance in clarifying documentation. Please respond to the clarification below the line at the bottom and electronically sign. The CDI & [facility] Coding staff will review the response and follow-up if needed. Please note: Queries are made part of the Legal Health Record. If you have any questions, please contact the author of this message via ITS. Dr. Loyd Garcia CKD is documented in the 06/30 History & Physical and the subsequent Attending Physician Progress Notes on 07/01 & 07/02 without further specificity. Additional clarification regarding the stage of CKD is requested. History/Risk Factors per the 06/30 H/P: Atrial Fibrillation, Asthma, COPD, Fibromyalgia, Hypertension, Bowel Obstructions. Clinical Indicators: Presented to the ED on 06/30 via EMS with Weakness and Change in Mental Status. Admitted with UTI, Altered Mental Status & Dehydration Procedure: Cystoscopy, Right Ureteral Stent Insertion for Right Hydronephrosis secondary to Right Distal Ureteral Calculus. BUN: 06/30: 23, 25; 07/01: 25; 07/02: 25; 07/03: 32 Creatinine: 06/30: 1.56, 1.61; 07/01: 1.55; 07/02: 1.00; 07/03: 1.05 GFR: 06/30 29, 28; 07/01: 30; 07/02: 50; 07/03: 47 Historical GFR: 08/17/2017: >60 Treatment: IV fluid 130 mls/hr q7H, IV Lactated Ringers 999 mls/hr q1H x2, IV Cefepime 200 mls/hr x1, INH Duoneb QID prn, IV Dextrose/Water w/Na Bicarb 75 mls/hr q15H, IV Vancomycin 125 mg x1, IV Lactated Ringers 75 mls/hr q13H, IV Solu-Cortef 50 mg x1 Nephrology was not consulted. Please clarify the stage of the CKD, if known: [ ] CKD Stage 2 (GFR 60-89) [ X ] CKD Stage 3 (GFR 30-59) [ ] CKD Stage 3a (GFR 45-59) [ ] CKD Stage 3b (GFR 30-44) [ ] CKD Stage 4 (GFR 15-29) [ ] Other, please specify [ ] Unable to determine (Template Last revised: August 2020) MTDD
--- NOTE | 2021-07-03 12:40 | CDI ---
Documentation Clarification Form Date: 07/03/2021 12:31:00 PM From: Maegan Bradley CCS, CCDS Admit Date: 06/30/2021 03:17:00 PM Patient Name: Martha Tamayo Visit Number: [id number] Discharge Date: ATTENTION: The Clinical Documentation Specialists (CDI) and [facility] Coding Staff appreciate your assistance in clarifying documentation. Please respond to the clarification below the line at the bottom and electronically sign. The CDI & [facility] Coding staff will review the response and follow-up if needed. Please note: Queries are made part of the Legal Health Record. If you have any questions, please contact the author of this message via ITS. Dr. Loyd Garcia Unspecified anemia is documented in the 07/02 Cardiology Progress Note. Hematuria is documented in the 07/02 Cardiology Progress Note, the Attending Progress Note and the 07/03 Progress Note. Blood Loss Anemia is also documented in the 07/02 Cardiology Progress Note. Additional specificity regarding the Type and Acuity of Anemia is requested. History/Risk Factors per the 06/30 H/P: Atrial Fibrillation, Asthma, COPD, Fibromyalgia, Hypertension, Bowel Obstructions. Clinical Indicators: Presented to the ED on 06/30 via EMS with Weakness and Change in Mental Status. Admitted with UTI, Altered Mental Status & Dehydration Procedure: Cystoscopy, Right Ureteral Stent Insertion for Right Hydronephrosis secondary to Right Distal Ureteral Calculus. 06/30 VS: T 97.9, P 124, R 20-31, BP 92/55, PO 99 3Lnc, BMI: 28.4 06/30 LAB: Hgb 10.4, Hct 33.4, Lymph 0.34, [place] 0.54, Nucleated RBCs 1; PT 15.9, INR 1.6, APTT 32.4 Treatment: IV fluid 130 mls/hr q7H, IV Lactated Ringers 999 mls/hr q1H x2, IV Cefepime 200 mls/hr x1, INH Duoneb QID prn, IV Dextrose/Water w/Na Bicarb 75 mls/hr q15H, IV Vancomycin 125 mg x1, IV Lactated Ringers 75 mls/hr q13H, IV Solu-Cortef 50 mg x1 Please clarify the type and acuity of anemia: [ ] Acute blood loss anemia [ ] Please specify if this is a complication of the patient's surgical procedure [ ] Please specify if this is not a complication of the patient's surgical procedure [ ] Acute on chronic blood loss anemia [ ] Please specify if this is a complication of the patient's surgical procedure [ ] Please specify if this is not a complication of the patient's surgical procedure [ ] Chronic blood loss anemia [ ] Iron deficiency anemia [ ] Anemia of chronic kidney disease [ ] Unable to determine [ ] Other, please specify (Template Last Revised: August 2020) MTDD
--- NOTE | 2021-07-03 14:20 | P.PN ---
Subjective The patient is a pleasant 89-year-old female patient with a past medical history significant for paroxysmal atrial fibrillation (on Xarelto outpatient), hypertension, hypothyroidism, asthma. She follows with Dr. Greene. Patient was admitted to the hospital with urinary tract infection related to urinary obstruction and she underwent ureteral stenting. We consulted to see the patient because of abnormal cardiac enzymes was mildly abnormal troponin. The patient was seen this morning. She remains asymptomatic and denies chest pain or chest discomfort or shortness of breath. She is maintaining sinus mechanism. Her pressure continues to be stable. Oral anticoagulation on hold at this point because she continues to have hematuria she continues to have a Ortiz catheter. WBC 44.9, hemoglobin 8.8, platelets 137, sodium 139, potassium 3.4, BUN 32, serum creatinine 1.05, magnesium 1.8.. We felt that he might be abnormal troponin is likely related to anemia related to the hematuria. We will treated that medically. She underwent an echo which revealed normal left ventricular systolic function 60-65% without any evidence of wall motion abnormalities. GENERAL: Well-appearing, well-nourished and in no acute distress. NECK: Supple without JVD or thyromegaly. LUNGS: Breath sounds clear to auscultation bilaterally. Respiration equal and unlabored. No wheezes, rales or rhonchi. HEART: Regular rate and rhythm without murmurs, rubs or gallops. S1 and S2 heard. EXTREMITIES: Normal range of motion, no edema. No clubbing or cyanosis. Pe ripheral pulses intact. ASSESSMENT Paroxysmal atrial fibrillation with RVR [id number] score 4, anticoagulation on hold at this point secondary to hematuria. maintaining sinus mechanism Elevated troponin, likely related to the anemia, no evidence of ischemia clinically, by EKG, or by Echo Anemia Hematuria Urinary Tract Infection Urinary obstruction and status post urethral stent Hypertension Hypothyroidism Asthma PLAN Patient is maintaining sinus mechanism We will continue metoprolol succinate at 25m daily Oral anticoagulation on hold at this point secondary to hematuria and anemia We will follow the patient as needed. Please reach out with a further questions or concerns. Follow up with Dr. Greene outpatient Nurse Practitioner note has been reviewed, I agree with a documented findings and plan of care. Patient was seen and examined. Objective - Vital Signs Vital signs: Vital Signs Temp 97.9 F 07/03/21 12:02 Pulse 70 07/03/21 12:02 Resp 18 07/03/21 12:02 BP 117/70 07/03/21 12:02 Pulse Ox 97 07/03/21 12:02 Intake & Output 07/02/21 07/03/21 07/03/21 18:59 06:59 18:59 Intake Total 600 360 Output Total 1100 900 Balance -500 -900 360 Weight 75 kg Intake: Oral 600 360 Output: Urine 1100 900 Straight 450 Other: # Voids 1 1 # Bowel Movements 1 1 - Labs CBC & Chem 7: 07/03/21 06:31 07/03/21 06:31 Labs: Abnormal Lab Results - Last 24 Hours (Table) 07/03/21 07/03/21 Range/Units 06:31 06:31 WBC 44.9 H (3.8-10.6) k/uL RBC 3.04 L (3.80-5.40) m/uL Hgb 8.8 L (11.4-16.0) gm/dL Hct 27.7 L (34.0-46.0) % RDW 18.5 H (11.5-15.5) % Plt Count 137 L (150-450) k/uL Potassium 3.4 L (3.5-5.1) mmol/L Chloride 110 H (98-107) mmol/L Carbon Dioxide 18 L (22-30) mmol/L BUN 32 H (7-17) mg/dL Creatinine 1.05 H (0.52-1.04) mg/dL Calcium 8.0 L (8.4-10.2) mg/dL Microbiology - Last 24 Hours (Table) 06/30/21 20:09 Urine Culture - Final Urine,Voided Escherichia coli 06/30/21 14:02 Urine Culture - Final Urine,Voided Escherichia coli 06/30/21 Unknown Urine Culture - Final Urine,Catheterized
--- NOTE | 2021-07-03 18:37 | P.PN ---
<Casey Galindo - Last Filed: 07/03/21 18:08> Subjective Progress Note Date: 07/03/21 Hospital course: Patient is a very pleasant 89-year-old female with a past medical history of hypertension, hyperlipidemia, hypothyroidism, and paroxysmal atrial fibrillation on anticoagulation with Xarelto. Patient presented to the hospital on 06/30/21 with a chief complaint of generalized weakness and alteration in mental status. She was seen and fully evaluated in the emergency department. CT head was completed and negative for acute intercranial process showing moderate to marked atrophy. EKG completed revealing sinus tachycardia at 124 bpm. Echocardiogram revealed an EF between 60-65% with no significant valvular abnormalities. Patient was found to be septic with initial lactate of 5.9, tachycardia with heart rate 120s, and hypotension with blood pressure 82/47. Urinalysis positive for infection. Troponin elevated at 0.173. WBCs of 45.4 and acute blood loss anemia with hemoglobin of 8.4. CT abdomen and pelvis was completed revealing a large obstructing calculus distal right ureter with moderate hydronephrosis and hydroureter and moderate right retroperitoneal edema. Urology was urgently consulted and patient was taken for right-sided uretheral stent placement on 06/30/21. Patient given sepsis bolus and started on IV antibiotics. Infectious disease consulted. Urine culture was positive for E. coli and blood culture also positive for E. coli. Physical exam: Patient seen and fully evaluated at the bedside this morning patient ambulatory in room removing all of her clothes and brief. Patient attempting to remove IV, patient was reoriented. Patient denied having any pain or complaints at this time. Patient assisted to restroom and had no difficulties urinating on toilet. Morning labs reviewed leukocytosis improving from previous WBC count of 52.3 down to 44.9. Hemoglobin stable at 8.8. Mild hypokalemia present with potassium of 3.4, orders for replacement. Renal function improved with BUN of 32, creatinine 1.05, and GFR 47. Patient to remain on Vital signs reviewed and stable. General: Nontoxic, no distress and appears stated age. Derm: Skin warm and dry, normal coloration for ethnicity. Head: Atraumatic, normocephalic and symmetric. Eyes: EOMs intact, no lid lag, and anicteric sclera Mouth: no lip lesions, mucus membranes moist Cardiovascular: regular rate and rhythm with normal S1S2, no murmur, positive posterior tibial pulses bilaterally, and cap refill < 2 seconds. Lungs: Respirations even, regular, and unlabored on room air. Lungs CTA bilaterally, no rhonchi, no rales, no wheezing, and no accessory muscle usage. Abdominal: soft, nontender to palpation, no guarding, no appreciable organomegaly Ext: ROM intact. No gross muscle atrophy, no edema, no contractures Neuro: Speech clear, face symmetrical and CN II-XII grossly intact with no noted focal neuro deficits Psych: Alert and oriented to person, place, time, and situation. Appropriate and pleasant affect. Assessment and Plan of Care: Severe Sepsis secondary to acute pyelonephritis with obstructive right-sided urolithiasis E. coli bacteremia secondary to complicated urinary tract infection Acute pyelonephritis, E. coli UTI Obstructive ureteral stone status post cystoscopy with right-sided ureteral stent placement Severe leukocytosis, possibly multifactorial secondary to infection along with steroid use Acute metabolic encephalopathy secondary to severe sepsis in hospital delirium with owning, improving Acute kidney injury on chronic kidney disease secondary to obstructive right- sided urolithiasis, improving -Urology following, patient underwent cystoscopy and and ureteral stent placement 06/30/21 -Continue IV antibiotics: Rocephin -Continue bladder management -Close monitoring of I's and O's -Infectious disease following Acute blood loss anemia, secondary to hematuria, stable -Hemoglobin stable at this time we will continue to monitor closely and likely resume patient's Xarelto in the morning. Paroxysmal atrial fibrillation with RVR Elevated troponin, likely multifactorial secondary to demand ischemia from anemia as well as RVR -Hold anticoagulation with Xarelto at this time secondary to hematuria -Echocardiogram completed revealing a normal EF of 60-65% with no significant valvular abnormalities. -Cardiology following recommending continued conservative medical approach at this time. -Telemetry monitoring COPD not in acute exacerbation, home oxygen dependent on 2 L at all times -Continue daily medication regimen with prednisone 5 mg daily -Continue bronchodilators, oxygen supplementation, and incentive spirometry. CODE STATUS: DO NOT RESUSCITATE/DO NOT INTUBATE DVT prophylaxis: Xarelto held at this time secondary to acute blood loss anemia Discussed with: Patient and RN Anticipated discharge date: Clinical course to determine Anticipated discharge place: [facility] A total of 50 minutes was spent on the care of this complex patient more than 50% of the time was spent in counseling and care coordination. Objective - Vital Signs Vital signs: Vital Signs Temp 97.3 F L 07/03/21 08:34 Pulse 88 07/03/21 08:34 Resp 16 07/03/21 08:55 BP 131/77 07/03/21 08:34 Pulse Ox 94 L 07/03/21 08:34 Intake & Output 07/02/21 07/03/21 07/03/21 18:59 06:59 18:59 Intake Total 600 180 Output Total 1100 900 Balance -500 -900 180 Weight 75 kg Intake: Oral 600 180 Output: Urine 1100 900 Straight 450 Other: # Voids 1 # Bowel Movements 1 1 - Labs CBC & Chem 7: 07/03/21 06:31 07/03/21 06:31 Labs: Abnormal Lab Results - Last 24 Hours (Table) 07/03/21 07/03/21 Range/Units 06:31 06:31 WBC 44.9 H (3.8-10.6) k/uL RBC 3.04 L (3.80-5.40) m/uL Hgb 8.8 L (11.4-16.0) gm/dL Hct 27.7 L (34.0-46.0) % RDW 18.5 H (11.5-15.5) % Plt Count 137 L (150-450) k/uL Potassium 3.4 L (3.5-5.1) mmol/L Chloride 110 H (98-107) mmol/L Carbon Dioxide 18 L (22-30) mmol/L BUN 32 H (7-17) mg/dL Creatinine 1.05 H (0.52-1.04) mg/dL Calcium 8.0 L (8.4-10.2) mg/dL Microbiology - Last 24 Hours (Table) 06/30/21 14:02 Urine Culture - Preliminary Urine,Voided Gram Neg Bacilli 06/30/21 20:09 Urine Culture - Preliminary Urine,Voided Gram Neg Bacilli 06/30/21 Unknown Urine Culture - Final Urine,Catheterized <Lindsay Almendarez - Last Filed: 07/03/21 20:06> Subjective Casey Galindo NP rendered care for this patient independently, reviewed the findings and plan as documented in the note above. I did not physically speak with or examine the patient on this date. Severely elevated white blood cell count with myelocytes and metamyelocytes on a peripheral smear. Recheck CBC with differential in a.m. and consult hematology. Hyperchloremic metabolic acidosis, Check VBG in AM. Objective - Vital Signs Vital signs: Vital Signs Temp 97.4 F L 07/03/21 15:16 Pulse 81 07/03/21 15:16 Resp 18 07/03/21 15:16 BP 110/63 07/03/21 15:16 Pulse Ox 94 L 07/03/21 15:16 Intake & Output 07/03/21 07/03/21 07/04/21 06:59 18:59 06:59 Intake Total 540 Output Total 900 Balance -900 540 Weight 75 kg Intake: Oral 540 Output: Urine 900 Straight 450 Other: # Voids 1 1 # Bowel Movements 1 1 - Labs CBC & Chem 7: 07/03/21 06:31 07/03/21 06:31 Labs: Abnormal Lab Results - Last 24 Hours (Table) 07/03/21 07/03/21 Range/Units 06:31 06:31 WBC 44.9 H (3.8-10.6) k/uL RBC 3.04 L (3.80-5.40) m/uL Hgb 8.8 L (11.4-16.0) gm/dL Hct 27.7 L (34.0-46.0) % RDW 18.5 H (11.5-15.5) % Plt Count 137 L (150-450) k/uL Potassium 3.4 L (3.5-5.1) mmol/L Chloride 110 H (98-107) mmol/L Carbon Dioxide 18 L (22-30) mmol/L BUN 32 H (7-17) mg/dL Creatinine 1.05 H (0.52-1.04) mg/dL Calcium 8.0 L (8.4-10.2) mg/dL Microbiology - Last 24 Hours (Table) 06/30/21 16:38 Blood Culture Gram Stain - Final Blood Blood Culture - Final Escherichia coli 06/30/21 20:09 Urine Culture - Final Urine,Voided Escherichia coli 06/30/21 14:02 Urine Culture - Final Urine,Voided Escherichia coli
[2021-07-03] MEDS: PANTOPRAZOLE 40 MG TABLET PO SCH (21:55)
--- NOTE | 2021-07-03 22:08 | PN ---
PROGRESS NOTE DATE OF SERVICE: 07/03/2021 REASON FOR FOLLOWUP: Complicated urinary tract infection with bacteremia. INTERVAL HISTORY: The patient is afebrile. The patient is more awake and alert. The patient is breathing comfortably. The patient denies having any chest pain. No worsening cough or sputum production. No abdominal pain or diarrhea. PHYSICAL EXAMINATION: Blood pressure 124/63 with a pulse of 80, temperature 98.4. She is 94% on room air. General description is an elderly female lying in bed in no distress. Respiratory system: Unlabored breathing. Coarse breath sounds bilaterally. No wheeze. Heart S1, S2. Regular rate and rhythm. Abdomen soft, no tenderness. LABS: Hemoglobin is 8.9, white count , creatinine 1.05. DIAGNOSTIC IMPRESSION AND PLAN: 1. Patient with an Escherichia coli complicated urinary tract infection with bacteremia. Patient is covered with Rocephin 2 grams daily; to continue. 2. Patient with elevated white count, more likely steroid effect, as no evidence of any worsening infection. MMODL / IJN: [id number] /
[2021-07-04 06:52] LABS: VBG PH 7.38 (7.31-7.41)
[2021-07-04 06:53] LABS: Anisocytosis Slight; Basophils % (A) 0 %; Eosinophils % (A) 0 %; HCT 26.7 % (34.0-46.0); HGB 8.3 gm/dL (11.4-16.0); Hypochromasia Moderate; Lymphocytes # (A) 1.7 k/uL (1.0-4.8); Lymphocytes % (A) 10 %; MCH 28.3 pg (25.0-35.0); MCHC 31.1 g/dL (31.0-37.0); MCV 90.7 fL (80.0-100.0); Mean Platelet Volume 9.5; Monocytes # (A) 0.8 k/uL (0-1.0); Monocytes % (A) 5 %; Neutrophils % (A) 81 %; Platelet Count 110 k/uL (150-450); RBC 2.95 m/uL (3.80-5.40); RDW 18.6 % (11.5-15.5); WBC 16.1 k/uL (3.8-10.6)
[2021-07-04] MEDS: MIDODRINE 5 MG TAB PO SCH (06:53)
[2021-07-04] MEDS: LEVOTHYROXINE 25 MCG TAB PO SCH (06:53)
[2021-07-04 07:26] LABS: Albumin 2.4 g/dL (3.5-5.0); Calcium 7.8 mg/dL (8.4-10.2); Magnesium 1.7 mg/dL (1.6-2.3); Potassium 3.3 mmol/L (3.5-5.1); Total Bilirubin 1.1 mg/dL (0.2-1.3); Total Protein 5.1 g/dL (6.3-8.2)
[2021-07-04] MEDS: VERAPAMIL 40 MG TAB PO SCH ×3 (08:15→21:03)
[2021-07-04] MEDS: guaiFENesin 600 MG TABLET.ER PO SCH (08:15)
[2021-07-04] MEDS: METOPROLOL SUCCINATE (ER) 25 MG TAB.ER.24H PO SCH (08:15)
[2021-07-04] MEDS: MAGNESIUM OXIDE 400 MG TAB PO SCH (08:15)
[2021-07-04] MEDS: CHOLECALCIFEROL 25 MCG (1000 IU) TABLET PO SCH (08:15)
[2021-07-04] MEDS: predniSONE 5 MG TAB PO SCH (08:15)
[2021-07-04] MEDS ORDERED: POTASSIUM CHLORIDE ER 20 MEQ TAB.ER PO STA (09:00)
[2021-07-04] MEDS: SYMBICORT 160-4.5 MCG INHALER INHALATION SCH ×2 (09:02→20:46)
--- NOTE | 2021-07-04 09:13 | CDI ---
Documentation Clarification Form Date: 07/03/2021 12:40:00 PM From: Maegan Bradley CCS, CCDS Admit Date: 06/30/2021 03:17:00 PM Patient Name: Martha Tamayo Visit Number: [id number] Discharge Date: ATTENTION: The Clinical Documentation Specialists (CDI) and [facility] Coding Staff appreciate your assistance in clarifying documentation. Please respond to the clarification below the line at the bottom and electronically sign. The CDI & [facility] Coding staff will review the response and follow-up if needed. Please note: Queries are made part of the Legal Health Record. If you have any questions, please contact the author of this message via ITS. Dr. Mason Hamilton: Myocardial injury is documented in the 07/01 Cardiology Consult and the subsequent 07/02 Cardiology Progress Note. Additional clarification regarding the type of MN is requested. History/Risk Factors per the 06/30 H/P: Atrial Fibrillation, Asthma, COPD, Fibromyalgia, Hypertension, Bowel Obstructions. Clinical Indicators: Presented to the ED on 06/30 via EMS with Weakness and Change in Mental Status. Admitted with UTI, Altered Mental Status & Dehydration Procedure: Cystoscopy, Right Ureteral Stent Insertion for Right Hydronephrosis secondary to Right Distal Ureteral Calculus. 06/30 VS: T 97.9, P 124, R 20-31, BP 92/55, PO 99 3Lnc, BMI: 28.4 06/30 LAB: Hgb 10.4, Hct 33.4, Lymph 0.34, [place] 0.54, Nucleated RBCs 1; PT 15.9, INR 1.6, APTT 32.4 06/30 Troponins: 0.086, 0.175 06/30 CXR: Small pleural effusion likely on the right. 06/30 CT Abdomen/Pelvis: Right pleural effusion & RLL infiltrate & atelectasis. 06/30 EKG: R 124 Sinus tachycardia, Septal infarct, age undetermined, ST & T wave abn, consider lateral ischemia. 07/01 EKG: R 97 NSR, Low voltage QRS, Septal infarct, age undetermined. 07/02 EKG: R 150 Atrial fibrillation with RVR, ST & T wave abnormality, consider lateral ischemia. Treatment: IV fluid 130 mls/hr q7H, IV Lactated Ringers 999 mls/hr q1H x2, IV Cefepime 200 mls/hr x1, INH Duoneb QID prn, IV Dextrose/Water w/Na Bicarb 75 mls/hr q15H, IV Vancomycin 125 mg x1, IV Lactated Ringers 75 mls/hr q13H, IV Solu-Cortef 50 mg x1 Please clarify the type of MN, if known: [ ] NSTEMI (type 1) [ ] Type II MN due to (please specify etiology) [ ] Unable to determine [ ] Other Condition, please specify (Template Last Revised: September 2020) MTDD
--- NOTE | 2021-07-04 13:07 | PN ---
PROGRESS NOTE DATE OF SERVICE: 07/04/2021 REASON FOR FOLLOWUP: Complicated UTI with bacteremia. INTERVAL HISTORY: The patient is afebrile. The patient is more awake and alert. The patient is breathing comfortably. The patient denies having any chest pain, shortness of breath or cough. No abdominal pain or diarrhea. PHYSICAL EXAMINATION: Blood pressure 107/63 with pulse of 69, temperature 98. She is 99% on room air. General description is an elderly female up in the bed in no distress. Respiratory system: Unlabored breathing, decreased intensity of breath sounds. No wheeze. Heart S1, S2. Regular rate and rhythm. Abdomen soft, no tenderness. LABS: Hemoglobin 8.3, white count 16.1, creatinine 0.86. DIAGNOSTIC IMPRESSION AND PLAN: Patient with an Escherichia coli bacteremia secondary to complicated urinary tract infection in this patient who is status post ureteral stent placement, on Rocephin. Transition to oral antibiotic on discharge. Continue supportive care. MMODL / IJN: [id number] / MTDYola
--- NOTE | 2021-07-04 14:16 | P.PN ---
Subjective Progress Note Date: 07/04/21 Hospital course: Patient is a very pleasant 89-year-old female with a past medical history of hypertension, hyperlipidemia, hypothyroidism, and paroxysmal atrial fibrillation on anticoagulation with Xarelto. Patient presented to the hospital on 06/30/21 with a chief complaint of generalized weakness and alteration in mental status. She was seen and fully evaluated in the emergency department. CT head was completed and negative for acute intercranial process showing moderate to marked atrophy. EKG completed revealing sinus tachycardia at 124 bpm. Echocardiogram revealed an EF between 60-65% with no significant valvular abnormalities. Patient was found to be septic with initial lactate of 5.9, tachycardia with heart rate 120s, and hypotension with blood pressure 82/47. Urinalysis positive for infection. Troponin elevated at 0.173. WBCs of 45.4 and acute blood loss anemia with hemoglobin of 8.4. CT abdomen and pelvis was completed revealing a large obstructing calculus distal right ureter with moderate hydronephrosis and hydroureter and moderate right retroperitoneal edema. Urology was urgently consulted and patient was taken for right-sided uretheral stent placement on 06/30/21. Patient given sepsis bolus and started on IV antibiotics. Infectious disease consulted. Urine culture was positive for E. coli and blood culture also positive for E. coli. Infectious disease following. Patient remains on IV antibiotic: Rocephin. Physical exam: Patient seen and fully evaluated at the bedside this morning. Patient's mentation seems to have significantly improved this morning and she is much more alert than yesterday. She denies having any complaints or pain at this time including headache, lightheadedness, dizziness, chest pain, palpitations, shortness of breath, or abdominal pain. Patient continues to have moderate hematuria, however hemoglobin remains stable but we will continue to hold Xarelto until some improvement. Called and spoke with patient's son, Bertram and updated him on patient's condition. He also agrees patient has had significant improvement in mentation compared to his conversation with her on Saturday compared to today's phone call. Vital signs reviewed and stable. General: Nontoxic, no distress and appears stated age. Derm: Skin warm and dry, normal coloration for ethnicity. Head: Atraumatic, normocephalic and symmetric. Eyes: EOMs intact, no lid lag, and anicteric sclera Mouth: no lip lesions, mucus membranes moist Cardiovascular: regular rate and rhythm with normal S1S2, no murmur, positive posterior tibial pulses bilaterally, and cap refill < 2 seconds. Lungs: Respirations even, regular, and unlabored on room air. Lungs CTA bilaterally, no rhonchi, no rales, no wheezing, and no accessory muscle usage. Abdominal: soft, nontender to palpation, no guarding, no appreciable organomegaly Ext: ROM intact. No gross muscle atrophy, no edema, no contractures Neuro: Speech clear, face symmetrical and CN II-XII grossly intact with no noted focal neuro deficits Psych: Alert and oriented to person, place, time, and situation. Appropriate and pleasant affect. Assessment and Plan of Care: Severe Sepsis secondary to acute pyelonephritis with obstructive right-sided urolithiasis E. coli bacteremia secondary to complicated urinary tract infection Acute pyelonephritis with hematuria, E. coli UTI Obstructive ureteral stone status post cystoscopy with right-sided ureteral stent placement Severe leukocytosis, possibly multifactorial secondary to infection along with steroid use, improving Acute metabolic encephalopathy secondary to severe sepsis in hospital delirium with sundowning, improving Acute kidney injury on chronic kidney disease secondary to obstructive right- sided urolithiasis, improving -Urology following, patient underwent cystoscopy and and ureteral stent placement 06/30/21 -Continue IV antibiotics: Rocephin -Continue bladder management -Close monitoring of I's and O's -Infectious disease following Acute blood loss anemia, secondary to hematuria, stable -Pt continues to have hematuria at this time. Hemoglobin is stable so we will continue to monitor closely and likely resume patient's Xarelto in the morning. Paroxysmal atrial fibrillation with RVR Elevated troponin, likely multifactorial secondary to demand ischemia from anemia as well as RVR -Hold anticoagulation with Xarelto at this time secondary to hematuria -Echocardiogram completed revealing a normal EF of 60-65% with no significant valvular abnormalities. -Cardiology following recommending continued conservative medical approach at this time. -Telemetry monitoring COPD not in acute exacerbation, home oxygen dependent on 2 L at all times -Continue daily medication regimen with prednisone 5 mg daily -Continue bronchodilators, oxygen supplementation, and incentive spirometry. CODE STATUS: DO NOT RESUSCITATE/DO NOT INTUBATE DVT prophylaxis: Xarelto held at this time secondary to acute blood loss anemia. SCDs. Discussed with: Patient, RN and patient's son Bertram Anticipated discharge date: Clinical course to determine, patient is improving possibly another 1-[address] discharge [address]: [facility] A total of 40 minutes was spent on the care of this complex patient more than 50% of the time was spent in counseling and care coordination. Objective - Vital Signs Vital signs: Vital Signs Temp 98.2 F 07/04/21 08:14 Pulse 74 07/04/21 08:14 Resp 18 07/04/21 08:14 BP 144/73 07/04/21 08:14 Pulse Ox 97 07/04/21 08:14 Intake & Output 07/03/21 07/04/21 07/04/21 18:59 06:59 18:59 Intake Total 540 240 Output Total 450 Balance 540 -450 240 Weight 76 kg Intake: Oral 540 240 Output: Urine 450 Other: # Voids 1 1 # Bowel Movements 1 - Labs CBC & Chem 7: 07/04/21 06:03 07/04/21 06:03 Labs: Abnormal Lab Results - Last 24 Hours (Table) 07/04/21 07/04/21 07/04/21 Range/Units 06:03 06:03 06:03 WBC 16.1 H (3.8-10.6) k/uL RBC 2.95 L (3.80-5.40) m/uL Hgb 8.3 L (11.4-16.0) gm/dL Hct 26.7 L (34.0-46.0) % RDW 18.6 H (11.5-15.5) % Plt Count 110 L (150-450) k/uL Neutrophils # 13.0 H (1.3-7.7) k/uL VBG pCO2 36 L (37-51) mmHg VBG HCO3 21 L (24-28) mmol/L Potassium 3.3 L (3.5-5.1) mmol/L Chloride 115 H (98-107) mmol/L Carbon Dioxide 21 L (22-30) mmol/L BUN 21 H (7-17) mg/dL Calcium 7.8 L (8.4-10.2) mg/dL AST 41 H (14-36) U/L Total Protein 5.1 L (6.3-8.2) g/dL Albumin 2.4 L (3.5-5.0) g/dL Microbiology - Last 24 Hours (Table) 06/30/21 16:38 Blood Culture Gram Stain - Final Blood Blood Culture - Final Escherichia coli 06/30/21 20:09 Urine Culture - Final Urine,Voided Escherichia coli 06/30/21 14:02 Urine Culture - Final Urine,Voided Escherichia coli
--- NOTE | 2021-07-04 17:00 | P.CONS ---
History of Present Illness - Reason for Consult Consult date: 07/04/21 Leukocytosis - History of Present Illness The patient is an 89-year-old white female, with multiple medical issues. The patient was admitted after developing symptoms essentially overnight of shaking chills, followed by weakness, lethargy and confusion. She was brought to the emergency room, where evaluation was consistent with sepsis. She is complaining of some pain in the right side of the abdomen and CT of the abdomen and pelvis revealed a right-sided calculus causing obstruction with hydronephrosis. Urinalysis was abnormal and subsequently grew E. coli. The patient was treated aggressively with antibiotics and hydration. She was seen by urology and had cystoscopy with stent placement and drainage on the right side. Culture of urine during the procedure was also positive for E. coli. On admission the patient's WBC was normal with an increase rapidly up into the 50,000 range. It is decreased today into the 60,000 range. Differential shows predominantly neutrophilia with no other significant findings. On admission her hemoglobin was in the 10 range and has declined into the 8 range. Her cre atinine was also increased significantly compared to her baseline into the 1.6 range, and has improved since cystoscopy, and with hydration. Patient's hemoglobin on admission was in the 10 range, and has declined into the 8 range where it appears to have stabilized. Review of multiple labs in the EMR system does not reveal any significant pre- existing hematologic abnormality. The patient also denied any prior history of hematologic disease. Review of Systems Constitutional: Reports chills, Reports fatigue, Reports poor appetite, Reports weakness Eyes: denies blurred vision, denies pain Ears: deny: decreased hearing, ear discharge, earache, tinnitus Ears, nose, mouth and throat: Denies headache, Denies sore throat Cardiovascular: Reports decreased exercise tolerance Respiratory: Denies cough Gastrointestinal: Reports abdominal pain Genitourinary: Reports as per HPI Menstruation: Reports postmenopausal Musculoskeletal: Reports muscle weakness Integumentary: Denies pruritus, Denies rash Neurological: Reports confusion, Reports weakness Psychiatric: Reports confusion Endocrine: Reports fatigue Hematologic/Lymphatic: Reports as per HPI Past Medical History Past Medical History: Atrial Fibrillation, Asthma, Fibromyalgia, Hypertension Additional Past Medical History / Comment(s): recurrent asthma and lung congestions symptoms,bowel obs,tachycardia,acoustic neuroma rt ear(deaf)- radiation txs History of Any Multi-Drug Resistant Organisms: None Reported Past Surgical History: Appendectomy, Hysterectomy, Orthopedic Surgery, Tubal Ligation Additional Past Surgical History / Comment(s): exploratory lap & lysis of adhesions,nasal surgery, cataracts,ORIF rt tibia, ureteroscopic removal of ureteral calculus Past Anesthesia/Blood Transfusion Reactions: No Reported Reaction, Family History of Problems w/ Anesthesia Additional Past Anesthesia/Blood Transfusion Reaction / Comm: Son had stopped breathing at age 11 during appendix surg,no history of blood transfusion Past Psychological History: No Psychological Hx Reported Smoking Status: Never smoker Past Alcohol Use History: None Reported Past Drug Use History: None Reported - Past Family History Father Family Medical History: Cancer Additional Family Medical History / Comment(s): prostate Mother Additional Family Medical History / Comment(s): aneurysm Medications and Allergies Home Medications Medication Instructions Recorded Confirmed Type Levothyroxine Sodium [Synthroid] 25 mcg PO DAILY 09/29/15 06/30/21 History Ipratropium-Albuterol Nebulize 3 ml INHALATION RT-QID 07/28/17 06/30/21 History [Duoneb 0.5 mg-3 mg/3 ml Soln] Montelukast [Singulair] 10 mg PO DAILY 07/28/17 06/30/21 History Nortriptyline [Pamelor] 10 mg PO DAILY 07/28/17 06/30/21 History Omeprazole 20 mg PO HS 07/28/17 06/30/21 History atenoloL [Tenormin] 37.5 mg PO DAILY 07/28/17 06/30/21 History Budesonide/Formoterol Fumarate 2 puff INHALATION RT-BID 02/04/18 06/30/21 History [Symbicort 160-4.5 Mcg Inhaler] Potassium Chloride [K-Tab ER] 10 meq PO DAILY 02/05/18 06/30/21 History Rivaroxaban [Xarelto] 15 mg PO DAILY 02/02/19 06/30/21 History Benralizumab [Fasenra Pen] 30 mg SQ Q56D 06/30/21 06/30/21 History Cholecalciferol (Vitamin D3) 75 mcg PO DAILY 06/30/21 06/30/21 History [Vitamin D3 (3000 Iu)] Cyanocobalamin [Vitamin B-12 1,000 mcg SQ Q30D 06/30/21 06/30/21 History Injection] Verapamil HCl [Verapamil ER] 120 mg PO DAILY 06/30/21 06/30/21 History guaiFENesin [Mucinex] 1,200 mg PO DAILY 06/30/21 06/30/21 History predniSONE 5 mg PO SUTUTHSA 06/30/21 06/30/21 History predniSONE 10 mg PO MOWEFR 06/30/21 06/30/21 History Allergies Allergy/AdvReac Type Severity Reaction Status Date / Time celecoxib [From Celebrex] Allergy Unknown Verified 06/30/21 15:15 nabumetone [From Relafen] Allergy Unknown Verified 06/30/21 15:15 NSAIDS (Non-Steroidal Allergy Unknown Verified 06/30/21 15:15 Anti-Inflamma pregabalin [From Lyrica] Allergy fluid Verified 06/30/21 15:15 retention tramadol Allergy Itching Verified 06/30/21 15:15 valdecoxib [From Bextra] Allergy Unknown Verified 06/30/21 15:15 carisoprodol [From Soma] AdvReac Dizziness Verified 06/30/21 15:15 duloxetine HCl AdvReac sleepiness Verified 06/30/21 15:15 [From Cymbalta] furosemide [From Lasix] AdvReac Sleepiness Verified 06/30/21 15:15 lisinopril AdvReac dizziness Verified 06/30/21 15:15 metaxalone [From Skelaxin] AdvReac sleepiness Verified 06/30/21 15:15 milk AdvReac Diarrhea Verified 06/30/21 15:15 naproxen [From Naprosyn] AdvReac Itching Verified 06/30/21 15:15 prednisone AdvReac difficulty Verified 06/30/21 15:15 sleeping,fatigue rofecoxib [From Vioxx] AdvReac Nausea & Verified 06/30/21 15:15 Vomiting & Diarrhea DUST Allergy Unknown Uncoded 06/30/21 15:15 Physical Exam Vitals: Vital Signs Temp Pulse Resp BP Pulse Ox 07/04/21 08:14 98.2 F 74 18 144/73 97 07/04/21 04:00 98.1 F 84 18 125/72 91 L 07/04/21 02:00 79 18 07/04/21 00:00 98.1 F 79 18 134/73 95 07/03/21 20:00 98.4 F 80 18 134/63 94 L 07/03/21 15:16 97.4 F L 81 18 110/63 94 L 07/03/21 14:44 18 07/03/21 12:02 97.9 F 70 18 117/70 97 Intake and Output 07/03/21 07/04/21 07/04/21 22:59 06:59 14:59 Intake Total 180 240 Output Total 450 Balance -270 240 Intake: Oral 180 240 Output: Urine 450 Other: # Voids 1 1 Weight 76 kg - Constitutional General appearance: no acute distress - EENT Eyes: EOMI, PERRLA ENT: hearing grossly normal, normal oropharynx - Neck Neck: no lymphadenopathy Thyroid: bilateral: normal size - Respiratory Respiratory: bilateral: CTA - Cardiovascular Rhythm: regular Heart sounds: normal: S1, S2 - Gastrointestinal General gastrointestinal: normal bowel sounds, soft - Integumentary Integumentary: normal - Neurologic Neurologic: CNII-XII intact - Musculoskeletal Musculoskeletal: generalized weakness, strength equal bilaterally - Psychiatric The patient was oriented to self, but at least partially confused. Generalized weakness. Results CBC & Chem 7: 07/04/21 06:03 07/04/21 06:03 Labs: Abnormal Lab Results - Last 24 Hours (Table) 07/04/21 07/04/21 07/04/21 Range/Units 06:03 06:03 06:03 WBC 16.1 H (3.8-10.6) k/uL RBC 2.95 L (3.80-5.40) m/uL Hgb 8.3 L (11.4-16.0) gm/dL Hct 26.7 L (34.0-46.0) % RDW 18.6 H (11.5-15.5) % Plt Count 110 L (150-450) k/uL Neutrophils # 13.0 H (1.3-7.7) k/uL VBG pCO2 36 L (37-51) mmHg VBG HCO3 21 L (24-28) mmol/L Potassium 3.3 L (3.5-5.1) mmol/L Chloride 115 H (98-107) mmol/L Carbon Dioxide 21 L (22-30) mmol/L BUN 21 H (7-17) mg/dL Calcium 7.8 L (8.4-10.2) mg/dL AST 41 H (14-36) U/L Total Protein 5.1 L (6.3-8.2) g/dL Albumin 2.4 L (3.5-5.0) g/dL Microbiology - Last 24 Hours (Table) 06/30/21 16:38 Blood Culture Gram Stain - Final Blood Blood Culture - Final Escherichia coli 06/30/21 20:09 Urine Culture - Final Urine,Voided Escherichia coli 06/30/21 14:02 Urine Culture - Final Urine,Voided Escherichia coli Comments: Echocardiogram report reviewed Chest x-ray: report reviewed CT scan - abdomen: report reviewed CT Scan - head: report reviewed CT scan - pelvis: report reviewed Assessment and Plan (1) Leukocytosis Narrative/Plan: The patient had developed acute leukocytosis with some left shift Immediately postadmission. This is starting to improve rapidly with WBC down to 16 today with normal differential. - The for the clinical picture appears to be quite consistent with a transient leucovorin reaction. Mild left shift that was noted was transient and not significant. It most likely occurred due to some underlying decreased bone marrow function which would not be uncommon in someone in this age group. Further workup of this is not required unless this is persistent/progressive Current Visit: Yes Status: Acute Code(s): D72.829 - ELEVATED WHITE BLOOD CELL COUNT, UNSPECIFIED SNOMED Code(s): 586429883 (2) Anemia aplastic aregenerative Narrative/Plan: The drop in the patient's hemoglobin is felt to be due to transient bone marrow suppression from severe acute illness, as well as acute kidney injury. As noted above, in this age group it is possible that there may be some underlying mild bone marrow dysfunction not sufficient to cause any major abnormality at baseline, but which could lead to more marked changes in blood count in states of additional stress. - Hemoglobin appears to have stabilized in a safe range. Expect this to improve as the patient's acute situation resolves. - Creatinine has returned to normal - Check labs to rule out any underlying deficiency states Current Visit: Yes Status: Acute Code(s): D61.9 - APLASTIC ANEMIA, UNSPECIFIED SNOMED Code(s): 73869086 Plan: Defer to the admitting service and other consultants for management of her other medical problems Case discussed in detail with the admitting service.
[2021-07-04] MEDS: PANTOPRAZOLE 40 MG TABLET PO SCH (21:03)
[2021-07-05] MEDS: IPRATROPIUM-ALBUTEROL 3 ML NEB INHALATION PRN ×3 (05:11→15:34)
[2021-07-05] MEDS: LEVOTHYROXINE 25 MCG TAB PO SCH (06:21)
[2021-07-05] MEDS: VERAPAMIL 40 MG TAB PO SCH ×2 (10:06→15:59)
[2021-07-05] MEDS: guaiFENesin 600 MG TABLET.ER PO SCH (10:07)
[2021-07-05] MEDS: predniSONE 5 MG TAB PO SCH (10:07)
[2021-07-05] MEDS: CHOLECALCIFEROL 25 MCG (1000 IU) TABLET PO SCH (10:07)
[2021-07-05] MEDS: METOPROLOL SUCCINATE (ER) 25 MG TAB.ER.24H PO SCH (10:07)
[2021-07-05] MEDS: SYMBICORT 160-4.5 MCG INHALER INHALATION SCH (11:16)
[2021-07-05 11:31] LABS: % Iron Saturation 7.28 (12.00-45.00); Ferritin 71.5 ng/mL (10.0-291.0); Iron 21 ug/dL (50-170); Total Iron Binding Capacity 294 ug/dL (228-460); Vitamin B12 >2000.0 pg/mL (200.0-944.0)
--- NOTE | 2021-07-05 11:32 | P.DS ---
Providers Date of admission: 06/30/21 15:17 Expected date of discharge: 07/05/21 Attending physician: Loyd Garcia MD Consults: 06/30/21 15:16 Consult Physician Urgent Consulting Provider: Mason Hamilton Consult Reason/Comments: cardiac eval, ekg changes w trop changes Do you want consulting provider notified?: Yes 06/30/21 18:16 Consult Physician Stat Consulting Provider: Maximino Wall Consult Reason/Comments: OBSTRUCTED KIDNEY STONE Do you want consulting provider notified?: Yes 07/01/21 08:27 Consult Physician Routine Consulting Provider: Kevin Cox Consult Reason/Comments: Sepsis UTI Do you want consulting provider notified?: Yes 07/03/21 20:01 Consult Physician Routine Consulting Provider: Ugo Miranda Consult Reason/Comments: Elevated WBC Do you want consulting provider notified?: Yes Primary care physician: [place] Hospital Course: Discharge Diagnosis: Severe Sepsis secondary to acute pyelonephritis with obstructive right-sided urolithiasis E. coli bacteremia secondary to complicated urinary tract infection Acute pyelonephritis with hematuria, E. coli UTI Obstructive ureteral stone status post cystoscopy with right-sided ureteral stent placement Severe leukocytosis, possibly multifactorial secondary to infection along with steroid use, improving Acute metabolic encephalopathy secondary to severe sepsis in hospital delirium with sundowning, improving Acute kidney injury on chronic kidney disease secondary to obstructive right- sided urolithiasis, improving Acute blood loss anemia, secondary to hematuria, stable Paroxysmal atrial fibrillation with RVR Elevated troponin, likely multifactorial secondary to demand ischemia from anemia as well as RVR COPD not in acute exacerbation, home oxygen dependent on 2 L at all times Hospital Course: Patient is a very pleasant 89-year-old female with a past medical history of hypertension, hyperlipidemia, hypothyroidism, and paroxysmal atrial fibrillation on anticoagulation with Xarelto. Patient presented to the hospital on 06/30/21 with a chief complaint of generalized weakness and alteration in mental status. She was seen and fully evaluated in the emergency department. CT head was completed and negative for acute intercranial process showing moderate to marked atrophy. EKG completed revealing sinus tachycardia at 124 bpm. Echocardiogram revealed an EF between 60-65% with no significant valvular abnormalities. Patient was found to be septic with initial lactate of 5.9, tachycardia with heart rate 120s, and hypotension with blood pressure 82/47. Urinalysis positive for infection. Troponin elevated at 0.173. WBCs of 45.4 and acute blood loss anemia with hemoglobin of 8.4. Xarelto was held secondary to significant hematuria. CT abdomen and pelvis was completed revealing a large obstructing calculus distal right ureter with moderate hydronephrosis and hydroureter and moderate right retroperitoneal edema. Urology was urgently consulted and patient was taken for right-sided uretheral stent placement on 06/30/21. Patient given sepsis bolus and started on IV antibiotics. Infectious disease consulted. Urine culture was positive for E. coli and blood culture also positive for E. coli. Infectious disease following. Patient received 5 day course of IV antibiotics with Rocephin. She continues to urinate without any difficulties status post placement of right-sided ureteral stent. Hematuria significantly improved. Hemoglobin stabilized. Patient was also evaluated by hematology due to significant spike in WBCs lasting 3 days with WBC count as high as 52.3 from count upon arrival being 6.7. Leukocytosis significantly improved and hematology stating 3 day episode of severe leukocytosis resulting from leukemoid reaction and no further workup required. Patient's condition is stable, we will resume her anticoagulation with Xarelto and discharge to [facility] at this time. If significant hematuria again returns, instructions were given that Xarelto may again be held until follow-up with cardiology next week and further evaluation can be completed. Patient also to follow-up with repeat CBC in 3 days with results to be sent to PCP, urology and cardiology for follow-up. Patient being discharged on ciprofloxacin 500 mg by mouth twice da mai for the next 9 days to complete 14 day course of antibiotics for treatment of her E. coli bacteremia as recommended by infectious disease specialist, Dr. Cox. Physical exam: Patient seen and fully evaluated at the bedside this morning. She was alert to person, place, time, and situation. Patient denies having any complaints or needs at this time and reports feeling much better. She denies having any headache, lightheadedness, dizziness, chest pain, palpitations, shortness of breath, abdominal pain, or any other complaints. Hematuria has improved. Patient denies having any abdominal or suprapubic pain with palpation. Patient stable for discharge to [facility] at this time. Vital signs reviewed and stable. General: Nontoxic, no distress and appears stated age. Derm: Skin warm and dry, normal coloration for ethnicity. Head: Atraumatic, normocephalic and symmetric. Eyes: EOMs intact, no lid lag, and anicteric sclera Mouth: no lip lesions, mucus membranes moist Cardiovascular: regular rate and rhythm with normal S1S2, no murmur, positive posterior tibial pulses bilaterally, and cap refill < 2 seconds. Lungs: Respirations even, regular, and unlabored on room air. Lungs CTA bilaterally, no rhonchi, no rales, no wheezing, and no accessory muscle usage. Abdominal: soft, nontender to palpation, no guarding, no appreciable organomegaly Ext: ROM intact. No gross muscle atrophy, no edema, no contractures Neuro: Speech clear, face symmetrical and CN II-XII grossly intact with no noted focal neuro deficits Psych: Alert and oriented to person, place, time, and situation. Appropriate and pleasant affect. A total of 45 minutes of time were spent preparing this complex discharge summary. Patient Condition at Discharge: Stable Plan - Discharge Summary Discharge Rx Participant: No New Discharge Prescriptions: New Ciprofloxacin HCl [Cipro] 500 mg PO Q12H 9 Days #18 tab Metoprolol Succinate (ER) [Toprol XL] 25 mg PO DAILY 30 Days #30 tab Ferrous Sulfate [Feosol] 325 mg PO BID #60 tab Continue Levothyroxine Sodium [Synthroid] 25 mcg PO DAILY Omeprazole 20 mg PO HS Montelukast [Singulair] 10 mg PO DAILY Ipratropium-Albuterol Nebulize [Duoneb 0.5 mg-3 mg/3 ml Soln] 3 ml INHALATION RT-QID Budesonide/Formoterol Fumarate [Symbicort 160-4.5 Mcg Inhaler] 2 puff INHALATION RT-BID Potassium Chloride [K-Tab ER] 10 meq PO DAILY Rivaroxaban [Xarelto] 15 mg PO DAILY guaiFENesin [Mucinex] 1,200 mg PO DAILY Cholecalciferol (Vitamin D3) [Vitamin D3 (3000 Iu)] 75 mcg PO DAILY Benralizumab [Fasenra Pen] 30 mg SQ Q56D Cyanocobalamin [Vitamin B-12 Injection] 1,000 mcg SQ Q30D predniSONE 10 mg PO MOWEFR predniSONE 5 mg PO SUTUTHSA Verapamil HCl [Verapamil ER] 120 mg PO DAILY Discontinued Nortriptyline [Pamelor] 10 mg PO DAILY atenoloL [Tenormin] 37.5 mg PO DAILY Discharge Medication List Levothyroxine Sodium [Synthroid] 25 mcg PO DAILY 09/29/15 [History] Ipratropium-Albuterol Nebulize [Duoneb 0.5 mg-3 mg/3 ml Soln] 3 ml INHALATION RT-QID 07/28/17 [History] Montelukast [Singulair] 10 mg PO DAILY 07/28/17 [History] Omeprazole 20 mg PO HS 07/28/17 [History] Budesonide/Formoterol Fumarate [Symbicort 160-4.5 Mcg Inhaler] 2 puff INHALATION RT-BID 02/04/18 [History] Potassium Chloride [K-Tab ER] 10 meq PO DAILY 02/05/18 [History] Rivaroxaban [Xarelto] 15 mg PO DAILY 02/02/19 [History] Benralizumab [Fasenra Pen] 30 mg SQ Q56D 06/30/21 [History] Cholecalciferol (Vitamin D3) [Vitamin D3 (3000 Iu)] 75 mcg PO DAILY 06/30/21 [History] Cyanocobalamin [Vitamin B-12 Injection] 1,000 mcg SQ Q30D 06/30/21 [History] Verapamil HCl [Verapamil ER] 120 mg PO DAILY 06/30/21 [History] guaiFENesin [Mucinex] 1,200 mg PO DAILY 06/30/21 [History] predniSONE 5 mg PO SUTUTHSA 06/30/21 [History] predniSONE 10 mg PO MOWEFR 06/30/21 [History] Ciprofloxacin HCl [Cipro] 500 mg PO Q12H 9 Days #18 tab 07/05/21 [Rx] Ferrous Sulfate [Feosol] 325 mg PO BID #60 tab 07/05/21 [Rx] Metoprolol Succinate (ER) [Toprol XL] 25 mg PO DAILY 30 Days #30 tab 07/05/21 [Rx] Follow up Appointment(s)/Referral(s): Ugo Miranda MD [STAFF PHYSICIAN] - 4 Weeks David Delgado MD [Primary Care Provider] - 1-2 days Maximino Wall MD [STAFF PHYSICIAN] - 2 Weeks Kevin Cox MD [STAFF PHYSICIAN] - 2 Weeks Zachariah Greene MD [STAFF PHYSICIAN] - 1 Week Ambulatory/Diagnostic Orders: Complete Blood Count w/diff [LAB.AMB] Time Frame: 3 Days, Location: None Selected Activity/Diet/Wound Care/Special Instructions: Activity: As tolerated. Take breaks as needed. Diet: Heart healthy and carb consistent diet. Avoid salts, or foods with hidden salts such as canned or boxed foods and frozen dinners. Extra salt makes your heart work harder and traps the fluid in your body for longer. Special Instructions: Take all of your medications as directed and remember to keep all of your doctor's appointments and follow-up as needed. You will need to follow up outpatient as instructed with urology, Dr. Wall and Cardiology, Dr. Greene in 1 week. We have resumed your Xarelto and you will need to have blood work drawn in 3 days for continued close monitoring of hgb. If significant hematuria (blood in your urine) returns, you may hold Xarelto until follow up with cardiology in one week. Thank you for allowing us to participate in your care, it was truly a pleasure having you for our patient!!! May resume Fasenra upon discharge from [facility]. Discharge Disposition: TRANSFER TO SNF/ECF
--- NOTE | 2021-07-05 12:08 | P.PN ---
Subjective Progress Note Date: 07/05/21 Principal diagnosis: Leukocytosis, anemia In follow-up today patient has no complaints, she is being discharged today. She denies any fever, bleeding or pain. Objective - Vital Signs Vital signs: Vital Signs Temp 97.3 F L 07/05/21 09:40 Pulse 77 07/05/21 11:27 Resp 18 07/05/21 09:40 BP 136/65 07/05/21 09:40 Pulse Ox 96 07/05/21 09:40 Intake & Output 07/04/21 07/05/21 07/05/21 18:59 06:59 18:59 Intake Total 360 118 Balance 360 118 Weight 75 kg Intake: Oral 360 118 Other: # Voids 1 2 1 - Constitutional General appearance: Present: average body habitus, cooperative, no acute distress - EENT Eyes: Present: anicteric sclerae, EOMI ENT: Present: hearing grossly normal - Respiratory Details: Respirations even and unlabored - Musculoskeletal Musculoskeletal: Present: generalized weakness - Psychiatric Psychiatric: Present: A&O x's 3, appropriate affect, intact judgment & insight - Labs CBC & Chem 7: 07/04/21 06:03 07/04/21 06:03 Labs: Abnormal Lab Results - Last 24 Hours (Table) 07/05/21 Range/Units 06:03 Iron 21 L (50-170) ug/dL % Saturation 7.28 L (12.00-45.00) Vitamin B12 >2000.0 H (200.0-944.0) pg/mL Assessment and Plan (1) Iron deficiency anemia Narrative/Plan: Iron studies returned showing iron deficiency. Patient has been started on oral iron twice a day, 30 day supply sent. Plan would be to follow up with hematology in 1 month to see if her anemia has improved with treatment. Current Visit: Yes Status: Acute Priority: Medium Code(s): D50.9 - IRON DEFICIENCY ANEMIA, UNSPECIFIED SNOMED Code(s): 12460426 (2) Leukocytosis Narrative/Plan: This has improved over patient's admission. WBC is now down to 16, all neutrophilia. CBC would be checked in a follow-up appointment with hematology to ensure return to normal levels. Further workup can be done outpatient if pe rsistent or progressive. Current Visit: Yes Status: Acute Priority: Medium Code(s): D72.829 - ELEVATED WHITE BLOOD CELL COUNT, UNSPECIFIED SNOMED Code(s): 450951618
[2021-07-05 16:15] VITALS: BP 120/56; PULSE 78; RESP 16; TEMP 99.1
--- NOTE | 2021-07-05 16:46 | P.PN ---
Progress Note - Text Progress Note Date: 07/05/21 REASON FOR FOLLOWUP: Complicated UTI with bacteremia. INTERVAL HISTORY: The patient remains to be afebrile. The patient is breathing comfortably. The patient denies having any chest pain, shortness of breath or cough. No abdominal pain or diarrhea. PHYSICAL EXAMINATION: Blood pressure 110/60 with pulse of 69, temperature 98. She is 99% on room air. General description is an elderly female up in the bed in no distress. Respiratory system: Unlabored breathing, decreased intensity of breath sounds. No wheeze. Heart S1, S2. Regular rate and rhythm. Abdomen soft, no tenderness. LABS: eviewed DIAGNOSTIC IMPRESSION AND PLAN: Patient with an Escherichia coli bacteremia secondary to complicated urinary tract infection in this patient who is status post ureteral stent placement, on Rocephin. Transition to oral cipro x 10 days on discharge. discussed with [employer] for admitting team.
--- NOTE | 2021-07-26 07:00 | CDI ---
Documentation Clarification Form Date: 07/26/2021 06:58:00 AM From: Maegan GrayBradleyCOLE gaines, CCDS Admit Date: 06/30/2021 03:17:00 PM Patient Name: Martha Tamayo Visit Number: [id number] Discharge Date: 07/05/2021 04:10:00 PM ATTENTION: The Clinical Documentation Specialists (CDI) and [facility] Coding Staff appreciate your assistance in clarifying documentation. Please respond to the clarification below the line at the bottom and electronically sign. The CDI & [facility] Coding staff will review the response and follow-up if needed. Please note: Queries are made part of the Legal Health Record. If you have any questions, please contact the author of this message via ITS. Dr. Billy Forde: There is conflicting documentation of the type of anemia in the patient's record. Unspecified anemia is documented in the 07/02 Cardiology Progress Note. Hematuria is documented in the 07/02 Cardiology Progress Note, the Attending Progress Note and the 07/03 Progress Note. Blood Loss Anemia is also documented in the 07/02 Cardiology Progress Note. Iron Deficiency Anemia is documented in the 07/05 Oncology Progress Note. Please clarify the Type and Acuity of Anemia is requested. History/Risk Factors per the 06/30 H/P: Atrial Fibrillation, Asthma, COPD, Fibromyalgia, Hypertension, Bowel Obstructions. Clinical Indicators: Presented to the ED on 06/30 via EMS with Weakness and Change in Mental Status. Admitted with UTI, Altered Mental Status & Dehydration 06/30 Procedure: Cystoscopy, Right Ureteral Stent Insertion for Right Hydronephrosis secondary to Right Distal Ureteral Calculus. 06/30 VS: T 97.9, P 124, R 20-31, BP 92/55, PO 99 3Lnc, BMI: 28.4 06/30 LAB: Hgb 10.4, Hct 33.4, Lymph 0.34, Bolton 0.54, Nucleated RBCs 1; PT 15.9, INR 1.6, APTT 32.4 Treatment: IV fluid 130 mls/hr q7H, IV Lactated Ringers 999 mls/hr q1H x2, IV Cefepime 200 mls/hr x1, INH Duoneb QID prn, IV Dextrose/Water w/Na Bicarb 75 mls/hr q15H, IV Vancomycin 125 mg x1, IV Lactated Ringers 75 mls/hr q13H, IV Solu-Cortef 50 mg x1 Please clarify the type and acuity of anemia: [ ] Acute blood loss anemia [ ] Please specify if this is a complication of the patient's surgical procedure [ ] Please specify if this is not a complication of the patient's surgical procedure [ ] Acute on chronic blood loss anemia [ ] Please specify if this is a complication of the patient's surgical procedure [ ] Please specify if this is not a complication of the patient's surgical procedure [ ] Chronic blood loss anemia [ ] Iron deficiency anemia [ ] Anemia of chronic kidney disease [ ] Iron Deficiency Anemia [ ] Unable to determine [ ] Other, please specify (Template Last Revised: August 2020) this anemia is likley due to acute blood loss anemia on chronic blood loss anemia due to hematuria MTDD
== END 2021-07-05 16:10 | DRG 853 ==
LOC: EC 13:19 → 3SCARD 15:17
PROVIDERS: ADMIT Hospitalist; ATTEND Hospitalist
PROC: 0T768DZ Dilation of Right Ureter with Intraluminal Device, Via Natural or Artificial Opening Endoscopic (ICD-10-PCS; principal; 2021-06-30 19:25)
DX: A41.51 Sepsis due to Escherichia coli [E. coli] (principal); G92.8 Other toxic encephalopathy; D61.9 Aplastic anemia, unspecified; D62 Acute posthemorrhagic anemia; D84.9 Immunodeficiency, unspecified; E27.40 Unspecified adrenocortical insufficiency; E87.2 Acidosis; F05 Delirium due to known physiological condition; I24.8 Other forms of acute ischemic heart disease; J96.11 Chronic respiratory failure with hypoxia; N13.6 Pyonephrosis; N17.9 Acute kidney failure, unspecified; D53.9 Nutritional anemia, unspecified; E03.9 Hypothyroidism, unspecified; E78.5 Hyperlipidemia, unspecified; E86.0 Dehydration; H91.91 Unspecified hearing loss, right ear; I12.9 Hypertensive chronic kidney disease with stage 1 through stage 4 chronic kidney disease, or unspecified chronic kidney disease; I48.0 Paroxysmal atrial fibrillation; J44.9 Chronic obstructive pulmonary disease, unspecified; D63.1 Anemia in chronic kidney disease; R65.20 Severe sepsis without septic shock; Z66 Do not resuscitate; N18.30 Chronic kidney disease, stage 3 unspecified; Z99.81 Dependence on supplemental oxygen; D33.3 Benign neoplasm of cranial nerves; R31.9 Hematuria, unspecified; Z20.822 Contact with and (suspected) exposure to COVID-19; Z79.01 Long term (current) use of anticoagulants; Z79.51 Long term (current) use of inhaled steroids; Z79.52 Long term (current) use of systemic steroids; Z79.890 Hormone replacement therapy; Z79.899 Other long term (current) drug therapy; Z87.442 Personal history of urinary calculi; Z90.710 Acquired absence of both cervix and uterus; M79.7 Fibromyalgia; Z98.890 Other specified postprocedural states; Z98.49 Cataract extraction status, unspecified eye; Z80.42 Family history of malignant neoplasm of prostate; Z82.49 Family history of ischemic heart disease and other diseases of the circulatory system; Z98.51 Tubal ligation status; Z90.49 Acquired absence of other specified parts of digestive tract; Z92.3 Personal history of irradiation; R03.1 Nonspecific low blood-pressure reading; R77.8 Other specified abnormalities of plasma proteins; Z88.5 Allergy status to narcotic agent; Z88.8 Allergy status to other drugs, medicaments and biological substances; Z88.6 Allergy status to analgesic agent; Z91.011 Allergy to milk products
CPT/HCPCS: 36415; 70450; 71045; 71046; 74176; 80048; 80053; 81001; 82550; 82607; 82728; 82747; 82803; 83540; 83550; 83605; 83735; 83921; 84100; 84484; 85025; 85027; 85610; 85730; 87040; 87077; 87086; 87186; 87635; 88108; 93005; 93306; 94640; 96365; 96375; 99285

== ENCOUNTER 2021-07-13 05:57 | Day surgery (SDC) | payer MEDICARE, BC ==
--- NOTE | 2021-07-08 11:10 | P.GSHP ---
History of Present Illness H&P Date: 07/08/21 Chief Complaint: Right ureteral calculus The patient is an 89-year-old white female with a history of urolithiasis. She underwent ureteroscopic removal of a right sided calculus in December 2020 at [facility]. She presented earlier this month with fever, weakness, and mental status changes. She denied flank pain. CT scan showed evidence of right hydroureteronephrosis due to an 8-9 mm right distal ureteral calculus. The CT scan suggested that there may be a second smaller calculus adjacent to this, as well as a 4-5 mm right renal calculus. She underwent immediate placement of a right ureteral stent. Urine and blood cultures showed E. coli. She is currently taking ciprofloxacin. - Constitutional Constitutional: Denies chills, Denies fever - Genitourinary (Female) Genitourinary: Reports kidney stones, Denies flank pain Past Medical History Past Medical History: Atrial Fibrillation, Asthma, Fibromyalgia, Hypertension Additional Past Medical History / Comment(s): recurrent asthma and lung congestions symptoms,bowel obs,tachycardia,acoustic neuroma rt ear(deaf)- radiation txs History of Any Multi-Drug Resistant Organisms: None Reported Past Surgical History: Appendectomy, Hysterectomy, Orthopedic Surgery, Tubal Ligation Additional Past Surgical History / Comment(s): exploratory lap & lysis of adhesions,nasal surgery, cataracts,ORIF rt tibia, ureteroscopic removal of ureteral calculus Past Anesthesia/Blood Transfusion Reactions: No Reported Reaction, Family History of Problems w/ Anesthesia Additional Past Anesthesia/Blood Transfusion Reaction / Comment(s): Son had st opped breathing at age 11 during appendix surg,no history of blood transfusion Past Psychological History: No Psychological Hx Reported Smoking Status: Never smoker Past Alcohol Use History: None Reported Past Drug Use History: None Reported - Past Family History Father Family Medical History: Cancer Additional Family Medical History / Comment(s): prostate Mother Additional Family Medical History / Comment(s): aneurysm Medications and Allergies Home Medications Medication Instructions Recorded Confirmed Type Levothyroxine Sodium [Synthroid] 25 mcg PO DAILY 09/29/15 06/30/21 History Ipratropium-Albuterol Nebulize 3 ml INHALATION RT-QID 07/28/17 06/30/21 History [Duoneb 0.5 mg-3 mg/3 ml Soln] Montelukast [Singulair] 10 mg PO DAILY 07/28/17 06/30/21 History Omeprazole 20 mg PO HS 07/28/17 06/30/21 History Budesonide/Formoterol Fumarate 2 puff INHALATION RT-BID 02/04/18 06/30/21 History [Symbicort 160-4.5 Mcg Inhaler] Potassium Chloride [K-Tab ER] 10 meq PO DAILY 02/05/18 06/30/21 History Rivaroxaban [Xarelto] 15 mg PO DAILY 02/02/19 06/30/21 History Cholecalciferol (Vitamin D3) 75 mcg PO DAILY 06/30/21 06/30/21 History [Vitamin D3 (3000 Iu)] Cyanocobalamin [Vitamin B-12 1,000 mcg SQ Q30D 06/30/21 06/30/21 History Injection] Verapamil HCl [Verapamil ER] 120 mg PO DAILY 06/30/21 06/30/21 History guaiFENesin [Mucinex] 1,200 mg PO DAILY 06/30/21 06/30/21 History predniSONE 5 mg PO SUTUTHSA 06/30/21 06/30/21 History predniSONE 10 mg PO MOWEFR 06/30/21 06/30/21 History Ciprofloxacin HCl [Cipro] 500 mg PO Q12H 9 Days #18 tab 07/05/21 Rx Ferrous Sulfate [Feosol] 325 mg PO BID #60 tab 07/05/21 Rx Metoprolol Succinate (ER) [Toprol 25 mg PO DAILY 30 Days #30 tab 07/05/21 Rx XL] Allergies Allergy/AdvReac Type Severity Reaction Status Date / Time celecoxib [From Celebrex] Allergy Unknown Verified 06/30/21 15:15 nabumetone [From Relafen] Allergy Unknown Verified 06/30/21 15:15 NSAIDS (Non-Steroidal Allergy Unknown Verified 06/30/21 15:15 Anti-Inflamma pregabalin [From Lyrica] Allergy fluid Verified 06/30/21 15:15 retention tramadol Allergy Itching Verified 06/30/21 15:15 valdecoxib [From Bextra] Allergy Unknown Verified 06/30/21 15:15 carisoprodol [From Soma] AdvReac Dizziness Verified 06/30/21 15:15 duloxetine HCl AdvReac sleepiness Verified 06/30/21 15:15 [From Cymbalta] furosemide [From Lasix] AdvReac Sleepiness Verified 06/30/21 15:15 lisinopril AdvReac dizziness Verified 06/30/21 15:15 metaxalone [From Skelaxin] AdvReac sleepiness Verified 06/30/21 15:15 milk AdvReac Diarrhea Verified 06/30/21 15:15 naproxen [From Naprosyn] AdvReac Itching Verified 06/30/21 15:15 prednisone AdvReac difficulty Verified 06/30/21 15:15 sleeping,fatigue rofecoxib [From Vioxx] AdvReac Nausea & Verified 06/30/21 15:15 Vomiting & Diarrhea DUST Allergy Unknown Uncoded 06/30/21 15:15 Surgical - Exam - General well developed, well nourished, no distress - Respiratory normal respiratory effort - Abdomen Abdomen: soft, non tender, no guarding, no rigid, no rebound - Psychiatric oriented to time, oriented to person, oriented to place, speech is normal, memory intact Results - Imaging CT scan - abdomen: report reviewed, image reviewed Assessment and Plan (1) Hydronephrosis concurrent with and due to calculi of kidney and ureter Status: Acute Code(s): N13.2 - HYDRONEPHROSIS WITH RENAL AND URETERAL CALCULOUS OBSTRUCTION SNOMED Code(s): 602935503 (2) Calculus of ureter Status: Acute Code(s): N20.1 - CALCULUS OF URETER SNOMED Code(s): 93353887 (3) Calculus of kidney Status: Acute Code(s): N20.0 - CALCULUS OF KIDNEY SNOMED Code(s): 85037707 Plan: Cystoscopy, right ureteral stent removal, right ureteroscopy with Holmium laser lithotripsy and possible stone basketing. The procedure has been reviewed in detail with the patient and her daughter. They understand potential risks to include anesthesia, infection, ureteral injury, and inability to successfully remove all calculi.
[2021-07-11 11:16] VITALS: BMI 27.2
[~2021-07-13 05:57] MED LIST changes: +GENTAMICIN 100 MG in SODIUM CHLORIDE 0.9% 100 ML IVPB PRN; -LACTATED RINGERS 1,000 ML IV ONE; -LACTATED RINGERS 1,000 ML IV SCH; -LIDOCAINE VISCOUS 2000 MG/100 ML BOTTLE MUCOUS MEM ONE
[2021-07-13] MEDS ORDERED: LACTATED RINGERS 1,000 ML IV SCH (06:36)
[2021-07-13] MEDS ORDERED: fentaNYL (PF) 50 MCG/ML 2 ML AMP IV PRN (06:36)
[2021-07-13 07:14] LABS: Glucose,Whole Blood 114 mg/dL (75-99)
[2021-07-13] MEDS ORDERED: LIDOCAINE 1% (10MG/ML) FOR IV START INTRADERMA ONE (07:15)
[2021-07-13] MEDS ORDERED: ONDANSETRON 4 MG/2 ML VIAL ONE (07:20)
--- NOTE | 2021-07-13 07:32 | XR ---
EXAMINATION TYPE: XR KUB DATE OF EXAM: 07/13/2021 Comparison: CT 06/30/2021 Clinical History: 89-year-old female stones Findings: There is moderate stool burden. Nonobstructive bowel gas pattern. Small 2 mm right-sided renal calcul us. Right-sided ureteral stent is present. Rounded densities in the pelvis likely phleboliths. Degene rative dextro convex curvature of the lumbar spine. Mild degenerative change of the hips and pubic sy mphysis. Impression: Right-sided ureteral stent. 2 mm nonobstructive right renal calculus. Rounded densities in the pelvis likely phleboliths.
[2021-07-13] MEDS ORDERED: SUCCINYLCHOLINE CHLORIDE 100 MG/5 ML SYR IV ONE (07:34)
[2021-07-13] MEDS ORDERED: PROPOFOL 10 MG/ML 20 ML VIAL IV ONE (07:34)
[2021-07-13] MEDS ORDERED: PHENYLEPHRINE-0.9% NACL SYG 1,000 MCG/10 ML SYRINGE ONE (07:34)
[2021-07-13] MEDS ORDERED: NEOSTIGMINE 1 MG/ML 10 ML VIAL ONE (07:34)
[2021-07-13] MEDS ORDERED: ePHEDrine 50 MG/ML 1 ML AMP ONE (07:34)
[2021-07-13] MEDS ORDERED: LIDOCAINE 1% INJ 10MG/ML (20 ML MDV) ONE (07:34)
[2021-07-13] MEDS ORDERED: ROCURONIUM 10 MG/ML (5 ML VIAL) IV ONE (07:34)
[2021-07-13] MEDS ORDERED: GLYCOPYRROLATE 0.2 MG/ML 2 ML VIAL ONE (07:34)
[2021-07-13 08:57] VITALS: TEMP 97
--- NOTE | 2021-07-13 09:02 | P.OP ---
Date of Procedure: 07/13/21 Preoperative Diagnosis: Right ureteral calculus, right renal calculi Postoperative Diagnosis: Same Procedure(s) Performed: Cystoscopy, right ureteral stent removal, right ureteroscopy with Holmium laser lithotripsy and stone basketing Anesthesia: CEE Surgeon: Maximino Wall Estimated Blood Loss (ml): 0 IV fluids (ml): 400 Pathology: other (Ureteral calculus fragments, sent for chemical analysis) Condition: stable Disposition: PACU Indications for Procedure: The patient is an 89-year-old white female with a history of urolithiasis. She underwent ureteroscopic removal of a right sided calculus in December [address] [facility]. She presented earlier this month with fever, weakness, and mental status changes. She denied flank pain. CT scan showed evidence of right hydroureteronephrosis due to an 8-9 mm right distal ureteral calculus. The CT scan suggested that there may be a second smaller calculus adjacent to this, as well as a 4-5 mm right renal calculus. She underwent immediate placement of a right ureteral stent. Urine and blood cultures showed E. coli. She is currently taking ciprofloxacin. Operative Findings: Right distal ureteral calculus, fragmented and removed completely. Right lower pole renal calculus embedded within renal parenchyma, completely fragmented. Description of Procedure: The patient was taken to the operating room and placed in the dorsolithotomy position, with legs supported in Og stirrups. The external genitalia was prepped and draped sterilely. The 30 lens was used to introduce the 21-Uzbek Joseph cystoscopic sheath through the urethra and into the bladder under direct vision. The bladder was examined in its entirety. The left ureteral orifice appeared normal. The distal end of the right ureteral stent was readily vi sualized. No tumors or foreign bodies were seen. Grasping forceps were used to remove the ureteral stent along with the cystoscope. The Joseph semirigid ureteroscope was advanced into the bladder, and the right ureteral orifice was cannulated. The ureteroscope was advanced up to the calculus. The 272 micron Holmium laser probe was passed through the ureteroscope, and lithotripsy was performed. The calculus was fragmented completely, and calculus fragments were removed from the bladder using a 1.9- Uzbek nitinol basket. There was no evidence of ureteral trauma. The semirigid ureteroscope was removed, and the Joseph Boa flexible ureteroscope was advanced into the bladder. The right ureteral orifice was cannulated, and the ureteroscope was slowly advanced under direct vision, up to the right renal pelvis. Each calyx was examined. Within a lower pole calyx was a calculus measuring several millimeters in diameter. It appeared to be adherent to the mucosa, but as lithotripsy was performed it became apparent that it was embedded within the parenchyma. The calculus was fragmented, and pried out of the parenchymal space. Lithotripsy was continued until there were no calculus fragm ents exceeding 1-2 mm. The ureteroscope was slowly withdrawn under direct vision. There was no evidence of ureteral trauma, and no residual calculus fragments were seen. The cystoscope was then passed into the bladder, and calculus fragments were removed from the bladder. These were saved and sent for chemical analysis. The patient tolerated the procedure well and was taken to the recovery room in stable condition. [facility] [place]: Procedure Acuity: Elective Stone Size and Location: 8 mm, right distal ureter Ureteral Dilation: No Ureteral Access Sheath Used: No Stone Sent for Analysis: Yes All Stones/Fragments Were Removed with a Basket: Yes Complications: No Preoperative Antibiotics Given: Yes Stent Placed: No Discharge Medications: Ciprofloxacin
[2021-07-13 10:53] VITALS: BP 102/63; PULSE 55; RESP 14
== END 2021-07-13 11:18 ==
LOC: OR 05:57
PROVIDERS: ATTEND Urology
DX: N13.2 Hydronephrosis with renal and ureteral calculous obstruction (principal); I48.91 Unspecified atrial fibrillation; M79.7 Fibromyalgia; I10 Essential (primary) hypertension; R00.0 Tachycardia, unspecified; J44.9 Chronic obstructive pulmonary disease, unspecified; E07.9 Disorder of thyroid, unspecified; K21.9 Gastro-esophageal reflux disease without esophagitis; Z86.69 Personal history of other diseases of the nervous system and sense organs; Z92.3 Personal history of irradiation; Z90.710 Acquired absence of both cervix and uterus; Z98.51 Tubal ligation status; Z98.49 Cataract extraction status, unspecified eye; Z98.890 Other specified postprocedural states; Z90.49 Acquired absence of other specified parts of digestive tract; Z87.442 Personal history of urinary calculi; Z80.42 Family history of malignant neoplasm of prostate; Z82.49 Family history of ischemic heart disease and other diseases of the circulatory system; Z79.01 Long term (current) use of anticoagulants; Z79.890 Hormone replacement therapy; Z79.51 Long term (current) use of inhaled steroids; Z79.52 Long term (current) use of systemic steroids; Z79.899 Other long term (current) drug therapy; Z88.5 Allergy status to narcotic agent; Z88.8 Allergy status to other drugs, medicaments and biological substances; Z88.6 Allergy status to analgesic agent; Z91.011 Allergy to milk products; Z91.09 Other allergy status, other than to drugs and biological substances
CPT/HCPCS: 82365; 74018; 52356; J2710; J0690; J2405; J2001; J1580; J2370; J0330; J2704